=== PATIENT | female | born 1955 | race African-American/Black ===

== ENCOUNTER 2016-05-30 11:11 | Inpatient (IN) | payer OTHER ==
[~2016-05-30] VITALS: Ht 162.6 cm; Wt 78.9 kg
[2016-05-30] VITALS (8 sets, daily range): BP systolic 168–223; BP diastolic 76–98; PULSE 68–82; RESP 18–25; TEMP 98.2; O2SAT 94–98
[~2016-05-30 11:11] MED LIST: ALBU0.08 NEB; AMLO10 PO; ASPI325T PO; ATOR1TAB18 PO; BETH25 PO; BLOOD PRESSURE1 M20; BUME1TAB PO; CARD4TAB2 PO; CELE20TA PO; CLON.2 PO; FLUT50SP EACH NARE; LEVEMIR SQ; METO-309 PO; MIRA33504 PO; NEUR300C PO; NOVOLOGP2 SQ; PLAV75TA29 PO; PRED1 PO; PRED10 PO; PROM25TA5 PO; PROT40TA PO; WHEEMIS3; glucometer; hydrALAZINE PO
--- NOTE | 2016-05-30 11:38 | PD ---
HPI Chief Complaint: Chest Pain Time Seen by Provider: 11:38 Travel History International Travel<30 days: No Contact w/Intl Traveler<30days: No Traveled to known affect area: No History of Present Illness HPI 60-year-old female with a history of hypertension, hyperlipidemia, CVA 2, chronic kidney disease is brought to the emergency department from her [facility] facility for evaluation of left lower chest pain for 3 days. Patient states that she's had intermittent left lower chest pain for the past 3 days that has become more frequent and more painful. Actually, when asked what exactly hurts the patient reports "my left breast" and lifts up her left breast and points. She also complains of shortness of breath. States that she has had 2 episodes of nonbloody nonbilious emesis over the past 2 days , no vomit today. Last bowel movement was yesterday and she reports was normal. She denies any fever, chills, cough or cold symptoms, abdominal pain, diarrhea, constipation, dysuria. It should be noted that the patient is a poor historian and there is no family present at the time of evaluation. No other complaints. PFSH Past Medical History Hx Anticoagulant Therapy: No Asthma: Yes Cancer: No Cardiovascular Problems: Yes (HTN) High Cholesterol: Yes Chemotherapy: No Cerebrovascular Accident: Yes (cva x2) Diabetes: Yes Diminished Hearing: No Endocrine: Yes Hypertension: Yes Musculoskeletal: No Neurologic: Yes Psychiatric: No Respiratory: Yes (SLEEP ANEA ) Myocardial Infarction: Yes (x1) Sleep Apnea: Yes ?: Not Menopausal: Yes Past Surgical History Section: Yes (x1) Cholecystectomy: Yes Endocrine Surgery: Yes (THYROID NODULES) Gynecologic Surgery: Yes (HYSTERECTOMY) Hysterectomy: Yes Tonsillectomy: Yes Other Surgery: Yes Social History Alcohol Use: No Tobacco Use: No Substance Use: No Allergies-Medications (Allergen,Severity, Reaction): Coded Allergies: No Known Allergies (Unverified , 02/09/16) Reported Meds & Prescriptions Reported Meds & Active Scripts Active [hydrALAZINE] 100 MG Tab 100 Mg PO Q8HR Lopressor (Metoprolol Tartrate) 50 Mg Tab 100 Mg PO Q8HR Levemir Inj (Insulin Detemir) 1,000 unit/ 10 ML Vial 25 Units SQ BID Novolog Inj (Insulin Aspart) 1,000 Unit/10 Ml Vial 10 Units SQ AC DINNER Cardura (Doxazosin Mesylate) 4 Mg Tab 6 Mg PO HS Catapres (Clonidine) 0.2 Mg Tab 0.2 Mg PO Q8HR Bumetanide 1 Mg Tab 2 Mg PO DAILY Urecholine (Bethanechol Chloride) 25 Mg Tab 25 Mg PO Q8HR Norvasc (Amlodipine Besylate) 10 Mg Tab 10 Mg PO DAILY Reported Albuterol Neb (Albuterol Sulfate) 2.5 Mg/3 Ml Neb 2.5 Mg NEB Q4HR NEB PRN While awake Protonix (Pantoprazole Sodium) 40 Mg Tab 40 Mg PO DAILY Phenergan (Promethazine HCl) 25 Mg Tab 25 Mg PO Q6H PRN Plavix (Clopidogrel Bisulfate) 75 Mg Tab 75 Mg PO DAILY Neurontin (Gabapentin) 300 Mg Cap 300 Mg PO DAILY Celexa (Citalopram Hydrobromide) 20 Mg Tab 20 Mg PO DAILY Atorvastatin (Atorvastatin Calcium) 80 Mg Tab 80 Mg PO HS Aspirin 325 Mg Tab 325 Mg PO DAILY Miralax Powder (Polyethylene Glycol 3350 Powder) 17 Gm Powd 17 Gm PO DAILY Mix and dissolve one measuring cap-ful (17 grams) in water or juice. Fluticasone Nasal [place] 50 Mcg/Act Naspr 50 Mcg EACH NARE BID 50 mcg/spray Review of Systems ROS Limitations: Poor Historian Except as stated in HPI: all other systems reviewed are Neg Physical Exam Exam Limitations: Poor Historian Narrative GENERAL: Well-nourished and well-developed pleasant patient in moderate amount of discomfort but no acute distress. SKIN: Warm and dry without any obvious rashes or lesions. HEAD: Normocephalic and atraumatic. No bony point tenderness or crepitus noted throughout the sinuses. EYES: No injection, drainage, or hyphema noted. PERRLA. EOMI. ENT: No nasal drainage noted. Oropharynx is clear and the TMs are normal with good landmarks. NECK: Supple and the trachea is midline. No lymphadenopathy is noted throughout the cervical chains. CARDIOVASCULAR: Regular rate and rhythm. RESPIRATORY: Poor respiratory effort, decreased at bases. No accessory muscle use, wheezing, rhonchi, or crackles. CHEST: Tenderness to palpation to left lower chest wall underneath her breast. No obvious deformities or abnormalities noted. GASTROINTESTINAL: Abdomen is slightly distended. Abdomen is soft with no tenderness to palpation. No rebound tenderness or guarding. MUSCULOSKELETAL: No obvious deformities, swelling, cyanosis, or ecchymosis is present throughout the upper and lower extremities. NEUROLOGICAL: Awake, alert, and oriented. Right-sided deficits secondary to prior CVA, patient reports this as chronic. Cranial nerves are grossly intact. Data Data Last Documented VS Vital Signs Date Time Temp Pulse Resp B/P Pulse Ox O2 Delivery O2 Flow Rate FiO2 05/30/16 11:42 98 Nasal Cannula 3 05/30/16 11:38 73 25 05/30/16 11:38 98.2 204/84 Orders Electrocardiogram (05/30/16 11:37) Ckmb (Isoenzyme) Profile (05/30/16 11:37) Complete Blood Count With Diff (05/30/16 11:37) Comprehensive Metabolic Panel (05/30/16 11:37) Magnesium (Mg) (05/30/16 11:37) Prothrombin Time / Inr (Pt) (05/30/16 11:37) Act Partial Throm Time (Ptt) (05/30/16 11:37) Troponin I (05/30/16 11:37) Lipase (05/30/16 11:37) Chest, Single Ap (05/30/16 11:37) Ecg Monitoring (05/30/16 11:37) Bilateral Bp Monitoring (05/30/16 11:37) Iv Access Insert/Monitor (05/30/16 11:37) Oximetry (05/30/16 11:37) Oxygen Administration (05/30/16 11:37) Morphine Inj (Morphine Inj) (05/30/16 11:45) Sodium Chloride 0.9% Flush (Ns Flush) (05/30/16 11:45) CKMB (05/30/16 11:55) CKMB% (05/30/16 11:55) Ventilation & Perfusion Scan (05/30/16 12:46) B-Type Natriuretic Peptide (05/30/16 14:12) Furosemide Inj (Lasix Inj) (05/30/16 15:00) Clonidine (Catapres) (05/30/16 15:00) Admit Order (Ed Use Only) (05/30/16 15:21) Labs Laboratory Tests Test 05/30/16 11:55 White Blood Count 5.2 TH/MM3 Red Blood Count 2.99 MIL/MM3 Hemoglobin 8.1 GM/DL Hematocrit 25.1 % Mean Corpuscular Volume 83.9 FL Mean Corpuscular Hemoglobin 26.9 PG Mean Corpuscular Hemoglobin 32.1 % Concent Red Cell Distribution Width 15.6 % Platelet Count 159 TH/MM3 Mean Platelet Volume 9.5 FL Neutrophils (%) (Auto) 62.7 % Lymphocytes (%) (Auto) 18.3 % Monocytes (%) (Auto) 10.2 % Eosinophils (%) (Auto) 7.8 % Basophils (%) (Auto) 1.0 % Neutrophils # (Auto) 3.2 TH/MM3 Lymphocytes # (Auto) 0.9 TH/MM3 Monocytes # (Auto) 0.5 TH/MM3 Eosinophils # (Auto) 0.4 TH/MM3 Basophils # (Auto) 0.0 TH/MM3 CBC Comment DIFF FINAL Differential Comment Prothrombin Time 10.7 SEC Prothromb Time International 1.0 RATIO Ratio Activated Partial 24.0 SEC Thromboplast Time Sodium Level 140 MEQ/L Potassium Level 5.4 MEQ/L Chloride Level 107 MEQ/L Carbon Dioxide Level 28.4 MEQ/L Anion Gap 5 MEQ/L Blood Urea Nitrogen 44 MG/DL Creatinine 2.09 MG/DL Estimat Glomerular Filtration 29 ML/MIN Rate Random Glucose 181 MG/DL Calcium Level 8.8 MG/DL Magnesium Level 2.6 MG/DL Total Bilirubin 0.4 MG/DL Aspartate Amino Transf 38 U/L (AST/SGOT) Alanine Aminotransferase 69 U/L (ALT/SGPT) Alkaline Phosphatase 138 U/L Total Creatine Kinase 136 U/L Creatine Kinase MB 1.1 NG/ML Troponin I LESS THAN 0.02 NG/ML B-Type Natriuretic Peptide 364 PG/ML Total Protein 7.4 GM/DL Albumin 2.8 GM/DL Lipase 231 U/L [facility] Medical Decision Making Medical Screen Exam Complete: Yes Emergency Medical Condition: Yes Differential Diagnosis ACS versus pneumonia versus PE versus hypertensive urgency versus musculoskeletal pain Narrative Course 60-year-old female presents to the emergency department for evaluation of left lower chest pain for 3 days with shortness of breath. Patient is afebrile. She is initially hypertensive with a blood pressure 204/84. Oxygen saturation is 94% on room air, she is placed on nasal cannula and her oxygen saturation is 98%. She does appear to be in some discomfort and keeps clutching her left lower chest underneath her breast complaining of pain. Patient is administered morphine 2 mg IV. Labs have been drawn and sent. EKG shows sinus rhythm with no acute ST elevations or depressions. CBC shows anemia with a hemoglobin of 8.1, hematocrit 25.1. This does appear to be consistent with her previous lab values. CMP shows mild hyperkalemia with potassium 5.4 but there is slight hemolysis noted. Renal insufficiency with Creatinine 2.09, BUN 44, GFR 29, does appear to be consistent with previous lab values and is new baseline for the patient. LFTS slightly elevated. Lipase is normal. Troponin is less than 0.02. CK-MB 1.1. Chest x-ray shows cardiomegaly with moderate interstitial edema. VQ scan is negative for PE. BNP is elevated at 364. Patient appears to be in less pain but is still mildly short of breath. This shortness of breath is likely a CHF exacerbation therefore patient is given Lasix 20 mg IV. Low dose due to renal insufficiency. She also has had hypertension and is given clonidine 0.2 mg. Patient will be admitted to resident's service. I did examine the patient again with the resident and note there is now a small vesicular rash present underneath her left breast that extends around left upper back in dermatomal distribution. This certainly would explain her pain but not her shortness of breath. I discussed the case with my attending physician Dr. Womack who is aware of the patients history, physical examination findings, and treatment plan. Physician Communication Physician Communication I spoke with the medical equipment repairer who agrees to accept the patient to their service. Diagnosis Primary Impression: Shortness of breath Additional Impressions: CHF exacerbation Qualified Code: I50.9 - Acute on chronic congestive heart failure, unspecified congestive heart failure type Chronic kidney disease, stage 4 (severe) Shingles rash Qualified Code: B02.9 - Herpes zoster without complication Admitting Information Admitting Physician Requests: Admit Whit Stephens May 30, 2016 11:38
[2016-05-30] MEDS ORDERED: MORPHINE SULFATE 4 MG/ML INJ IV PUSH ONE (11:45)
[2016-05-30] MEDS ORDERED: SODIUM CHLORIDE 0.9% FLUSH 5 ML FLUSH IVF PRN (11:45)
[2016-05-30 12:08] LABS: AUTOMATED NEUTROPHIL # 3.2 TH/MM3 (1.8-7.7); EOSINOPHIL # 0.4 TH/MM3 (0-0.4); EOSINOPHIL % 7.8 % (0.0-4.0); HEMATOCRIT 25.1 % (35.0-46.0); HEMO FLAGS DIFF FINAL; LYMPH % 18.3 % (9.0-44.0); LYMPHOCYTE # 0.9 TH/MM3 (1.0-4.8); MEAN CELL VOLUME 83.9 FL (80.0-100.0); MEAN CORPUSCULAR HEMOGLOBIN 26.9 PG (27.0-34.0); MEAN CORPUSCULAR HGB CONC 32.1 % (32.0-36.0); MONO % 10.2 % (0.0-8.0); NEUT % 62.7 % (16.0-70.0); PLATELET COUNT 159 TH/MM3 (150-450); RED BLOOD COUNT 2.99 MIL/MM3 (4.00-5.30); RED CELL DISTRIBUTION WIDTH 15.6 % (11.6-17.2); WHITE BLOOD COUNT 5.2 TH/MM3 (4.0-11.0)
[2016-05-30 12:20] LABS: PROTHROMBIN TIME - PATIENT 10.7 SEC (9.8-11.6)
[2016-05-30 12:47] LABS: ALKALINE PHOSPHATASE 138 U/L (45-117); ALT (GPT) 69 U/L (10-53); ANION GAP 5 MEQ/L (5-15); AST (GOT) 38 U/L (15-37); BICARBONATE 28.4 MEQ/L (21.0-32.0); BLOOD UREA NITROGEN 44 MG/DL (7-18); CHLORIDE 107 MEQ/L (98-107); CREATINE KINASE 136 U/L (26-192); GLOMERULAR FILTRATION RATE 29 ML/MIN (>89); MAGNESIUM 2.6 MG/DL (1.5-2.5); POTASSIUM 5.4 MEQ/L (3.5-5.1); SODIUM (NA) 140 MEQ/L (136-145); TOTAL BILIRUBIN ADULT 0.4 MG/DL (0.2-1.0)
[2016-05-30 13:00] LABS: CKMB 1.1 NG/ML (0.5-3.6)
--- NOTE | 2016-05-30 13:51 | RADRPT ---
EXAM DATE/TIME: 05/30/2016 12:05 [facility] COMPARISON: CHEST SINGLE AP, February 17, 2016, 4:05. INDICATIONS : Short of breath, chest pain MEDICAL HISTORY : Hypertension. Myocardial infarction. Stroke. SURGICAL HISTORY : Tonsillectomy. Hysterectomy. section. ENCOUNTER: Initial ACUITY: 1 day PAIN SCORE: Non-responsive. LOCATION: Bilateral chest FINDINGS: The heart is enlaraged. Moderate interstitial edema is present. Minimal bibasilar parenchymal mckeon es are noted. CONCLUSION: Heart remains enlarged with moderate interstitial edema. Del Isaac MD FACR on May 30, 2016 at 12:47 Board Certified Radiologist. This report was verified electronically.
--- NOTE | 2016-05-30 14:47 | RADRPT ---
EXAM DATE/TIME: 05/30/2016 13:44 [facility] COMPARISON: CHEST SINGLE AP, May 30, 2016, 12:05. INDICATIONS : Left sided chest pain with dyspnea. DOSE: 8.5 mCi Tc99m MAA IV 0.5 mCi Tc99m DTPA aerosol MEDICAL HISTORY : Hypertension. Diabetes mellitus type 2. Stroke. SURGICAL HISTORY : Cholecystectomy. Hysterectomy. section. Tonsillectomy. ENCOUNTER: Initial ACUITY: 1 day PAIN SCALE: 2/10 LOCATION: Left chest TECHNIQUE: Following five minutes of tidal breathing of DTPA aerosol, planar images of the lungs were performed in eight projections. The patient was then injected with MAA, and eight-view perfusion scan was perf ormed. FINDINGS: There is a homogeneous pattern of aerosol delivery to the periphery of both lungs. No focal ventilat ory defects are seen. The perfusion lung scan demonstrates a homogenous pattern of uptake in both lungs. No segmental or s ubsegmental defects are seen. CONCLUSION: Negative for pulmonary embolus. Julio Kruger MD on May 30, 2016 at 14:39 Board Certified Radiologist. This report was verified electronically.
[2016-05-30] MEDS ORDERED: cloNIDine HCL 0.2 MG TAB PO ONE (15:00)
[2016-05-30] MEDS ORDERED: FUROSEMIDE 20 MG/2 ML VIAL IV PUSH ONE (15:00)
--- NOTE | 2016-05-30 15:23 | HHI.HP ---
[facility] Service Family Medicine Teaching Service Primary Care Physician Zeinab Josue MD Admission Diagnosis Diagnoses: Chief Complaint: chest pain International Travel<30 Days: No Contact w/Intl Traveler<30days: No Known Affected Area: No History of Present Illness Ms. Greenberg is a 60-year-old female with a history of hypertension, T2DM, CVA 2 s/p right riana-paresis, and chronic kidney disease who presents to ED via [facility] from [facility] for evaluation of left lower chest/ breast pain for the past 3 days. She describes burning, stabbing pain localized to her left chest underneath her breast. No radiation of pain. Endorses mild shortness of breath. Denies fever, cough, wheezing, palpitations, nausea, or changes in urinary or bowel habits. She did have one episode of emesis 2 days ago but that has resolved. Review of Systems ROS Limitations: Poor Historian Constitutional: DENIES: Fever, Weight loss, Chills, Dizziness, Change in appetite Endocrine: DENIES: Polyuria Ears, nose, mouth, throat: DENIES: Throat pain Respiratory: COMPLAINS OF: Shortness of breath, DENIES: Cough, Wheezing, Hemoptysis, Sputum production Cardiovascular: COMPLAINS OF: Chest pain, DENIES: Palpitations Gastrointestinal: DENIES: Black stools, Bloody stools, Diarrhea, Nausea, Vomiting Musculoskeletal: COMPLAINS OF: Joint pain Integumentary: DENIES: Rash Neurologic: COMPLAINS OF: Localized weakness, DENIES: Headache, Paresthesias Past Family Social History Past Medical History Per EMR HTN DM HLD Depression Neuropathy Previously on O2 at home and 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[place], [place] 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 impairment Past Surgical History *she can't recall surgeries; these listed are from the EMR Hysterectomy Csection X 1 Right shoulder surgery Tonsillectomy Removal of thyroid nodules "Tumors removed from abdomen" Reported Medications Prednisone 1 Mg Tab 1 Mg PO DIRECTED Take 10 mg for one week starting 03/18, 9 mg the following week, 8 mg the following week, 7 mg the following week, 6 mg the following week, 5 mg the following week, 4 mg the following week, 3 mg the following week, 2 mg the following week, and finally 1 mg the following week Prednisone 10 Mg Tab 10 Mg PO DIRECTED Take 30 mg 03/15, 20 mg 03/16, and 10 mg 03/17 [hydrALAZINE] 100 MG Tab 100 Mg PO Q8HR Lopressor (Metoprolol Tartrate) 50 Mg Tab 100 Mg PO Q8HR Levemir Inj (Insulin Detemir) 1,000 unit/ 10 ML Vial 25 Units SQ BID Novolog Inj (Insulin Aspart) 1,000 Unit/10 Ml Vial 10 Units SQ AC DINNER Cardura (Doxazosin Mesylate) 4 Mg Tab 6 Mg PO HS Catapres (Clonidine) 0.2 Mg Tab 0.2 Mg PO Q8HR Bumetanide 1 Mg Tab 2 Mg PO DAILY Urecholine (Bethanechol Chloride) 25 Mg Tab 25 Mg PO Q8HR Norvasc (Amlodipine Besylate) 10 Mg Tab 10 Mg PO DAILY Albuterol Neb (Albuterol Sulfate) 2.5 Mg/3 Ml Neb 2.5 Mg NEB Q4HR NEB PRN While awake Protonix (Pantoprazole Sodium) 40 Mg Tab 40 Mg PO DAILY Phenergan (Promethazine HCl) 25 Mg Tab 25 Mg PO Q6H PRN Plavix (Clopidogrel Bisulfate) 75 Mg Tab 75 Mg PO DAILY Neurontin (Gabapentin) 300 Mg Cap 300 Mg PO DAILY Celexa (Citalopram Hydrobromide) 20 Mg Tab 20 Mg PO DAILY Atorvastatin (Atorvastatin Calcium) 80 Mg Tab 80 Mg PO HS Aspirin 325 Mg Tab 325 Mg PO DAILY Miralax Powder (Polyethylene Glycol 3350 Powder) 17 Gm Powd 17 Gm PO DAILY Mix and dissolve one measuring cap-ful (17 grams) in water or juice. Fluticasone Nasal [place] 50 Mcg/Act Naspr 50 Mcg EACH NARE BID 50 mcg/spray Allergies: Coded Allergies: No Known Allergies (Unverified , 02/09/16) Family History 24 brothers and sisters significant family history of HTN, DM, Depression significant family history of drug/alcohol abuse Mother: Colon cancer, DM, CAD, HTN Father: at 63 unknown cause Social History Patient moved here to live with her sister in November 2014. Patient's brother and sister's also live in the home. She denies any tobacco, alcohol, or illicit drug use. She has a son who is 33 years old and was recently released from a 17 year assisted sentence. He is currently on parole near [place], [place]. Patient and her sister attend scient[employer] regularly. Physical Exam Vital Signs Vital Signs Date Time Temp Pulse Resp B/P Pulse Ox O2 Delivery O2 Flow Rate FiO2 05/30/16 11:42 98 Nasal Cannula 3 05/30/16 11:42 98 Nasal Cannula 3 05/30/16 11:38 73 25 98 Nasal Cannula 3 05/30/16 11:38 98.2 73 25 204/84 98 Nasal Cannula 3 05/30/16 11:33 98.2 73 18 204/84 98 Physical Exam GENERAL: This is a well-nourished, well-developed patient, in no apparent distress. SKIN: No rashes, ecchymoses or lesions. Cool and dry. HEAD: Atraumatic. Normocephalic. No temporal or scalp tenderness. EYES: Pupils equal round and reactive. Extraocular motions intact. No scleral icterus. No injection or drainage. ENT: Nose without bleeding, purulent drainage or septal hematoma. Throat without erythema, tonsillar hypertrophy or exudate. Uvula midline. Airway patent. NECK: Trachea midline. No JVD or lymphadenopathy. Supple, nontender, no meningeal signs. CARDIOVASCULAR: Regular rate and rhythm without murmurs, gallops, or rubs. RESPIRATORY: Clear to auscultation. Breath sounds equal bilaterally. No wheezes , rales, or rhonchi. GASTROINTESTINAL: Abdomen soft, non-tender, nondistended. No hepato-splenomegaly , or palpable masses. No guarding. MUSCULOSKELETAL: Extremities without clubbing, cyanosis, or edema. No joint tenderness, effusion, or edema noted. No calf tenderness. Negative Homans sign bilaterally. NEUROLOGICAL: Awake and alert. Cranial nerves II through XII intact. Motor and sensory grossly within normal limits. Five out of 5 muscle strength in all muscle groups. Normal speech. Laboratory Laboratory Tests Test 05/30/16 11:55 White Blood Count 5.2 Red Blood Count 2.99 Hemoglobin 8.1 Hematocrit 25.1 Mean Corpuscular Volume 83.9 Mean Corpuscular Hemoglobin 26.9 Mean Corpuscular Hemoglobin 32.1 Concent Red Cell Distribution Width 15.6 Platelet Count 159 Mean Platelet Volume 9.5 Neutrophils (%) (Auto) 62.7 Lymphocytes (%) (Auto) 18.3 Monocytes (%) (Auto) 10.2 Eosinophils (%) (Auto) 7.8 Basophils (%) (Auto) 1.0 Neutrophils # (Auto) 3.2 Lymphocytes # (Auto) 0.9 Monocytes # (Auto) 0.5 Eosinophils # (Auto) 0.4 Basophils # (Auto) 0.0 CBC Comment DIFF FINAL Differential Comment Prothrombin Time 10.7 Prothromb Time International 1.0 Ratio Activated Partial 24.0 Thromboplast Time Sodium Level 140 Potassium Level 5.4 Chloride Level 107 Carbon Dioxide Level 28.4 Anion Gap 5 Blood Urea Nitrogen 44 Creatinine 2.09 Estimat Glomerular Filtration 29 Rate Random Glucose 181 Calcium Level 8.8 Magnesium Level 2.6 Total Bilirubin 0.4 Aspartate Amino Transf 38 (AST/SGOT) Alanine Aminotransferase 69 (ALT/SGPT) Alkaline Phosphatase 138 Total Creatine Kinase 136 Creatine Kinase MB 1.1 Troponin I LESS THAN 0.02 B-Type Natriuretic Peptide 364 Total Protein 7.4 Albumin 2.8 Lipase 231 Result Diagram: 05/30/16 1155 05/30/16 1155 Assessment and Plan Problem List: (1) CKD (chronic kidney disease) stage 3, GFR 30-59 ml/min Status: Chronic (2) Shortness of breath Status: Acute (3) Shingles rash Status: Acute (4) Chest pain Status: Acute (5) Diabetes mellitus Status: Chronic (6) Hypertension Status: Chronic (7) Transaminitis Status: Acute (8) Nutrition, metabolism, and development symptoms Status: Acute (9) Prophylactic measure Status: Acute (10) Anemia Status: Chronic Physician Certification Order for Inpatient Services The services are ordered in accordance with Medicare regulations or non- Medicare payer requirements, as applicable. In the case of services not specified as inpatient-only, they are appropriately provided as inpatient services in accordance with the 2-midnight benchmark. days is the estimated time the patient will need to remain in the hospital, assuming treatment plan goals are met and no additional complications. Problem Qualifiers (1) Shingles rash: Qualified Code: B02.9 - Herpes zoster without complication (2) Diabetes mellitus: Ely Pierce MD R3 May 30, 2016 15:23
[2016-05-30] MEDS ORDERED: INSU1INJ5 SQ (15:57)
[2016-05-30] MEDS ORDERED: CARD4TAB2 PO (15:57)
[2016-05-30] MEDS ORDERED: HYDR-3801 PO (15:57)
[2016-05-30] MEDS ORDERED: FERR325T PO (15:57)
[2016-05-30] MEDS ORDERED: NOVOINJ3 SQ (15:57)
[2016-05-30] MEDS ORDERED: METO50TA PO (15:57)
[2016-05-30] MEDS ORDERED: DEXTROSE 50% IN WATER 50 ML VIAL(D50) IV PUSH PRN (16:00)
[2016-05-30] MEDS ORDERED: NALOXONE HCL 0.4 MG/ML AMP IV PRN (16:00)
[2016-05-30] MEDS ORDERED: ACETAMINOPHEN 325 MG TAB PO PRN (16:00)
[2016-05-30] MEDS ORDERED: ZOLPIDEM TARTRATE 5 MG TAB PO PRN (16:00)
[2016-05-30] MEDS ORDERED: GLUCAGON 1 MG/ML VIAL OTHER PRN (16:00)
[2016-05-30] MEDS: INSULIN ASPART SUPPLEMENTAL SCALE SQ SCH ×2 (16:00→20:40)
[2016-05-30] MEDS ORDERED: MAGNESIUM HYDROXIDE SUSP 30 ML CUP PO PRN (16:00)
[2016-05-30] MEDS ORDERED: SODIUM CHLORIDE 0.9% FLUSH 5 ML FLUSH FLUSH PRN (16:00)
[2016-05-30] MEDS ORDERED: DULC10SU3 PR (16:03)
[2016-05-30] MEDS ORDERED: IPRASOL NEB (16:03)
[2016-05-30] MEDS ORDERED: MYLASUS2 PO (16:03)
[2016-05-30] MEDS ORDERED: MILKSUS PO (16:03)
[2016-05-30] MEDS ORDERED: FLEEENE3 PR (16:03)
[2016-05-30] MEDS ORDERED: LOPE2TAB3 PO (16:03)
[2016-05-30] MEDS ORDERED: TYLE325T PO (16:03)
--- NOTE | 2016-05-30 16:48 | HHI.HP ---
[facility] Service [facility] Medicine Teaching Service Primary Care Physician Zeinab Josue MD Admission Diagnosis Diagnoses: (1) CKD (chronic kidney disease) stage 3, GFR 30-59 ml/min (2) Shortness of breath (3) Shingles rash (4) Chest pain Chief Complaint: left sided chest pain International Travel<30 Days: No Contact w/Intl Traveler<30days: No Known Affected Area: No History of Present Illness Ms. Greenberg is a 60-year-old female with a history of hypertension, T2DM, CVA 2 s/p right riana-paresis, and chronic kidney disease who presents to ED via [facility] from [facility] for evaluation of left lower chest/ breast pain for the past 3 days. History is limited but she endorses burning, stabbing pain localized to her left chest underneath her breast. No radiation of pain. Reports mild shortness of breath. Denies fever, cough, wheezing, palpitations, nausea, or changes in urinary or bowel habits. She did have one episode of emesis 2 days ago but that has resolved. No other complaints. Review of Systems ROS Limitations: Poor Historian Constitutional: DENIES: Fever, Chills Respiratory: COMPLAINS OF: Shortness of breath, DENIES: Cough, Wheezing, Hemoptysis, Sputum production Cardiovascular: COMPLAINS OF: Chest pain, Lower Extremity Edema, DENIES: Palpitations, Syncope, Dyspnea on Exertion Gastrointestinal: DENIES: Black stools, Bloody stools, Diarrhea, Nausea, Vomiting Musculoskeletal: COMPLAINS OF: Joint pain Integumentary: DENIES: Rash Neurologic: COMPLAINS OF: Localized weakness, DENIES: Headache, Paresthesias Psychiatric: DENIES: Confusion Past Family Social History Past Medical History Per EMR, HTN DM HLD Depression Neuropathy Previously on O2 at home but has not been on any supplemental O2 for a while. 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. She denies any tobacco, alcohol, or illicit drug use. Physical Exam Vital Signs Vital Signs Date Time Temp Pulse Resp B/P Pulse Ox O2 Delivery O2 Flow Rate FiO2 05/30/16 11:42 98 Nasal Cannula 3 05/30/16 11:42 98 Nasal Cannula 3 05/30/16 11:38 73 25 98 Nasal Cannula 3 05/30/16 11:38 98.2 73 25 204/84 98 Nasal Cannula 3 05/30/16 11:33 98.2 73 18 204/84 98 Physical Exam GENERAL: This is a well-nourished, well-developed AAF lying in bed in [facility]. SKIN: Vesicular lesions with mild surrounding erythema underneath left breast and left side of back. Area is extremely sensitive to touch. Cool and dry. HEAD: Atraumatic. Normocephalic. EYES: Pupils equal round and reactive. Extraocular motions intact. No scleral icterus. No injection or drainage. ENT: Nose without bleeding, purulent drainage or septal hematoma. Throat without erythema, tonsillar hypertrophy or exudate. Uvula midline. Airway patent. NECK: Trachea midline. No JVD or lymphadenopathy. Supple, nontender, no meningeal signs. CARDIOVASCULAR: Regular rate and rhythm without murmurs, gallops, or rubs. RESPIRATORY: Clear to auscultation. Breath sounds equal bilaterally, slightly decrease at bases. No wheezes, rales, or rhonchi. No respiratory distress. No increased work of breathing. 02 sats 97-98% on 1L via [place] GASTROINTESTINAL: Abdomen protuberant but soft and non-tender. No palpable masses. No guarding or rebound tenderness. MUSCULOSKELETAL: 1+ pitting edema in bilateral extremities up to mid tineo. Right hand and fingers with non-pitting edema. 5/5 strength on left side but 1/ 5 strength in right UE and LE. NEUROLOGICAL: Awake and alert. Oriented x 3. Answers questions appropriately but takes her a long time to get the words out. Speech is pressured and slow. Laboratory Laboratory Tests Test 05/30/16 11:55 White Blood Count 5.2 Red Blood Count 2.99 Hemoglobin 8.1 Hematocrit 25.1 Mean Corpuscular Volume 83.9 Mean Corpuscular Hemoglobin 26.9 Mean Corpuscular Hemoglobin 32.1 Concent Red Cell Distribution Width 15.6 Platelet Count 159 Mean Platelet Volume 9.5 Neutrophils (%) (Auto) 62.7 Lymphocytes (%) (Auto) 18.3 Monocytes (%) (Auto) 10.2 Eosinophils (%) (Auto) 7.8 Basophils (%) (Auto) 1.0 Neutrophils # (Auto) 3.2 Lymphocytes # (Auto) 0.9 Monocytes # (Auto) 0.5 Eosinophils # (Auto) 0.4 Basophils # (Auto) 0.0 CBC Comment DIFF FINAL Differential Comment Prothrombin Time 10.7 Prothromb Time International 1.0 Ratio Activated Partial 24.0 Thromboplast Time Sodium Level 140 Potassium Level 5.4 Chloride Level 107 Carbon Dioxide Level 28.4 Anion Gap 5 Blood Urea Nitrogen 44 Creatinine 2.09 Estimat Glomerular Filtration 29 Rate Random Glucose 181 Calcium Level 8.8 Magnesium Level 2.6 Total Bilirubin 0.4 Aspartate Amino Transf 38 (AST/SGOT) Alanine Aminotransferase 69 (ALT/SGPT) Alkaline Phosphatase 138 Total Creatine Kinase 136 Creatine Kinase MB 1.1 Troponin I LESS THAN 0.02 B-Type Natriuretic Peptide 364 Total Protein 7.4 Albumin 2.8 Lipase 231 Result Diagram: 05/30/16 1155 05/30/16 1155 Imaging Last Impressions Lung Scan-VQ Nuclear Medicine 05/30/16 1246 Signed Impressions: Service Date/Time: Monday, May 30, 2016 13:44 - CONCLUSION: Negative for pulmonary embolus. Julio Kruger MD Assessment and Plan Assessment and Plan Ms. 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 Will admit to observation and evaluation of chest pain. Code Status FULL Discussed Condition With d/w Dr. James Problem List: (1) Chest pain Status: Acute Plan: Patient presents with burning and stabbing pain localized to her left lower chest x 3 days. Endorses some shortness of breath. Exam is remarkable for mild decreased breath sounds at lung bases but otherwise, lung and chest exam are unremarkable. O2 sats is 97-98 % on RA. In addition, she does have some vesicular lesions on underneath her left breath (area where she was complaining of the pain) as well as left upper back. Chest xray shows moderate interstitial edema. EKG unremarkable except for possible right axis deviation. V/Q scan ordered in ED isnegative for PE. Pain likely secondary to shingles, however given her history DDX include ACS, CHF exacerbation, PNA -ACS rule out. Trend cardiac enzymes and monitor EKGs. First set of cardiac enzyme is negative. -Cardiac telemetry -Morphine prn pain -Supplemental O2 prn. -Acyclovir, renally dosed, for shingles -Patient received Lasix 20mg IV for possible CHF exacerbation. Lung exam unremarkable. O2 sats stable on 1L via NC. Will hold at this time given her history of CKD. If shortness of breath continues, will give another dose of lasix -ECHO pending (2) Shortness of breath Status: Acute Plan: DDX: acute CHF, ACS, PNA. Could also be related to shingles as it could be painful for her to take deep breaths. O2 sats 98% on 3L but when I was in the room, she is 97-98% on only 1L via NC. -See plan above -Albuterol neb prn -Patient is already on Bumex 2mg po daily at home. If increased SOB, could consider giving Lasix 20mg IV x 1 -Monitor O2 and provide supplemental O2 prn. (3) Shingles rash Status: Acute Plan: Acyclovir 800mg 5x/day, renally dose per pharmacy [facility] 5mg Q6h prn pain Gabapentin (4) CKD (chronic kidney disease) stage 3, GFR 30-59 ml/min Status: Chronic Plan: GFR 29. BUN/Cr 29/2.09, which appears to be baseline for the patient. -Avoid nephrotoxic agents -Renally dose medications -Monitor electrolytes and repeat BMP in AM. -Consider nephrology consult if renal function deteriorates. (5) Diabetes mellitus Status: Chronic Plan: Serum glucose 181 on admission. -Sliding scale insulin -Monitor accuchecks -Diabetic diet (6) Transaminitis Status: Acute Plan: AST/ALT 38/69. ALP 138. No history of liver disease. Etiology unclear. -Repeat CMP in AM -Avoid hepatotoxic agents (7) Swelling of right hand Status: Acute Plan: Likely chronic depend edema form right-sided hemiparesis. However we do not know baseline -Will obtain u/s to rule out blood clots -Keep arm/hand elevated (8) Hypertension Status: Chronic Plan: BP 204/84 on admission. -Continue home antihypertensives -Hydralazine and Clonidine prn (9) Anemia Status: Chronic Plan: Patient with normocytic anemia. Hb 8.1, baseline is around 8-9. Likely anemia of chronic disease -Continue to monitor. Repeat CBC in AM -Hemoccult to rule out GIB (10) Nutrition, metabolism, and development symptoms Status: Acute Plan: Diet: Diabetic Fluids: HLIV. Caution with fluids given history of CHF and clinical edema and effusion noted on CXR. Electrolytes: K 5.4. Continue to monitor. Repeat BMP at 1800. (11) Prophylactic measure Status: Acute Plan: SCDs bilaterally. Given the anemia, will obtain hemoccult prior to starting chemical anticoagulation Problem Qualifiers (1) Shingles rash: Qualified Code: B02.9 - Herpes zoster without complication (2) Diabetes mellitus: Ely Pierce MD R3 May 30, 2016 16:48
[2016-05-30] MEDS ORDERED: RESP: ALBUTEROL 2.5 MG/3 ML NEB (PRN) NEB (17:30)
[2016-05-30] MEDS: DOCUSATE SODIUM 100 MG CAP PO SCH (17:31)
--- NOTE | 2016-05-30 18:08 | RADRPT ---
EXAM DATE/TIME: 05/30/2016 17:02 [facility] COMPARISON: No previous studies available for comparison. INDICATIONS : Right arm swelling. MEDICAL HISTORY : Myocardial infarction. Hypercholesterolemia. Hypertension. Cerebrovascular accident. Sleep apnea. Ast hma. Diabetes. SURGICAL HISTORY : Cholecystectomy. Hysterectomy. section. Abdominal tumor removal. Right shoulder surgery. Th yroid nodule removal. ENCOUNTER: Initial ACUITY: 1 day PAIN SCORE: 2/10 LOCATION: Right arm. FINDINGS: There is spontaneous flow documented in the brachial, basilic, cephalic, axillary, and subclavian vei ns. The vessels are compressible and augmentation response is documented. No filling defects are se en. The flow is phasic with respiration. Direction of flow in the jugular vein is caudal. CONCLUSION: No evidence of right upper extremity DVT. Julio Kruger MD on May 30, 2016 at 18:06 Board Certified Radiologist. This report was verified electronically.
[2016-05-30] MEDS: FERROUS SULFATE 325 MG (65 MG ELEMENTAL IRON) TAB PO SCH (19:00)
[2016-05-30] MEDS: ACYCLOVIR 800 MG TAB PO SCH ×2 (19:00→21:39)
[2016-05-30] MEDS ORDERED: ALUMINUM/MAGNESIUM/SIMETH 30 ML CUP PO PRN (20:00)
[2016-05-30] MEDS ORDERED: ALUMINUM/MAGNESIUM/SIMETH 30 ML CUP PO SCH (20:00)
[2016-05-30 20:52] LABS: ANION GAP 5 MEQ/L (5-15); BICARBONATE 26.9 MEQ/L (21.0-32.0); BLOOD UREA NITROGEN 42 MG/DL (7-18); CHLORIDE 111 MEQ/L (98-107); GLOMERULAR FILTRATION RATE 31 ML/MIN (>89); POTASSIUM 4.5 MEQ/L (3.5-5.1); SODIUM (NA) 143 MEQ/L (136-145)
[2016-05-30] MEDS: MORPHINE SULFATE 4 MG/ML INJ IV PUSH PRN (20:52)
[2016-05-30] MEDS: ONDANSETRON HCL 4 MG/2 ML VIAL IVP PRN (20:53)
[2016-05-30] MEDS: ATORVASTATIN 80 MG TAB PO SCH (21:00)
[2016-05-30] MEDS: METOPROLOL TARTRATE 50 MG TAB PO SCH (21:00)
[2016-05-30] MEDS: DOXAZOSIN MESYLATE 4 MG TAB PO SCH (21:00)
[2016-05-30] MEDS: SODIUM CHLORIDE 0.9% FLUSH 5 ML FLUSH FLUSH SCH (21:05)
[2016-05-30] MEDS: GABAPENTIN 300 MG CAP PO SCH (21:38)
[2016-05-30] MEDS: BETHANECHOL CHL 25 MG TAB PO SCH (21:39)
[2016-05-30] MEDS ORDERED: cloNIDine HCL 0.2 MG TAB PO SCH (22:00)
[2016-05-30] MEDS ORDERED: hydrALAZINE HCL 100 MG TAB PO SCH (22:00)
[2016-05-30] MEDS: LABETALOL INJ 500 MG in SODIUM CHLOR 0.9% 250 ML INJ 150 ML IV SCH (22:24)
[2016-05-30] MEDS: FLUTICASONE PROPIONATE 50 MCG/ACT 16 GM NASAL SPRAY EACH NARE SCH (23:39)
[2016-05-31] VITALS (21 sets, daily range): BP systolic 131–196; BP diastolic 59–82; PULSE 72–100; RESP 12–22; TEMP 97.8–100; O2SAT 94–100
[2016-05-31] MEDS: MORPHINE SULFATE 4 MG/ML INJ IV PUSH PRN ×2 (03:37→23:26)
[2016-05-31] MEDS: ONDANSETRON HCL 4 MG/2 ML VIAL IVP PRN ×2 (03:37→23:24)
[2016-05-31] MEDS: LABETALOL INJ 500 MG in SODIUM CHLOR 0.9% 250 ML INJ 150 ML IV SCH (03:38)
[2016-05-31 04:27] LABS: AUTOMATED NEUTROPHIL # 3.3 TH/MM3 (1.8-7.7); BASOPHIL % 0.8 % (0.0-2.0); EOSINOPHIL # 0.3 TH/MM3 (0-0.4); HEMO FLAGS DIFF FINAL; LYMPHOCYTE # 0.6 TH/MM3 (1.0-4.8); MEAN CELL VOLUME 84.2 FL (80.0-100.0); MEAN CORPUSCULAR HEMOGLOBIN 26.8 PG (27.0-34.0); MEAN CORPUSCULAR HGB CONC 31.9 % (32.0-36.0); MONO % 11.6 % (0.0-8.0); NEUT % 68.6 % (16.0-70.0); PLATELET COUNT 136 TH/MM3 (150-450); RED BLOOD COUNT 2.73 MIL/MM3 (4.00-5.30); RED CELL DISTRIBUTION WIDTH 15.8 % (11.6-17.2); WHITE BLOOD COUNT 4.9 TH/MM3 (4.0-11.0)
[2016-05-31 04:37] LABS: ALT (GPT) 54 U/L (10-53); ANION GAP 6 MEQ/L (5-15); AST (GOT) 24 U/L (15-37); BICARBONATE 27.1 MEQ/L (21.0-32.0); BLOOD UREA NITROGEN 44 MG/DL (7-18); CHLORIDE 108 MEQ/L (98-107); GLOMERULAR FILTRATION RATE 29 ML/MIN (>89); POTASSIUM 4.8 MEQ/L (3.5-5.1); SODIUM (NA) 141 MEQ/L (136-145)
[2016-05-31 04:40] LABS: ALKALINE PHOSPHATASE 122 U/L (45-117); TOTAL BILIRUBIN ADULT 0.3 MG/DL (0.2-1.0)
[2016-05-31] MEDS: DOCUSATE SODIUM 100 MG CAP PO SCH ×2 (04:48→16:38)
[2016-05-31] MEDS: BETHANECHOL CHL 25 MG TAB PO SCH ×3 (06:00→22:00)
[2016-05-31] MEDS: GABAPENTIN 300 MG CAP PO SCH ×3 (06:00→20:36)
[2016-05-31] MEDS: ACYCLOVIR 800 MG TAB PO SCH ×5 (06:00→20:35)
[2016-05-31] MEDS: INSULIN ASPART SUPPLEMENTAL SCALE SQ SCH ×4 (07:00→20:35)
--- NOTE | 2016-05-31 07:01 | RADRPT ---
EXAM DATE/TIME: 05/31/2016 06:53 [facility] COMPARISON: CT BRAIN W/O CONTRAST, October 25, 2015, 14:21. INDICATIONS : Altered mental status. RADIATION DOSE: 43.38 CTDIvol (mGy) MEDICAL HISTORY : Cardiovascular disease. Hypertension. Myocardial infarction. SURGICAL HISTORY : Hysterectomy. Cholecystectomy. ENCOUNTER: Initial ACUITY: 1 day PAIN SCALE: 0/10 LOCATION: cranial TECHNIQUE: Multiple contiguous axial images were obtained of the head. Using automated exposure control and adj ustment of the mA and/or kV according to patient size, radiation dose was kept as low as reasonably a chievable to obtain optimal diagnostic quality images. FINDINGS: CEREBRUM: There is mild cerebral atrophy. Ventricles are normal in size. There is moderate severity periventric ular white matter low attenuation. There is stable encephalomalacia in the left frontal high convexit y and there is stable low density in the left basal ganglia. No evidence of midline shift, mass lesio n, hemorrhage or acute infarction. No extra-axial fluid collections are seen. There is ossification along the falx cerebri. POSTERIOR FOSSA: The cerebellum and brainstem demonstrate no acute finding. The 4th ventricle is midline. The cerebe llopontine angle is unremarkable. EXTRACRANIAL: There is fluid in the mastoid air cells bilaterally and there is mucoperiosteal thickening within the sphenoid sinus. SKULL: The calvaria is intact. No evidence of skull fracture. CONCLUSION: 1. Stable noncontrast head CT. No acute intracranial abnormality is identified. 2. Chronic changes include cerebral atrophy and periventricular white matter change characteristic of chronic microvascular ischemia. There is encephalomalacia in the left frontal lobe and left basal ga nglia likely related to prior ischemia. 3. There is fluid in the mastoid air cells bilaterally. Vipin Merlos MD on May 31, 2016 at 6:56 Board Certified Radiologist. This report was verified electronically.
--- NOTE | 2016-05-31 07:37 | HHI.FPPN ---
Addendum to progress note ADDENDUM Reason for addendum: Additonal documentation Additional information S: Patient seen and evaluated. Overnight was having difficulty with hypertension and hypoglycemia. Her blood pressure was in the low 200s/100s. She was due for multiple by mouth medications but was having some difficulty with swallowing, and for nurse felt unsafe to provide by mouth medications. Due to the height of the blood pressure patient was started on a labetalol drip which was able to control blood pressure. The hypoglycemia was 50 and corrected with IV D50. Went to evaluate the patient, she has a history of multiple CVAs and at baseline is a poor historian with noticeable right-sided weakness and contracture, and questionable left-sided droop. Labetalol drip has been subsequently stopped as her blood pressures are now under control in the 140s/80s, and the below drip has been DC'd with the hopes that hydralazine IV can control anymore elevated blood pressure. O: GENERAL: Well-nourished, well-developed patient. No acute distress. SKIN: Warm and dry. No rash. EYES: No scleral icterus. No injection or drainage. PERRLA. EOMI. left-sided gaze. No noticeable nystagmus. HENT: Normocephalic. Atraumatic. MMM. Left-sided facial droop NECK: No visible JVD or lymphadenopathy. CARDIOVASCULAR: Regular rate and rhythm without murmurs, gallops, or rubs. RESPIRATORY: Clear to auscultation. Breath sounds equal bilaterally, slightly decrease at bases. No wheezes, rales, or rhonchi. No respiratory distress. No increased work of breathing. 02 sats 97-98% on 1L via [place] GASTROINTESTINAL: Abdomen protuberant but soft and non-tender. No palpable masses. No guarding or rebound tenderness. MUSCULOSKELETAL: 1+ pitting edema in bilateral extremities up to mid tineo. Right hand and fingers with non-pitting edema. 5/5 strength on left side but 1/ 5 strength in right UE and LE. NEUROLOGICAL: Awake and alert. Oriented X 2. Answers questions in one words. Occasionally appearing to be word salad then start speaking in complete sentences, though slow and pressured A/P: Ms. 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 Admitted for chest pain early believed to be due to shingles. Overnight had poorly controlled blood pressure and patient was having difficulty swallowing her oral medications. Blood pressure controlled with labetalol drip now converted to hydralazine IV. On evaluation concern for altered mental status due to ing versus CVA. * Ordered stat CT: stable no acute events * MRI Brain to be determined by day team * Transfer to ICU * IV hydralazine * Closely monitor blood sugar, IV D50 as needed due to hypoglycemic episode Andrea Christy MD R2 May 31, 2016 07:16
[2016-05-31] MEDS: hydrALAZINE HCL 20 MG/ML VIAL IV PUSH PRN ×2 (08:05→21:06)
[2016-05-31] MEDS ORDERED: LORazepam 2 MG/ML VIAL IV PUSH PRN (08:15)
[2016-05-31 08:34] LABS: BACTERIA, URINE MOD /hpf; BLOOD, URINE SMALL (NEG); GLUCOSE,URINE NEG (NEG); HYALINE CAST, URINE 3 /lpf (RARE); KETONE, URINE NEG (NEG); MUCUS URINE FEW /lpf (OCC); NITRITE,URINE NEG (NEG); PH, URINE 5.5 (5.0-8.5); SQUAMOUS EPITHELIAL CELL URINE <1 /hpf (0-5); URINE COLOR YELLOW (YELLW/STRAW)
[2016-05-31 08:36] LABS: COMMENT (UR) CATH-CULTURE IND; CULTURE IF INDICATED CATH CULTURE IND
[2016-05-31] MEDS: FLUTICASONE PROPIONATE 50 MCG/ACT 16 GM NASAL SPRAY EACH NARE SCH ×2 (08:51→21:01)
[2016-05-31] MEDS: FERROUS SULFATE 325 MG (65 MG ELEMENTAL IRON) TAB PO SCH ×3 (09:00→17:50)
[2016-05-31] MEDS: SODIUM CHLORIDE 0.9% FLUSH 5 ML FLUSH FLUSH SCH ×2 (09:00→20:36)
--- NOTE | 2016-05-31 09:26 | HHI.HP ---
[facility] Service Family Medicine Primary Care Physician Unknown Admission Diagnosis Diagnoses: (1) Chest pain Diagnosis: Principal (2) Shortness of breath Diagnosis: Principal (3) Shingles rash Diagnosis: Principal (4) CKD (chronic kidney disease) stage 3, GFR 30-59 ml/min Diagnosis: Principal (5) Diabetes mellitus Diagnosis: Principal (6) Transaminitis Diagnosis: Principal (7) Swelling of right hand Diagnosis: Principal (8) Hypertension Diagnosis: Principal (9) Anemia Diagnosis: Principal (10) Nutrition, metabolism, and development symptoms Diagnosis: Principal (11) Prophylactic measure Diagnosis: Principal Chief Complaint: chest pain International Travel<30 Days: No Contact w/Intl Traveler<30days: No Known Affected Area: No History of Present Illness Ms. Greenberg is a 60-year-old female with a history of hypertension, T2DM, CVA 2 s/p right riana-paresis, and chronic kidney disease who presented to ED via [facility] from [facility] for evaluation of left lower chest/ breast pain for the past 3 days. History is limited but she endorses burning, stabbing pain localized to her left chest underneath her breast. No radiation of pain. Reports mild shortness of breath which is chronic for her. Denies fever , cough, wheezing, palpitations, nausea, or changes in urinary or bowel habits. She did have one episode of emesis 2 days ago but that has resolved. No other complaints. She was found on exam to have some vesicles under her left breast that are consistent with shingles. Overnight, she was believed to be a risk for aspiration per one of her nurses so she was made NPO. She had some coughing evidently with orange juice. Unfortunately, without being able to eat and take her po BP meds, she became both hypoglycemic and hypertensive. She was on iv labetalol which helped her BP. She is scheduled to have a swallowing study this am and will have iv fluids until then. She was observed earlier this am by Dr Pierce having an extreme left lateral gaze and rhythmic movement of her extremities so there was a concern about seizures and Neurology was consulted. When I saw her a little later this am, she had no seizure activity. She does have some baseline fine tremors but when observed during her episode earlier this am she was not responsive. She is at high risk for seizures due to her prior CVAs. An EEG is ordered. Her baseline is to be able to answer questions but usually slowly and with a few words, not sentences. She also does follow commands at baseline. Additionally, she has serious renal problems and on renal biopsy on her earlier hospitalization was found to have severe nodular diabetic glomerulosclerosis, global sclerosis, severe interstitial fibrosis and severe arteriosclerosis. Her renal fxn has gradually but steadily declined over a few months. She has had massive proteinuria and her albumin is low contributing to her edematous state. Review of Systems ROS Limitations: Clinical Condition, Poor Historian, Other (CVA) Constitutional: DENIES: Change in appetite Endocrine: DENIES: Abnorml menstrual pattern, Polyphagia Ears, nose, mouth, throat: DENIES: Nasal discharge Respiratory: COMPLAINS OF: Shortness of breath, DENIES: Cough, Wheezing, Hemoptysis Cardiovascular: COMPLAINS OF: Chest pain, Lower Extremity Edema, DENIES: Dyspnea on Exertion Gastrointestinal: COMPLAINS OF: Difficulty Swallowing, DENIES: Abdominal pain Genitourinary: DENIES: Hematuria Musculoskeletal: COMPLAINS OF: Joint Swelling Integumentary: COMPLAINS OF: Breast skin changes (vesicles under breast left), DENIES: Abnormal pigmentation Immunologic/allergic: DENIES: Urticaria Neurologic: COMPLAINS OF: Abnormal gait, Localized weakness, Seizures, Speech Problems, Tremor, Poor Balance, DENIES: Headache Psychiatric: DENIES: Hallucinations Other ROS Limitations: Poor Historian Constitutional: DENIES: Fever, Chills Respiratory: COMPLAINS OF: Shortness of breath, DENIES: Cough, Wheezing, Hemoptysis, Sputum production Cardiovascular: COMPLAINS OF: Chest pain, Lower Extremity Edema, DENIES: Palpitations, Syncope, Dyspnea on Exertion Gastrointestinal: DENIES: Black stools, Bloody stools, Diarrhea, Nausea, Vomiting Musculoskeletal: COMPLAINS OF: Joint pain Integumentary: DENIES: Rash Neurologic: COMPLAINS OF: Localized weakness, DENIES: Headache, Paresthesias Psychiatric: DENIES: Confusion Past Family Social History Past Medical History Per EMR, HTN DM HLD Depression Neuropathy Previously on O2 at home but has not been on any supplemental O2 for a while. 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 impairment renal disease fibrosis and diabetic glomerulosclerosis Past Surgical History *she can't recall surgeries; these listed are from the EMR Hysterectomy Csection X 1 Right shoulder surgery Tonsillectomy Removal of thyroid nodules "Tumors removed from abdomen Allergies: Coded Allergies: No Known Allergies (Unverified , 02/09/16) Family History Significant family history of HTN, DM, Depression, and drug/alcohol abuse Mother: Colon cancer, DM, CAD, HTN Father: at 63 unknown cause Social History Lives at [facility]. She denies any tobacco, alcohol, or illicit drug use. Physical Exam Vital Signs Vital Signs Date Time Temp Pulse Resp B/P Pulse Ox O2 Delivery O2 Flow Rate FiO2 05/31/16 08:20 97.8 82 12 133/59 95 05/31/16 08:03 98.5 81 22 196/82 97 Nasal Cannula 2 05/31/16 07:02 79 20 178/78 95 Nasal Cannula 2 05/31/16 06:15 78 20 146/68 95 Nasal Cannula 2 05/31/16 05:00 80 20 131/71 97 Nasal Cannula 2 05/31/16 04:00 78 20 139/73 97 Nasal Cannula 2 05/31/16 03:00 80 20 144/79 99 Nasal Cannula 2 05/31/16 02:00 79 22 157/78 96 Nasal Cannula 2 05/31/16 01:00 72 22 188/82 95 Nasal Cannula 2 05/31/16 00:00 98.9 72 20 164/78 94 Nasal Cannula 2 05/30/16 23:30 82 20 193/84 94 Nasal Cannula 2 05/30/16 23:00 80 20 188/88 95 Nasal Cannula 2 05/30/16 22:25 74 20 211/91 95 Nasal Cannula 2 05/30/16 20:15 82 18 223/98 96 Nasal Cannula 2 05/30/16 16:57 68 18 168/76 94 Nasal Cannula 2 05/30/16 12:58 22 05/30/16 11:42 98 Nasal Cannula 3 05/30/16 11:42 98 Nasal Cannula 3 05/30/16 11:38 73 25 98 Nasal Cannula 3 05/30/16 11:38 98.2 73 25 204/84 98 Nasal Cannula 3 05/30/16 11:33 98.2 73 18 204/84 98 Physical Exam GENERAL: This is a well-nourished, well-developed AAF lying in bed in NAD, hungry. SKIN: Vesicular lesions with mild surrounding erythema underneath left breast and left side of back. Area is extremely sensitive to touch. Cool and dry. HEAD: Atraumatic. Normocephalic. EYES: Pupils equal round and reactive. Extraocular motions intact. No scleral icterus. No injection or drainage. ENT: Nose without bleeding, purulent drainage or septal hematoma. Airway patent. NECK: Trachea midline. No JVD or lymphadenopathy. Supple, nontender, no meningeal signs. CARDIOVASCULAR: Regular rate and rhythm without murmurs, gallops, or rubs. RESPIRATORY: Clear to auscultation. Breath sounds equal bilaterally, slightly decrease at bases. No wheezes, rales, or rhonchi. No respiratory distress. No increased work of breathing. 02 sats 97-98% on 1L via NC GASTROINTESTINAL: Abdomen protuberant but soft and non-tender. No palpable masses. No guarding or rebound tenderness. MUSCULOSKELETAL: 1+ pitting edema in bilateral extremities up to mid tineo. Right hand and fingers with non-pitting edema. 5/5 strength on left side but 1/ 5 strength in right UE and LE. generalized edema NEUROLOGICAL: Awake and alert. Oriented x 3. Answers questions appropriately but takes her a long time to get the words out. Speech is pressured and slow. Laboratory Laboratory Tests Test 05/30/16 05/30/16 05/31/16 05/31/16 11:55 19:30 01:30 03:23 White Blood Count 5.2 4.9 Red Blood Count 2.99 2.73 Hemoglobin 8.1 7.3 Hematocrit 25.1 23.0 Mean Corpuscular Volume 83.9 84.2 Mean Corpuscular Hemoglobin 26.9 26.8 Mean Corpuscular Hemoglobin 32.1 31.9 Concent Red Cell Distribution Width 15.6 15.8 Platelet Count 159 136 Mean Platelet Volume 9.5 9.5 Neutrophils (%) (Auto) 62.7 68.6 Lymphocytes (%) (Auto) 18.3 13.0 Monocytes (%) (Auto) 10.2 11.6 Eosinophils (%) (Auto) 7.8 6.0 Basophils (%) (Auto) 1.0 0.8 Neutrophils # (Auto) 3.2 3.3 Lymphocytes # (Auto) 0.9 0.6 Monocytes # (Auto) 0.5 0.6 Eosinophils # (Auto) 0.4 0.3 Basophils # (Auto) 0.0 0.0 CBC Comment DIFF FINAL DIFF FINAL Differential Comment Prothrombin Time 10.7 Prothromb Time International 1.0 Ratio Activated Partial 24.0 Thromboplast Time Sodium Level 140 143 141 Potassium Level 5.4 4.5 4.8 Chloride Level 107 111 108 Carbon Dioxide Level 28.4 26.9 27.1 Anion Gap 5 5 6 Blood Urea Nitrogen 44 42 44 Creatinine 2.09 1.96 2.13 Estimat Glomerular Filtration 29 31 29 Rate Random Glucose 181 40 90 Calcium Level 8.8 8.4 8.8 Magnesium Level 2.6 Total Bilirubin 0.4 0.3 Aspartate Amino Transf 38 24 (AST/SGOT) Alanine Aminotransferase 69 54 (ALT/SGPT) Alkaline Phosphatase 138 122 Total Creatine Kinase 136 Creatine Kinase MB 1.1 Troponin I LESS THAN 0.02 LESS THAN 0.02 LESS THAN 0.02 B-Type Natriuretic Peptide 364 Total Protein 7.4 6.7 Albumin 2.8 2.5 Lipase 231 Test 05/31/16 07:45 Urine Color YELLOW Urine Turbidity HAZY Urine pH 5.5 Urine Specific [place] 1.016 Urine Protein 300 Urine Glucose (UA) NEG Urine Ketones NEG Urine Occult Blood SMALL Urine Nitrite NEG Urine Bilirubin NEG Urine Urobilinogen LESS THAN 2.0 Urine Leukocyte Esterase LARGE Urine RBC 43 Urine WBC 65 Urine WBC Clumps FEW Urine Squamous Epithelial <1 Cells Urine Bacteria MOD Urine Hyaline Casts 3 Urine Mucus FEW Microscopic Urinalysis Comment CATH-CULTURE IND Date/Time Procedure Status Source Growth 05/31/16 07:45 Urine Culture Received Urine Catheterized Urine Pending Result Diagram: 05/31/16 0323 05/31/16 0323 Imaging Last Impressions Lung Scan-VQ Nuclear Medicine 05/30/16 1246 Signed Impressions: Service Date/Time: Monday, May 30, 2016 13:44 - CONCLUSION: Negative for pulmonary embolus. Julio Kruger MD Assessment and Plan Assessment and Plan Ms. 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 Admitted with shingles and now concern for seizures and other complications of DM and HTN. Problem List: (1) Chest pain Status: Acute Plan: Patient presents with burning and stabbing pain localized to her left lower chest x 3 days. Endorses some shortness of breath. Exam is remarkable for mild decreased breath sounds at lung bases but otherwise, lung and chest exam are unremarkable. O2 sats is 97-98 % on RA. In addition, she does have some vesicular lesions on underneath her left breath (area where she was complaining of the pain) as well as left upper back. Chest xray shows moderate interstitial edema. EKG unremarkable except for possible right axis deviation. V/Q scan ordered in ED is negative for PE. Pain likely secondary to shingles, however given her history DDX include ACS, CHF exacerbation, PNA -ACS rule out. Trended cardiac enzymes and monitored EKGs. First set of cardiac enzyme is negative. -Cardiac telemetry -Morphine prn pain -Supplemental O2 prn. -Acyclovir, renally dosed, for shingles -Patient received Lasix 20mg IV for possible CHF exacerbation. Lung exam unremarkable. O2 sats stable on 1L via NC. Will hold at this time given her history of CKD. If shortness of breath continues, will give another dose of lasix. She is edematous mainly from low albumin and proteinuria not CHF. -ECHO pending (2) Shortness of breath Status: Acute Plan: DDX: acute CHF, ACS, PNA. Could also be related to shingles as it could be painful for her to take deep breaths. O2 sats 98% on 3L but when I was in the room, she is 97-98% on only 1L via NC. -See plan above -Albuterol neb prn -Patient is already on Bumex 2mg po daily at home. If increased SOB, could consider giving Lasix 20mg IV x 1 -Monitor O2 and provide supplemental O2 prn. -despite complaints of SOB, she looks very comfortable on her nasal canula and is not working hard to breathe (3) Shingles rash Status: Acute Plan: Acyclovir 800mg 5x/day, renally dose per pharmacy [place] 5mg Q6h prn pain Gabapentin can be considered and works for post herpetic neuralgia. she is early in this process now but gabapentin can be added if she persists in her pain (4) CKD (chronic kidney disease) stage 3, GFR 30-59 ml/min Status: Chronic Plan: GFR 29. BUN/Cr 29/2.09, which appears to be baseline for the patient. -Avoid nephrotoxic agents -Renally dose medications -Monitor electrolytes and repeat BMP in AM. -Nephrology consult as renal function is poor and she has severe proteinuria and abnormalities on biopsy. (5) Diabetes mellitus Status: Chronic Plan: Serum glucose 181 on admission. -Sliding scale insulin -Monitor accuchecks -Diabetic diet, pt was made NPO and was hypoglycemic and has iv glucose. She should be able to eat later today. (6) Transaminitis Status: Acute Plan: AST/ALT 38/69. ALP 138. No history of liver disease. Etiology unclear. -Repeat CMP in AM -Avoid hepatotoxic agents (7) Swelling of right hand Status: Acute Plan: Likely chronic dependent edema form right-sided hemiparesis plus low albumin. However we do not know baseline -u/s to rule out blood clots -Keep arm/hand elevated and placed gentle compression bandage. can keep doing local compression for a few hours at a time. (8) Hypertension Status: Chronic Plan: BP 204/84 on admission. -Continue home antihypertensives, were held as pt was NPO but should be able to restart -Hydralazine and Clonidine prn (9) Anemia Status: Chronic Plan: Patient with normocytic anemia. Hb 8.1, baseline is around 8-9. Likely anemia of chronic disease -Continue to monitor. Repeat CBC in AM -Hemoccult to rule out GIB (10) Nutrition, metabolism, and development symptoms Status: Acute Plan: Diet: Diabetic Fluids: HLIV. Caution with fluids given history of CHF and clinical edema and effusion noted on CXR. Electrolytes: K 5.4, now better. Continue to monitor. Repeat BMP at 1800. (11) Prophylactic measure Status: Acute Plan: SCDs bilaterally. Given the anemia, will obtain Hemoccult prior to starting chemical anticoagulation. Placed a gentle compression bandage on her right hand/arm. She has edema all over. She could have anemia of chronic disease from her renal failure as well. (12) Seizure as late effect of cerebrovascular accident (CVA) Status: Acute Plan: pt witnessed having seizure earlier today. EEG ordered and Neurology consulted. Physician Certification 2 Midnight Certification Type: Admission for Inpatient Services Order for Inpatient Services The services are ordered in accordance with Medicare regulations or non- Medicare payer requirements, as applicable. In the case of services not specified as inpatient-only, they are appropriately provided as inpatient services in accordance with the 2-midnight benchmark. Estimated LOS (days): 3 3 days is the estimated time the patient will need to remain in the hospital, assuming treatment plan goals are met and no additional complications. Post-Hospital Plan: Not yet determined Problem Qualifiers (1) Chest pain: Qualified Code: R07.89 - Other chest pain (2) Shingles rash: Qualified Code: B02.9 - Herpes zoster without complication (3) Diabetes mellitus: Qualified Code: E11.649 - Type 2 diabetes mellitus with hypoglycemia without coma, with long-term current use of insulin (4) Hypertension: Qualified Code: I10 - Essential hypertension (5) Anemia: Qualified Code: N18.9 - Anemia in chronic kidney disease Jaclyn James MD May 31, 2016 09:26
[2016-05-31] MEDS ORDERED: SODIUM CHLOR 0.9% 1000 ML INJ 1,000 ML IV SCH (10:00)
--- NOTE | 2016-05-31 11:05 | RADRPT ---
EXAM DATE/TIME: 05/31/2016 10:42 [facility] COMPARISON: CT BRAIN W/O CONTRAST, May 31, 2016, 6:53. MRI BRAIN W/O CONTRAST, October 26, 2015, 14:55. INDICATIONS : Altered mental status. CVA. MEDICAL HISTORY : Diabetes mellitus type 2. Hypertension. Cerebrovascular disease. NH, Renal insufficiency. SURGICAL HISTORY : Rotator cuff, right. Hysterectomy. Thyroidectomy. kidney bx. ENCOUNTER: Initial ACUITY: 1 day PAIN SCORE: 0/10 LOCATION: cranial TECHNIQUE: Multiplanar, multisequence MRI of the brain was performed without contrast. FINDINGS: CEREBRUM: Abnormal flow abnormality within the left frontal parietal lobes and throughout the white matter. Sim ilar changes within the basal ganglia bilaterally. Mild cerebral atrophy. The ventricles are normal f or age. No evidence of midline shift, mass lesion, hemorrhage or acute infarction. No extraaxial fl uid collections are seen. The pituitary gland and suprasellar cistern are normal in configuration. WHITE MATTER: Extensive T2 signal abnormalities are seen in the white matter. POSTERIOR FOSSA: The cerebellum and brainstem are intact. The 4th ventricle is midline. The cerebellopontine angle is unremarkable. The cerebellar tonsils are normal in position. DIFFUSION IMAGING: No focal areas of restricted diffusion are seen. No evidence of acute infarction. EXTRACRANIAL: The visualized portions of the orbits and paranasal sinuses are unremarkable. CONCLUSION: 1. Remote infarcts greatest along the left frontal parietal lobe. 2. Extensive chronic ischemic small vessel vasculopathy. 3. No acute infarction. Chris Casey MD on May 31, 2016 at 11:00 Board Certified Radiologist. This report was verified electronically.
[2016-05-31] MEDS: cefTRIAXone INJ 1,000 MG in SODIUM CHLORIDE 0.9% INJ 100 ML IV SCH ×2 (11:38→22:57)
[2016-05-31] MEDS: DEXT 5%-NACL 0.9% 1000 ML INJ 1,000 ML IV SCH (11:39)
[2016-05-31] MEDS: CLOPIDOGREL 75 MG TAB PO SCH (12:12)
[2016-05-31] MEDS: METOPROLOL TARTRATE 50 MG TAB PO SCH ×2 (12:12→20:35)
[2016-05-31] MEDS: ASPIRIN 325 MG TAB PO SCH (12:12)
[2016-05-31] MEDS: BUMETANIDE 1 MG TAB PO SCH (12:15)
[2016-05-31] MEDS: PANTOPRAZOLE SOD 40 MG DELAYED RELEASE TAB PO SCH (12:15)
[2016-05-31] MEDS: CITALOPRAM HYDROBROMIDE 20 MG TAB PO SCH (12:15)
[2016-05-31 13:29] LABS: HEMATOCRIT 23.4 % (35.0-46.0)
[2016-05-31 13:40] LABS: REVIEW FLAG FINAL
[2016-05-31] MEDS ORDERED: SODIUM CHLOR 0.9% 250 ML INJ 250 ML IV ONE (13:45)
[2016-05-31 13:52] LABS: BICARBONATE 25.8 MEQ/L (21.0-32.0); POTASSIUM 5.4 MEQ/L (3.5-5.1)
[2016-05-31] MEDS: cloNIDine HCL 0.1 MG TAB PO PRN (17:50)
[2016-05-31] MEDS: DOXAZOSIN MESYLATE 4 MG TAB PO SCH (20:36)
[2016-05-31] MEDS: ATORVASTATIN 80 MG TAB PO SCH (20:36)
[2016-05-31 21:47] LABS: HEMATOCRIT 27.8 % (35.0-46.0); REVIEW FLAG FINAL
--- NOTE | 2016-05-31 23:18 | MB ---
cc: ANDIE GARCIA MD DATE OF CONSULTATION 05/31/16 REASON FOR CONSULTATION Possible seizure activity HISTORY OF PRESENT ILLNESS Ms. Greenberg is a 60-year-old -[place] female with past medical history of type 2 diabetes, hypertension, multiple strokes. According to the medical records as the patient is a poor historian because of the residual dysphasia, strokes with residual right hemiparesis, chronic kidney disease, presented to the ED two days ago from [facility] for evaluation of left lower chest breast pain for the past three days. During the hospital stay, the attending team noticed gazing of the eyes and possible seizure-like activity and abnormal movement of the eyes. They noticed an extreme left lateral gaze with rhythmic movement of the extremities. During the encounter, the patient was calm with no noticeable seizure activity. However, she had mild trauma of the left upper extremity and clonus of the right upper extremity. REVIEW OF SYSTEMS A 12-point review of systems is negative except for what is stated in the HPI. PAST MEDICAL HISTORY Obtained from medical records 1. Hypertension, 2. Diabetes, 3. Hyperlipidemia, 4. Depression 5. neuropathy 6. Strokes with residual left sided hemiparesis and dysphasia. PAST SURGICAL HISTORY Obtained from medical records 1. Hysterectomy, 2. section 3. Right shoulder surgery. 4. Tonsillectomy ALLERGIES No known allergies. FAMILY HISTORY According to medical records, significant for hypertension, diabetes, depression, drug and alcohol abuse. Mother with colon cancer, diabetes, coronary artery disease, hypertension. Father at 63 of unknown cause. SOCIAL HISTORY Lives at [facility]. Denies tobacco, alcohol or illicit drug use. PHYSICAL EXAMINATION GENERAL: The patient is not in acute distress, poor historian secondary to dysphasia. HEENT: Atraumatic, normocephalic. Normal vision, intact hearing. NECK: Supple No signs of the meningeal irritation. CARDIOVASCULAR: Regular rate and rhythm without murmurs. RESPIRATORY: Clear to auscultation. No wheezes. MUSCULOSKELETAL: Bilateral pitting edema in the lower extremities NEUROLOGIC: Awake, alert, alert to self, oriented to place (hospital), dysphasia abnormal naming/dystonia/paresthesia I showed her a pen, she stated " a tube", I showed her a watch and she said "clock". Abnormal repetition, mild dysarthria, and fair comprehension. Right sixth nerve palsy pupils 2-3 mm bilaterally, no nystagmus. Slight tremor on the left upper extremity. Right upper extremity spastic with clonus. Right lower extremity spastic very mild clonus. Moves left side> right side, unable to accurately assess and grade the muscle strength of the right side because of the give-away due to pain. Bilateral upgoing toes. Reflexes 1+ on the left side, upper and lower extremity 3+ with clonus in the right upper extremity and 2+ with nonsustained clonus in the right foot. LABORATORY DATA White blood cells 4.9, hemoglobin 7.3, MCV 84.2, platelet count 136. Sodium 141, potassium 4.8, anion gap six, BUN 44, Calcium 8.8, AST 24, ALT 54. IMAGING STUDIES - Head CT scan without contrast revealed stable was reported as stable noncontrasted head CT, no acute intracranial abnormality identified. Chronic changes include cerebral atrophy and periventricular white matter changes. chronic microvascular ischemia. There is encephalomalacia in the left frontal lobe and left basal ganglia likely related to prior ischemia. There is fluid in the mastoid air cells bilaterally. - The brain MRI without contrast revealed remote infarcts greatest on the left frontal parietal lobe, extensive chronic ischemic small vessel vasculopathy and no acute infarction. DIAGNOSTIC IMPRESSION - History of remote stroke with residual right-sided weakness, dysphasia - Possible seizures These movements are unlikely to be seizures in light of the clinical evidence of spasticity and clonus, however, with a witnessed episode of gazing and abnormal symmetrical rhythmic movements of the extremity, I will pursue workup with an electroencephalogram - Diabetes mellitus - Hypertension - Chronic kidney disease - Anemia. PLAN 1. Neuro checks q. four hourly 2. EEG 3. Aspirin and Plavix at current doses 4. Seizure precautions. 5. DVT prophylaxis 6. PT OT recommendations are appreciated. 7. GI prophylaxis. Thank you for allowing me to participate in the care of your patient. MD VANDANA Sam/ /9:21 PM /10:45 PM NIK
[2016-06-01] VITALS (12 sets, daily range): BP systolic 160–187; BP diastolic 69–133; PULSE 82–100; RESP 13–20; TEMP 98.1–99.9; O2SAT 98–100
[2016-06-01] MEDS: DEXT 5%-NACL 0.9% 1000 ML INJ 1,000 ML IV SCH (00:20)
--- NOTE | 2016-06-01 04:28 | MG ---
cc: ISHA BAY [id number] Sex: F Hyperventilation not performed. HISTORY: A 60 year-old woman with change in mental status, hypertension, stroke x2. Right-sided weakness. MEDICATIONS: Morphine. Plavix. DESCRIPTION: Diffuse 5 Hz rhythm is noted at times down to 4 Hz, there were hemisphere asymmetries. Photic stimulation was performed without significant posterior driving. IMPRESSION Diffuse slowing consistent with a moderate diffuse encephalopathy, no focal abnormalities were noted. No seizure activity was seen. MD DAVID Epperson/VANDANA /10:51 PM /4:19 AM
[2016-06-01] MEDS: ACYCLOVIR 800 MG TAB PO SCH ×5 (06:00→21:00)
[2016-06-01] MEDS: BETHANECHOL CHL 25 MG TAB PO SCH ×3 (06:00→21:00)
[2016-06-01] MEDS: GABAPENTIN 300 MG CAP PO SCH ×3 (06:11→20:59)
[2016-06-01] MEDS: DOCUSATE SODIUM 100 MG CAP PO SCH ×2 (06:12→16:07)
[2016-06-01] MEDS: INSULIN ASPART SUPPLEMENTAL SCALE SQ SCH ×4 (07:00→21:00)
--- NOTE | 2016-06-01 07:15 | HHI.FPPN ---
Subjective Remarks Patient seen and examined. She received one unit of PRBC yesterday since Hb decreased to below 7. Also had Tmax of 100 overnight. Afebrile at this time. BP was still elevated throughout the night but more controlled this morning after she got her oral antihypertensives and Morphine. Patient is awake and alert this morning but dysphagia appears to be worse. I could only understand 1-2 words that she was saying. She also has word repetition. Still able to follow simple commands. (Ely Pierce MD R3) Objective Vitals Vital Signs Date Time Temp Pulse Resp B/P Pulse Ox O2 Delivery O2 Flow Rate FiO2 06/01/16 06:00 85 06/01/16 04:00 82 06/01/16 04:00 99.3 87 15 171/75 98 06/01/16 02:00 87 06/01/16 00:00 94 06/01/16 00:00 99.9 94 13 175/78 98 05/31/16 22:00 100 05/31/16 21:20 99 Nasal Cannula 2.00 05/31/16 21:00 99.9 94 20 175/78 99 05/31/16 20:00 99.9 94 13 175/78 98 05/31/16 20:00 94 05/31/16 20:00 99 Nasal Cannula 2.00 05/31/16 18:05 100.0 91 17 174/77 99 05/31/16 18:00 91 05/31/16 16:00 87 05/31/16 16:00 99.5 13 173/73 100 05/31/16 14:00 83 05/31/16 12:00 99.0 87 12 170/80 100 05/31/16 12:00 87 05/31/16 10:00 84 05/31/16 08:20 97.8 82 12 133/59 95 05/31/16 08:03 98.5 81 22 196/82 97 Nasal Cannula 2 05/31/16 08:00 82 I/O 05/31/16 05/31/16 05/31/16 06/01/16 06/01/16 06/01/16 07:00 15:00 23:00 07:00 15:00 23:00 Intake Total 598 ml 1043 ml 767 ml Output Total 375 ml 700 ml 800 ml Balance 223 ml 343 ml -33 ml Intake Oral 320 ml 540 ml 150 ml IV Total 278 ml 253 ml 617 ml Packed Cells 250 ml Output Urine Total 375 ml 700 ml 800 ml # Bowel Movements 0 0 0 0 (Ely Pierce MD R3) Result Diagram: 05/31/16 2140 05/31/16 1305 Imaging Last Impressions Head CT 05/31/16 0000 Signed Impressions: Service Date/Time: Tuesday, May 31, 2016 06:53 - CONCLUSION: 1. Stable noncontrast head CT. No acute intracranial abnormality is identified. 2. Chronic changes include cerebral atrophy and periventricular white matter change characteristic of chronic microvascular ischemia. There is encephalomalacia in the left frontal lobe and left basal ganglia likely related to prior ischemia. 3. There is fluid in the mastoid air cells bilaterally. Vipin Merlos MD Brain MRI 05/31/16 0000 Signed Impressions: Service Date/Time: Tuesday, May 31, 2016 10:42 - CONCLUSION: 1. Remote infarcts greatest along the left frontal parietal lobe. 2. Extensive chronic ischemic small vessel vasculopathy. 3. No acute infarction. Chris Casey MD Lung Scan-V Nuclear Medicine 05/30/16 1246 Signed Impressions: Service Date/Time: Monday, May 30, 2016 13:44 - CONCLUSION: Negative for pulmonary embolus. Julio Kruger MD Chest X-Ray 05/30/16 1137 Signed Impressions: Service Date/Time: Monday, May 30, 2016 12:05 - CONCLUSION: Heart remains enlarged with moderate interstitial edema. Del Isaac MD FACR Upper Extremity Ultrasound 05/30/16 0000 Signed Impressions: Service Date/Time: Monday, May 30, 2016 17:02 - CONCLUSION: No evidence of right upper extremity DVT. Julio Kruger MD Objective Remarks GENERAL: This is a well-nourished, well-developed AAF sitting in bed in NAD SKIN: More vesicular lesions with surrounding erythema underneath left breast and left side of back, consistent with zoster. Area is extremely sensitive to touch. Cool and dry. HEAD: Atraumatic. Normocephalic. EYES: Exophthalmos. Pupils equal round and reactive. Extraocular motions intact. No scleral icterus. No injection or drainage. ENT: Nose without bleeding, purulent drainage or septal hematoma. Airway patent. NECK: Trachea midline. No JVD or lymphadenopathy. CARDIOVASCULAR: Regular rate and rhythm without murmurs, gallops, or rubs. RESPIRATORY: Clear to auscultation. Breath sounds equal bilaterally, slightly decrease at bases. No wheezes, rales, or rhonchi. No respiratory distress. No increased work of breathing. 02 sats 97-100% on 2L via NC GASTROINTESTINAL: Abdomen protuberant but soft and non-tender. No palpable masses. No guarding or rebound tenderness. MUSCULOSKELETAL: Generalized pitting edema, right side is worse than left. Able to move left UE and LE. Spastic movements. NEUROLOGICAL: Awake and alert. Dysphagia and word repetition. Able to follow simple commands. (Ely Pierce MD R3) A/P Assessment and Plan Ms. 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 Admitted with shingles and now concern for seizures, acute on chronic kidney disease, and other complications of DM and HTN. Discharge Planning Anticipate discharge back to [facility] in a couple of days once patient is clinically stable. d/w Dr. James (Ely Pierce MD R3) Attending Attestation Patient seen and examined. Case reviewed and discussed with the resident team. Agree with plan of care as discussed with me and documented in the resident note. she has continued renal worsening over time. IgA in her renal tissue for unclear reasons. Appreciate help Nephrology. 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 ESR 99 on this admission. Renal function continues to decline during hospitalization, GFR 25, BUN/Cr 44/ 2.39. Patient is very edematous. Urine output 1875. Of note, patient is also being treated for suspected UTI. Urine culture pending. -Nephrology has been consulted for further management as renal function is poor and she has severe proteinuria and abnormalities on biopsy. -Avoid nephrotoxic agents -Renally dose medications -Monitor electrolytes and renal function -Nephrology consult (2) Shingles rash Status: Acute Plan: -Acyclovir 800mg 5x/day, renally dose per pharmacy -Ashby 5mg Q6h prn pain -Continue home dose of Gabapentin -Contact isolation (3) UTI (urinary tract infection) Status: Acute Plan: Cath UA positive for proteinuria, large leukocyte esterase, RBCs, WBCs, and moderate bacteria. -UCx pending. -Continue Rocephin (05/31-) (4) Generalized edema Status: Acute Plan: Likely chronic dependent edema, suspect third spacing from low albumin secondary to CKD. -Continue Bumex 2mg po daily -Nephrology consulted for further evaluation. 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 No seizure activity since then -Neurology consulted. EEG negative. Head CT and brain MRI without acute infarction. -Seizure precaution -Ativan 2mg prn (6) Diabetes mellitus Status: Chronic Plan: -Sliding scale insulin -Monitor accuchecks -Diabetic diet and frequent snacks (7) Shortness of breath Status: Acute Plan: Patient has chronic dyspnea. However worsening dyspnea likely related to shingles as it could be painful for her to take deep breaths. Currently appears comfortable. No evidence of respiratory distress. O2 sats 97-100% 2L -See plan above -Albuterol neb prn -Patient is already on Bumex 2mg po daily at home. If increased SOB, could consider giving Lasix 20mg IV x 1 -Monitor O2 and provide supplemental O2 prn. -Wean supplemental O2 if possible (8) Chest pain Status: Resolved Plan: Patient presents with burning and stabbing pain localized to her left lower chest x 3 days, likely secondary to shingles rash Chest x-ray shows moderate interstitial edema. ACS workup negative. EKG unremarkable except for possible right axis deviation. V/Q scan ordered in ED is negative for PE. -Cardiac telemetry -Morphine and Ashby prn pain -Supplemental O2 prn. -Acyclovir, renally dosed, for shingles (9) Transaminitis Status: Acute Plan: Improved. Etiology unclear. -Repeat CMP pending -Avoid hepatotoxic agents (10) Hypertension Status: Chronic Plan: More controlled. -Continue home antihypertensives -Hydralazine and Clonidine prn (11) Anemia Status: Chronic Plan: Patient with normocytic anemia likely anemia of chronic disease. Hb 9.1 s /p 1 unit PRBC transfusion on 05/31/16. -Continue to monitor. Repeat CBC in AM -Hemoccult to rule out GIB (12) Nutrition, metabolism, and development symptoms Status: Acute Plan: Diet: Diabetic and pureed food per ST Fluids: HLIV. Caution with fluids given history of CHF, low albumin and clinical edema Electrolytes: CMP pending. Continue to monitor and replete if necessary (13) Prophylactic measure Status: Acute Plan: SCDs bilaterally. Start Heparin 5000 units Q12h given Hemoccult negative (Ely Pierce MD R3) Problem Qualifiers (1) Shingles rash: Qualified Code: B02.9 - Herpes zoster without complication (2) Diabetes mellitus: Qualified Code: E11.649 - Type 2 diabetes mellitus with hypoglycemia without coma, with long-term current use of insulin (3) Chest pain: Qualified Code: R07.89 - Other chest pain (4) Hypertension: Qualified Code: I10 - Essential hypertension (5) Anemia: Qualified Code: N18.9 - Anemia in chronic kidney disease Ely Pierce MD R3 Jun 01, 2016 07:15 Jaclyn James MD Jun 01, 2016 14:08
[2016-06-01] MEDS: ASPIRIN 325 MG TAB PO SCH (08:00)
[2016-06-01] MEDS: FLUTICASONE PROPIONATE 50 MCG/ACT 16 GM NASAL SPRAY EACH NARE SCH ×2 (08:00→21:01)
[2016-06-01] MEDS: METOPROLOL TARTRATE 50 MG TAB PO SCH ×2 (08:01→21:00)
[2016-06-01] MEDS: CLOPIDOGREL 75 MG TAB PO SCH (08:01)
[2016-06-01] MEDS: BUMETANIDE 1 MG TAB PO SCH (08:02)
[2016-06-01] MEDS: CITALOPRAM HYDROBROMIDE 20 MG TAB PO SCH (08:02)
[2016-06-01] MEDS: FERROUS SULFATE 325 MG (65 MG ELEMENTAL IRON) TAB PO SCH ×3 (08:02→17:15)
[2016-06-01] MEDS: PANTOPRAZOLE SOD 40 MG DELAYED RELEASE TAB PO SCH (08:02)
[2016-06-01] MEDS: MORPHINE SULFATE 4 MG/ML INJ IV PUSH PRN ×3 (08:03→22:00)
[2016-06-01] MEDS: SODIUM CHLORIDE 0.9% FLUSH 5 ML FLUSH FLUSH SCH ×2 (08:09→21:01)
[2016-06-01] MEDS: HEPARIN SODIUM - SQ 10,000 UNITS/ML VIAL SQ SCH ×2 (09:59→21:00)
[2016-06-01] MEDS: cefTRIAXone INJ 1,000 MG in SODIUM CHLORIDE 0.9% INJ 100 ML IV SCH ×2 (10:00→20:58)
[2016-06-01] MEDS: cloNIDine HCL 0.1 MG TAB PO PRN ×2 (11:11→18:48)
[2016-06-01] MEDS: ACETAMINOPHEN/HYDROcodone 325 MG/5 MG TAB PO PRN ×2 (11:11→16:07)
[2016-06-01 12:18] LABS: AUTOMATED NEUTROPHIL # 2.8 TH/MM3 (1.8-7.7); BASOPHIL % 0.7 % (0.0-2.0); EOSINOPHIL # 0.3 TH/MM3 (0-0.4); EOSINOPHIL % 6.6 % (0.0-4.0); HEMATOCRIT 25.9 % (35.0-46.0); HEMO FLAGS DIFF FINAL; LYMPH % 17.5 % (9.0-44.0); LYMPHOCYTE # 0.8 TH/MM3 (1.0-4.8); MEAN CELL VOLUME 84.9 FL (80.0-100.0); MEAN CORPUSCULAR HEMOGLOBIN 27.7 PG (27.0-34.0); MEAN CORPUSCULAR HGB CONC 32.6 % (32.0-36.0); MONO % 15.3 % (0.0-8.0); NEUT % 59.9 % (16.0-70.0); PLATELET COUNT 125 TH/MM3 (150-450); RED BLOOD COUNT 3.05 MIL/MM3 (4.00-5.30); RED CELL DISTRIBUTION WIDTH 15.2 % (11.6-17.2); WHITE BLOOD COUNT 4.7 TH/MM3 (4.0-11.0)
[2016-06-01] MEDS: hydrALAZINE HCL 25 MG TAB PO PRN ×2 (12:36→17:44)
--- NOTE | 2016-06-01 12:41 | EKG ---
Date Performed: 05/30/2016 Time Performed: 11:47:16 PTAGE: 60 years EKG: Sinus rhythm BORDERLINE RIGHT AXIS DEVIATION SEPTAL MYOCARDIAL INFARCTION Since previous tracing, no significant change noted ABNORMAL ECG PREVIOUS TRACING : 02/09/2016 18.03 DOCTOR: Cameron Chun Interpretating Date/Time 06/01/2016 12:40:14
--- NOTE | 2016-06-01 12:42 | EKG ---
Date Performed: 05/30/2016 Time Performed: 19:45:05 PTAGE: 60 years EKG: Sinus rhythm SEPTAL MYOCARDIAL INFARCTION INFERIOR MYOCARDIAL INFARCTION Since previous tracing, no significant c hange noted ABNORMAL ECG PREVIOUS TRACING : 05/30/2016 11.47 DOCTOR: Cameron Chun Interpretating Date/Time 06/01/2016 12:40:40
--- NOTE | 2016-06-01 12:42 | EKG ---
Date Performed: 05/31/2016 Time Performed: 02:28:06 PTAGE: 60 years EKG: Sinus rhythm NONSPECIFIC T-WAVE ABNORMALITY Since previous tracing, no significant change noted BORDERLINE ECG PREVIOUS TRACING : 05/31/2016 02.14 DOCTOR: Cameron Chun Interpretating Date/Time 06/01/2016 12:41:30
--- NOTE | 2016-06-01 12:42 | EKG ---
Date Performed: 05/30/2016 Time Performed: 20:01:41 PTAGE: 60 years EKG: Sinus rhythm NONSPECIFIC T-WAVE ABNORMALITY Since previous tracing, no significant change noted BORDERLINE ECG PREVIOUS TRACING : 05/30/2016 19.45 DOCTOR: Cameron Chun Interpretating Date/Time 06/01/2016 12:40:54
[2016-06-01 12:51] LABS: ALT (GPT) 40 U/L (10-53); ANION GAP 4 MEQ/L (5-15); AST (GOT) 22 U/L (15-37); BLOOD UREA NITROGEN 42 MG/DL (7-18); CHLORIDE 108 MEQ/L (98-107); GLOMERULAR FILTRATION RATE 25 ML/MIN (>89); SODIUM (NA) 141 MEQ/L (136-145)
[2016-06-01 12:53] LABS: ALKALINE PHOSPHATASE 120 U/L (45-117); TOTAL BILIRUBIN ADULT 0.3 MG/DL (0.2-1.0)
--- NOTE | 2016-06-01 14:07 | PD.CONS ---
HPI Consult Requested By Reason for Consult Chronic kidney disease stage IV. Fluid overload. Primary Care Physician Unknown History of Present Illness This patient is a 60-year-old female with a history of known CKD confirmed by kidney biopsy during admission February 2016. Renal biopsy showed changes consistent with diabetic nephropathy as well as nephrosclerosis. There was evidence of interstitial fibrosis which is a poor prognostic indicator as far as preservation of renal function is concerned. Patient was discharged from the last admission with a creatinine level of 2.12. It peaked during that admission to 4.77 and she did require dialytic support temporarily for acute renal failure with associated fluid overload. Patient was advised to see us in the office however uncertain if she did so. She has a history of CVA and documented diastolic cardiac dysfunction. On this occasion she was admitted May 31, 2016 with complaints of chest pain subsequent diagnosis having shingles, generalized edema and chest x-ray showing evidence of mild pulmonary congestion. She was also significantly anemic with a hemoglobin of 7.3. Review of Systems ROS Limitations: Clinical Condition, Speech Impaired Past Family Social History Allergies: Coded Allergies: No Known Allergies (Unverified , 02/09/16) Past Medical History Biopsy confirmed diabetic nephropathy and nephrosclerosis. Diabetes mellitus Hypertension CVA 2 Diastolic myocardial dysfunction Episode of acute renal failure February 2016 requiring dialysis temporarily. Past Surgical History Hysterectomy section Tonsillectomy Thyroid nodule removal. Reported Medications Reported Meds & Active Scripts Active Catapres (Clonidine) 0.2 Mg Tab 0.2 Mg PO Q8HR Bumetanide 1 Mg Tab 2 Mg PO DAILY Urecholine (Bethanechol Chloride) 25 Mg Tab 25 Mg PO Q8HR Norvasc (Amlodipine Besylate) 10 Mg Tab 10 Mg PO DAILY Reported Duoneb (Ipratropium-Albuterol Neb) 0.5-2.5 Mg/3 Ml Neb 1 Vial NEB Q4HR PRN Milk of Magnesia Liq (Magnesium Hydroxide) 400 Mg/5 Ml Susp 30 Ml PO Q4HR PRN Loperamide (Loperamide HCl) 2 Mg Tab 4 Mg PO INITIAL DOSE PRN AFTER INITIAL DOSE, GIVE 1 TAB (2MG) AFTER EACH LOOSE STOOL NTE 8 TABS/24HRS Fleet Enema Rectal (Sodium Phosphates Rectal) 7-19 Gm/118 Ml Enem 1 Applic MA DAILY PRN Dulcolax Supp (Bisacodyl) 10 Mg Supp 10 Mg MA DAILY PRN Tylenol (Acetaminophen) 325 Mg Tab 650 Mg PO Q4H PRN Mylanta Liq (Bdcbupfb-Lokuvpqdc-Oymglmewmej Liq) 200-200-20 Mg/5 Ml Susp 30 Ml PO Q4HR Novolog Flexpen Inj (Insulin Aspart) 300 Unit/3 Ml Pen 2-12 Units SQ DIRECTED SLIDING SCALE: < 60, Call MD, 151-200=2 units, 201-250=4 units, 251-300=6 units, 301-350=8 units, 351-400=10 units, > 400=12 units and call Levemir Flextouch Pen Inj (Insulin Detemir) 300 unit/3 ML Pen 25 Units SQ DAILY Ferrous Sulfate 325 Mg Tab 325 Mg PO TID Metoprolol Tartrate 50 Mg Tab 50 Mg PO BID Hydralazine (Hydralazine HCl) 100 Mg Tab 100 Mg PO Q8HR Cardura (Doxazosin Mesylate) 4 Mg Tab 4 Mg PO HS Protonix (Pantoprazole Sodium) 40 Mg Tab 40 Mg PO DAILY Plavix (Clopidogrel Bisulfate) 75 Mg Tab 75 Mg PO DAILY Neurontin (Gabapentin) 300 Mg Cap 300 Mg PO Q8HR Celexa (Citalopram Hydrobromide) 20 Mg Tab 20 Mg PO DAILY Atorvastatin (Atorvastatin Calcium) 80 Mg Tab 80 Mg PO HS Aspirin 325 Mg Tab 325 Mg PO DAILY Miralax Powder (Polyethylene Glycol 3350 Powder) 17 Gm Powd 17 Gm PO DAILY Mix and dissolve one measuring cap-ful (17 grams) in water or juice. Fluticasone Nasal North Powder 50 Mcg/Act Naspr 1 North Powder EACH NARE Q12HR 50 mcg/spray Active Ordered Medications Current Medications Morphine Sulfate (Morphine Inj) 2 mg ONCE ONCE IV PUSH Last administered on 12:53; Start 05/30/16 at 11:45; Stop 05/30/16 at 11:46; Status DC IV Flush (NS Flush) 2 ml UNSCH PRN IVF FLUSH AFTER USING IV ACCESS; Start at 11:45; Stop 05/30/16 at 16:00; Status DC Furosemide (Lasix Inj) 20 mg ONCE ONCE IV PUSH Last administered on 05/30/16 15:13; Start 05/30/16 at 15:00; Stop 05/30/16 at 15:01; Status DC Clonidine (Catapres) 0.2 mg ONCE ONCE PO Last administered on 05/30/16 15:12; Start 05/30/16 at 15:00; Stop 05/30/16 at 15:01; Status DC IV Flush (NS Flush) 2 ml UNSCH PRN FLUSH FLUSH AFTER USING IV ACCESS; Start 05/30/16 at 16:00 IV Flush (NS Flush) 2 ml BID FLUSH Last administered on 06/01/16 08:09; Start 05/30/16 at 21:00 Acetaminophen (Tylenol) 650 mg Q4H PRN PO TEMP > 100.4; Start 05/30/16 at 16:00 Ondansetron HCl (Zofran Inj) 4 mg Q6H PRN IVP NAUSEA OR VOMITING Last administered on 05/31/16 23:24; Start 05/30/16 at 16:00 Docusate Sodium (Colace) 100 mg Q12H PO Last administered on 06/01/16 06:12; Start 05/30/16 at 17:00 Magnesium Hydroxide (Milk Of Magnesia Liq) 30 ml Q12H PRN PO CONSTIPATION; Start 05/30/16 at 16:00 Zolpidem Tartrate (Ambien) 5 mg HS PRN PO INSOMNIA; Start 05/30/16 at 16:00 Naloxone HCl (Narcan Inj) 0.4 mg UNSCH PRN IV SEE LABEL COMMENTS; Start at 16:00 Dextrose (D50w (Vial) Inj) 25 ml UNSCH PRN IV PUSH HYPOGLYCEMIA-SEE COMMENTS Last administered on 05/30/16 20:33; Start 05/30/16 at 16:00 Glucagon (Glucagon Inj) 1 mg UNSCH PRN OTHER HYPOGLYCEMIA-SEE COMMENTS; Start 05/30/16 at 16:00 Insulin Aspart (NovoLOG SUPPLEMENTAL SCALE) 1 ACHS SLIDING SCALE SQ Last administered on 06/01/16 11:11; Start 05/30/16 at 16:00 Clonidine (Catapres) 0.1 mg Q6H PRN PO SBP>180, DBP>110 Last administered on 11:11; Start 05/30/16 at 16:00 Hydralazine HCl (Apresoline) 25 mg Q8H PRN PO SBP>160, DBP>90 Last administered on 06/01/16 12:36; Start 05/30/16 at 16:00 Al Hydrox/Mg Hydrox/Simethicone (Mag-Al Plus Susp Liq) 30 ml Q4HR PO ; Start 05/30/16 at 20:00; Stop 05/30/16 at 20:00; Status DC Amlodipine Besylate (Norvasc) 10 mg DAILY PO Last administered on 06/01/16 08: 02; Start 05/30/16 at 17:00 Aspirin (Aspirin) 325 mg DAILY PO Last administered on 06/01/16 08:00; Start at 09:00 Atorvastatin Calcium (Lipitor) 80 mg HS PO Last administered on 05/31/16 20:36 ; Start 05/30/16 at 21:00 Bethanechol Chloride (Urecholine) 25 mg Q8HR PO ; Start 05/30/16 at 22:00 Bumetanide (Bumetanide) 2 mg DAILY PO Last administered on 06/01/16 08:02; Start 05/31/16 at 09:00 Citalopram Hydrobromide (CeleXA) 20 mg DAILY PO Last administered on 06/01/16 08:02; Start 05/31/16 at 09:00 Clonidine (Catapres) 0.2 mg Q8HR PO ; Start 05/30/16 at 22:00; Stop 05/30/16 at 22 :00; Status DC Clopidogrel Bisulfate (Plavix) 75 mg DAILY PO Last administered on 06/01/16 08: 01; Start 05/31/16 at 09:00 Doxazosin Mesylate (Cardura) 4 mg HS PO Last administered on 05/31/16 20:36; Start 05/30/16 at 21:00 Ferrous Sulfate (Ferrous Sulfate) 325 mg TID PO Last administered on 06/01/16 12:36; Start 05/30/16 at 18:00 Fluticasone Propionate (Flonase [place] Spr) 1 spray Q12HR EACH NARE Last administered on 06/01/16 08:00; Start 05/30/16 at 21:00 Gabapentin (Neurontin) 300 mg Q8HR PO Last administered on 06/01/16 06:11; Start 05/30/16 at 22:00 Hydralazine HCl (Apresoline) 100 mg Q8HR PO ; Start 05/30/16 at 22:00; Stop at 22:00; Status DC Metoprolol Tartrate (Lopressor) 50 mg BID PO Last administered on 06/01/16 08: 01; Start 05/30/16 at 21:00 Pantoprazole Sodium (Protonix) 40 mg DAILY PO Last administered on 06/01/16 08: 02; Start 05/31/16 at 09:00 Acyclovir (Zovirax) 800 mg 5 TIMES A DAY PO Last administered on 06/01/16 09: 59; Start 05/30/16 at 18:00 Acetaminophen/ Hydrocodone Bitart ([place] 5-325 Mg) 1 tab Q6H PRN PO PAIN SCALE 5 TO 10 Last administered on 06/01/16 11:11; Start 05/30/16 at 16:30 Morphine Sulfate (Morphine Inj) 2 mg Q4H PRN IV PUSH CHEST PAIN Last administered on 06/01/16 08:03; Start 05/30/16 at 16:30 Al Hydrox/Mg Hydrox/Simethicone (Mag-Al Plus Susp Liq) 30 ml Q4HR PRN PO REFLUX ; Start 05/30/16 at 20:00 Albuterol Sulfate 2.5 mg 2.5 mg Q4HR NEB PRN NEB SOB/WHEEZING; Start 05/30/16 at 17:30 Labetalol HCl/ Sodium Chloride (Trandate Inj/NS 250 ml Inj) 250 ml @ 0 mls/hr TITRATE IV Last administered on 05/31/16 03:38; Start 05/30/16 at 20:45; Stop at 06:43; Status DC Hydralazine HCl (Apresoline Inj) 20 mg Q4H PRN IV PUSH SBP> OR = 180, DBP> OR = 100 Last administered on 05/31/16 21:06; Start 05/31/16 at 06:45 Lorazepam 2 mg 2 mg ONCE PRN IV PUSH SEIZURES; Start 05/31/16 at 08:15; Stop at 08:14 Ceftriaxone Sodium 1000 mg/ Sodium Chloride 100 ml @ 200 mls/hr Q12H IV Last administered on 06/01/16 10:00; Start 05/31/16 at 10:00 Sodium Chloride 1,000 ml @ 75 mls/hr [id number] IV ; Start 05/31/16 at 10:00; Stop 05/31/16 at 10:09; Status DC Dextrose/Sodium Chloride 1,000 ml @ 75 mls/hr [id number] IV Last administered on 06/01/16 00:20; Start 05/31/16 at 11:00 Sodium Chloride (NS 250 ml Inj) 250 ml @ 15 mls/hr ONCE ONCE IV Last administered on 05/31/16 16:21; Start 05/31/16 at 13:45; Stop 06/01/16 at 06:24; Status DC Heparin Sodium (Porcine) (Heparin Inj) 5,000 units Q12HR SQ Last administered on 06/01/16 09:59; Start 06/01/16 at 09:15 Family History Presently unobtainable. Social History No current history of alcohol, tobacco or illicit drug use. Physical Exam Vital Signs Vital Signs Date Time Temp Pulse Resp B/P Pulse Ox O2 Delivery O2 Flow Rate FiO2 06/01/16 12:00 86 06/01/16 12:00 99.9 85 16 166/69 100 06/01/16 10:00 85 06/01/16 08:00 99.4 88 18 166/115 100 06/01/16 08:00 90 06/01/16 07:00 98 Nasal Cannula 2.00 06/01/16 06:00 85 06/01/16 04:00 82 06/01/16 04:00 99.3 87 15 171/75 98 06/01/16 02:00 87 06/01/16 00:00 94 06/01/16 00:00 99.9 94 13 175/78 98 05/31/16 22:00 100 05/31/16 21:20 99 Nasal Cannula 2.00 05/31/16 21:00 99.9 94 20 175/78 99 05/31/16 20:00 99.9 94 13 175/78 98 05/31/16 20:00 94 05/31/16 20:00 99 Nasal Cannula 2.00 05/31/16 18:05 100.0 91 17 174/77 99 05/31/16 18:00 91 05/31/16 16:00 87 05/31/16 16:00 99.5 13 173/73 100 05/31/16 14:00 83 Physical Exam GENERAL: Patient appears to have anasarca with 2-3+ edema of all extremities and torso. Clinically she appears to have evidence of dysphagia. SKIN: Warm and dry. HEAD: Normocephalic. EYES: No scleral icterus. No injection or drainage. NECK: Supple, trachea midline. No JVD or lymphadenopathy. CARDIOVASCULAR: Regular rate and rhythm without murmurs, gallops, or rubs. RESPIRATORY: Breath sounds equal bilaterally. No accessory muscle use. GASTROINTESTINAL: Abdomen soft, non-tender, nondistended. MUSCULOSKELETAL: No cyanosis, edema as described above. BACK: Nontender without obvious deformity. No CVA tenderness. Laboratory Laboratory Tests Test 05/31/16 05/31/16 05/31/16 06/01/16 15:29 21:40 21:43 11:07 Blood Type O POSITIVE Antibody Screen NEGATIVE Hemoglobin 9.1 8.5 Hematocrit 27.8 25.9 Nasal Screen MRSA (PCR) POSITIVE White Blood Count 4.7 Red Blood Count 3.05 Mean Corpuscular Volume 84.9 Mean Corpuscular Hemoglobin 27.7 Mean Corpuscular Hemoglobin 32.6 Concent Red Cell Distribution Width 15.2 Platelet Count 125 Mean Platelet Volume 9.6 Neutrophils (%) (Auto) 59.9 Lymphocytes (%) (Auto) 17.5 Monocytes (%) (Auto) 15.3 Eosinophils (%) (Auto) 6.6 Basophils (%) (Auto) 0.7 Neutrophils # (Auto) 2.8 Lymphocytes # (Auto) 0.8 Monocytes # (Auto) 0.7 Eosinophils # (Auto) 0.3 Basophils # (Auto) 0.0 CBC Comment DIFF FINAL Differential Comment Sodium Level 141 Potassium Level 5.0 Chloride Level 108 Carbon Dioxide Level 29.0 Anion Gap 4 Blood Urea Nitrogen 42 Creatinine 2.39 Estimat Glomerular Filtration 25 Rate Random Glucose 150 Calcium Level 8.1 Total Bilirubin 0.3 Aspartate Amino Transf 22 (AST/SGOT) Alanine Aminotransferase 40 (ALT/SGPT) Alkaline Phosphatase 120 Total Protein 6.5 Albumin 2.4 Date/Time Procedure Status Source Growth 05/31/16 07:45 Urine Culture - Preliminary Resulted Urine Catheterized Urine NO GROWTH IN 24 HOURS. Result Diagram: 06/01/16 1107 06/01/16 1107 Imaging Last [address] 05/31/16 0000 Signed Impressions: Service Date/Time: Tuesday, May 31, 2016 06:53 - CONCLUSION: 1. Stable noncontrast head CT. No acute intracranial abnormality is identified. 2. Chronic changes include cerebral atrophy and periventricular white matter change characteristic of chronic microvascular ischemia. There is encephalomalacia in the left frontal lobe and left basal ganglia likely related to prior ischemia. 3. There is fluid in the mastoid air cells bilaterally. Vipin Merlos MD Brain MRI 05/31/16 0000 Signed Impressions: Service Date/Time: Tuesday, May 31, 2016 10:42 - CONCLUSION: 1. Remote infarcts greatest along the left frontal parietal lobe. 2. Extensive chronic ischemic small vessel vasculopathy. 3. No acute infarction. 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 Patient has marked fluid retention and her actual GFR may be lower than that indicated by laboratory results. Medications should be adjusted for the patient's estimated GFR if clinically indicated. Avoid agents with significant potential for nephrotoxicity possible including NSAIDs for analgesia, iodine contrast agents. Gadolinium is contraindicated if the GFR is below 30. (2) Generalized edema Plan: Patient has generalized edema and essentially anasarca. Is likely a combination of her severe renal failure, probable significant proteinuria and diastolic myocardial dysfunction. I believe patient needs to be diuresed more aggressively with parenteral diuretics. Her azotemia may worsen but I believe diuresis is necessary to improve her volume status and congestive heart failure. (3) Anemia Plan: Patient may have significant anemia renal disease. Evaluation as ordered. She may be a candidate for erythropoietin replacement therapy. (4) Hypertension (5) Diabetes mellitus Plan: Management per primary care physician. (6) CHF exacerbation Problem Qualifiers (1) Anemia: Qualified Code: N18.9 - Anemia in chronic kidney disease (2) Hypertension: Qualified Code: I10 - Essential hypertension (3) Diabetes mellitus: Qualified Code: E11.649 - Type 2 diabetes mellitus with hypoglycemia without coma, with long-term current use of insulin (4) CHF exacerbation: Qualified Code: I50.9 - Acute on chronic congestive heart failure, unspecified congestive heart failure type Brooks Vargas MD Jun 01, 2016 14:07
--- NOTE | 2016-06-01 15:04 | EC ---
Study Study Date:06/01/2016 STUDY CONCLUSIONS SUMMARY - Left ventricle: The cavity size was normal. Wall thickness was increased in a pattern of mild LVH. Systolic function was normal. The estimated ejection fraction was in the range of 55% to 60%. Wall motion was normal; there were no regional wall motion abnormalities. - Pericardium, extracardiac: A small pericardial effusion was identified posterior to the heart. If LV function is below 40, please consider prescribing an ACEI or ARB or document rationale for non-use. PROCEDURE DATA STUDY STATUS: Elective. Procedure: Transthoracic echocardiography. Image quality was suboptimal. Scanning was performed from the parasternal, apical, and subcostal acoustic windows. Study completion: The patient tolerated the procedure well. Transthoracic echocardiography. M-mode, complete 2D, complete spectral Doppler, and color Doppler. Patient status: Inpatient. CARDIAC ANATOMY LEFT VENTRICLE: The cavity size was normal. Wall thickness was increased in a pattern of mild LVH. Systolic function was normal. The estimated ejection fraction was in the range of 55% to 60%. Wall motion was normal; there were no regional wall motion abnormalities. AORTIC VALVE: Not well visualized. Normal thickness leaflets. Doppler: Transvalvular velocity was within the normal range. There was no stenosis. No regurgitation. AORTA: Aortic root: The aortic root was normal in size. MITRAL VALVE: Structurally normal valve. Doppler: Transvalvular velocity was within the normal range. There was no evidence for stenosis. Trace regurgitation. LEFT ATRIUM: The atrium was normal in size. RIGHT VENTRICLE: The cavity size was normal. Wall thickness was normal. PULMONIC VALVE: Doppler: Transvalvular velocity was within the normal range. There was no evidence for stenosis. No regurgitation. TRICUSPID VALVE: Poorly visualized. Structurally normal valve. Doppler: Transvalvular velocity was within the normal range. No regurgitation. PULMONARY ARTERY: The main pulmonary artery was normal-sized. RIGHT ATRIUM: Poorly visualized. The atrium was normal in size. PERICARDIUM: A small pericardial effusion was identified posterior to the heart. BASIC MEASUREMENTS ADULT NORMAL Left ventricle LV internal dimension, ED, chordal level, 44.8 mm 43-52 PLAX LV internal dimension, ES, chordal level, 33 mm 23-38 PLAX Fractional shortening, chordal level, PLAX *26 % >29 LV posterior wall thickness, ED 14.5 mm IVS/LVPW ratio, ED 1.03 <1.3 Ventricular septum Septal thickness, ED 15 mm Aortic valve Leaflet separation 16 mm 15-26 Right ventricle RV internal dimension, ED, PLAX 22.3 mm 19-38 BASIC MEASUREMENTS ADULT NORMAL Aortic valve Leaflet separation 16 mm 15-26 Aorta Root diameter, ED 29 mm 20-37 Left atrium Anterior-posterior dimension, ES *43 mm 19-40 LA/aortic root ratio 1.48 DOPPLER MEASUREMENTS ADULT NORMAL Tricuspid valve Regurgitant peak velocity 333 cm/s Peak RV-RA gradient, S 44 mm Hg Maximal regurgitant velocity 333 cm/s LEGEND: Mean values are shown as u=mean value. Asterisk (*) laurent values outside specified normal range. Prepared and signed by Cristian Sevilla [id number]
[2016-06-01] MEDS: BUMETANIDE INJ 1 MG/4 ML VIAL IV PUSH SCH (17:14)
[2016-06-01] MEDS ORDERED: CHLOROTHIAZIDE SOD 500 MG VIAL IV ONE (18:00)
[2016-06-01] MEDS: hydrALAZINE HCL 20 MG/ML VIAL IV PUSH PRN ×2 (19:21→20:59)
[2016-06-01] MEDS: ATORVASTATIN 80 MG TAB PO SCH (21:00)
[2016-06-01] MEDS: DOXAZOSIN MESYLATE 4 MG TAB PO SCH (21:00)
--- NOTE | 2016-06-01 23:49 | HHI.PR ---
Review/Management Diagnosis - History of remote stroke with residual right-sided weakness, dysphasia - Spasticity, not seizure activity These movements are unlikely to be seizures in light of the clinical evidence of spasticity and clonus EEG with no ictal activity. Encephalopathy - Diabetes mellitus - Hypertension - Chronic kidney disease - Anemia. - Recent herpes zoster infection Plan - Neuro checks q. four hourly - Aspirin and Plavix at current doses - DVT prophylaxis - PT/OT recommendations are appreciated. - GI prophylaxis. Diagnosis/Plan: Subjective Subjective Comments Reported herpes zoster infection at the lower chest/upper abdomen In contact isolation measures No reported seizure activity EEG with no ictal,activity but encephalopathic Active Medications Current Medications Medications (Trade) Dose Ordered Sig/Maxine Route Start Time Stop Time Status Last Admin (NS Flush) 2 ml UNSCH PRN FLUSH 05/30/16 16:00 (NS Flush) 2 ml BID FLUSH 05/30/16 21:00 06/01/16 21:01 (Tylenol) 650 mg Q4H PRN PO 05/30/16 16:00 (Zofran Inj) 4 mg Q6H PRN IVP 05/30/16 16:00 05/31/16 23:24 (Colace) 100 mg Q12H PO 05/30/16 17:00 06/01/16 16:07 (Milk Of Magnesia Liq) 30 ml Q12H PRN PO 05/30/16 16:00 (Ambien) 5 mg HS PRN PO 05/30/16 16:00 (Narcan Inj) 0.4 mg UNSCH PRN IV 05/30/16 16:00 (D50w (Vial) Inj) 25 ml UNSCH PRN IV PUSH 05/30/16 16:00 05/30/16 20:33 (Glucagon Inj) 1 mg UNSCH PRN OTHER 05/30/16 16:00 (Catapres) 0.1 mg Q6H PRN PO 05/30/16 16:00 06/01/16 18:48 (Apresoline) 25 mg Q8H PRN PO 05/30/16 16:00 06/01/16 17:44 (Norvasc) 10 mg DAILY PO 05/30/16 17:00 06/01/16 08:02 (Aspirin) 325 mg DAILY PO 05/31/16 09:00 06/01/16 08:00 (Lipitor) 80 mg HS PO 05/30/16 21:00 06/01/16 21:00 (Urecholine) 25 mg Q8HR PO 05/30/16 22:00 06/01/16 21:00 (CeleXA) 20 mg DAILY PO 05/31/16 09:00 06/01/16 08:02 (Plavix) 75 mg DAILY PO 05/31/16 09:00 06/01/16 08:01 (Cardura) 4 mg HS PO 05/30/16 21:00 06/01/16 21:00 (Ferrous Sulfate) 325 mg TID PO 05/30/16 18:00 06/01/16 17:15 (Flonase [place] Spr) 1 spray Q12HR EACH NARE 05/30/16 21:00 06/01/16 21:01 (Neurontin) 300 mg Q8HR PO 05/30/16 22:00 06/01/16 20:59 (Lopressor) 50 mg BID PO 05/30/16 21:00 06/01/16 21:00 (Protonix) 40 mg DAILY PO 05/31/16 09:00 06/01/16 08:02 (Lapel 5-325 Mg) 1 tab Q6H PRN PO 05/30/16 16:30 06/01/16 16:07 (Morphine Inj) 2 mg Q4H PRN IV PUSH 05/30/16 16:30 06/01/16 22:00 (Mag-Al Plus Susp Liq) 30 ml Q4HR PRN PO 05/30/16 20:00 (Apresoline Inj) 20 mg Q4H PRN IV PUSH 05/31/16 06:45 06/01/16 19:21 Lorazepam 2 mg 2 mg ONCE PRN IV PUSH 05/31/16 08:15 06/14/16 08:14 Ceftriaxone Sodium 1000 mg/ Sodium Chloride 100 ml @ 200 mls/hr Q12H IV 05/31/16 10:00 06/01/16 20:58 (D5W-NS 1000 ml Inj) 1,000 ml @ 50 mls/hr Q20H IV 05/31/16 11:00 06/01/16 00:20 (Heparin Inj) 5,000 units Q12HR SQ 06/01/16 09:15 06/01/16 21:00 (Bumex Inj) 2 mg BID@,18 IV PUSH 06/01/16 18:00 06/01/16 17:14 Allergies Allergies Coded Allergies No Known Allergies ([id number]/15/16) Exam I&O / VS 05/31/16 05/31/16 06/01/16 15:00 23:00 07:00 Intake Total 598 ml 1043 ml 767 ml Output Total 375 ml 700 ml 800 ml Balance 223 ml 343 ml -33 ml Intake Oral 320 ml 540 ml 150 ml IV Total 278 ml 253 ml 617 ml Packed Cells 250 ml Output Urine Total 375 ml 700 ml 800 ml # Bowel Movements 0 0 0 Vital Signs Date Time Temp Pulse Resp B/P Pulse Ox O2 Delivery O2 Flow Rate FiO2 06/01/16 22:00 100 06/01/16 20:00 86 06/01/16 20:00 98.1 86 15 187/133 99 06/01/16 19:00 98 Nasal Cannula 2.00 06/01/16 18:00 83 06/01/16 16:00 99.6 83 20 160/75 100 06/01/16 16:00 83 06/01/16 14:00 82 06/01/16 12:00 86 06/01/16 12:00 99.9 85 16 166/69 100 06/01/16 10:00 85 06/01/16 08:00 99.4 88 18 166/115 100 06/01/16 08:00 90 06/01/16 07:00 98 Nasal Cannula 2.00 06/01/16 06:00 85 06/01/16 04:00 82 06/01/16 04:00 99.3 87 15 171/75 98 06/01/16 02:00 87 06/01/16 00:00 94 06/01/16 00:00 99.9 94 13 175/78 98 Exam Comments GENERAL: The patient is not in acute distress, poor historian secondary to dysphasia. HEENT: Atraumatic, normocephalic. Normal vision, intact hearing. NECK: Supple No signs of the meningeal irritation. CARDIOVASCULAR: Regular rate and rhythm without murmurs. RESPIRATORY: Clear to auscultation. No wheezes. MUSCULOSKELETAL: Bilateral pitting edema in the lower extremities, Abdomen : Herpetic rash at the upper abdomen NEUROLOGIC: Awake, alert, alert to self, oriented to place (hospital), dysphasia, Abnormal repetition, mild dysarthria, some comprehension. Right sixth nerve palsy pupils 2-3 mm bilaterally, no nystagmus. Slight tremor on the left upper extremity. Right upper extremity spastic with clonus. Right lower extremity spastic very mild clonus. Moves left side> right side, unable to accurately assess and grade the muscle strength of the right side because of the give-away due to pain. Bilateral upgoing toes. Reflexes 1+ on the left side, upper and lower extremity 3+ with clonus in the right upper extremity and 2+ with nonsustained clonus in the right foot. Objective Radiology Results Last [address] 05/31/16 0000 Signed Impressions: Service Date/Time: Tuesday, May 31, 2016 06:53 - CONCLUSION: 1. Stable noncontrast head CT. No acute intracranial abnormality is identified. 2. Chronic changes include cerebral atrophy and periventricular white matter change characteristic of chronic microvascular ischemia. There is encephalomalacia in the left frontal lobe and left basal ganglia likely related to prior ischemia. 3. There is fluid in the mastoid air cells bilaterally. Vipin Merlos MD Brain MRI 05/31/16 0000 Signed Impressions: Service Date/Time: Tuesday, May 31, 2016 10:42 - CONCLUSION: 1. Remote infarcts greatest along the left frontal parietal lobe. 2. Extensive chronic ischemic small vessel vasculopathy. 3. No acute infarction. Chris Casey MD Lung Scan- Nuclear Medicine 05/30/16 1246 Signed Impressions: Service Date/Time: Monday, May 30, 2016 13:44 - CONCLUSION: Negative for pulmonary embolus. Julio Kruger MD Chest X-Ray 05/30/16 1137 Signed Impressions: Service Date/Time: Monday, May 30, 2016 12:05 - CONCLUSION: Heart remains enlarged with moderate interstitial edema. Del Isaac MD FACR Micro and Labs Laboratory Tests Test 06/01/16 11:07 White Blood Count 4.7 Red Blood Count 3.05 Hemoglobin 8.5 Hematocrit 25.9 Mean Corpuscular Volume 84.9 Mean Corpuscular Hemoglobin 27.7 Mean Corpuscular Hemoglobin 32.6 Concent Red Cell Distribution Width 15.2 Platelet Count 125 Mean Platelet Volume 9.6 Neutrophils (%) (Auto) 59.9 Lymphocytes (%) (Auto) 17.5 Monocytes (%) (Auto) 15.3 Eosinophils (%) (Auto) 6.6 Basophils (%) (Auto) 0.7 Neutrophils # (Auto) 2.8 Lymphocytes # (Auto) 0.8 Monocytes # (Auto) 0.7 Eosinophils # (Auto) 0.3 Basophils # (Auto) 0.0 CBC Comment DIFF FINAL Differential Comment Sodium Level 141 Potassium Level 5.0 Chloride Level 108 Carbon Dioxide Level 29.0 Anion Gap 4 Blood Urea Nitrogen 42 Creatinine 2.39 Estimat Glomerular Filtration 25 Rate Random Glucose 150 Calcium Level 8.1 Total Bilirubin 0.3 Aspartate Amino Transf 22 (AST/SGOT) Alanine Aminotransferase 40 (ALT/SGPT) Alkaline Phosphatase 120 Total Protein 6.5 Albumin 2.4 Date/Time Procedure Status Source Growth 05/31/16 07:45 Urine Culture - Preliminary Resulted Urine Catheterized Urine NO GROWTH IN 24 HOURS. Abdiaziz Garrison MD Jun 01, 2016 23:49
[2016-06-02] VITALS (14 sets, daily range): BP systolic 167–213; BP diastolic 71–86; PULSE 82–94; RESP 10–24; TEMP 98.6–99.4; O2SAT 97–100
[2016-06-02] MEDS: hydrALAZINE HCL 20 MG/ML VIAL IV PUSH PRN ×3 (00:38→16:54)
[2016-06-02] MEDS: cloNIDine HCL 0.1 MG TAB PO PRN ×2 (00:54→06:05)
[2016-06-02] MEDS: ACETAMINOPHEN/HYDROcodone 325 MG/5 MG TAB PO PRN (00:54)
[2016-06-02] MEDS: DOCUSATE SODIUM 100 MG CAP PO SCH ×2 (06:05→16:17)
[2016-06-02] MEDS: GABAPENTIN 300 MG CAP PO SCH ×3 (06:05→20:33)
[2016-06-02] MEDS: BETHANECHOL CHL 25 MG TAB PO SCH ×3 (06:05→20:32)
[2016-06-02] MEDS: ACYCLOVIR 800 MG TAB PO SCH ×5 (06:05→20:33)
[2016-06-02] MEDS: INSULIN ASPART SUPPLEMENTAL SCALE SQ SCH ×4 (06:42→20:32)
--- NOTE | 2016-06-02 08:26 | HHI.FPPN ---
Subjective Remarks Patient seen and examined. No acute events overnight per RN. BP labile, currently 180/80s. She is awake, alert, and able to follow commands. Denies chest pain. Has not had a BM since admission. (Ely Pierce MD R3) Objective Vitals Vital Signs Date Time Temp Pulse Resp B/P Pulse Ox O2 Delivery O2 Flow Rate FiO2 06/02/16 08:16 99 Nasal Cannula 2.00 06/02/16 06:00 85 06/02/16 04:00 99.0 86 10 179/81 100 06/02/16 04:00 86 06/02/16 02:00 86 06/02/16 00:00 99.4 93 24 180/86 97 06/02/16 00:00 93 06/01/16 22:00 100 06/01/16 20:00 86 06/01/16 20:00 98.1 86 15 187/133 99 06/01/16 19:00 98 Nasal Cannula 2.00 06/01/16 18:00 83 06/01/16 16:00 99.6 83 20 160/75 100 06/01/16 16:00 83 06/01/16 14:00 82 06/01/16 12:00 86 06/01/16 12:00 99.9 85 16 166/69 100 06/01/16 10:00 85 I/O 06/01/16 06/01/16 06/01/16 06/02/16 06/02/16 06/02/16 07:00 15:00 23:00 07:00 15:00 23:00 Intake Total 767 ml 1277 ml 565 ml 320 ml Output Total 800 ml 1150 ml 900 ml 700 ml Balance -33 ml 127 ml -335 ml -380 ml Intake Oral 150 ml 440 ml 270 ml 90 ml IV Total 617 ml 837 ml 295 ml 230 ml Output Urine Total 800 ml 1150 ml 900 ml 700 ml # Bowel Movements 0 0 0 0 (Ely Pierce MD R3) Result Diagram: 06/01/16 1107 06/01/[address] 05/31/16 0000 Signed Impressions: Service Date/Time: Tuesday, May 31, 2016 06:53 - CONCLUSION: 1. Stable noncontrast head CT. No acute intracranial abnormality is identified. 2. Chronic changes include cerebral atrophy and periventricular white matter change characteristic of chronic microvascular ischemia. There is encephalomalacia in the left frontal lobe and left basal ganglia likely related to prior ischemia. 3. There is fluid in the mastoid air cells bilaterally. Vipin Merlos MD Brain MRI 05/31/16 0000 Signed Impressions: Service Date/Time: Tuesday, May 31, 2016 10:42 - CONCLUSION: 1. Remote infarcts greatest along the left frontal parietal lobe. 2. Extensive chronic ischemic small vessel vasculopathy. 3. No acute infarction. Chris Casey MD Lung Scan-VQ Nuclear Medicine 05/30/16 1246 Signed Impressions: Service Date/Time: Monday, May 30, 2016 13:44 - CONCLUSION: Negative for pulmonary embolus. Julio Kruger MD Chest X-Ray 05/30/16 1137 Signed Impressions: Service Date/Time: Monday, May 30, 2016 12:05 - CONCLUSION: Heart remains enlarged with moderate interstitial edema. Del Isaac MD FACR Upper Extremity Ultrasound 05/30/16 0000 Signed Impressions: Service Date/Time: Monday, May 30, 2016 17:02 - CONCLUSION: No evidence of right upper extremity DVT. Julio Kruger MD Objective Remarks GENERAL: This is a well-nourished, well-developed AAF sitting in bed in [facility] SKIN: More vesicular lesions with surrounding erythema underneath left breast and left side of back, consistent with zoster. Area is extremely sensitive to touch. Cool and dry. HEAD: Atraumatic. Normocephalic. EYES: Exophthalmos. Left lateral gaze. No scleral icterus. No injection or drainage. ENT: Nose without bleeding, purulent drainage or septal hematoma. Airway patent. Dry mucous membranes NECK: Trachea midline. CARDIOVASCULAR: Regular rate and rhythm without murmurs, gallops, or rubs. RESPIRATORY: Clear to auscultation. Breath sounds equal bilaterally, slightly decrease at bases. No wheezes, rales, or rhonchi. No respiratory distress. No increased work of breathing. 02 sats 97-100% on 2L via [place] GASTROINTESTINAL: Abdomen protuberant but soft and non-tender. No palpable masses. No guarding or rebound tenderness. MUSCULOSKELETAL: Generalized pitting edema, right side is worse than left. Able to move left UE and LE. Spastic movements. NEUROLOGICAL: Awake and alert. Dysphagia and word repetition. Able to follow simple commands. (Ely Pierce MD R3) A/P Assessment and Plan Ms. 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 Admitted with shingles and worsening chronic kidney disease, and other complications of DM and HTN. Discharge Planning Anticipate discharge back to [facility] in a couple of days once patient is clinically stable. d/w Dr. James (Ely Pierce MD R3) Attending Attestation Patient seen and examined. Case reviewed and discussed with the resident team. Agree with plan of care as discussed with me and documented in the resident note. 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 ESR 99 on this admission. Renal function continues to decline during hospitalization. Patient is very edematous. Urine output adequate. -Nephrology consulted: * Recommended more aggressive diuresis given anasarca. Patient started on Bumex 2mg IV BID -Avoid nephrotoxic agents -Renally dose medications -Monitor electrolytes and renal function (2) Generalized edema Status: Acute Plan: Likely chronic dependent edema, suspect third spacing from low albumin secondary to CKD. -Continue Bumex 2mg IV per Nephrology (3) Shingles rash Status: Acute Plan: -Acyclovir 800mg 5x/day x 7 days (05/30-06/06), renally dose per pharmacy -[place] 5mg Q6h prn pain -Continue home dose of Gabapentin -Contact isolation (4) History of CVA with residual deficit Status: Chronic Plan: EEG negative. Head CT and brain MRI without acute infarction. -Neurology consulted. Patient with spasticity and no seizure activity noted * Continue neuro check * Aspirin and Plavix -Monitor for signs or symptoms of seizure. -Ativan 2mg prn (5) UTI (urinary tract infection) Status: Resolved Plan: Cath UA positive for proteinuria, large leukocyte esterase, RBCs, WBCs, and moderate bacteria. However Ucx negative. Will stop Rocephin (05/31-06/02) -Remove Dennis (6) Diabetes mellitus Status: Chronic Plan: -Sliding scale insulin -Monitor accuchecks -Diabetic diet and frequent snacks (7) Chest pain Status: Resolved Plan: Patient presents with burning and stabbing pain localized to her left lower chest x 3 days, likely secondary to shingles rash Chest x-ray shows moderate interstitial edema. ACS workup negative. EKG unremarkable except for possible right axis deviation. V/Q scan ordered in ED is negative for PE. -Cardiac telemetry -Morphine and [place] prn pain -Supplemental O2 prn. -Acyclovir, renally dosed, for shingles (8) Transaminitis Status: Resolved Plan: Improved. Etiology unclear. -Repeat CMP pending -Avoid hepatotoxic agents (9) Hypertension Status: Chronic Plan: Still labile -Continue home antihypertensives. In addition, will resume home dose of hydralazine and clonidine. (10) Anemia Status: Chronic Plan: Patient with normocytic anemia likely anemia of chronic disease. Hb 9.1 s /p 1 unit PRBC transfusion on 05/31/16. -Continue to monitor. Repeat CBC pending. -Per nephrology, could consider erythropoietin -Hemoccult to rule out GIB (11) Nutrition, metabolism, and development symptoms Status: Acute Plan: Diet: Diabetic and pureed food per ST Fluids: HLIV. Caution with fluids given history of CHF, low albumin and clinical edema Electrolytes: CMP pending. Continue to monitor and replete if necessary (12) Prophylactic measure Status: Acute Plan: SCDs bilaterally. Continue Heparin 5000 units Q12h (Ely Pierce MD R3) Problem Qualifiers (1) Shingles rash: Qualified Code: B02.9 - Herpes zoster without complication (2) Diabetes mellitus: Qualified Code: E11.649 - Type 2 diabetes mellitus with hypoglycemia without coma, with long-term current use of insulin (3) Chest pain: Qualified Code: R07.89 - Other chest pain (4) Hypertension: Qualified Code: I10 - Essential hypertension (5) Anemia: Qualified Code: N18.9 - Anemia in chronic kidney disease Ely Pierce MD R3 Jun 02, 2016 08:26 Jaclyn James MD Jun 06, 2016 13:42 (5) Anemia: Qualified Code: N18.9 - Anemia in chronic kidney disease Ely Pierce MD R3 Jun 02, 2016 08:26
[2016-06-02] MEDS: CLOPIDOGREL 75 MG TAB PO SCH (08:41)
[2016-06-02] MEDS: CITALOPRAM HYDROBROMIDE 20 MG TAB PO SCH (08:41)
[2016-06-02] MEDS: ASPIRIN 325 MG TAB PO SCH (08:41)
[2016-06-02] MEDS: METOPROLOL TARTRATE 50 MG TAB PO SCH ×2 (08:41→20:33)
[2016-06-02] MEDS: POLYETHYLENE GLYCOL 17 GM PKG PO SCH (08:41)
[2016-06-02] MEDS: FERROUS SULFATE 325 MG (65 MG ELEMENTAL IRON) TAB PO SCH ×3 (08:41→16:54)
[2016-06-02] MEDS: PANTOPRAZOLE SOD 40 MG DELAYED RELEASE TAB PO SCH (08:41)
[2016-06-02] MEDS: SODIUM CHLORIDE 0.9% FLUSH 5 ML FLUSH FLUSH SCH ×2 (08:42→20:33)
[2016-06-02] MEDS: HEPARIN SODIUM - SQ 10,000 UNITS/ML VIAL SQ SCH ×2 (08:42→20:32)
[2016-06-02] MEDS: BUMETANIDE INJ 1 MG/4 ML VIAL IV PUSH SCH ×3 (08:42→20:31)
[2016-06-02] MEDS: FLUTICASONE PROPIONATE 50 MCG/ACT 16 GM NASAL SPRAY EACH NARE SCH ×2 (08:42→20:33)
[2016-06-02] MEDS: DEXT 5%-NACL 0.9% 1000 ML INJ 1,000 ML IV SCH (08:42)
[2016-06-02] MEDS ORDERED: DOCUSATE SODIUM 50 MG/SENNA 8.6 MG TAB PO PRN (09:00)
[2016-06-02] MEDS ORDERED: PETROLATUM 30 GM TUBE TOPICAL PRN (09:45)
[2016-06-02] MEDS ORDERED: cloNIDine HCL 0.1 MG TAB PO SCH (10:00)
--- NOTE | 2016-06-02 10:33 | PQ ---
Physician Query Response Document PATIENT: KENDRICK POLLACK : 1955 ADMIT DATE: 05/30/2016 3:23 PM DISCH DATE: RESPONDING PROVIDER #: Martin QUERY TEXT: Clarification of Clinical Diagnostic Findings Our review of the medical record indicates that in order for us to accurately code this account, we a sk if you agree or disagree with the following diagnosis / procedure: Documentation in the medical record indicates that this patient is being treated for Hypertension doc umented as: UNCONTROLLED HYPERTENSION The following criteria/clinical indicators are documented in the medical record: Based on your medical judgment, can you further clarify which, if any, of the following this conditio n is intended to indicate: ?Accelerated Hypertension ?Malignant Hypertension ?Benign Hypertension ?Hypertension without further specification ?Other Specify ? Unable to determine The patient's Clinical Indicators include: X Systolic BP consistently >180 ? Diastolic BP > 110 ? Symptomatic hypertension X End-organ damage due to hypertension ( [employer]OR, renal, cardiac, vascular) Treatments: LABETALOL IV TITRATED CATAPRES AND APRESOLINE PO Query created by: Karma Avila on 06/02/2016 10:05 AM RESPONSE TEXT: She has had accelerated HTN on top of her chronic HTN QUERY TEXT: CHF Acuity and Type Congestive Heart Failure is documented in the Medical Record. Please document the type and acuity (in cludes probable or suspected) Such as: Type: -- Systolic -- Diastolic -- Combined -- Other, please specify Acuity: -- Acute -- Chronic -- Acute on chronic -- Other, please specify Also please document the underlying cause of the CHF (includes probable or suspected) The patient's Clinical Indicators include: BMP 364 ON ADMISSION INTERSTITIAL EDEMA ON IMAGING TX IV LASIX ECHO MILD LVH SYSTOLIC FUNCTION NORMAL PER RENAL progress notes Jun 01, 2016 14:07 Is likely a combination of her severe renal failure, probable significant proteinuria and diastolic m yocardial dysfunction. Acute on chronic congestive heart failure Query created by: Karma Avila on 06/02/2016 10:21 AM RESPONSE TEXT: She has diastolic acute on chronic CHF. She has poorly functioning kidneys that contribute to her flu id retention Electronically signed by: Jaclyn James MD 06/02/2016 10:29 AM
--- NOTE | 2016-06-02 12:26 | HHI.NPPN ---
Subjective History of Present Illness This patient is a 60-year-old female with a history of known CKD confirmed by kidney biopsy during admission February 2016. Renal biopsy showed changes consistent with diabetic nephropathy as well as nephrosclerosis. There was evidence of interstitial fibrosis which is a poor prognostic indicator as far as preservation of renal function is concerned. Patient was discharged from the last admission with a creatinine level of 2.12. It peaked during that admission to 4.77 and she did require dialytic support temporarily for acute renal failure with associated fluid overload. Patient was advised to see us in the office however uncertain if she did so. She has a history of CVA and documented diastolic cardiac dysfunction. On this occasion she was admitted May 31, 2016 with complaints of chest pain subsequent diagnosis having shingles, generalized edema and chest x-ray showing evidence of mild pulmonary congestion. She was also significantly anemic with a hemoglobin of 7.3. Review of Systems General General Remarks Patient has dysphagia? Review of systems severely limited. Objective Data Data 06/01/16 06/02/16 19:00 07:00 Intake Total 1427 ml 735 ml Output Total 1150 ml 1600 ml Balance 277 ml -865 ml Intake Oral 590 ml 210 ml IV Total 837 ml 525 ml Output Urine Total 1150 ml 1600 ml # Bowel Movements 0 0 Vital Signs Date Time Temp Pulse Resp B/P Pulse Ox O2 Delivery O2 Flow Rate FiO2 06/02/16 10:00 82 06/02/16 08:16 99 Nasal Cannula 2.00 06/02/16 08:00 85 06/02/16 08:00 99.1 85 14 176/71 99 06/02/16 07:00 99 Nasal Cannula 2.00 06/02/16 06:00 85 06/02/16 04:00 99.0 86 10 179/81 100 06/02/16 04:00 86 06/02/16 02:00 86 06/02/16 00:00 99.4 93 24 180/86 97 06/02/16 00:00 93 06/01/16 22:00 100 06/01/16 20:00 86 06/01/16 20:00 98.1 86 15 187/133 99 06/01/16 19:00 98 Nasal Cannula 2.00 06/01/16 18:00 83 06/01/16 16:00 99.6 83 20 160/75 100 06/01/16 16:00 83 06/01/16 14:00 82 -: 06/01/16 1107 06/01/16 1107 Tubes & Lines: Dennis Physical Exam General Appearance: No Acute Distress, Comfortable Eyes Eye Exam: Sclera White Throat Throat Exam: Oral Mucosa [place] & Moist Neck Neck Exam: Trachea Midline Pulmonary Resp Exam: Clear Bilaterally, Breath Sounds Equal, No Distress Cardiology CV Exam: Regular, Normal Sinus Rhythm, Good Perfusion Gastrointestinal/Abdomen GI Exam: Soft, Non-Tender, Non-Distended Integumentary Skin Exam: Clear, Warm Extremeties Extremities Exam: Moderate Edema (involving upper and lower extremities as well as dependent torso.), Pitting Edema Neurologic Neuro Exam: Alert, Awake Assessment/Plan Problem List: (1) CKD (chronic kidney disease) stage 4, GFR 15-29 ml/min Plan: Kidney biopsy performed last year indicating diabetic nephropathy, severe atherosclerosis, interstitial fibrosis, glomeruli were sclerosed. Patient has marked fluid retention and her actual GFR may be lower than that indicated by laboratory results. Medications should be adjusted for the patient's estimated GFR if clinically indicated. Avoid agents with significant potential for nephrotoxicity possible including NSAIDs for analgesia, iodine contrast agents. Gadolinium is contraindicated if the GFR is below 30. (2) Generalized edema Plan: Patient has generalized edema and essentially anasarca. Is likely a combination of her severe renal failure, probable significant proteinuria and diastolic myocardial dysfunction. We'll increase bumetanide to 2 mg IV every 8 hour for the present with monitoring of volume status and renal indices. (3) Anemia Plan: Patient may have significant anemia renal disease. Evaluation as ordered. She may be a candidate for erythropoietin replacement therapy. (4) Hypertension (5) Diabetes mellitus Plan: Management per primary care physician. (6) CHF exacerbation Problem Qualifiers (1) Anemia: Qualified Code: N18.9 - Anemia in chronic kidney disease (2) Hypertension: Qualified Code: I10 - Essential hypertension (3) Diabetes mellitus: Qualified Code: E11.649 - Type 2 diabetes mellitus with hypoglycemia without coma, with long-term current use of insulin (4) CHF exacerbation: Qualified Code: I50.9 - Acute on chronic congestive heart failure, unspecified congestive heart failure type Brooks Vargas MD Jun 02, 2016 12:26
[2016-06-02] MEDS: cloNIDine HCL 0.2 MG TAB PO SCH ×2 (13:26→20:33)
[2016-06-02 14:53] LABS: HEMATOCRIT 27.4 % (35.0-46.0); MEAN CELL VOLUME 85.4 FL (80.0-100.0); MEAN CORPUSCULAR HEMOGLOBIN 27.7 PG (27.0-34.0); MEAN CORPUSCULAR HGB CONC 32.4 % (32.0-36.0); PLATELET COUNT 133 TH/MM3 (150-450); RED BLOOD COUNT 3.21 MIL/MM3 (4.00-5.30); RED CELL DISTRIBUTION WIDTH 15.3 % (11.6-17.2); REVIEW FLAG FINAL; WHITE BLOOD COUNT 4.5 TH/MM3 (4.0-11.0)
[2016-06-02 15:40] LABS: FERRITIN 766 NG/ML (8-252); TRANSFERRIN IRON PROFILE 142 MG/DL (200-360)
[2016-06-02] MEDS ORDERED: hydrALAZINE HCL 25 MG TAB PO SCH (16:00)
[2016-06-02] MEDS: hydrALAZINE HCL 25 MG TAB PO SCH ×2 (16:17→23:27)
[2016-06-02] MEDS: DOXAZOSIN MESYLATE 4 MG TAB PO SCH (20:33)
[2016-06-02] MEDS: ATORVASTATIN 80 MG TAB PO SCH (20:33)
[2016-06-02 22:57] LABS: ALKALINE PHOSPHATASE 135 U/L (45-117); ALT (GPT) 43 U/L (10-53); ANION GAP 10 MEQ/L (5-15); AST (GOT) 26 U/L (15-37); BICARBONATE 25.8 MEQ/L (21.0-32.0); CHLORIDE 105 MEQ/L (98-107); GLOMERULAR FILTRATION RATE 27 ML/MIN (>89); POTASSIUM 4.7 MEQ/L (3.5-5.1); SODIUM (NA) 141 MEQ/L (136-145); TOTAL BILIRUBIN ADULT 0.3 MG/DL (0.2-1.0)
[2016-06-02 22:58] LABS: BLOOD UREA NITROGEN 43 MG/DL (7-18)
[2016-06-03] VITALS (13 sets, daily range): BP systolic 177–201; BP diastolic 83–99; PULSE 74–92; RESP 16–20; TEMP 98.8–99; O2SAT 93–100
[2016-06-03] MEDS: GABAPENTIN 300 MG CAP PO SCH ×3 (04:59→22:28)
[2016-06-03] MEDS: BETHANECHOL CHL 25 MG TAB PO SCH ×3 (05:00→22:28)
[2016-06-03] MEDS: cloNIDine HCL 0.2 MG TAB PO SCH ×3 (05:00→22:28)
[2016-06-03] MEDS: ACYCLOVIR 800 MG TAB PO SCH ×5 (05:00→22:28)
[2016-06-03] MEDS: BUMETANIDE INJ 1 MG/4 ML VIAL IV PUSH SCH ×3 (05:00→22:26)
[2016-06-03] MEDS: DOCUSATE SODIUM 100 MG CAP PO SCH ×2 (05:00→17:46)
[2016-06-03] MEDS: INSULIN ASPART SUPPLEMENTAL SCALE SQ SCH ×4 (05:37→22:35)
[2016-06-03 06:02] LABS: HEMATOCRIT 26.4 % (35.0-46.0); MEAN CELL VOLUME 84.2 FL (80.0-100.0); MEAN CORPUSCULAR HEMOGLOBIN 27.6 PG (27.0-34.0); MEAN CORPUSCULAR HGB CONC 32.8 % (32.0-36.0); PLATELET COUNT 133 TH/MM3 (150-450); RED BLOOD COUNT 3.14 MIL/MM3 (4.00-5.30); RED CELL DISTRIBUTION WIDTH 15.2 % (11.6-17.2); REVIEW FLAG FINAL; WHITE BLOOD COUNT 4.6 TH/MM3 (4.0-11.0)
[2016-06-03 06:25] LABS: ALT (GPT) 37 U/L (10-53); ANION GAP 7 MEQ/L (5-15); AST (GOT) 26 U/L (15-37); BICARBONATE 26.6 MEQ/L (21.0-32.0); BLOOD UREA NITROGEN 43 MG/DL (7-18); CHLORIDE 107 MEQ/L (98-107); GLOMERULAR FILTRATION RATE 32 ML/MIN (>89); POTASSIUM 4.5 MEQ/L (3.5-5.1); SODIUM (NA) 141 MEQ/L (136-145)
[2016-06-03 06:28] LABS: ALKALINE PHOSPHATASE 126 U/L (45-117); TOTAL BILIRUBIN ADULT 0.4 MG/DL (0.2-1.0)
[2016-06-03] MEDS: CLOPIDOGREL 75 MG TAB PO SCH (09:06)
[2016-06-03] MEDS: FERROUS SULFATE 325 MG (65 MG ELEMENTAL IRON) TAB PO SCH ×3 (09:06→17:46)
[2016-06-03] MEDS: PANTOPRAZOLE SOD 40 MG DELAYED RELEASE TAB PO SCH (09:06)
[2016-06-03] MEDS: CITALOPRAM HYDROBROMIDE 20 MG TAB PO SCH (09:06)
[2016-06-03] MEDS: ASPIRIN 325 MG TAB PO SCH (09:06)
--- NOTE | 2016-06-03 09:06 | HHI.FPPN ---
Subjective Remarks Patient seen and evaluated. She is more alert and conversant this morning. Denies any specific complaints. States that she would like breakfast. Of note blood pressure still elevated ranging in the 190/80s. Patient is diuresing well with IV Bumex. I/Os 2335mL. (Ely Pierce MD R3) Objective Vitals Vital Signs Date Time Temp Pulse Resp B/P Pulse Ox O2 Delivery O2 Flow Rate FiO2 06/03/16 08:30 74 06/03/16 08:30 98.9 82 16 199/88 99 06/03/16 08:30 100 Nasal Cannula 2.00 06/03/16 07:46 98 Nasal Cannula 2.00 06/03/16 06:05 80 06/03/16 04:00 82 06/03/16 04:00 98.9 82 16 186/84 98 06/03/16 02:00 80 06/03/16 00:00 92 06/03/16 00:00 98.8 92 18 190/87 100 06/02/16 22:05 Nasal Cannula 2.00 06/02/16 20:00 97 Nasal Cannula 2.00 06/02/16 20:00 94 06/02/16 20:00 94 06/02/16 20:00 98.9 94 18 213/74 97 06/02/16 18:05 198/82 06/02/16 16:55 195/86 06/02/16 16:12 98.6 20 97 06/02/16 16:08 83 06/02/16 16:00 98 Nasal Cannula 2.00 06/02/16 12:30 98.9 83 20 167/83 06/02/16 11:55 82 06/02/16 10:00 82 I/O 06/02/16 06/02/16 06/02/16 06/03/16 06/03/16 06/03/16 07:00 15:00 23:00 07:00 15:00 23:00 Intake Total 320 ml 240 ml Output Total 700 ml 2575 ml Balance -380 ml -2335 ml Intake Oral 90 ml 240 ml IV Total 230 ml Output Urine Total 700 ml 2575 ml # Bowel Movements 0 0 (Ely Pierce MD R3) Result Diagram: 06/03/16 0452 06/03/16 0450 Imaging Last Impressions Head CT 05/31/16 0000 Signed Impressions: Service Date/Time: Tuesday, May 31, 2016 06:53 - CONCLUSION: 1. Stable noncontrast head CT. No acute intracranial abnormality is identified. 2. Chronic changes include cerebral atrophy and periventricular white matter change characteristic of chronic microvascular ischemia. There is encephalomalacia in the left frontal lobe and left basal ganglia likely related to prior ischemia. 3. There is fluid in the mastoid air cells bilaterally. Vipin Merlos MD Brain MRI 05/31/16 0000 Signed Impressions: Service Date/Time: Tuesday, May 31, 2016 10:42 - CONCLUSION: 1. Remote infarcts greatest along the left frontal parietal lobe. 2. Extensive chronic ischemic small vessel vasculopathy. 3. No acute infarction. Chris Casey MD Lung Scan-V Nuclear Medicine 05/30/16 1246 Signed Impressions: Service Date/Time: Monday, May 30, 2016 13:44 - CONCLUSION: Negative for pulmonary embolus. Julio Kruger MD Chest X-Ray 05/30/16 1137 Signed Impressions: Service Date/Time: Monday, May 30, 2016 12:05 - CONCLUSION: Heart remains enlarged with moderate interstitial edema. Del Isaac MD FACR Upper Extremity Ultrasound 05/30/16 0000 Signed Impressions: Service Date/Time: Monday, May 30, 2016 17:02 - CONCLUSION: No evidence of right upper extremity DVT. Julio Kruger MD Objective Remarks GENERAL: This is a well-nourished, well-developed AAF sitting in bed in [facility] SKIN: More vesicular lesions with surrounding erythema underneath left breast and left side of back, consistent with zoster. Area is sensitive to touch. Cool and dry. HEAD: Atraumatic. Normocephalic. EYES: Exophthalmos. Left lateral gaze. No scleral icterus. No injection or drainage. ENT: Nose without bleeding, purulent drainage or septal hematoma. Airway patent. NECK: Trachea midline. CARDIOVASCULAR: Regular rate and rhythm without murmurs, gallops, or rubs. RESPIRATORY: Clear to auscultation. Breath sounds equal bilaterally, slightly decrease at bases. No wheezes, rales, or rhonchi. No respiratory distress. No increased work of breathing. GASTROINTESTINAL: Abdomen protuberant but soft and non-tender. No palpable masses. No guarding or rebound tenderness. MUSCULOSKELETAL: R. arm still with non-pitting edema but LEs are significantly less edematous. Able to move left UE and LE. Spastic movements. NEUROLOGICAL: Awake and alert. Dysphasic but able to speak a little more clearly this morning, MS similar to day of admission. Able to follow simple commands. (Ely Pierce MD R3) Urinary Catheter: Yes Assessment to: Remove (Ely Pierce MD R3) A/P Assessment and Plan Ms. 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 Admitted with shingles and worsening chronic kidney disease, and other complications of DM and HTN. Discharge Planning Anticipate discharge back to [facility] today or tomorrow pending nephrology clearance. w/d/w Dr. James (Ely Pierce MD R3) Attending Attestation Patient seen and examined. Case reviewed and discussed with the resident team. Agree with plan of care as discussed with me and documented in the resident note. 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 ESR 99 on this admission. Renal function improving. BUN/Cr 43/1.92. GFR 32. She is diuresing well with Bumex IV Q8H. Edema has improved. -Nephrology consulted: * Recommended diuresis given anasarca. -Avoid nephrotoxic agents -Renally dose medications -Monitor electrolytes and renal function (2) Generalized edema Status: Acute Plan: Likely chronic dependent edema, suspect third spacing from low albumin secondary to CKD. -Continue Bumex 2mg IV per Nephrology (3) Shingles rash Status: Acute Plan: -Acyclovir 800mg 5x/day x 7 days (05/30-06/06), renally dose per pharmacy -[place] 5mg Q6h prn pain -Continue home dose of Gabapentin -Contact isolation (4) History of CVA with residual deficit Status: Chronic Plan: EEG negative. Head CT and brain MRI without acute infarction. -Neurology consulted. Patient with spasticity and no seizure activity noted * Continue neuro check * Aspirin and Plavix -Monitor for signs or symptoms of seizure. -Ativan 2mg prn (5) Diabetes mellitus Status: Chronic Plan: -Sliding scale insulin -Monitor accuchecks -Diabetic diet and frequent snacks (6) Hypertension Status: Chronic Plan: Still elevated -Increase Metoprolol 50mg Q8H. Continue other antihypertensives. Also on diuretics (7) Chest pain Status: Resolved Plan: Patient presents with burning and stabbing pain localized to her left lower chest x 3 days, likely secondary to shingles rash Chest x-ray shows moderate interstitial edema. ACS workup negative. EKG unremarkable except for possible right axis deviation. V/Q scan ordered in ED is negative for PE. -Cardiac telemetry -Morphine and [place] prn pain -Supplemental O2 prn. -Acyclovir, renally dosed, for shingles (8) Transaminitis Status: Resolved Plan: Etiology unclear. -Repeat CMP pending -Avoid hepatotoxic agents (9) Anemia Status: Chronic Plan: Patient with normocytic anemia likely anemia of chronic disease. Hb stable s/p 1 unit PRBC transfusion on 05/31/16. -Continue to monitor. Repeat CBC pending. -Per nephrology, could consider erythropoietin -Hemoccult to rule out GIB (10) Nutrition, metabolism, and development symptoms Status: Acute Plan: Diet: Diabetic and pureed food per ST Fluids: HLIV. Caution with fluids given history of CHF, low albumin and clinical edema Electrolytes: CMP WNL. Continue to monitor and replete if necessary (11) Prophylactic measure Status: Acute Plan: SCDs bilaterally. Continue Heparin 5000 units Q12h (Ely Pierce MD R3) Problem Qualifiers (1) Shingles rash: Qualified Code: B02.9 - Herpes zoster without complication (2) Diabetes mellitus: Qualified Code: E11.649 - Type 2 diabetes mellitus with hypoglycemia without coma, with long-term current use of insulin (3) Hypertension: Qualified Code: I10 - Essential hypertension (4) Chest pain: Qualified Code: R07.89 - Other chest pain (5) Anemia: Qualified Code: N18.9 - Anemia in chronic kidney disease Ely Pierce MD R3 Jun 03, 2016 09:06 Jaclyn James MD Jun 06, 2016 13:44
[2016-06-03] MEDS: SODIUM CHLORIDE 0.9% FLUSH 5 ML FLUSH FLUSH SCH ×2 (09:07→21:00)
[2016-06-03] MEDS: hydrALAZINE HCL 25 MG TAB PO SCH ×2 (09:07→17:46)
[2016-06-03] MEDS: FLUTICASONE PROPIONATE 50 MCG/ACT 16 GM NASAL SPRAY EACH NARE SCH ×2 (09:07→22:29)
[2016-06-03] MEDS: POLYETHYLENE GLYCOL 17 GM PKG PO SCH (09:08)
[2016-06-03] MEDS: HEPARIN SODIUM - SQ 10,000 UNITS/ML VIAL SQ SCH ×2 (09:08→22:28)
[2016-06-03] MEDS: ACETAMINOPHEN/HYDROcodone 325 MG/5 MG TAB PO PRN (09:53)
--- NOTE | 2016-06-03 11:48 | HHI.NPPN ---
Subjective History of Present Illness This patient is a 60-year-old female with a history of known CKD confirmed by kidney biopsy during admission February 2016. Renal biopsy showed changes consistent with diabetic nephropathy as well as nephrosclerosis. There was evidence of interstitial fibrosis which is a poor prognostic indicator as far as preservation of renal function is concerned. Patient was discharged from the last admission with a creatinine level of 2.12. It peaked during that admission to 4.77 and she did require dialytic support temporarily for acute renal failure with associated fluid overload. Patient was advised to see us in the office however uncertain if she did so. She has a history of CVA and documented diastolic cardiac dysfunction. On this occasion she was admitted May 31, 2016 with complaints of chest pain subsequent diagnosis having shingles, generalized edema and chest x-ray showing evidence of mild pulmonary congestion. She was also significantly anemic with a hemoglobin of 7.3. Interval History Pt states she is feeling OK today. Offers no new complaints. (Barbie Roach) Review of Systems General General Remarks Review of systems severely limited given her aphasia. No verbalized complaints (Barbie Roach) Objective Data Data 06/02/16 06/03/16 19:00 07:00 Intake Total 240 ml Output Total 2575 ml Balance -2335 ml Intake Oral 240 ml Output Urine Total 2575 ml # Bowel Movements 0 Vital Signs Date Time Temp Pulse Resp B/P Pulse Ox O2 Delivery O2 Flow Rate FiO2 06/03/16 10:26 82 06/03/16 08:30 74 06/03/16 08:30 98.9 82 16 199/88 99 06/03/16 08:30 100 Nasal Cannula 2.00 06/03/16 07:46 98 Nasal Cannula 2.00 06/03/16 06:05 80 06/03/16 04:00 82 06/03/16 04:00 98.9 82 16 186/84 98 06/03/16 02:00 80 06/03/16 00:00 92 06/03/16 00:00 98.8 92 18 190/87 100 06/02/16 22:05 Nasal Cannula 2.00 06/02/16 20:00 97 Nasal Cannula 2.00 06/02/16 20:00 94 06/02/16 20:00 94 06/02/16 20:00 98.9 94 18 213/74 97 06/02/16 18:05 198/82 06/02/16 16:55 195/86 06/02/16 16:12 98.6 20 97 06/02/16 16:08 83 06/02/16 16:00 98 Nasal Cannula 2.00 06/02/16 12:30 98.9 83 20 167/83 06/02/16 11:55 82 (Barbie Roach) -: 06/03/16 0452 06/03/16 0450 Imaging Last Impressions Head CT 05/31/16 0000 Signed Impressions: Service Date/Time: Tuesday, May 31, 2016 06:53 - CONCLUSION: 1. Stable noncontrast head CT. No acute intracranial abnormality is identified. 2. Chronic changes include cerebral atrophy and periventricular white matter change characteristic of chronic microvascular ischemia. There is encephalomalacia in the left frontal lobe and left basal ganglia likely related to prior ischemia. 3. There is fluid in the mastoid air cells bilaterally. Vipin Merlos MD Brain MRI 05/31/16 0000 Signed Impressions: Service Date/Time: Tuesday, May 31, 2016 10:42 - CONCLUSION: 1. Remote infarcts greatest along the left frontal parietal lobe. 2. Extensive chronic ischemic small vessel vasculopathy. 3. No acute infarction. Chris Casey MD Lung Scan- Nuclear Medicine 05/30/16 1246 Signed Impressions: Service Date/Time: Monday, May 30, 2016 13:44 - CONCLUSION: Negative for pulmonary embolus. Julio Kruger MD Chest X-Ray 05/30/16 1137 Signed Impressions: Service Date/Time: Monday, May 30, 2016 12:05 - CONCLUSION: Heart remains enlarged with moderate interstitial edema. Del Isaac MD FACR Upper Extremity Ultrasound 05/30/16 0000 Signed Impressions: Service Date/Time: Monday, May 30, 2016 17:02 - CONCLUSION: No evidence of right upper extremity DVT. Julio Kruger MD Medication Review Current Medications Medications (Trade) Dose Ordered Sig/Maxine Route Start Time Stop Time Status Last Admin (NS Flush) 2 ml UNSCH PRN FLUSH 05/30/16 16:00 (NS Flush) 2 ml BID FLUSH 05/30/16 21:00 2/7/17 09:07 (Tylenol) 650 mg Q4H PRN PO 05/30/16 16:00 (Zofran Inj) 4 mg Q6H PRN IVP 05/30/16 16:00 05/31/16 23:24 (Colace) 100 mg Q12H PO 05/30/16 17:00 06/03/16 05:00 (Milk Of Magnesia Liq) 30 ml Q12H PRN PO 05/30/16 16:00 (Ambien) 5 mg HS PRN PO 05/30/16 16:00 (Narcan Inj) 0.4 mg UNSCH PRN IV 05/30/16 16:00 (D50w (Vial) Inj) 25 ml UNSCH PRN IV PUSH 05/30/16 16:00 05/30/16 20:33 (Glucagon Inj) 1 mg UNSCH PRN OTHER 05/30/16 16:00 (Norvasc) 10 mg DAILY PO 05/30/16 17:00 06/03/16 09:07 (Aspirin) 325 mg DAILY PO 05/31/16 09:00 06/03/16 09:06 (Lipitor) 80 mg HS PO 05/30/16 21:00 06/02/16 20:33 (Urecholine) 25 mg Q8HR PO 05/30/16 22:00 06/03/16 05:00 (CeleXA) 20 mg DAILY PO 05/31/16 09:00 06/03/16 09:06 (Plavix) 75 mg DAILY PO 05/31/16 09:00 06/03/16 09:06 (Cardura) 4 mg HS PO 05/30/16 21:00 06/02/16 20:33 (Ferrous Sulfate) 325 mg TID PO 05/30/16 18:00 06/03/16 09:06 (Flonase [place] Spr) 1 spray Q12HR EACH NARE 05/30/16 21:00 06/03/16 09:07 (Neurontin) 300 mg Q8HR PO 05/30/16 22:00 06/03/16 04:59 (Protonix) 40 mg DAILY PO 05/31/16 09:00 06/03/16 09:06 ([place] 5-325 Mg) 1 tab Q6H PRN PO 05/30/16 16:30 06/03/16 09:53 (Morphine Inj) 2 mg Q4H PRN IV PUSH 05/30/16 16:30 06/01/16 22:00 (Apresoline Inj) 20 mg Q4H PRN IV PUSH 05/31/16 06:45 06/02/16 16:54 (Ativan Inj) 2 mg ONCE PRN IV PUSH 05/31/16 08:15 06/14/16 08:14 (Heparin Inj) 5,000 units Q12HR SQ 06/01/16 09:15 06/03/16 09:08 (Miralax) 17 gm DAILY PO 06/02/16 09:00 06/03/16 09:08 (Jessica-Colace) 2 tab BID PRN PO 06/02/16 09:00 (Catapres) 0.2 mg Q8H PO 06/02/16 12:00 06/03/16 05:00 (Apresoline) 100 mg Q8H PO 06/02/16 16:00 06/03/16 09:07 (Vaseline Oint) 1 applic UNSCH PRN TOPICAL 06/02/16 09:45 (Bumex Inj) 2 mg Q8HR IV PUSH 06/02/16 14:00 06/03/16 05:00 (Lopressor) 50 mg Q8H PO 06/03/16 17:00 (Barbie Roach) Physical Exam General Appearance: No Acute Distress, Comfortable (Barbie Roach) Eyes Eye Exam: Sclera White (Barbie Roach) Throat Throat Exam: Oral Mucosa [place] & Moist (Barbie Roach) Neck Neck Exam: Trachea Midline (Barbie Roach) Pulmonary Resp Exam: No Distress, Diminished Breath Sounds (Barbie Roach) Cardiology CV Exam: Regular, Normal Sinus Rhythm, Good Perfusion (Barbie Roach) Gastrointestinal/Abdomen GI Exam: Soft, Non-Tender, Non-Distended (Barbie Roach) Integumentary Skin Exam: Clear, Warm (Barbie Roach) Extremeties Extremities Exam: Moderate Edema (involving upper and lower extremities as well as dependent torso. Improving), Pitting Edema (Barbie Roach) Neurologic Neuro Exam: Alert, Awake (Barbie Roach) Assessment/Plan Problem List: (1) CKD (chronic kidney disease) stage 4, GFR 15-29 ml/min Plan: Kidney biopsy performed last year indicating diabetic nephropathy, severe atherosclerosis, interstitial fibrosis, glomeruli were sclerosed. Patient has marked fluid retention and her actual GFR may be lower than that indicated by laboratory results. Start on Vitamin D repletion Medications should be adjusted for the patient's estimated GFR if clinically indicated. Avoid agents with significant potential for nephrotoxicity possible including NSAIDs for analgesia, iodine contrast agents. Gadolinium is contraindicated if the GFR is below 30. (2) Generalized edema Plan: Patient has generalized edema and essentially anasarca. Is likely a combination of her severe renal failure, probable significant proteinuria and diastolic myocardial dysfunction. Continue on Bumex as ordered. Continue to monitor I&Os closely. (3) Anemia Plan: Patient may have anemia renal disease along with Fe deficiency anemia. On po Fe, but may benefit from Venofer if primary agreeable. Pending FOBT (4) Hypertension Plan: Increase Metoprolol to 100mg q12h. (5) Diabetes mellitus Plan: Management per primary care physician. (6) CHF exacerbation (Barbie Roach) Plan The exam, history, and the medical decision-making described in the above note were completed with the assistance of the PAHanny. I reviewed and agree with the findings presented. (Brooks Vargas MD) Problem Qualifiers (1) Anemia: Qualified Code: N18.9 - Anemia in chronic kidney disease (2) Hypertension: Qualified Code: I10 - Essential hypertension (3) Diabetes mellitus: Qualified Code: E11.649 - Type 2 diabetes mellitus with hypoglycemia without coma, with long-term current use of insulin (4) CHF exacerbation: Qualified Code: I50.9 - Acute on chronic congestive heart failure, unspecified congestive heart failure type Barbie Roach Jun 03, 2016 11:48 Brooks Vargas MD Jul 07, 2016 10:16
[2016-06-03] MEDS: CHOLECALCIFEROL (VIT D3) 1000 UNIT TAB PO SCH (14:18)
[2016-06-03] MEDS ORDERED: METOPROLOL TARTRATE 50 MG TAB PO SCH (17:00)
[2016-06-03] MEDS: METOPROLOL TARTRATE 100 MG TAB PO SCH (17:46)
[2016-06-03] MEDS: DOXAZOSIN MESYLATE 4 MG TAB PO SCH (22:28)
[2016-06-03] MEDS: ATORVASTATIN 80 MG TAB PO SCH (22:28)
[2016-06-04] VITALS (23 sets, daily range): BP systolic 135–197; BP diastolic 73–97; PULSE 67–80; RESP 18–21; TEMP 97.7–98.7; O2SAT 95–100
[2016-06-04] MEDS: hydrALAZINE HCL 25 MG TAB PO SCH ×4 (01:15→23:25)
[2016-06-04] MEDS: METOPROLOL TARTRATE 100 MG TAB PO SCH ×2 (04:02→16:51)
[2016-06-04] MEDS: DOCUSATE SODIUM 100 MG CAP PO SCH ×2 (04:02→16:50)
[2016-06-04] MEDS: cloNIDine HCL 0.2 MG TAB PO SCH ×3 (04:02→20:20)
[2016-06-04] MEDS: BUMETANIDE INJ 1 MG/4 ML VIAL IV PUSH SCH (06:43)
[2016-06-04] MEDS: INSULIN ASPART SUPPLEMENTAL SCALE SQ SCH ×4 (06:43→20:19)
[2016-06-04] MEDS: ACYCLOVIR 800 MG TAB PO SCH ×5 (06:43→20:19)
[2016-06-04] MEDS: BETHANECHOL CHL 25 MG TAB PO SCH ×3 (06:44→20:19)
[2016-06-04] MEDS: GABAPENTIN 300 MG CAP PO SCH ×3 (06:44→20:19)
--- NOTE | 2016-06-04 07:43 | HHI.FPPN ---
Subjective Remarks Patient seen and examined. No acute events overnight. Blood pressure continues to be elevated. Other vital signs stable. She denies any complaints this morning. (Ely Pierce MD R3) Objective Vitals Vital Signs Date Time Temp Pulse Resp B/P Pulse Ox O2 Delivery O2 Flow Rate FiO2 06/04/16 06:00 73 06/04/16 04:00 77 06/04/16 04:00 98.1 74 20 171/84 96 06/04/16 02:00 74 06/04/16 00:00 74 06/04/16 00:00 98.5 74 21 187/97 100 06/03/16 22:00 74 06/03/16 20:00 74 06/03/16 20:00 98.8 81 20 201/91 96 06/03/16 19:00 97 Nasal Cannula 2.00 06/03/16 18:22 82 06/03/16 16:45 98.9 82 18 183/83 93 06/03/16 16:45 79 06/03/16 14:50 16 06/03/16 14:00 84 06/03/16 12:00 99.0 89 18 177/99 97 06/03/16 12:00 88 06/03/16 10:26 82 06/03/16 08:30 74 06/03/16 08:30 98.9 82 16 199/88 99 06/03/16 08:30 100 Nasal Cannula 2.00 06/03/16 07:46 98 Nasal Cannula 2.00 I/O 06/03/16 06/03/16 06/03/16 06/04/16 06/04/16 06/04/16 07:00 15:00 23:00 07:00 15:00 23:00 Intake Total 240 ml 960 ml 720 ml Output Total 2575 ml 2200 ml Balance -2335 ml -1240 ml 720 ml Intake Oral 240 ml 960 ml 720 ml IV Total 0 ml Output Urine Total 2575 ml 2200 ml # Voids 2 3 # Bowel Movements 0 1 1 (Ely Pierce MD R3) Result Diagram: 06/03/16 0452 06/03/16 0450 Imaging Last Impressions Head CT 05/31/16 0000 Signed Impressions: Service Date/Time: Tuesday, May 31, 2016 06:53 - CONCLUSION: 1. Stable noncontrast head CT. No acute intracranial abnormality is identified. 2. Chronic changes include cerebral atrophy and periventricular white matter change characteristic of chronic microvascular ischemia. There is encephalomalacia in the left frontal lobe and left basal ganglia likely related to prior ischemia. 3. There is fluid in the mastoid air cells bilaterally. Vipin Merlos MD Brain MRI 05/31/16 0000 Signed Impressions: Service Date/Time: Tuesday, May 31, 2016 10:42 - CONCLUSION: 1. Remote infarcts greatest along the left frontal parietal lobe. 2. Extensive chronic ischemic small vessel vasculopathy. 3. No acute infarction. Chris Casey MD Lung Scan-V Nuclear Medicine 05/30/16 1246 Signed Impressions: Service Date/Time: Monday, May 30, 2016 13:44 - CONCLUSION: Negative for pulmonary embolus. Julio Kruger MD Chest X-Ray 05/30/16 1137 Signed Impressions: Service Date/Time: Monday, May 30, 2016 12:05 - CONCLUSION: Heart remains enlarged with moderate interstitial edema. Del Isaac MD FACR Upper Extremity Ultrasound 05/30/16 0000 Signed Impressions: Service Date/Time: Monday, May 30, 2016 17:02 - CONCLUSION: No evidence of right upper extremity DVT. Julio Kruger MD Objective Remarks GENERAL: This is a well-nourished, well-developed AAF sitting in bed in [facility] SKIN: Vesicular lesions with surrounding erythema underneath left breast and left side of back, consistent with zoster. Area is sensitive to touch. Cool and dry. HEAD: Atraumatic. Normocephalic. EYES: Exophthalmos. No scleral icterus. No injection or drainage. ENT: Nose without bleeding, purulent drainage or septal hematoma. Airway patent. NECK: Trachea midline. CARDIOVASCULAR: Regular rate and rhythm without murmurs, gallops, or rubs. RESPIRATORY: Clear to auscultation. Breath sounds equal bilaterally. No wheezes , rales, or rhonchi. No respiratory distress. No increased work of breathing. GASTROINTESTINAL: Abdomen protuberant but soft and non-tender. No palpable masses. No guarding or rebound tenderness. MUSCULOSKELETAL: Non-pitting edema improved compared to previous days. LE with no significant edema. Able to move left UE and LE. Spastic movements. NEUROLOGICAL: Awake and alert. Dysphasic but able to speak a little more clearly this morning. Able to tell me her sister's name. Able to follow simple commands. (Ely Pierce MD R3) A/P Assessment and Plan Ms. 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 Admitted with shingles and worsening chronic kidney disease, and other complications of DM and HTN. Discharge Planning Anticipate discharge back to [facility] tomorrow pending nephrology clearance. d/w Dr. James d/w Barbie Roach (nephrology) (Ely Pierce MD R3) Attending Attestation Patient seen and examined. Case reviewed and discussed with the resident team. Agree with plan of care as discussed with me and documented in the resident note. she has diuresed enough that she can switch to po. 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 ESR 99 on this admission. Renal function stable. She is diuresing well with Bumex IV Q8H. Edema has improved. -Nephrology consulted: * Per discussion with Barbie this morning, okay to switch to PO Bumex 1mg Q12h * Start Venofer given low iron -Avoid nephrotoxic agents -Renally dose medications -Monitor I/Os, electrolytes, and renal function (2) Generalized edema Status: Acute Plan: Improved s/p IV Bumex. Will transition to PO Bumex in anticipation for discharge tomorrow or next day. (3) Shingles rash Status: Acute Plan: -Acyclovir 800mg 5x/day x 7 days (05/30-06/06), renally dose per pharmacy -[place] 5mg Q6h prn pain -Continue home dose of Gabapentin -Contact isolation (4) History of CVA with residual deficit Status: Chronic Plan: EEG negative. Head CT and brain MRI without acute infarction. -Neurology consulted but has signed off. Patient with spasticity and no seizure activity noted * Continue neuro check * Aspirin and Plavix -Monitor for signs or symptoms of seizure. -Ativan 2mg prn (5) Diabetes mellitus Status: Chronic Plan: -Sliding scale insulin -Monitor accuchecks -Diabetic diet and frequent snacks (6) Hypertension Status: Chronic Plan: Still elevated -Increase Metoprolol 100mg Q12H. Continue other antihypertensives. Also on diuretics (7) Chest pain Status: Resolved Plan: Patient presented to ED initially for burning and stabbing pain localized to her left lower chest x 3 days, ACS and V/Q scan negative. Symptoms likely secondary to shingles rash Chest x-ray shows moderate interstitial edema. -Cardiac telemetry -Morphine and [place] prn pain -Supplemental O2 prn. -Acyclovir, renally dosed, for shingles (8) Anemia Status: Chronic Plan: Patient with normocytic anemia likely anemia of chronic disease. Hb stable s/p 1 unit PRBC transfusion on 05/31/16. -Continue to monitor. Repeat CBC pending. -Per nephrology: * Will start Venofer since iron still remains low despite oral iron supplement. * Patient may be candidate for erythropoietin -Hemoccult obtained ED negative (9) Nutrition, metabolism, and development symptoms Status: Acute Plan: Diet: Diabetic and pureed food per ST Fluids: HLIV. Caution with fluids given history of CHF, low albumin and clinical edema Electrolytes: Continue to monitor and replete if necessary (10) Prophylactic measure Status: Acute Plan: SCDs bilaterally. Continue Heparin 5000 units Q12h (Ely Pierce MD R3) Problem Qualifiers (1) Shingles rash: Qualified Code: B02.9 - Herpes zoster without complication (2) Diabetes mellitus: Qualified Code: E11.649 - Type 2 diabetes mellitus with hypoglycemia without coma, with long-term current use of insulin (3) Hypertension: Qualified Code: I10 - Essential hypertension (4) Chest pain: Qualified Code: R07.89 - Other chest pain (5) Anemia: Qualified Code: N18.9 - Anemia in chronic kidney disease Ely Pierce MD R3 Jun 04, 2016 07:42 Jaclyn James MD Jun 06, 2016 13:50
[2016-06-04] MEDS: POLYETHYLENE GLYCOL 17 GM PKG PO SCH (08:46)
[2016-06-04] MEDS: FERROUS SULFATE 325 MG (65 MG ELEMENTAL IRON) TAB PO SCH ×3 (08:46→16:50)
[2016-06-04] MEDS: ASPIRIN 325 MG TAB PO SCH (08:47)
[2016-06-04] MEDS: CHOLECALCIFEROL (VIT D3) 1000 UNIT TAB PO SCH (08:47)
[2016-06-04] MEDS: SODIUM CHLORIDE 0.9% FLUSH 5 ML FLUSH FLUSH SCH ×2 (08:47→20:20)
[2016-06-04] MEDS: PANTOPRAZOLE SOD 40 MG DELAYED RELEASE TAB PO SCH (08:47)
[2016-06-04] MEDS: CLOPIDOGREL 75 MG TAB PO SCH (08:47)
[2016-06-04] MEDS: CITALOPRAM HYDROBROMIDE 20 MG TAB PO SCH (08:47)
[2016-06-04] MEDS: FLUTICASONE PROPIONATE 50 MCG/ACT 16 GM NASAL SPRAY EACH NARE SCH ×2 (08:47→23:25)
[2016-06-04] MEDS: HEPARIN SODIUM - SQ 10,000 UNITS/ML VIAL SQ SCH ×2 (08:48→20:18)
[2016-06-04 10:16] LABS: AUTOMATED NEUTROPHIL # 2.8 TH/MM3 (1.8-7.7); BASOPHIL # 0.1 TH/MM3 (0-0.2); BASOPHIL % 1.2 % (0.0-2.0); EOSINOPHIL # 0.5 TH/MM3 (0-0.4); EOSINOPHIL % 9.2 % (0.0-4.0); HEMATOCRIT 28.2 % (35.0-46.0); HEMO FLAGS DIFF FINAL; LYMPH % 20.7 % (9.0-44.0); MEAN CELL VOLUME 84.2 FL (80.0-100.0); MEAN CORPUSCULAR HEMOGLOBIN 27.8 PG (27.0-34.0); MONO % 11.3 % (0.0-8.0); NEUT % 57.6 % (16.0-70.0); PLATELET COUNT 143 TH/MM3 (150-450); RED BLOOD COUNT 3.36 MIL/MM3 (4.00-5.30); RED CELL DISTRIBUTION WIDTH 14.9 % (11.6-17.2); WHITE BLOOD COUNT 4.9 TH/MM3 (4.0-11.0)
[2016-06-04 10:35] LABS: POTASSIUM 3.6 MEQ/L (3.5-5.1)
[2016-06-04] MEDS ORDERED: IRON SUCROSE INJ 100 MG in SODIUM CHLORIDE 0.9% INJ 100 ML IV ONE (11:00)
[2016-06-04] MEDS: hydrALAZINE HCL 20 MG/ML VIAL IV PUSH PRN (13:13)
[2016-06-04 14:04] LABS: BICARBONATE 28.7 MEQ/L (21.0-32.0); POTASSIUM 3.8 MEQ/L (3.5-5.1)
--- NOTE | 2016-06-04 16:11 | HHI.NPPN ---
Subjective History of Present Illness This patient is a 60-year-old female with a history of known CKD confirmed by kidney biopsy during admission February 2016. Renal biopsy showed changes consistent with diabetic nephropathy as well as nephrosclerosis. There was evidence of interstitial fibrosis which is a poor prognostic indicator as far as preservation of renal function is concerned. Patient was discharged from the last admission with a creatinine level of 2.12. It peaked during that admission to 4.77 and she did require dialytic support temporarily for acute renal failure with associated fluid overload. Patient was advised to see us in the office however uncertain if she did so. She has a history of CVA and documented diastolic cardiac dysfunction. On this occasion she was admitted May 31, 2016 with complaints of chest pain subsequent diagnosis having shingles, generalized edema and chest x-ray showing evidence of mild pulmonary congestion. She was also significantly anemic with a hemoglobin of 7.3. Interval History In no distress. Review of Systems General General Remarks Review of systems severely limited given her aphasia. No verbalized complaints Objective Data Data 06/03/16 06/04/16 19:00 07:00 Intake Total 960 ml 720 ml Output Total 2200 ml Balance -1240 ml 720 ml Intake Oral 960 ml 720 ml IV Total 0 ml Output Urine Total 2200 ml # Voids 2 3 # Bowel Movements 1 1 Vital Signs Date Time Temp Pulse Resp B/P Pulse Ox O2 Delivery O2 Flow Rate FiO2 06/04/16 14:55 72 06/04/16 13:33 74 06/04/16 12:02 76 06/04/16 11:43 97.8 78 18 189/94 98 06/04/16 11:43 98 Nasal Cannula 2.00 06/04/16 11:43 77 06/04/16 10:01 78 06/04/16 09:32 76 06/04/16 09:27 96 21 06/04/16 08:30 73 06/04/16 08:30 100 Nasal Cannula 2.00 06/04/16 08:30 97.8 71 18 183/88 100 06/04/16 06:00 73 06/04/16 04:00 77 06/04/16 04:00 98.1 74 20 171/84 96 06/04/16 02:00 74 06/04/16 00:00 74 06/04/16 00:00 98.5 74 21 187/97 100 06/03/16 22:00 74 06/03/16 20:00 74 06/03/16 20:00 98.8 81 20 201/91 96 06/03/16 19:00 97 Nasal Cannula 2.00 06/03/16 18:22 82 06/03/16 16:45 98.9 82 18 183/83 93 06/03/16 16:45 79 -: 06/04/16 0952 06/04/16 1118 Physical Exam General Appearance: No Acute Distress, Comfortable Eyes Eye Exam: Sclera White Throat Throat Exam: Oral Mucosa [place] & Moist Neck Neck Exam: Trachea Midline Pulmonary Resp Exam: No Distress, Diminished Breath Sounds Cardiology CV Exam: Regular, Normal Sinus Rhythm, Good Perfusion Gastrointestinal/Abdomen GI Exam: Soft, Non-Tender, Non-Distended Integumentary Skin Exam: Clear, Warm Extremeties Extremities Exam: Trace Edema (upper and lower extremities.), Pitting Edema Neurologic Neuro Exam: Alert, Awake Assessment/Plan Problem List: (1) CKD (chronic kidney disease) stage 4, GFR 15-29 ml/min Plan: Kidney biopsy performed last year indicating diabetic nephropathy, severe atherosclerosis, interstitial fibrosis, glomeruli were sclerosed. Patient has marked fluid retention and her actual GFR may be lower than that indicated by laboratory results. Start on Vitamin D repletion Medications should be adjusted for the patient's estimated GFR if clinically indicated. Avoid agents with significant potential for nephrotoxicity possible including NSAIDs for analgesia, iodine contrast agents. Gadolinium is contraindicated if the GFR is below 30. (2) Generalized edema Plan: Patient's volume status has improved nicely. Switch to by mouth bumetanide at this time. Patient still has some fluid retention. Bumetanide may have to be decreased at later date. Patient needs to follow-up with me in the office in approximately 1-2 weeks. (3) Anemia Plan: Patient may have anemia renal disease along with Fe deficiency anemia. On po Fe, but may benefit from Venofer if primary agreeable. Pending FOBT (4) Hypertension (5) Diabetes mellitus Plan: Management per primary care physician. (6) CHF exacerbation Plan: Clinically improved. Problem Qualifiers (1) Anemia: Qualified Code: N18.9 - Anemia in chronic kidney disease (2) Hypertension: Qualified Code: I10 - Essential hypertension (3) Diabetes mellitus: Qualified Code: E11.649 - Type 2 diabetes mellitus with hypoglycemia without coma, with long-term current use of insulin (4) CHF exacerbation: Qualified Code: I50.9 - Acute on chronic congestive heart failure, unspecified congestive heart failure type Brooks Vargas MD Jun 04, 2016 16:11
[2016-06-04] MEDS: BUMETANIDE 1 MG TAB PO SCH (16:50)
[2016-06-04] MEDS ORDERED: BUMETANIDE 1 MG TAB PO SCH (18:00)
[2016-06-04] MEDS: ACETAMINOPHEN/HYDROcodone 325 MG/5 MG TAB PO PRN (18:07)
[2016-06-04] MEDS: DOXAZOSIN MESYLATE 4 MG TAB PO SCH (20:19)
[2016-06-04] MEDS: ATORVASTATIN 80 MG TAB PO SCH (20:19)
[2016-06-05] VITALS (17 sets, daily range): BP systolic 158–187; BP diastolic 83–97; PULSE 60–82; RESP 18; TEMP 98–98.2; O2SAT 94–98
[2016-06-05] MEDS: GABAPENTIN 300 MG CAP PO SCH ×2 (04:56→14:28)
[2016-06-05] MEDS: BETHANECHOL CHL 25 MG TAB PO SCH ×2 (04:56→14:28)
[2016-06-05] MEDS: ACYCLOVIR 800 MG TAB PO SCH ×3 (04:56→14:28)
[2016-06-05] MEDS: cloNIDine HCL 0.2 MG TAB PO SCH ×2 (04:56→10:57)
[2016-06-05] MEDS: METOPROLOL TARTRATE 100 MG TAB PO SCH (04:56)
[2016-06-05] MEDS: DOCUSATE SODIUM 100 MG CAP PO SCH (04:56)
[2016-06-05] MEDS: INSULIN ASPART SUPPLEMENTAL SCALE SQ SCH ×2 (04:57→10:58)
[2016-06-05 06:26] LABS: AUTOMATED NEUTROPHIL # 2.7 TH/MM3 (1.8-7.7); EOSINOPHIL # 0.5 TH/MM3 (0-0.4); EOSINOPHIL % 9.2 % (0.0-4.0); HEMATOCRIT 26.7 % (35.0-46.0); HEMO FLAGS DIFF FINAL; LYMPH % 23.9 % (9.0-44.0); LYMPHOCYTE # 1.2 TH/MM3 (1.0-4.8); MEAN CELL VOLUME 83.7 FL (80.0-100.0); MEAN CORPUSCULAR HEMOGLOBIN 27.2 PG (27.0-34.0); MEAN CORPUSCULAR HGB CONC 32.5 % (32.0-36.0); MONO % 11.2 % (0.0-8.0); NEUT % 54.7 % (16.0-70.0); PLATELET COUNT 141 TH/MM3 (150-450); RED BLOOD COUNT 3.19 MIL/MM3 (4.00-5.30); RED CELL DISTRIBUTION WIDTH 14.5 % (11.6-17.2)
[2016-06-05 06:54] LABS: BICARBONATE 29.3 MEQ/L (21.0-32.0); POTASSIUM 3.8 MEQ/L (3.5-5.1)
--- NOTE | 2016-06-05 07:15 | HHI.DCPOC ---
Discharge Care Plan Diagnosis: (1) Shingles rash (2) CKD (chronic kidney disease) stage 3, GFR 30-59 ml/min (3) Diabetes mellitus Goals to Promote Your Health * To prevent worsening of your condition and complications * To maintain your health at the optimal level Directions to Meet Your Goals Take your medications as prescribed Follow your dietary instruction Follow activity as directed Keep your appointments as scheduled Take your immunizations and boosters as scheduled If your symptoms worsen call your PCP, if no PCP go to Urgent Care Center or Emergency Room Smoking is Dangerous to Your Health. Avoid second hand smoke Call the 24-hour hour crisis hotline for domestic abuse at Ely Pierce MD R3 Jun 05, 2016 07:15
[2016-06-05] MEDS ORDERED: HYDR-3516 PO (07:18)
[2016-06-05] MEDS ORDERED: ACYC-101 PO (07:18)
[2016-06-05] MEDS ORDERED: BUME1TAB PO (07:18)
[2016-06-05] MEDS ORDERED: VITA100018 PO (07:18)
[2016-06-05] MEDS ORDERED: METO-338 PO (07:18)
[2016-06-05] MEDS: CHOLECALCIFEROL (VIT D3) 1000 UNIT TAB PO SCH (08:17)
[2016-06-05] MEDS: FLUTICASONE PROPIONATE 50 MCG/ACT 16 GM NASAL SPRAY EACH NARE SCH (08:17)
[2016-06-05] MEDS: BUMETANIDE 1 MG TAB PO SCH (08:17)
[2016-06-05] MEDS: ASPIRIN 325 MG TAB PO SCH (08:17)
[2016-06-05] MEDS: hydrALAZINE HCL 25 MG TAB PO SCH (08:17)
[2016-06-05] MEDS: POLYETHYLENE GLYCOL 17 GM PKG PO SCH (08:18)
[2016-06-05] MEDS: FERROUS SULFATE 325 MG (65 MG ELEMENTAL IRON) TAB PO SCH ×2 (08:18→12:19)
[2016-06-05] MEDS: HEPARIN SODIUM - SQ 10,000 UNITS/ML VIAL SQ SCH (08:18)
[2016-06-05] MEDS: PANTOPRAZOLE SOD 40 MG DELAYED RELEASE TAB PO SCH (08:18)
[2016-06-05] MEDS: CITALOPRAM HYDROBROMIDE 20 MG TAB PO SCH (08:18)
[2016-06-05] MEDS: SODIUM CHLORIDE 0.9% FLUSH 5 ML FLUSH FLUSH SCH (08:18)
[2016-06-05] MEDS: CLOPIDOGREL 75 MG TAB PO SCH (08:18)
--- NOTE | 2016-06-05 09:48 | HHI.FPPN ---
Subjective Remarks Patient seen and examined. No acute events overnight. BP better controlled in 160/80s. She is awake, alert, and oriented. Denies any complaints this morning. When asked if she feels ready to go, patient nodded. (Ely Pierce MD R3) Objective Vitals Vital Signs Date Time Temp Pulse Resp B/P Pulse Ox O2 Delivery O2 Flow Rate FiO2 06/05/16 09:06 74 06/05/16 08:48 98 Nasal Cannula 2.00 06/05/16 08:48 71 06/05/16 08:48 98.0 73 18 169/85 98 06/05/16 06:29 77 06/05/16 05:39 82 167/83 06/05/16 05:07 77 06/05/16 04:57 98.2 75 18 187/97 06/05/16 04:31 72 06/05/16 02:55 71 06/05/16 02:03 74 06/05/16 01:10 75 06/05/16 00:27 72 06/04/16 23:25 98.7 76 18 197/96 100 06/04/16 23:00 74 06/04/16 22:02 76 06/04/16 21:30 77 06/04/16 20:00 80 06/04/16 19:57 98.2 78 18 192/86 98 06/04/16 19:00 80 06/04/16 18:01 77 06/04/16 17:18 75 06/04/16 16:16 71 06/04/16 15:30 97 Nasal Cannula 2.00 06/04/16 15:30 72 06/04/16 15:30 97.7 73 18 150/81 97 06/04/16 14:55 72 06/04/16 13:33 74 06/04/16 12:02 76 06/04/16 11:43 97.8 78 18 189/94 98 06/04/16 11:43 98 Nasal Cannula 2.00 06/04/16 11:43 77 06/04/16 10:01 78 I/O 06/04/16 06/04/16 06/04/16 06/05/16 06/05/16 06/05/16 07:00 15:00 23:00 07:00 15:00 23:00 Intake Total 720 ml 550 ml 240 ml Balance 720 ml 550 ml 240 ml Intake Oral 720 ml 450 ml 240 ml IV Total 0 ml 100 ml # Voids 3 2 2 # Bowel Movements 1 2 1 (Ely Pierce MD R3) Result Diagram: 06/05/16 0535 06/05/16 0535 Imaging Last Impressions Head CT 05/31/16 0000 Signed Impressions: Service Date/Time: Tuesday, May 31, 2016 06:53 - CONCLUSION: 1. Stable noncontrast head CT. No acute intracranial abnormality is identified. 2. Chronic changes include cerebral atrophy and periventricular white matter change characteristic of chronic microvascular ischemia. There is encephalomalacia in the left frontal lobe and left basal ganglia likely related to prior ischemia. 3. There is fluid in the mastoid air cells bilaterally. Vipin Merlos MD Brain MRI 05/31/16 0000 Signed Impressions: Service Date/Time: Tuesday, May 31, 2016 10:42 - CONCLUSION: 1. Remote infarcts greatest along the left frontal parietal lobe. 2. Extensive chronic ischemic small vessel vasculopathy. 3. No acute infarction. Chris Casey MD Lung Scan- Nuclear Medicine 05/30/16 1246 Signed Impressions: Service Date/Time: Monday, May 30, 2016 13:44 - CONCLUSION: Negative for pulmonary embolus. Julio Kruger MD Chest X-Ray 05/30/16 1137 Signed Impressions: Service Date/Time: Monday, May 30, 2016 12:05 - CONCLUSION: Heart remains enlarged with moderate interstitial edema. Del Isaac MD FACR Upper Extremity Ultrasound 05/30/16 0000 Signed Impressions: Service Date/Time: Monday, May 30, 2016 17:02 - CONCLUSION: No evidence of right upper extremity DVT. Julio Kruger MD Objective Remarks GENERAL: This is a well-nourished, well-developed AAF sitting in bed in [facility] SKIN: Vesicular lesions with surrounding erythema underneath left breast and left side of back, consistent with zoster. Area is sensitive to touch. Cool and dry. HEAD: Atraumatic. Normocephalic. EYES: Exophthalmos. No scleral icterus. No injection or drainage. ENT: Nose without bleeding, purulent drainage or septal hematoma. Airway patent. NECK: Trachea midline. CARDIOVASCULAR: Regular rate and rhythm without murmurs, gallops, or rubs. RESPIRATORY: Clear to auscultation. Breath sounds equal bilaterally. No wheezes , rales, or rhonchi. No respiratory distress. No increased work of breathing. GASTROINTESTINAL: Abdomen protuberant but soft and non-tender. No palpable masses. No guarding or rebound tenderness. MUSCULOSKELETAL: Non-pitting edema improved compared to previous days. LE with no significant edema. Able to move left UE and LE. Spastic movements. NEUROLOGICAL: Awake and alert. Dysphasic but back to baseline. Able to follow simple commands. (Ely Pierce MD R3) A/P Assessment and Plan Ms. 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 Admitted with shingles and worsening chronic kidney disease, and other complications of DM and HTN. Patient has significant clinical improvement since admission and is ready for discharge today. Discharge Planning Anticipate discharge back to [facility] today. Follow up with pcp and nephrology in 1 week. d/w Dr. James (Ely Pierce MD R3) Attending Attestation Patient seen and examined. Case reviewed and discussed with the resident team. Agree with plan of care as discussed with me and documented in the resident note. 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 ESR 99 on this admission. Renal function stable. She is diuresing well with Bumex IV Q8H. Edema has improved. -Nephrology consulted: * Continue Bumex PO since patient still has some fluid retention. Bumex may be decreased at a later later date. * Outpatient follow up with Dr. Vargas in 1-2 weeks. * Continue Vitamin D3 2000 units po daily -Avoid nephrotoxic agents -Renally dose medications -Repeat CMP in 1 week (2) Generalized edema Status: Acute Plan: Improved s/p Bumex 2mg po BID. Will f/u with nephrology for management as outpatient. (3) Shingles rash Status: Acute Plan: -Acyclovir 800mg 5x/day x 7 days (05/30-06/06), renally dose per pharmacy -[place] 5mg Q6h prn pain -Continue home dose of Gabapentin -Contact isolation (4) Diabetes mellitus Status: Chronic Plan: -Sliding scale insulin -Monitor accuchecks -Diabetic diet and frequent snacks (5) History of CVA with residual deficit Status: Chronic Plan: Mental status is back to baseline. Able to answer questions appropriately although she does have baseline dysphasia. -Neurology consulted but has signed off. Patient with spasticity and no seizure activity noted * Continue neuro check * Aspirin and Plavix Imaging: EEG negative. Head CT and brain MRI without acute infarction. (6) Hypertension Status: Chronic Plan: Better controlled with higher dose of beta german -Continue Metoprolol 100mg Q12H (new dose since admission) -Continue other home antihypertensives (7) Anemia Status: Chronic Plan: Patient with normocytic anemia likely anemia of chronic disease. Hb stable s/p 1 unit PRBC transfusion on 05/31/16. -Per nephrology: * Venofer x 1 dose given on 06/04 * Continue oral iron supplements * Patient may be candidate for erythropoietin. F/U with nephrology as an outpatient -Repeat CBC in 1 week -Hemoccult obtained ED negative (8) Chest pain Status: Resolved Plan: Patient presented to ED initially for burning and stabbing pain localized to her left lower chest x 3 days, ACS and V/Q scan negative. Symptoms likely secondary to shingles rash Chest x-ray shows moderate interstitial edema. -Cardiac telemetry -Morphine and [place] prn pain -Supplemental O2 prn. -Acyclovir, renally dosed, for shingles. Will need 2 more days to complete 7 day course of antiviral. (9) Nutrition, metabolism, and development symptoms Status: Acute Plan: Diet: Diabetic and pureed food per ST Fluids: HLIV. Caution with fluids given history of CHF, low albumin and clinical edema Electrolytes: Continue to monitor and replete if necessary (10) Prophylactic measure Status: Acute Plan: SCDs bilaterally. Continue Heparin 5000 units Q12h (Ely Pierce MD R3) Problem Qualifiers (1) Shingles rash: Qualified Code: B02.9 - Herpes zoster without complication (2) Diabetes mellitus: Qualified Code: E11.649 - Type 2 diabetes mellitus with hypoglycemia without coma, with long-term current use of insulin (3) Hypertension: Qualified Code: I10 - Essential hypertension (4) Anemia: Qualified Code: N18.9 - Anemia in chronic kidney disease (5) Chest pain: Qualified Code: R07.89 - Other chest pain Ely Pierce MD R3 Jun 05, 2016 09:48 Jaclyn James MD Jun 06, 2016 13:51
[2016-06-05] MEDS: ACETAMINOPHEN/HYDROcodone 325 MG/5 MG TAB PO PRN (10:57)
--- NOTE | 2016-06-05 10:57 | HHI.DS ---
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 ESR 99 on this admission. Renal function stable. She is diuresing well with Bumex IV Q8H. Edema has improved. -Nephrology consulted: * Per discussion with Barbie this morning, okay to switch to PO Bumex 1mg Q12h * Start Venofer given low iron -Avoid nephrotoxic agents -Renally dose medications -Monitor I/Os, electrolytes, and renal function (2) Generalized edema Diagnosis: Principal Plan: Improved s/p IV Bumex. Will transition to PO Bumex in anticipation for discharge tomorrow or next day. (3) Shingles rash Diagnosis: Principal Plan: -Acyclovir 800mg 5x/day x 7 days (05/30-06/06), renally dose per pharmacy -[place] 5mg Q6h prn pain -Continue home dose of Gabapentin -Contact isolation (4) History of CVA with residual deficit Plan: EEG negative. Head CT and brain MRI without acute infarction. -Neurology consulted but has signed off. Patient with spasticity and no seizure activity noted * Continue neuro check * Aspirin and Plavix -Monitor for signs or symptoms of seizure. -Ativan 2mg prn (5) Diabetes mellitus Plan: -Sliding scale insulin -Monitor accuchecks -Diabetic diet and frequent snacks (6) Hypertension Plan: Still elevated -Increase Metoprolol 100mg Q12H. Continue other antihypertensives. Also on diuretics (7) Chest pain Plan: Patient presented to ED initially for burning and stabbing pain localized to her left lower chest x 3 days, ACS and V/Q scan negative. Symptoms likely secondary to shingles rash Chest x-ray shows moderate interstitial edema. -Cardiac telemetry -Morphine and Northridge prn pain -Supplemental O2 prn. -Acyclovir, renally dosed, for shingles (8) Anemia Plan: Patient with normocytic anemia likely anemia of chronic disease. Hb stable s/p 1 unit PRBC transfusion on 05/31/16. -Continue to monitor. Repeat CBC pending. -Per nephrology: * Will start Venofer since iron still remains low despite oral iron supplement. * Patient may be candidate for erythropoietin -Hemoccult obtained ED negative (9) Nutrition, metabolism, and development symptoms Plan: Diet: Diabetic and pureed food per ST Fluids: HLIV. Caution with fluids given history of CHF, low albumin and clinical edema Electrolytes: Continue to monitor and replete if necessary (10) Prophylactic measure Plan: SCDs bilaterally. Continue Heparin 5000 units Q12h Consultants Nephrology: Dr. Vargas Brief History Ms. Greenberg is a 60-year-old female with a history of hypertension, T2DM, CVA 2 s/p right riana-paresis, and chronic kidney disease who presented to ED via [facility] from [facility] for evaluation of left lower chest/ breast pain for the past 3 days. History is limited but she endorses burning, stabbing pain localized to her left chest underneath her breast. No radiation of pain. Reports mild shortness of breath which is chronic for her. Denies fever , cough, wheezing, palpitations, nausea, or changes in urinary or bowel habits. She did have one episode of emesis 2 days ago but that has resolved. No other complaints. She was found on exam to have some vesicles under her left breast that are consistent with shingles. Overnight, she was believed to be a risk for aspiration per one of her nurses so she was made NPO. She had some coughing evidently with orange juice. Unfortunately, without being able to eat and take her po BP meds, she became both hypoglycemic and hypertensive. She was on iv labetalol which helped her BP. She is scheduled to have a swallowing study this am and will have iv fluids until then. She was observed earlier this am by Dr Pierce having an extreme left lateral gaze and rhythmic movement of her extremities so there was a concern about seizures and Neurology was consulted. When I saw her a little later this am, she had no seizure activity. She does have some baseline fine tremors but when observed during her episode earlier this am she was not responsive. She is at high risk for seizures due to her prior CVAs. An EEG is ordered. Her baseline is to be able to answer questions but usually slowly and with a few words, not sentences. She also does follow commands at baseline. Additionally, she has serious renal problems and on renal biopsy on her earlier hospitalization was found to have severe nodular diabetic glomerulosclerosis, global sclerosis, severe interstitial fibrosis and severe arteriosclerosis. Her renal fxn has gradually but steadily declined over a few months. She has had massive proteinuria and her albumin is low contributing to her edematous state. CBC/BMP: 06/05/16 0535 06/05/16 0535 Significant Findings Laboratory Tests Test 06/02/16 06/02/16 06/03/16 06/03/16 14:25 14:35 04:50 04:52 Blood Urea Nitrogen 43 MG/DL (7-18) 43 MG/DL (7-18) Creatinine 2.20 MG/DL 1.92 MG/DL (0.50-1.00) (0.50-1.00) Estimat Glomerular Filtration 27 ML/MIN (>89) 32 ML/MIN (>89) Rate Random Glucose 135 MG/DL (74-106) Iron Level 39 MCG/DL (50-170) Total Iron Binding Capacity 199 MCG/DL (250-450) Percent Iron Saturation 19.6 % (20-50) Ferritin 766 NG/ML (8-252) Alkaline Phosphatase 135 U/L 126 U/L (45-117) (45-117) Albumin 2.6 GM/DL 2.3 GM/DL (3.4-5.0) (3.4-5.0) 25-Hydroxy Vitamin D Total 6.0 ng/ML (30-100) Parathyroid Hormone (Intact) 91.0 PG/ML (12.4-76.8) Red Blood Count 3.21 MIL/MM3 3.14 MIL/MM3 (4.00-5.30) (4.00-5.30) Hemoglobin 8.9 GM/DL 8.7 GM/DL (11.6-15.3) (11.6-15.3) Hematocrit 27.4 % 26.4 % (35.0-46.0) (35.0-46.0) Platelet Count 133 TH/MM3 133 TH/MM3 (150-450) (150-450) Test 06/04/16 06/04/16 06/05/16 09:52 11:18 05:35 Red Blood Count 3.36 MIL/MM3 3.19 MIL/MM3 (4.00-5.30) (4.00-5.30) Hemoglobin 9.3 GM/DL 8.7 GM/DL (11.6-15.3) (11.6-15.3) Hematocrit 28.2 % 26.7 % (35.0-46.0) (35.0-46.0) Platelet Count 143 TH/MM3 141 TH/MM3 (150-450) (150-450) Monocytes (%) (Auto) 11.3 % 11.2 % (0.0-8.0) (0.0-8.0) Eosinophils (%) (Auto) 9.2 % (0.0-4.0) 9.2 % (0.0-4.0) Eosinophils # (Auto) 0.5 TH/MM3 0.5 TH/MM3 (0-0.4) (0-0.4) Blood Urea Nitrogen 37 MG/DL (7-18) 37 MG/DL (7-18) 38 MG/DL (7-18) Creatinine 1.62 MG/DL 1.67 MG/DL 1.61 MG/DL (0.50-1.00) (0.50-1.00) (0.50-1.00) Estimat Glomerular Filtration 39 ML/MIN (>89) 38 ML/MIN (>89) 39 ML/MIN (>89) Rate Random Glucose 173 MG/DL 214 MG/DL 119 MG/DL (74-106) (74-106) (74-106) Calcium Level 8.4 MG/DL (8.5-10.1) Albumin 2.4 GM/DL 2.4 GM/DL (3.4-5.0) (3.4-5.0) Imaging Head CT 05/31/16 Signed Impressions: Service Date/Time: Tuesday, May 31, 2016 06:53 - CONCLUSION: 1. Stable noncontrast head CT. No acute intracranial abnormality is identified. 2. Chronic changes include cerebral atrophy and periventricular white matter change characteristic of chronic microvascular ischemia. There is encephalomalacia in the left frontal lobe and left basal ganglia likely related to prior ischemia. 3. There is fluid in the mastoid air cells bilaterally. Vipin Merlos MD Brain MRI 05/31/16 Signed Impressions: Service Date/Time: Tuesday, May 31, 2016 10:42 - CONCLUSION: 1. Remote infarcts greatest along the left frontal parietal lobe. 2. Extensive chronic ischemic small vessel vasculopathy. 3. No acute infarction. Chris Casey MD Lung Scan-VQ Nuclear Medicine 05/30/16 1246 Signed Impressions: Service Date/Time: Monday, May 30, 2016 13:44 - CONCLUSION: Negative for pulmonary embolus. Julio Kruger MD Chest X-Ray 05/30/16 1137 Signed Impressions: Service Date/Time: Monday, May 30, 2016 12:05 - CONCLUSION: Heart remains enlarged with moderate interstitial edema. Del Isaac MD FACR Upper Extremity Ultrasound 05/30/16 0000 Signed Impressions: Service Date/Time: Monday, May 30, 2016 17:02 - CONCLUSION: No evidence of right upper extremity DVT. Julio Kruger MD PE at Discharge GENERAL: This is a well-nourished, well-developed AAF sitting in bed in NAD SKIN: Vesicular lesions with surrounding erythema underneath left breast and left side of back, consistent with zoster. Area is sensitive to touch. Cool and dry. HEAD: Atraumatic. Normocephalic. EYES: Exophthalmos. No scleral icterus. No injection or drainage. ENT: Nose without bleeding, purulent drainage or septal hematoma. Airway patent. NECK: Trachea midline. CARDIOVASCULAR: Regular rate and rhythm without murmurs, gallops, or rubs. RESPIRATORY: Clear to auscultation. Breath sounds equal bilaterally. No wheezes , rales, or rhonchi. No respiratory distress. No increased work of breathing. GASTROINTESTINAL: Abdomen protuberant but soft and non-tender. No palpable masses. No guarding or rebound tenderness. MUSCULOSKELETAL: Non-pitting edema improved compared to previous days. LE with no significant edema. Able to move left UE and LE. Spastic movements. NEUROLOGICAL: Awake and alert. Dysphasic but able to speak a little more clearly this morning. Able to tell me her sister's name. Able to follow simple commands. Hospital Course Ms. Greenberg was admitted on May.31 for left-sided chest pain. ACS workup and V/ Q scan negative. Chest x-ray did show some moderate interstitial edema. However patient's symptoms of chest pain were likely related to herpes zoster rash in that are. Rash became more apparent during hospitalization. She was started on Acyclovir on admission. Her hospital course is complicated by worsening renal function and anasarca. Nephrology was consulted and recommended aggressive diuresis with IV Bumex. Patient responded well to diuretics and anasarca improved significantly. Pt Condition on Discharge: Stable Discharge Disposition: Discharge to SNF Discharge Instructions DIET: Follow Instructions for: Pureed Diet Activities you can perform: Regular-No Restrictions Follow up Referrals: Nephrology - 1 Week with Brooks Vargas MD Patient needs to call Dr. Vargas's office for an appointment. PCP Follow-up - 1 Week New Orders: CBC NO DIFF - 1 Week COMP MET PROF (CMP) - 1 Week New Medications: Acyclovir (Zovirax) 800 Mg Tab 800 MG PO 5 TIMES A DAY #10 Ref 0 TAB Bumetanide (Bumetanide) 1 Mg Tab 2 MG PO BID@,18 #60 Ref 0 TAB Cholecalciferol (Vitamin D3) 1,000 Unit Tab 2000 UNITS PO DAILY #30 Ref 0 TAB Hydrocodone-Acetaminophen (Hydrocodone-Acetaminophen) 5-325 mg Tab 1 TAB PO Q6H PRN PAIN SCALE 5 TO 10 #10 Ref 0 TAB Metoprolol Tartrate (Lopressor) 100 Mg Tab 100 MG PO Q12H #60 Ref 0 TAB Continued Medications: Acetaminophen (Tylenol) 325 Mg Tab 650 MG PO Q4H PRN PAIN 1-10 AND/OR FEVER >101F Ref 0 TAB Cqvmpuxp-Jhemfbbrm-Prlsncvpzqr Liq (Mylanta Liq) 200-200-20 Mg/5 Ml Susp 30 ML PO Q4HR Indigestion Ref 0 ML Amlodipine (Norvasc) 10 Mg Tab 10 MG PO DAILY #30 Ref 1 TAB Aspirin (Aspirin) 325 Mg Tab 325 MG PO DAILY Ref 0 TAB Atorvastatin (Atorvastatin) 80 Mg Tab 80 MG PO HS Cholesterol Management #30 Ref 0 TAB Bethanechol (Urecholine) 25 Mg Tab 25 MG PO Q8HR #30 Ref 0 TAB Bisacodyl Supp (Dulcolax Supp) 10 Mg Supp 10 MG IN DAILY PRN IF NO RESULTS FROM MILK OF MAG #12 Ref 0 SUPP Citalopram (Celexa) 20 Mg Tab 20 MG PO DAILY Control Depression #30 Ref 0 TAB Clonidine (Catapres) 0.2 Mg Tab 0.2 MG PO Q8HR #90 Ref 1 TAB Clopidogrel (Plavix) 75 Mg Tab 75 MG PO DAILY Blood Clot Prevention #30 Ref 0 TAB Doxazosin (Cardura) 4 Mg Tab 4 MG PO HS HTN #30 Ref 0 TAB Ferrous Sulfate (Ferrous Sulfate) 325 Mg Tab 325 MG PO TID Nutritional Supplement #30 Ref 0 TAB Fluticasone Nasal Robinson (Fluticasone Nasal Robinson) 50 Mcg/Act Naspr 1 SPRAY EACH NARE Q12HR 50 mcg/spray Allergy Management #1 Ref 0 BOTTLE Gabapentin (Neurontin) 300 Mg Cap 300 MG PO Q8HR #60 Ref 0 CAP Hydralazine (Hydralazine) 100 Mg Tab 100 MG PO Q8HR Blood Pressure Management Ref 0 TAB Insulin Aspart Inj (Novolog Flexpen Inj) 300 Unit/3 Ml Pen 2-12 UNITS SQ DIRECTED SLIDING SCALE: < 60, Call MD, 151-200=2 units, 201-250 =4 units, 251-300=6 units, 301-350=8 units, 351-400=10 units, > 400=12 units and call Blood Sugar Management #1 Ref 0 PEN Ipratropium-Albuterol Neb (Duoneb) 0.5-2.5 Mg/3 Ml Neb 1 VIAL NEB Q4HR PRN SHORTNESS OF BREATH #30 Ref 0 NEBULE Loperamide (Loperamide) 2 Mg Tab 4 MG PO INITIAL DOSE AFTER INITIAL DOSE, GIVE 1 TAB (2MG) AFTER EACH LOOSE STOOL NTE 8 TABS/24HRS PRN DIARRHEA Ref 0 TAB Magnesium Hydroxide Liq (Milk of Magnesia Liq) 400 Mg/5 Ml Susp 30 ML PO Q4HR PRN CONSTIPATION #1 Ref 0 BOTTLE Pantoprazole (Protonix) 40 Mg Tab 40 MG PO DAILY Reflux #30 Ref 0 TAB Polyethylene Glycol 3350 Powder (Miralax Powder) 17 Gm Powd 17 GM PO DAILY Mix and dissolve one measuring cap-ful (17 grams) in water or juice. Constipation #1 Ref 0 BOTTLE Sodium Phosphates Rectal (Fleet Enema Rectal) 7-19 Gm/118 Ml Enem 1 APPLIC IN DAILY PRN IF NO RESULTS FROM DULCOLAX Ref 0 BOTTLE Discontinued Medications: Bumetanide (Bumetanide) 1 Mg Tab 2 MG PO DAILY #30 Ref 1 TAB Metoprolol Tartrate (Metoprolol Tartrate) 50 Mg Tab 50 MG PO BID #60 Ref 0 TAB Ely Pierce MD R3 Jun 05, 2016 10:57
== END 2016-06-05 14:55 | DRG 291 ==
LOC: NEPC 11:11 → NEDA 15:23 → INTOOBSV 15:23 → UNDOADMOB 15:23 → NEDA 16:34 → NEDH 18:32 → OBSVTOIN 05-31 07:45 → INTOOBSV 05-31 07:45 → N03B 05-31 08:18 → NEDH 05-31 08:18 → HCIS 06-02 11:34 → N03B 06-02 11:34 → OBSVTOIN 06-04 07:42 → UNDODISOB 06-05 14:55
PROVIDERS: ADMIT Family Medicine; ATTEND Family Medicine
PROC: 30233N1 Transfusion of Nonautologous Red Blood Cells into Peripheral Vein, Percutaneous Approach (ICD-10-PCS; principal; 2016-05-31)
DX: I13.0 Hypertensive heart and chronic kidney disease with heart failure and stage 1 through stage 4 chronic kidney disease, or unspecified chronic kidney disease (principal); I50.33 Acute on chronic diastolic (congestive) heart failure; N18.4 Chronic kidney disease, stage 4 (severe); E11.21 Type 2 diabetes mellitus with diabetic nephropathy; B02.29 Other postherpetic nervous system involvement; I69.351 Hemiplegia and hemiparesis following cerebral infarction affecting right dominant side; I69.311 Memory deficit following cerebral infarction; I69.321 Dysphasia following cerebral infarction; D63.1 Anemia in chronic kidney disease; E11.40 Type 2 diabetes mellitus with diabetic neuropathy, unspecified; E11.649 Type 2 diabetes mellitus with hypoglycemia without coma; N26.9 Renal sclerosis, unspecified; Z79.4 Long term (current) use of insulin; Z79.82 Long term (current) use of aspirin; Z79.52 Long term (current) use of systemic steroids; E78.5 Hyperlipidemia, unspecified; F32.9 Major depressive disorder, single episode, unspecified; R74.0 Nonspecific elevation of levels of transaminase and lactic acid dehydrogenase [LDH]; M79.89 Other specified soft tissue disorders; R25.2 Cramp and spasm; R82.99 Other abnormal findings in urine
CPT/HCPCS: 36430; 51702; 70450; 70551; 71010; 78582; 80048; 80053; 80069; 81001; 82306; 82550; 82552; 82728; 82948; 83540; 83550; 83690; 83735; 83880; 83970; 84443; 84484; 85014; 85018; 85025; 85027; 85610; 85652; 85730; 86850; 86900; 86901; 86920; 87086; 87641; 93005; 93306; 93971; 95819; 96374; 96375; A9540; A9567; G0378; J0360; J0696; J1205; J1644; J1756; J1815; J1940; J2270; J2405; J7042; J7050; P9016

== ENCOUNTER 2016-06-29 11:29 | Inpatient (IN) | payer OTHER ==
[~2016-06-29] VITALS: Ht 160 cm; Wt 81.6 kg
[2016-06-29] VITALS (14 sets, daily range): BP systolic 123–218; BP diastolic 65–133; PULSE 78–99; RESP 16–28; TEMP 97.6–98.7; O2SAT 89–99
[~2016-06-29 11:29] MED LIST changes: +ACYC-101 PO; -ALBU0.08 NEB; -BLOOD PRESSURE1 M20; +DULC10SU3 PR; +FERR325T PO; +FLEEENE3 PR; +HYDR-3516 PO; +HYDR-3801 PO; +INSU1INJ5 SQ; +IPRASOL NEB; -LEVEMIR SQ; +LOPE2TAB3 PO; -METO-309 PO; +METO-338 PO; +MILKSUS PO; +MYLASUS2 PO; +NOVOINJ3 SQ; -NOVOLOGP2 SQ; -PRED1 PO; -PRED10 PO; -PROM25TA5 PO; +TYLE325T PO; +VITA100018 PO; -WHEEMIS3; -glucometer; -hydrALAZINE PO
[2016-06-29] MEDS ORDERED: SODIUM CHLORIDE 0.9% FLUSH 5 ML FLUSH IVF PRN (12:00)
[2016-06-29] MEDS ORDERED: PROC10TA PO (12:25)
[2016-06-29] MEDS ORDERED: CARD8TAB2 PO (12:25)
[2016-06-29 12:26] LABS: AUTOMATED NEUTROPHIL # 5.5 TH/MM3 (1.8-7.7); BASOPHIL # 0.1 TH/MM3 (0-0.2); BASOPHIL % 0.8 % (0.0-2.0); EOSINOPHIL # 0.4 TH/MM3 (0-0.4); EOSINOPHIL % 4.5 % (0.0-4.0); HEMATOCRIT 27.5 % (35.0-46.0); HEMO FLAGS DIFF FINAL; LYMPH % 22.3 % (9.0-44.0); LYMPHOCYTE # 1.9 TH/MM3 (1.0-4.8); MEAN CELL VOLUME 85.1 FL (80.0-100.0); MEAN CORPUSCULAR HEMOGLOBIN 27.1 PG (27.0-34.0); MEAN CORPUSCULAR HGB CONC 31.8 % (32.0-36.0); MONO % 9.7 % (0.0-8.0); NEUT % 62.7 % (16.0-70.0); PLATELET COUNT 202 TH/MM3 (150-450); RED BLOOD COUNT 3.24 MIL/MM3 (4.00-5.30); RED CELL DISTRIBUTION WIDTH 14.9 % (11.6-17.2); WHITE BLOOD COUNT 8.7 TH/MM3 (4.0-11.0)
--- NOTE | 2016-06-29 12:28 | RADRPT ---
EXAM DATE/TIME: 06/29/2016 12:12 [facility] COMPARISON: CHEST SINGLE AP, May 30, 2016, 12:05. INDICATIONS : Syncope MEDICAL HISTORY : Hypertension. Myocardial infarction. Stroke. SURGICAL HISTORY : Tonsillectomy. Hysterectomy. section. ENCOUNTER: Initial ACUITY: 1 day PAIN SCORE: Non-responsive. LOCATION: chest FINDINGS: Portable upright AP view of the chest demonstrate stable mild enlargement of the cardiac silhouette. There are diffuse bursal opacities bilaterally. No focal airspace consolidation is seen and no pleura l effusion or pneumothorax is identified. Bones and soft tissues demonstrate no acute finding. CONCLUSION: 1. Relatively diffuse interstitial prominence bilaterally suspicious for interstitial pulmonary edema . 2. Stable mild enlargement of the cardiac silhouette. Vipin Merlos MD on June 29, 2016 at 12:26 Board Certified Radiologist. This report was verified electronically.
--- NOTE | 2016-06-29 12:53 | PD ---
HPI Chief Complaint: Altered Mental Status Time Seen by Provider: 11:50 Travel History International Travel<30 days: No Contact w/Intl Traveler<30days: No Traveled to known affect area: No History of Present Illness HPI This is a 60-year-old female who presents to the emergency department [facility] her [facility] for altered mental status. This abates saw her this morning and she wasn't acting the same, she was less verbal than normal and seemed generally weak. The patient does have a history of stroke and at baseline has some dementia. PFSH Past Medical History Hx Anticoagulant Therapy: Yes (PLAVIX ) Asthma: Yes Cancer: No Cardiovascular Problems: Yes (HTN, CAD, ) High Cholesterol: Yes Chemotherapy: No Chest Pain: Yes Cerebrovascular Accident: Yes (CVA ) Dementia: Yes Diabetes: Yes Patient Takes Glucophage: No Diminished Hearing: No Endocrine: Yes Gastrointestinal Disorders: No Genitourinary: Yes Hypertension: Yes Implanted Vascular Access Dvce: No Musculoskeletal: No Neurologic: Yes Psychiatric: No Respiratory: Yes (SOB) Immunizations Current: No Myocardial Infarction: Yes (x1) Renal Failure: Yes (CHRONIC KIDNEY DISEASE) Shingles: Yes Sleep Apnea: Yes Tetanus Vaccination: Unknown Influenza Vaccination: Yes ?: Not Menopausal: Yes Past Surgical History Section: Yes (x1) Cholecystectomy: Yes Endocrine Surgery: Yes (THYROID NODULES) Gynecologic Surgery: Yes (HYSTERECTOMY, X 1) Hysterectomy: Yes Tonsillectomy: Yes Other Surgery: Yes Social History Alcohol Use: No (HX; ETOH) Tobacco Use: No Substance Use: No (HX ; DRUG ABUSE ) Allergies-Medications (Allergen,Severity, Reaction): Coded Allergies: *MDRO Multi-Drug Resistant Organism (Verified Adverse Reaction, Unknown, MRSA, 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 Reported Meds & Prescriptions Reported Meds & Active Scripts Active Lopressor (Metoprolol Tartrate) 100 Mg Tab 100 Mg PO Q12H Hydrocodone-Acetaminophen 5-325 mg Tab 1 Tab PO Q6H PRN Vitamin D3 (Cholecalciferol) 1,000 Unit Tab 2,000 Units PO DAILY Bumetanide 1 Mg Tab 2 Mg PO BID@,18 Catapres (Clonidine) 0.2 Mg Tab 0.2 Mg PO Q8HR Urecholine (Bethanechol Chloride) 25 Mg Tab 25 Mg PO Q8HR Norvasc (Amlodipine Besylate) 10 Mg Tab 10 Mg PO DAILY Reported Prochlorperazine Maleate 10 Mg Tab 10 Mg PO TID PRN Cardura (Doxazosin Mesylate) 8 Mg Tab 8 Mg PO HS Duoneb (Ipratropium-Albuterol Neb) 0.5-2.5 Mg/3 Ml Neb 1 Vial NEB Q4HR PRN Milk of Magnesia Liq (Magnesium Hydroxide) 400 Mg/5 Ml Susp 30 Ml PO Q4HR PRN Loperamide (Loperamide HCl) 2 Mg Tab 4 Mg PO INITIAL DOSE PRN AFTER INITIAL DOSE, GIVE 1 TAB (2MG) AFTER EACH LOOSE STOOL NTE 8 TABS/24HRS - May give liquid if unable to take tablet Fleet Enema Rectal (Sodium Phosphates Rectal) 7-19 Gm/118 Ml Enem 1 Applic CO DAILY PRN Dulcolax Supp (Bisacodyl) 10 Mg Supp 10 Mg CO DAILY PRN Tylenol (Acetaminophen) 325 Mg Tab 650 Mg PO Q4H PRN Mylanta Liq (Lvlluwum-Eiywmiviz-Mrcsjwhuupq Liq) 200-200-20 Mg/5 Ml Susp 30 Ml PO Q4HR PRN If no relieved within 48hrs contact Novolog Flexpen Inj (Insulin Aspart) 300 Unit/3 Ml Pen 0-12 Units SQ ACHS SLIDING SCALE: 0-70=OJ and call , Repeat in 1hr, 71-150=0 units, 151-200=3 units, 201-250=5 units, 251-300=8 units, 301-400=10 units, > 400=12 units & Repeat in 2hrs, if > 350 call Ferrous Sulfate 325 Mg Tab 325 Mg PO TID Hydralazine (Hydralazine HCl) 100 Mg Tab 100 Mg PO Q8HR Protonix (Pantoprazole Sodium) 40 Mg Tab 40 Mg PO DAILY Plavix (Clopidogrel Bisulfate) 75 Mg Tab 75 Mg PO DAILY Neurontin (Gabapentin) 300 Mg Cap 300 Mg PO Q8HR Celexa (Citalopram Hydrobromide) 20 Mg Tab 20 Mg PO DAILY Atorvastatin (Atorvastatin Calcium) 80 Mg Tab 80 Mg PO HS Aspirin 325 Mg Tab 325 Mg PO DAILY Miralax Powder (Polyethylene Glycol 3350 Powder) 17 Gm Powd 17 Gm PO DAILY Mix and dissolve one measuring capful (17 grams) in 4-8oz of water or juice. Fluticasone Nasal Foreman 50 Mcg/Act Naspr 1 Foreman EACH NARE Q12HR 50 mcg/spray Review of Systems ROS Limitations: Poor Historian Physical Exam Narrative GENERAL: Chronically unwell-appearing SKIN: Warm and dry. HEAD: Atraumatic. Normocephalic. EYES: Pupils equal and round. No injection or drainage. ENT: Moist mucous membranes NECK: Trachea midline. CARDIOVASCULAR: Regular rate and rhythm. No murmur appreciated. RESPIRATORY: Clear to auscultation. Breath sounds equal bilaterally. GASTROINTESTINAL: Abdomen soft, non-tender, distended MUSCULOSKELETAL: No obvious deformities. NEUROLOGICAL: Awake and alert. Oriented 2, answers questions but slow to respond with moderate dysarthria. Data Data Last Documented VS Vital Signs Date Time Temp Pulse Resp B/P Pulse Ox O2 Delivery O2 Flow Rate FiO2 06/29/16 11:35 97 Nasal Cannula 2 06/29/16 11:33 98.7 93 28 208/91 Orders Electrocardiogram (06/29/16 ) Complete Blood Count With Diff (06/29/16 12:00) Comprehensive Metabolic Panel (06/29/16 12:00) Prothrombin Time / Inr (Pt) (06/29/16 12:00) Act Partial Throm Time (Ptt) (06/29/16 12:00) Troponin I (06/29/16 12:00) Urinalysis - C+S If Indicated (06/29/16 12:00) Blood Culture (06/29/16 12:00) Chest, Single Ap (06/29/16 12:00) Ct Brain W/O Iv Contrast(Rout) (06/29/16 12:00) Blood Glucose (06/29/16 12:00) Ecg Monitoring (06/29/16 12:00) Iv Access Insert/Monitor (06/29/16 12:00) Cath For Specimen (06/29/16 12:00) Oximetry (06/29/16 12:00) Sodium Chloride 0.9% Flush (Ns Flush) (06/29/16 12:00) B-Type Natriuretic Peptide (06/29/16 12:01) Sodium Chlor 0.9% 1000 Ml Inj (Ns 1000 M (06/29/16 13:15) Urine Culture (06/29/16 11:45) Ceftriaxone Inj (Rocephin Inj) (06/29/16 13:30) Labetalol Inj (Trandate Inj) (06/29/16 13:30) Admit Order (Ed Use Only) (06/29/16 13:41) Labs Laboratory Tests Test 06/29/16 06/29/16 11:35 11:45 White Blood Count 8.7 TH/MM3 Red Blood Count 3.24 MIL/MM3 Hemoglobin 8.8 GM/DL Hematocrit 27.5 % Mean Corpuscular Volume 85.1 FL Mean Corpuscular Hemoglobin 27.1 PG Mean Corpuscular Hemoglobin 31.8 % Concent Red Cell Distribution Width 14.9 % Platelet Count 202 TH/MM3 Mean Platelet Volume 9.2 FL Neutrophils (%) (Auto) 62.7 % Lymphocytes (%) (Auto) 22.3 % Monocytes (%) (Auto) 9.7 % Eosinophils (%) (Auto) 4.5 % Basophils (%) (Auto) 0.8 % Neutrophils # (Auto) 5.5 TH/MM3 Lymphocytes # (Auto) 1.9 TH/MM3 Monocytes # (Auto) 0.8 TH/MM3 Eosinophils # (Auto) 0.4 TH/MM3 Basophils # (Auto) 0.1 TH/MM3 CBC Comment DIFF FINAL Differential Comment Prothrombin Time 10.8 SEC Prothromb Time International 1.0 RATIO Ratio Activated Partial 20.3 SEC Thromboplast Time Sodium Level 141 MEQ/L Potassium Level 5.0 MEQ/L Chloride Level 107 MEQ/L Carbon Dioxide Level 24.3 MEQ/L Anion Gap 10 MEQ/L Blood Urea Nitrogen 60 MG/DL Creatinine 2.06 MG/DL Estimat Glomerular Filtration 30 ML/MIN Rate Random Glucose 129 MG/DL Calcium Level 9.4 MG/DL Total Bilirubin 0.3 MG/DL Aspartate Amino Transf 21 U/L (AST/SGOT) Alanine Aminotransferase 34 U/L (ALT/SGPT) Alkaline Phosphatase 134 U/L Troponin I LESS THAN 0.02 NG/ML B-Type Natriuretic Peptide 555 PG/ML Total Protein 7.8 GM/DL Albumin 2.9 GM/DL Urine Color YELLOW Urine Turbidity CLOUDY Urine pH 7.5 Urine Specific [place] 1.018 Urine Protein 100 mg/dL Urine Glucose (UA) TRACE mg/dL Urine Ketones NEG mg/dL Urine Occult Blood NEG Urine Nitrite NEG Urine Bilirubin NEG Urine Urobilinogen LESS THAN 2.0 MG/DL Urine Leukocyte Esterase LARGE Urine RBC 9 /hpf Urine WBC /hpf Urine WBC Clumps FEW Urine Squamous Epithelial 3 /hpf Cells Urine Amorphous Sediment MOD Urine Bacteria FEW /hpf Urine Mucus MANY /lpf Microscopic Urinalysis Comment CATH-CULTURE IND MDM Medical Decision Making Medical Screen Exam Complete: Yes Emergency Medical Condition: Yes Medical Record Reviewed: Yes (patient was admitted in May with acute kidney injury. At that time she had a cardiac echo which demonstrated a normal ejection fraction) Interpretation(s) Afebrile, in mild tachycardia, tachypnea, hypertension, mild hypoxia Anemia Renal insufficiency slightly worse than prior BNP is 555 Troponin is normal Urinalysis: Urinary tract infection Differential Diagnosis Urinary tract infection, pneumonia, stroke, intracranial hemorrhage, electrolyte abnormality Narrative Course This 60-year-old female who has a history of stroke who presents to the emergency department with altered mental status per her prison. She has a nonfocal exam which seems similar to described on prior visits. She was placed on a monitor and an IV was established. Labs are obtained which demonstrates some worsening kidney injury compared to recent admission. Urinalysis demonstrates urinary tract infection. CT was obtained which was negative for intracranial hemorrhage. Patient was given a dose of IV antibiotics. Chest x-ray does demonstrate interstitial edema and her BNP is elevated. I will defer IV diuresis to the inpatient team given the patient's already poor renal function. Patient will be admitted for urinary tract infection and volume overload. Physician Communication Physician Communication Discussed with Dr. Nelson Diagnosis Primary Impression: Urinary tract infection Qualified Code: N30.01 - Acute cystitis with hematuria Admitting Information Admitting Physician Requests: Admit Reva Talavera MD Jun 29, 2016 12:53
[2016-06-29 12:58] LABS: ANION GAP 10 MEQ/L (5-15); AST (GOT) 21 U/L (15-37); BICARBONATE 24.3 MEQ/L (21.0-32.0); BLOOD UREA NITROGEN 60 MG/DL (7-18); CHLORIDE 107 MEQ/L (98-107); GLOMERULAR FILTRATION RATE 30 ML/MIN (>89); SODIUM (NA) 141 MEQ/L (136-145)
[2016-06-29 13:04] LABS: ALKALINE PHOSPHATASE 134 U/L (45-117); ALT (GPT) 34 U/L (10-53); TOTAL BILIRUBIN ADULT 0.3 MG/DL (0.2-1.0)
[2016-06-29 13:06] LABS: BACTERIA, URINE FEW /hpf; BLOOD, URINE NEG (NEG); COMMENT (UR) CATH-CULTURE IND; CULTURE IF INDICATED CATH CULTURE IND; GLUCOSE,URINE TRACE mg/dL (NEG); KETONE, URINE NEG (NEG); MUCUS URINE MANY /lpf (OCC); NITRITE,URINE NEG (NEG); PH, URINE 7.5 (5.0-8.5); SQUAMOUS EPITHELIAL CELL URINE 3 /hpf (0-5); URINE COLOR YELLOW (YELLW/STRAW)
[2016-06-29 13:10] LABS: PROTHROMBIN TIME - PATIENT 10.8 SEC (9.8-11.6)
[2016-06-29 13:12] LABS: APTT (PATIENT) 20.3 SEC (24.3-30.1)
[2016-06-29] MEDS ORDERED: SODIUM CHLOR 0.9% 1000 ML INJ 1,000 ML IV SCH (13:15)
--- NOTE | 2016-06-29 13:16 | RADRPT ---
EXAM DATE/TIME: 06/29/2016 12:54 [place] COMPARISON: CT BRAIN W/O CONTRAST, October 25, 2015, 14:21. CT BRAIN W/O CONTRAST, May 31, 2016, 6:53. INDICATIONS : Altered mental status. RADIATION DOSE: 43.62 CTDIvol (mGy) MEDICAL HISTORY : Dementia. Cerebrovascular disease. Hypertension. SURGICAL HISTORY : Cholecystectomy. Hysterectomy. ENCOUNTER: Initial ACUITY: 1 day PAIN SCALE: Non-responsive LOCATION: cranial TECHNIQUE: Multiple contiguous axial images were obtained of the head. Using automated exposure control and adj ustment of the mA and/or kV according to patient size, radiation dose was kept as low as reasonably a chievable to obtain optimal diagnostic quality images. FINDINGS: CEREBRUM: There is generalized atrophy. Moderate severity periventricular white matter low-attenuation is prese nt. There is a stable area of encephalomalacia in the left frontal lobe and an old lacune is present within the left basal ganglia. There is ossification along the falx cerebri. No evidence of midline shift, mass lesion, hemorrhage or acute infarction. No extra-axial fluid collections are seen. POSTERIOR FOSSA: The cerebellum and brainstem demonstrate no acute finding. The 4th ventricle is midline. The cerebe llopontine angle is unremarkable. EXTRACRANIAL: There is mild fluid in the mastoid air cells bilaterally SKULL: The calvaria is intact. No evidence of skull fracture. CONCLUSION: 1. No acute intracranial abnormality is identified. Overall, stable exam. 2. There is generalized atrophy and moderate severity periventricular white matter low attenuation ch aracteristic of chronic microvascular ischemia. There is also encephalomalacia in the left frontal lo be and left basal ganglia likely representing areas of old ischemia. 3. Stable fluid within the mastoid air cells. Vipin Merlos MD on June 29, 2016 at 13:11 Board Certified Radiologist. This report was verified electronically.
[2016-06-29] MEDS ORDERED: LABETALOL HCL 100 MG/20 ML VIAL IV PUSH ONE (13:30)
[2016-06-29] MEDS ORDERED: cefTRIAXone INJ 1,000 MG in SODIUM CHLORIDE 0.9% INJ 100 ML IV ONE (13:30)
--- NOTE | 2016-06-29 13:42 | HHI.HP ---
HPI Service Family Medicine Primary Care Physician Unknown Admission Diagnosis Diagnoses: International Travel<30 Days: No Contact w/Intl Traveler<30days: No Known Affected Area: No History of Present Illness This is a 60-year-old Afro-[place] female patient of unknown PCP with a past medical history of CVA 2, type 2 diabetes, chronic kidney disease. She resides at [facility] and was brought to [place] because of altered mental status. I spoke with the nurse at [facility] and apparently the patient was not talking at all. She would shake sometimes become sweaty. Normally she is mostly alert and aware 3. She also "did not look good." History from the patient is severely limited secondary to current state. She is alert to person only. Not to time or place. Review of Systems ROS Limitations: Clinical Condition, Altered Mental Status, Uncooperative, Poor Historian Past Family Social History Past Medical History Per EMR, HTN DM HLD Depression Neuropathy Previously on O2 at home but has not been on any supplemental O2 for a while. 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 impairment Past Surgical History *she can't recall surgeries; these listed are from the EMR Hysterectomy Csection X 1 Right shoulder surgery Tonsillectomy Removal of thyroid nodules "Tumors removed from abdomen Reported Medications Reported Meds & Active Scripts Active Lopressor (Metoprolol Tartrate) 100 Mg Tab 100 Mg PO Q12H Hydrocodone-Acetaminophen 5-325 mg Tab 1 Tab PO Q6H PRN Vitamin D3 (Cholecalciferol) 1,000 Unit Tab 2,000 Units PO DAILY Bumetanide 1 Mg Tab 2 Mg PO BID@,18 Catapres (Clonidine) 0.2 Mg Tab 0.2 Mg PO Q8HR Urecholine (Bethanechol Chloride) 25 Mg Tab 25 Mg PO Q8HR Norvasc (Amlodipine Besylate) 10 Mg Tab 10 Mg PO DAILY Reported Prochlorperazine Maleate 10 Mg Tab 10 Mg PO TID PRN Cardura (Doxazosin Mesylate) 8 Mg Tab 8 Mg PO HS Duoneb (Ipratropium-Albuterol Neb) 0.5-2.5 Mg/3 Ml Neb 1 Vial NEB Q4HR PRN Milk of Magnesia Liq (Magnesium Hydroxide) 400 Mg/5 Ml Susp 30 Ml PO Q4HR PRN Loperamide (Loperamide HCl) 2 Mg Tab 4 Mg PO INITIAL DOSE PRN AFTER INITIAL DOSE, GIVE 1 TAB (2MG) AFTER EACH LOOSE STOOL NTE 8 TABS/24HRS - May give liquid if unable to take tablet Fleet Enema Rectal (Sodium Phosphates Rectal) 7-19 Gm/118 Ml Enem 1 Applic SD DAILY PRN Dulcolax Supp (Bisacodyl) 10 Mg Supp 10 Mg SD DAILY PRN Tylenol (Acetaminophen) 325 Mg Tab 650 Mg PO Q4H PRN Mylanta Liq (Dksmspgu-Fcijygcbu-Xytgzgdqiap Liq) 200-200-20 Mg/5 Ml Susp 30 Ml PO Q4HR PRN If no relieved within 48hrs contact Novolog Flexpen Inj (Insulin Aspart) 300 Unit/3 Ml Pen 0-12 Units SQ ACHS SLIDING SCALE: 0-70=OJ and call , Repeat in 1hr, 71-150=0 units, 151-200=3 units, 201-250=5 units, 251-300=8 units, 301-400=10 units, > 400=12 units & Repeat in 2hrs, if > 350 call Ferrous Sulfate 325 Mg Tab 325 Mg PO TID Hydralazine (Hydralazine HCl) 100 Mg Tab 100 Mg PO Q8HR Protonix (Pantoprazole Sodium) 40 Mg Tab 40 Mg PO DAILY Plavix (Clopidogrel Bisulfate) 75 Mg Tab 75 Mg PO DAILY Neurontin (Gabapentin) 300 Mg Cap 300 Mg PO Q8HR Celexa (Citalopram Hydrobromide) 20 Mg Tab 20 Mg PO DAILY Atorvastatin (Atorvastatin Calcium) 80 Mg Tab 80 Mg PO HS Aspirin 325 Mg Tab 325 Mg PO DAILY Miralax Powder (Polyethylene Glycol 3350 Powder) 17 Gm Powd 17 Gm PO DAILY Mix and dissolve one measuring capful (17 grams) in 4-8oz of water or juice. Fluticasone Nasal Clem[place] 50 Mcg/Act Naspr 1 [place] EACH NARE Q12HR 50 mcg/spray Allergies: Coded Allergies: *MDRO Multi-Drug Resistant Organism (Verified Adverse Reaction, Unknown, MRSA, 07/03/16) MRSA PCR screen POSITIVE - 05/31/16 VRE (urine)-06/29/16 Active Ordered Medications Active Medications Ceftriaxone Sodium/Sodium Chloride (Rocephin Inj/NS Inj) 100 ml @ 200 mls/hr ONCE ONCE IV; Start 06/29/16 at 13:30; Stop 06/29/16 at 13:59 IV Flush 2 ml 2 ml UNSCH PRN IVF Last administered on 06/29/16 13:06; Admin Dose 2 ML; Start 06/29/16 at 12:00 Labetalol HCl (Trandate Inj) 10 mg ONCE ONCE IV PUSH; Start 06/29/16 at 13:30; Stop 06/29/16 at 13:31; Status DC Sodium Chloride 1,000 ml @ 999 mls/hr Q1H1M IV Last administered on 06/29/16 13 :06; Admin Dose 999 MLS/HR; Start 06/29/16 at 13:15; Stop 06/29/16 at 13:18; Status DC Family History Significant family history of HTN, DM, Depression, and drug/alcohol abuse Mother: Colon cancer, DM, CAD, HTN Father: at 63 unknown cause Social History Lives at [facility]. She denies any tobacco, alcohol, or illicit drug use. Physical Exam Vital Signs Vital Signs Date Time Temp Pulse Resp B/P Pulse Ox O2 Delivery O2 Flow Rate FiO2 06/29/16 11:35 97 Nasal Cannula 2 06/29/16 11:33 98.7 93 28 208/91 89 06/29/16 11:33 98.7 93 28 208/91 89 Room Air 06/29/16 11:32 89 Room Air Physical Exam GENERAL: This is a well-nourished, well-developed AAF lying comfortably in bed SKIN: Cool and dry HEAD: Atraumatic. Normocephalic. EYES: No scleral icterus. No injection or drainage. ENT: Nose without bleeding, purulent drainage or septal hematoma. Airway patent. NECK: Trachea midline. CARDIOVASCULAR: Regular rate and rhythm without murmurs, gallops, or rubs. RESPIRATORY: Bilateral crackles at the bases GASTROINTESTINAL: Abdomen protuberant but soft and non-tender. No palpable masses. No guarding or rebound tenderness. MUSCULOSKELETAL: No lower extremity edema. 5/5 strength on left side but 1/5 strength in right UE and LE. NEUROLOGICAL: Awake and alert 1. Able to follow direct commands. Slow speech. Laboratory Laboratory Tests Test 06/29/16 06/29/16 11:35 11:45 White Blood Count 8.7 Red Blood Count 3.24 Hemoglobin 8.8 Hematocrit 27.5 Mean Corpuscular Volume 85.1 Mean Corpuscular Hemoglobin 27.1 Mean Corpuscular Hemoglobin 31.8 Concent Red Cell Distribution Width 14.9 Platelet Count 202 Mean Platelet Volume 9.2 Neutrophils (%) (Auto) 62.7 Lymphocytes (%) (Auto) 22.3 Monocytes (%) (Auto) 9.7 Eosinophils (%) (Auto) 4.5 Basophils (%) (Auto) 0.8 Neutrophils # (Auto) 5.5 Lymphocytes # (Auto) 1.9 Monocytes # (Auto) 0.8 Eosinophils # (Auto) 0.4 Basophils # (Auto) 0.1 CBC Comment DIFF FINAL Differential Comment Prothrombin Time 10.8 Prothromb Time International 1.0 Ratio Activated Partial 20.3 Thromboplast Time Sodium Level 141 Potassium Level 5.0 Chloride Level 107 Carbon Dioxide Level 24.3 Anion Gap 10 Blood Urea Nitrogen 60 Creatinine 2.06 Estimat Glomerular Filtration 30 Rate Random Glucose 129 Calcium Level 9.4 Total Bilirubin 0.3 Aspartate Amino Transf 21 (AST/SGOT) Alanine Aminotransferase 34 (ALT/SGPT) Alkaline Phosphatase 134 Troponin I LESS THAN 0.02 B-Type Natriuretic Peptide 555 Total Protein 7.8 Albumin 2.9 Urine Color YELLOW Urine Turbidity CLOUDY Urine pH 7.5 Urine Specific [place] 1.018 Urine Protein 100 Urine Glucose (UA) TRACE Urine Ketones NEG Urine Occult Blood NEG Urine Nitrite NEG Urine Bilirubin NEG Urine Urobilinogen LESS THAN 2.0 Urine Leukocyte Esterase LARGE Urine RBC 9 Urine WBC Urine WBC Clumps FEW Urine Squamous Epithelial 3 Cells Urine Amorphous Sediment MOD Urine Bacteria FEW Urine Mucus MANY Microscopic Urinalysis Comment CATH-CULTURE IND Date/Time Procedure Status Source Growth 06/29/16 12:10 Aerobic Blood Culture Received Blood Peripheral Pending 06/29/16 12:10 Anaerobic Blood Culture Received Blood Peripheral Pending 06/29/16 11:45 Urine Culture Received Urine Catheterized Urine Pending Result Diagram: 06/29/16 1135 06/29/16 1135 Imaging Last Impressions Head CT 06/29/16 1200 Signed Impressions: Service Date/Time: Wednesday, June 29, 2016 12:54 - CONCLUSION: 1. No acute intracranial abnormality is identified. Overall, stable exam. 2. There is generalized atrophy and moderate severity periventricular white matter low attenuation characteristic of chronic microvascular ischemia. There is also encephalomalacia in the left frontal lobe and left basal ganglia likely representing areas of old ischemia. 3. Stable fluid within the mastoid air cells. Vipin Merlos MD Chest X-Ray 06/29/16 1200 Signed Impressions: Service Date/Time: Wednesday, June 29, 2016 12:12 - CONCLUSION: 1. Relatively diffuse interstitial prominence bilaterally suspicious for interstitial pulmonary edema. 2. Stable mild enlargement of the cardiac silhouette. Vipin Merlos MD Assessment and Plan Assessment and Plan 60-year-old female presents with altered mental status from [facility]. Chest x-ray shows bilateral pulmonary edema. Urinalysis shows UTI. Code Status Full code Discussed Condition With Dr. Talavera Problem List: (1) Altered mental status, unspecified Status: Resolved Plan: At her baseline, the patient is normally awake alert and oriented 3. Currently she is only alert to person. She does have a urinary tract infection. CT head stable Treat UTI and pulmonary edema as discussed below. Blood culture pending Elevate head of bed Fall precautions Keep close to nursing station. (2) UTI (urinary tract infection) Status: Acute Plan: Patient given Rocephin 1 g in the emergency room. Continue Rocephin 1 g IV every 24 hours Urine culture pending (3) Aodpm-mf-mawaqqh kidney injury Status: Acute Plan: Baseline creatinine between 1.6 and 2.39 Currently her creatinine is 2.06 Given Pulmonary edema, will treat with Lasix one time. (4) Hypertensive urgency Status: Acute Plan: Likely rebound hypertension as the patient takes clonidine. She takes 0.2 mg clonidine by mouth every 8 hours We'll continue this medication and treat hypertension as discussed below. (5) Pulmonary edema Status: Chronic Plan: According to her med list, she takes Bumex 2 mg by mouth twice a day for generalized edema. She likely has a component of diastolic congestive heart failure. Encourage keeping the head the bed elevated Echo 06/01/16: Ejection fraction 55-60%. Wall motion normal. Given chest x-ray findings of bilateral pulmonary edema, we'll provide Lasix 40 mg IV now Continue home Bumex. (6) FEN/PPX Status: Acute Plan: Fluids: Careful with fluids given pulmonary edema and likely diastolic heart failure Electrolytes: Monitor and replace when necessary Nutrition: Regular diet if passes bedside swallow Prophylaxis: Heparin 5000 units every 12 hours Chronic medical problems: HTN: Continue amlodipine 10 mg by mouth daily, metoprolol tartrate 100 mg by mouth every 12 hours, clonidine 0.2 mg by mouth every 8 hours DM: Sliding scale insulin; monitor Accu-Cheks HLD: Continue atorvastatin Depression: Continue Celexa 20 mg by mouth daily Neuropathy: Continue gabapentin 300 mg by mouth every 8 hours CVA x 2: Continue aspirin, atorvastatin, Plavix Anemia: Continue ferrous sulfate Physician Certification 2 Midnight Certification Type: Admission for Inpatient Services Order for Inpatient Services The services are ordered in accordance with Medicare regulations or non- Medicare payer requirements, as applicable. In the case of services not specified as inpatient-only, they are appropriately provided as inpatient services in accordance with the 2-midnight benchmark. Estimated LOS (days): 2 days is the estimated time the patient will need to remain in the hospital, assuming treatment plan goals are met and no additional complications. Post-Hospital Plan: SNF Problem Qualifiers (1) UTI (urinary tract infection): Qualified Code: N30.00 - Acute cystitis without hematuria (2) Pulmonary edema: Qualified Code: J81.0 - Acute pulmonary edema George Nelson MD R2 Jun 29, 2016 13:42
[2016-06-29] MEDS ORDERED: ACETAMINOPHEN 325 MG TAB PO PRN ×2 (14:15→15:00)
[2016-06-29] MEDS ORDERED: hydrALAZINE HCL 10 MG TAB PO PRN (14:15)
[2016-06-29] MEDS ORDERED: ONDANSETRON HCL 4 MG/2 ML VIAL IV PRN (14:15)
[2016-06-29] MEDS ORDERED: DOCUSATE SODIUM 50 MG/SENNA 8.6 MG TAB PO PRN (14:15)
[2016-06-29] MEDS ORDERED: PROCHLORPERAZINE MALEATE 10 MG TAB PO PRN (15:00)
[2016-06-29] MEDS ORDERED: METOPROLOL TARTRATE 100 MG TAB PO SCH (15:00)
[2016-06-29] MEDS ORDERED: ALUMINUM/MAGNESIUM/SIMETH 30 ML CUP PO PRN (15:00)
[2016-06-29] MEDS ORDERED: ACETAMINOPHEN/HYDROcodone 325 MG/5 MG TAB PO PRN (15:00)
[2016-06-29] MEDS ORDERED: FUROSEMIDE 40 MG/4 ML VIAL IV PUSH ONE (15:15)
[2016-06-29] MEDS: cloNIDine HCL 0.2 MG TAB PO SCH ×2 (15:20→23:16)
[2016-06-29] MEDS ORDERED: RESP: ALBUTEROL 2.5 MG/IPRATROPIUM 0.5 MG NEB (PRN) NEB (15:30)
[2016-06-29] MEDS: BUMETANIDE 1 MG TAB PO SCH (18:00)
[2016-06-29] MEDS: FERROUS SULFATE 325 MG (65 MG ELEMENTAL IRON) TAB PO SCH (18:49)
[2016-06-29] MEDS ORDERED: cloNIDine HCL 0.2 MG TAB PO SCH (22:00)
[2016-06-29] MEDS ORDERED: GLUCAGON 1 MG/ML VIAL OTHER PRN (22:15)
[2016-06-29] MEDS ORDERED: DEXTROSE 50% IN WATER 50 ML VIAL(D50) IV PUSH PRN (22:15)
[2016-06-29] MEDS: ATORVASTATIN 80 MG TAB PO SCH (23:15)
[2016-06-29] MEDS: hydrALAZINE HCL 100 MG TAB PO SCH (23:16)
[2016-06-29] MEDS: HEPARIN SODIUM - SQ 10,000 UNITS/ML VIAL SQ SCH (23:16)
[2016-06-29] MEDS: BETHANECHOL CHL 25 MG TAB PO SCH (23:16)
[2016-06-29] MEDS: GABAPENTIN 300 MG CAP PO SCH (23:16)
[2016-06-29] MEDS ORDERED: INSULIN ASPART SUPPLEMENTAL SCALE SQ SCH (23:30)
[2016-06-30] MEDS: DOXAZOSIN MESYLATE 4 MG TAB PO SCH ×2 (01:51→21:27)
[2016-06-30] MEDS: INSULIN ASPART SUPPLEMENTAL SCALE SQ SCH ×2 (03:04→05:54)
[2016-06-30 04:00] VITALS: BP 145/65; PULSE 75; RESP 18; TEMP 97.5; O2SAT 100
[2016-06-30] MEDS: GABAPENTIN 300 MG CAP PO SCH ×3 (05:49→21:28)
[2016-06-30] MEDS: cloNIDine HCL 0.2 MG TAB PO SCH ×3 (05:50→21:28)
[2016-06-30] MEDS: hydrALAZINE HCL 100 MG TAB PO SCH ×3 (05:50→21:28)
[2016-06-30] MEDS: BETHANECHOL CHL 25 MG TAB PO SCH (05:50)
[2016-06-30 06:22] LABS: AUTOMATED NEUTROPHIL # 2.9 TH/MM3 (1.8-7.7); BASOPHIL % 0.8 % (0.0-2.0); EOSINOPHIL # 0.2 TH/MM3 (0-0.4); HEMATOCRIT 21.8 % (35.0-46.0); HEMO FLAGS DIFF FINAL; LYMPH % 23.2 % (9.0-44.0); LYMPHOCYTE # 1.1 TH/MM3 (1.0-4.8); MEAN CELL VOLUME 84.4 FL (80.0-100.0); MEAN CORPUSCULAR HEMOGLOBIN 27.4 PG (27.0-34.0); MEAN CORPUSCULAR HGB CONC 32.4 % (32.0-36.0); MONO % 11.7 % (0.0-8.0); NEUT % 60.3 % (16.0-70.0); PLATELET COUNT 163 TH/MM3 (150-450); RED BLOOD COUNT 2.58 MIL/MM3 (4.00-5.30); WHITE BLOOD COUNT 4.9 TH/MM3 (4.0-11.0)
[2016-06-30 06:45] LABS: ALT (GPT) 25 U/L (10-53); ANION GAP 6 MEQ/L (5-15); AST (GOT) 13 U/L (15-37); BLOOD UREA NITROGEN 59 MG/DL (7-18); CHLORIDE 109 MEQ/L (98-107); GLOMERULAR FILTRATION RATE 31 ML/MIN (>89); POTASSIUM 4.4 MEQ/L (3.5-5.1); SODIUM (NA) 144 MEQ/L (136-145)
[2016-06-30 06:47] LABS: ALKALINE PHOSPHATASE 102 U/L (45-117); TOTAL BILIRUBIN ADULT 0.2 MG/DL (0.2-1.0)
[2016-06-30] MEDS ORDERED: INSULIN ASPART SUPPLEMENTAL SCALE SQ SCH (07:00)
[2016-06-30 08:00] VITALS: BP 114/56; PULSE 72; RESP 16; TEMP 98; O2SAT 99
[2016-06-30] MEDS: BUMETANIDE 1 MG TAB PO SCH ×2 (08:26→17:27)
[2016-06-30] MEDS: PANTOPRAZOLE SOD 40 MG DELAYED RELEASE TAB PO SCH (08:26)
[2016-06-30] MEDS: ASPIRIN 325 MG TAB PO SCH (08:26)
[2016-06-30] MEDS: FERROUS SULFATE 325 MG (65 MG ELEMENTAL IRON) TAB PO SCH ×3 (08:27→17:27)
[2016-06-30] MEDS: CITALOPRAM HYDROBROMIDE 20 MG TAB PO SCH (08:27)
[2016-06-30] MEDS: CLOPIDOGREL 75 MG TAB PO SCH (08:27)
[2016-06-30] MEDS: HEPARIN SODIUM - SQ 10,000 UNITS/ML VIAL SQ SCH ×2 (08:28→21:28)
[2016-06-30] MEDS: METOPROLOL TARTRATE 100 MG TAB PO SCH ×2 (08:28→21:27)
--- NOTE | 2016-06-30 10:15 | EKG ---
Date Performed: 06/29/2016 Time Performed: 11:41:48 PTAGE: 60 years EKG: Sinus rhythm BORDERLINE RIGHT AXIS DEVIATION NONSPECIFIC T-WAVE ABNORMALITY BORDERLINE ECG Compared to prior trac ing no significant change PREVIOUS TRACING : 05/31/2016 02.28 DOCTOR: King Kolb Interpretating Date/Time 06/30/2016 10:13:58
--- NOTE | 2016-06-30 11:46 | HHI.HP ---
HPI Service Family Medicine Primary Care Physician Unknown Admission Diagnosis Diagnoses: (1) Altered mental status, unspecified (2) UTI (urinary tract infection) (3) Hkywl-ke-jqdwlhg kidney injury (4) Hypertensive urgency (5) Pulmonary edema (6) FEN/PPX International Travel<30 Days: No Contact w/Intl Traveler<30days: No Known Affected Area: No History of Present Illness Ms Greenberg is a 60-year-old Afro[place]Citizen [place] female patient with a past medical history of CVA 2, type 2 diabetes, chronic kidney disease. She resides at [facility] and was brought to [place] because of altered mental status. I spoke with the nurse at [facility] and apparently the patient was not talking at all. She would shake sometimes become sweaty. Normally she is mostly alert and aware 3. She also "did not look good." History from the patient is severely limited secondary to underlying CVA in the past and baseline slow and halting speech. She is alert to person only. Not to time or place when admitted. Now she is more verbal this am and hungry and thirsty and seems close to the normal baseline I have seen in past with her speech and alertness. Review of Systems ROS Limitations: Clinical Condition, Language Barrier, Speech Impaired Respiratory: DENIES: Cough, Wheezing, Hemoptysis, Shortness of breath Cardiovascular: DENIES: Chest pain Gastrointestinal: DENIES: Abdominal pain Neurologic: COMPLAINS OF: Abnormal gait, Localized weakness, Speech Problems, DENIES: Seizures Past Family Social History Past Medical History Per EMR, HTN DM HLD Depression Neuropathy Previously on O2 at home but has not been on any supplemental O2 for a while. 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 She denies any tobacco, alcohol, or illicit drug use. Physical Exam Vital Signs Vital Signs Date Time Temp Pulse Resp B/P Pulse Ox O2 Delivery O2 Flow Rate FiO2 06/30/16 08:00 98.0 72 16 114/56 99 06/30/16 04:00 97.5 75 18 145/65 100 06/29/16 23:10 86 181/74 06/29/16 20:00 97.6 84 18 123/73 99 06/29/16 17:00 89 18 179/77 97 Nasal Cannula 2 06/29/16 16:30 92 199/84 Nasal Cannula 2 06/29/16 16:00 91 16 207/81 97 Nasal Cannula 2 06/29/16 15:00 99 22 208/133 97 Nasal Cannula 2 06/29/16 14:24 94 216/103 Nasal Cannula 2 06/29/16 14:00 91 21 218/81 99 Nasal Cannula 2 06/29/16 13:00 90 16 205/84 97 Nasal Cannula 2 06/29/16 12:30 90 186/77 06/29/16 12:00 88 16 177/78 98 Nasal Cannula 2 Physical Exam GENERAL: This is a well-nourished, well-developed AAF lying comfortably in bed, eating and drinking this am and returning to baseline SKIN: Cool and dry HEAD: Atraumatic. Normocephalic. EYES: No scleral icterus. No injection or drainage. ENT: Nose without bleeding, purulent drainage or septal hematoma. Airway patent. NECK: Trachea midline. CARDIOVASCULAR: Regular rate and rhythm without murmurs, gallops, or rubs. RESPIRATORY: Bilateral crackles at the bases GASTROINTESTINAL: Abdomen protuberant but soft and non-tender. No palpable masses. No guarding or rebound tenderness. MUSCULOSKELETAL: No lower extremity edema. 5/5 strength on left side but 1/5 strength in right UE and LE. NEUROLOGICAL: Awake and alert 1. Able to follow direct commands. Slow speech. Laboratory Laboratory Tests Test 06/30/16 05:13 White Blood Count 4.9 Red Blood Count 2.58 Hemoglobin 7.1 Hematocrit 21.8 Mean Corpuscular Volume 84.4 Mean Corpuscular Hemoglobin 27.4 Mean Corpuscular Hemoglobin 32.4 Concent Red Cell Distribution Width 15.0 Platelet Count 163 Mean Platelet Volume 9.2 Neutrophils (%) (Auto) 60.3 Lymphocytes (%) (Auto) 23.2 Monocytes (%) (Auto) 11.7 Eosinophils (%) (Auto) 4.0 Basophils (%) (Auto) 0.8 Neutrophils # (Auto) 2.9 Lymphocytes # (Auto) 1.1 Monocytes # (Auto) 0.6 Eosinophils # (Auto) 0.2 Basophils # (Auto) 0.0 CBC Comment DIFF FINAL Differential Comment Sodium Level 144 Potassium Level 4.4 Chloride Level 109 Carbon Dioxide Level 29.0 Anion Gap 6 Blood Urea Nitrogen 59 Creatinine 1.97 Estimat Glomerular Filtration 31 Rate Random Glucose 125 Calcium Level 8.8 Total Bilirubin 0.2 Aspartate Amino Transf 13 (AST/SGOT) Alanine Aminotransferase 25 (ALT/SGPT) Alkaline Phosphatase 102 B-Type Natriuretic Peptide 474 Total Protein 6.5 Albumin 2.5 Date/Time Procedure Status Source Growth 06/29/16 12:10 Aerobic Blood Culture - Preliminary Resulted Blood Peripheral NO GROWTH IN 1 DAY 06/29/16 12:10 Anaerobic Blood Culture - Preliminary Resulted Blood Peripheral NO GROWTH IN 1 DAY 06/29/16 11:45 Urine Culture - Preliminary Resulted Urine Catheterized Urine Gram Negative Phil Result Diagram: 06/30/16 0513 06/30/16 0513 Imaging Last Impressions Head CT 06/29/16 1200 Signed Impressions: Service Date/Time: Wednesday, June 29, 2016 12:54 - CONCLUSION: 1. No acute intracranial abnormality is identified. Overall, stable exam. 2. There is generalized atrophy and moderate severity periventricular white matter low attenuation characteristic of chronic microvascular ischemia. There is also encephalomalacia in the left frontal lobe and left basal ganglia likely representing areas of old ischemia. 3. Stable fluid within the mastoid air cells. Vipin Merlos MD Chest X-Ray 06/29/16 1200 Signed Impressions: Service Date/Time: Wednesday, June 29, 2016 12:12 - CONCLUSION: 1. Relatively diffuse interstitial prominence bilaterally suspicious for interstitial pulmonary edema. 2. Stable mild enlargement of the cardiac silhouette. Vipin Merlos MD Assessment and Plan Assessment and Plan 60-year-old female presents with altered mental status from [facility]. Chest x-ray shows bilateral pulmonary edema. Urinalysis shows UTI. Problem List: (1) Altered mental status, unspecified Status: Acute Plan: At her baseline, the patient is normally awake alert and oriented 3. She does have a urinary tract infection. CT head stable Treat UTI and pulmonary edema as discussed below. Blood culture pending Elevate head of bed Fall precautions Keep close to nursing station. (2) UTI (urinary tract infection) Status: Acute Plan: Patient given Rocephin 1 g in the emergency room. Continue Rocephin 1 g IV every 24 hours Urine culture pending (3) Vfdfu-jj-qojmmwc kidney injury Status: Acute Plan: Baseline creatinine between 1.6 and 2.39 Currently her creatinine is 2.06 Given Pulmonary edema, will treat with Lasix one time. she had a renal biopsy and has poor overall renal fxn with deterioration expected to continue because of diabetic renal disease. She always has proteinuria and the culture can be followed to see about her UTI (4) Hypertensive urgency Status: Acute Plan: Likely rebound hypertension as the patient takes clonidine. She takes 0.2 mg clonidine by mouth every 8 hours We'll continue this medication and treat hypertension as discussed below. (5) Pulmonary edema Status: Acute Plan: According to her med list, she takes Bumex 2 mg by mouth twice a day for generalized edema. She likely has a component of diastolic congestive heart failure. Encourage keeping the head the bed elevated Echo 06/01/16: Ejection fraction 55-60%. Wall motion normal. Given chest x-ray findings of bilateral pulmonary edema, we'll provide Lasix 40 mg IV now Continue home Bumex. (6) FEN/PPX Status: Acute Plan: Fluids: Careful with fluids given pulmonary edema and likely diastolic heart failure Electrolytes: Monitor and replace when necessary Nutrition: Regular diet as she is eating well this am Prophylaxis: Heparin 5000 units every 12 hours Chronic medical problems: HTN: Continue amlodipine 10 mg by mouth daily, metoprolol tartrate 100 mg by mouth every 12 hours, clonidine 0.2 mg by mouth every 8 hours DM: Sliding scale insulin; monitor Accu-Cheks. she was a bit low in her glucose this am of 59 so stopped the regular insulin at night. with renal failure, pts often need very little insulin HLD: Continue atorvastatin Depression: Continue Celexa 20 mg by mouth daily Neuropathy: Continue gabapentin 300 mg by mouth every 8 hours CVA x 2: Continue aspirin, atorvastatin, Plavix Anemia: Continue ferrous sulfate though some of it may be related to anemia of chronic disease with her kidneys Physician Certification 2 Midnight Certification Type: Admission for Inpatient Services Order for Inpatient Services The services are ordered in accordance with Medicare regulations or non- Medicare payer requirements, as applicable. In the case of services not specified as inpatient-only, they are appropriately provided as inpatient services in accordance with the 2-midnight benchmark. Estimated LOS (days): 3 3 days is the estimated time the patient will need to remain in the hospital, assuming treatment plan goals are met and no additional complications. Post-Hospital Plan: SNF Problem Qualifiers (1) UTI (urinary tract infection): Qualified Code: N30.00 - Acute cystitis without hematuria (2) Pulmonary edema: Qualified Code: J81.0 - Acute pulmonary edema Jaclyn James MD Jun 30, 2016 11:46
[2016-06-30 12:00] VITALS: BP 142/57; PULSE 73; RESP 17; TEMP 97.8; O2SAT 98
[2016-06-30 12:47] VITALS: O2SAT 98
[2016-06-30] MEDS: cefTRIAXone INJ 1,000 MG in SODIUM CHLORIDE 0.9% INJ 100 ML IV SCH (12:58)
[2016-06-30 16:00] VITALS: BP 144/65; PULSE 77; RESP 17; TEMP 97; O2SAT 99
[2016-06-30 20:00] VITALS: BP 186/81; PULSE 77; RESP 20; TEMP 96; O2SAT 100
[2016-06-30] MEDS: ATORVASTATIN 80 MG TAB PO SCH (21:27)
[2016-07-01 00:19] VITALS: BP 135/64; PULSE 79; RESP 20; TEMP 96.3; O2SAT 98
[2016-07-01 04:00] VITALS: BP 134/79; PULSE 71; RESP 18; TEMP 95.7; O2SAT 96
[2016-07-01] MEDS: GABAPENTIN 300 MG CAP PO SCH ×2 (05:07→14:00)
[2016-07-01] MEDS: cloNIDine HCL 0.2 MG TAB PO SCH ×2 (05:07→14:00)
[2016-07-01] MEDS: hydrALAZINE HCL 100 MG TAB PO SCH ×2 (05:07→14:00)
[2016-07-01 06:20] LABS: AUTOMATED NEUTROPHIL # 2.4 TH/MM3 (1.8-7.7); BASOPHIL # 0.1 TH/MM3 (0-0.2); BASOPHIL % 1.1 % (0.0-2.0); EOSINOPHIL # 0.4 TH/MM3 (0-0.4); EOSINOPHIL % 8.3 % (0.0-4.0); HEMO FLAGS DIFF FINAL; LYMPHOCYTE # 1.3 TH/MM3 (1.0-4.8); MEAN CELL VOLUME 85.4 FL (80.0-100.0); MEAN CORPUSCULAR HEMOGLOBIN 27.5 PG (27.0-34.0); MEAN CORPUSCULAR HGB CONC 32.2 % (32.0-36.0); MONO % 12.6 % (0.0-8.0); PLATELET COUNT 140 TH/MM3 (150-450); RED BLOOD COUNT 2.69 MIL/MM3 (4.00-5.30); RED CELL DISTRIBUTION WIDTH 14.8 % (11.6-17.2); WHITE BLOOD COUNT 4.8 TH/MM3 (4.0-11.0)
[2016-07-01 06:28] LABS: POTASSIUM 4.6 MEQ/L (3.5-5.1)
[2016-07-01] MEDS ORDERED: DEXTROSE 50% IN WATER 50 ML VIAL(D50) IV PUSH PRN (07:45)
[2016-07-01] MEDS ORDERED: GLUCAGON 1 MG/ML VIAL OTHER PRN (07:45)
[2016-07-01 08:00] VITALS: BP 187/84; PULSE 72; RESP 20; TEMP 95.4; O2SAT 96
[2016-07-01] MEDS: METOPROLOL TARTRATE 100 MG TAB PO SCH (08:15)
[2016-07-01] MEDS: PANTOPRAZOLE SOD 40 MG DELAYED RELEASE TAB PO SCH (08:15)
[2016-07-01] MEDS: FERROUS SULFATE 325 MG (65 MG ELEMENTAL IRON) TAB PO SCH ×2 (08:15→12:49)
[2016-07-01] MEDS: CITALOPRAM HYDROBROMIDE 20 MG TAB PO SCH (08:15)
[2016-07-01] MEDS: ASPIRIN 325 MG TAB PO SCH (08:16)
[2016-07-01] MEDS: BUMETANIDE 1 MG TAB PO SCH (08:16)
[2016-07-01] MEDS: HEPARIN SODIUM - SQ 10,000 UNITS/ML VIAL SQ SCH (08:17)
--- NOTE | 2016-07-01 08:49 | HHI.DCPOC ---
Discharge Care Plan Diagnosis: (1) Chronic kidney disease, stage 4 (severe) (2) UTI (urinary tract infection) Goals to Promote Your Health * To prevent worsening of your condition and complications * To maintain your health at the optimal level Directions to Meet Your Goals Take your medications as prescribed Follow your dietary instruction Follow activity as directed Keep your appointments as scheduled Take your immunizations and boosters as scheduled If your symptoms worsen call your PCP, if no PCP go to Urgent Care Center or Emergency Room Smoking is Dangerous to Your Health. Avoid second hand smoke Call the 24-hour hour crisis hotline for domestic abuse at Tressa Wyatt MD Jul 01, 2016 08:49
[2016-07-01] MEDS ORDERED: BACT800T5 PO (08:51)
--- NOTE | 2016-07-01 08:53 | HHI.FPPN ---
Subjective Remarks Pt seen and examined this AM. AFVSS. No acute events overnight. Denies any pain. Feels ready to go. Tolerating PO without nausea or vomiting. Denies CP, SOB, abdominal pain. Mental status seems to be at baseline. (Tressa Wyatt MD) Objective Vitals Vital Signs Date Time Temp Pulse Resp B/P Pulse Ox O2 Delivery O2 Flow Rate FiO2 07/01/16 04:00 95.7 71 18 134/79 96 07/01/16 00:19 96.3 79 20 135/64 98 06/30/16 20:00 96.0 77 20 186/81 100 06/30/16 16:00 97.0 77 17 144/65 99 06/30/16 12:47 98 High Flow Nasal Cannula 1.00 06/30/16 12:00 97.8 73 17 142/57 98 I/O 06/30/16 06/30/16 06/30/16 07/01/16 07/01/16 07/01/16 07:00 15:00 23:00 07:00 15:00 23:00 Intake Total 360 ml 360 ml 240 ml 0 ml Output Total 700 ml Balance 360 ml -340 ml 240 ml 0 ml Intake Oral 360 ml 360 ml 240 ml IV Total 0 ml 0 ml Output Urine Total 700 ml # Voids 2 3 # Bowel Movements 1 1 1 (Tressa Wyatt MD) Result Diagram: 07/01/16 0540 07/01/16 0540 Objective Remarks GENERAL: WN, WD female sitting up comfortably in bed eating breakfast in NAD. SKIN: Warm and dry. HEENT: Pupils equal and round. Arcus senilis bilaterally. MMM. HEART: RRR no m/r/g. LUNGS: CTAB without wheezes or crackles. ABDOMEN: Soft, NT, ND. EXTREMITIES: No LE edema. NEURO: Awake and alert. Oriented to person and place. (Tressa Wyatt MD) A/P Assessment and Plan 60 year old female with a history of HTN, T2DM, CVA 2 s/p right riana-paresis, and CKD admitted on 06/29 after she was brought in by [facility] for altered mental status and found to have a UTI. She is being treated with IV Rocephin. Culture so far growing Gram negative rods. She has returned to her baseline and will be discharged back to SNF today on renally- dosed Bactrim. Discharge Planning D/C back to SNF today (Tressa Wyatt MD) Attending Attestation Patient seen and examined. Case reviewed and discussed with the resident team. Agree with plan of care as discussed with me and documented in the resident note. (Jaclyn James MD) Problem List: (1) UTI (urinary tract infection) Status: Acute Plan: Urine culture growing Enterococcus and pseudomonas sensitive to fluoroquinolones. Today will be day 3 of Rocephin. Will treat for a total of 7 days and complete the course with four days of Levaquin renally dosed at 750 mg PO Q48H. - Will follow final culture to see if antibiotic will need to be changed and inform nursing facility - Blood culture negative (2) Altered mental status, unspecified Status: Resolved Plan: Likely secondary to UTI. Head CT stable without acute findings. Patient has returned to baseline. - Continue treatment for UTI as above (3) Pulmonary edema Status: Chronic Plan: Patient euvolemic on exam but initial CXR showed some pulmonary vascular congestion and she was given IV Lasix x 1. She has no respiratory distress and is maintaining adequate O2 sats. Resume home Bumex 2 mg PO BID. - Echo in May showed normal EF (4) FEN/PPX Status: Acute Plan: - Fluids: Tolerating PO - Electrolytes: WNL - Nutrition: Regular diet Chronic medical conditions not being acutely managed: - HTN: Continue amlodipine 10 mg PO daily, metoprolol tartrate 100 mg PO BID, clonidine 0.2 mg PO Q8H - DM: Sliding scale insulin - HLD: Continue atorvastatin - Depression: Continue Celexa - Neuropathy: Continue gabapentin - H/O CVA x 2: Continue aspirin, atorvastatin, Plavix - Anemia: Continue ferrous sulfate though some of it may be related to anemia of chronic disease with her kidneys dw Dr. James (Tressa Wyatt MD) Problem Qualifiers (1) UTI (urinary tract infection): Qualified Code: N30.00 - Acute cystitis without hematuria (2) Pulmonary edema: Qualified Code: J81.0 - Acute pulmonary edema Tressa Wyatt MD Jul 01, 2016 08:53 Jaclyn James MD Jul 05, 2016 14:19
[2016-07-01] MEDS: CLOPIDOGREL 75 MG TAB PO SCH (09:00)
--- NOTE | 2016-07-01 10:39 | HHI.DS ---
Discharge Summary Admission Date Jun 29, 2016 at 13:42 Discharge Date: Jul 01, 2016 Admitting Diagnosis AMS, UTI (1) UTI (urinary tract infection) Plan: Urine culture growing Gram negative rods; susceptibilities and final growth pending. Today will be day 3 of Rocephin. Will treat for a total of 7 days and complete the course with four days of Bactrim DS 1 tab daily (50% of normal dose to account for renal function). - Will follow final culture to see if antibiotic will need to be changed and inform nursing facility - Blood culture negative (2) Altered mental status, unspecified Plan: Likely secondary to UTI. Head CT stable without acute findings. Patient has returned to baseline. - Continue treatment for UTI as above (3) Pulmonary edema Plan: Patient euvolemic on exam but initial CXR showed some pulmonary vascular congestion and she was given IV Lasix x 1. She has no respiratory distress and is maintaining adequate O2 sats. Resume home Bumex 2 mg PO BID. - Echo in May showed normal EF Brief History Ms Greenberg is a 60-year-old Afro-[place] female patient with a past medical history of CVA 2, type 2 diabetes, chronic kidney disease. She resides at [facility] and was brought to [place] because of altered mental status. I spoke with the nurse at [facility] and apparently the patient was not talking at all. She would shake sometimes become sweaty. Normally she is mostly alert and aware 3. She also "did not look good." History from the patient is severely limited secondary to underlying CVA in the past and baseline slow and halting speech. She is alert to person only. Not to time or place when admitted. Now she is more verbal this am and hungry and thirsty and seems close to the normal baseline I have seen in past with her speech and alertness. CBC/BMP: 07/01/16 0540 07/01/16 0540 Significant Findings Laboratory Tests Test 06/29/16 06/29/16 06/30/16 07/01/16 11:35 11:45 05:13 05:40 Activated Partial 20.3 SEC Thromboplast Time (24.3-30.1) Blood Urea Nitrogen 60 MG/DL (7-18) 59 MG/DL (7-18) 53 MG/DL (7-18) Creatinine 2.06 MG/DL 1.97 MG/DL 2.04 MG/DL (0.50-1.00) (0.50-1.00) (0.50-1.00) Estimat Glomerular Filtration 30 ML/MIN (>89) 31 ML/MIN (>89) 30 ML/MIN (>89) Rate Random Glucose 129 MG/DL 125 MG/DL 163 MG/DL (74-106) (74-106) (74-106) Alkaline Phosphatase 134 U/L (45-117) Troponin I LESS THAN 0.02 NG/ML (0.02-0.05) B-Type Natriuretic Peptide 555 PG/ML 474 PG/ML (0-100) (0-100) Albumin 2.9 GM/DL 2.5 GM/DL (3.4-5.0) (3.4-5.0) Red Blood Count 3.24 MIL/MM3 2.58 MIL/MM3 2.69 MIL/MM3 (4.00-5.30) (4.00-5.30) (4.00-5.30) Hemoglobin 8.8 GM/DL 7.1 GM/DL 7.4 GM/DL (11.6-15.3) (11.6-15.3) (11.6-15.3) Hematocrit 27.5 % 21.8 % 23.0 % (35.0-46.0) (35.0-46.0) (35.0-46.0) Mean Corpuscular Hemoglobin 31.8 % Concent (32.0-36.0) Monocytes (%) (Auto) 9.7 % (0.0-8.0) 11.7 % 12.6 % (0.0-8.0) (0.0-8.0) Eosinophils (%) (Auto) 4.5 % (0.0-4.0) 8.3 % (0.0-4.0) Urine Turbidity CLOUDY (CLEAR) Urine Protein 100 mg/dL (NEG-TRACE) Urine Leukocyte Esterase LARGE (NEG) Urine RBC 9 /hpf (0-3) Urine WBC Clumps FEW (NONE) Urine Bacteria FEW /hpf (NONE) Urine Mucus MANY /lpf (OCC) Chloride Level 109 MEQ/L (98-107) Aspartate Amino Transf 13 U/L (15-37) (AST/SGOT) Platelet Count 140 TH/MM3 (150-450) PE at Discharge GENERAL: WN, WD female sitting up comfortably in bed eating breakfast in NAD. SKIN: Warm and dry. HEENT: Pupils equal and round. Arcus senilis bilaterally. MMM. HEART: RRR no m/r/g. LUNGS: CTAB without wheezes or crackles. ABDOMEN: Soft, NT, ND. EXTREMITIES: No LE edema. NEURO: Awake and alert. Oriented to person and place. Hospital Course 60 year old female with a history of HTN, T2DM, CVA 2 s/p right riana-paresis, and CKD admitted on 06/29 after she was brought in by [facility] for altered mental status and found to have a UTI. She was treated with IV Rocephin x 3 days with culture growing Enterococcus and pseudomonas. She returned to her baseline and was discharged back to [facility] on 07/01 with four days of Levaquin renally dosed at 750 mg PO Q48H to complete a total of 7 days of antibiotics. Pt Condition on Discharge: Stable Discharge Disposition: Discharge to SNF Discharge Instructions DIET: Follow Instructions for: Renal Failure Diet Activities you can perform: See Additionl Instruction Other Activity Instructions: Fall precautions Follow up Referrals: Physician - 2 Weeks with Zeinab Josue MD R2 SNF/ABDIRASHID/HH with [facility] New Medications: Sulfamethoxazole-Trimethoprim (Bactrim DS) 800-160 Mg Tab 1 TAB PO DAILY Infection #4 Ref 0 TAB Continued Medications: Acetaminophen (Tylenol) 325 Mg Tab 650 MG PO Q4H PRN PAIN 1-10 AND/OR FEVER >101F Ref 0 TAB Pwbqkcnf-Vybckzpon-Hrdbadweozk Liq (Mylanta Liq) 200-200-20 Mg/5 Ml Susp 30 ML PO Q4HR If no relieved within 48hrs contact PRN Indigestion/Heartburn Ref 0 ML Amlodipine (Norvasc) 10 Mg Tab 10 MG PO DAILY #30 Ref 1 TAB Aspirin (Aspirin) 325 Mg Tab 325 MG PO DAILY Ref 0 TAB Atorvastatin (Atorvastatin) 80 Mg Tab 80 MG PO HS Cholesterol Management #30 Ref 0 TAB Bisacodyl Supp (Dulcolax Supp) 10 Mg Supp 10 MG ME DAILY PRN IF NO RESULTS FROM MILK OF MAG #12 Ref 0 SUPP Bumetanide (Bumetanide) 1 Mg Tab 2 MG PO BID@,18 #60 Ref 0 TAB Cholecalciferol (Vitamin D3) 1,000 Unit Tab 2000 UNITS PO DAILY #30 Ref 0 TAB Citalopram (Celexa) 20 Mg Tab 20 MG PO DAILY Control Depression #30 Ref 0 TAB Clonidine (Catapres) 0.2 Mg Tab 0.2 MG PO Q8HR #90 Ref 1 TAB Clopidogrel (Plavix) 75 Mg Tab 75 MG PO DAILY Blood Clot Prevention #30 Ref 0 TAB Doxazosin (Cardura) 8 Mg Tab 8 MG PO HS #30 Ref 0 TAB Ferrous Sulfate (Ferrous Sulfate) 325 Mg Tab 325 MG PO TID Nutritional Supplement #30 Ref 0 TAB Fluticasone Nasal [place] (Fluticasone Nasal [place]) 50 Mcg/Act Naspr 1 SPRAY EACH NARE Q12HR 50 mcg/spray Allergy Management #1 Ref 0 BOTTLE Gabapentin (Neurontin) 300 Mg Cap 300 MG PO Q8HR #90 Ref 0 CAP Hydralazine (Hydralazine) 100 Mg Tab 100 MG PO Q8HR Blood Pressure Management Ref 0 TAB Hydrocodone-Acetaminophen (Hydrocodone-Acetaminophen) 5-325 mg Tab 1 TAB PO Q6H PRN PAIN SCALE 5 TO 10 #10 Ref 0 TAB Insulin Aspart Inj (Novolog Flexpen Inj) 300 Unit/3 Ml Pen 0-12 UNITS SQ ACHS SLIDING SCALE: 0-70=OJ and call MD, Repeat in 1hr, 71-150=0 units, 151-200=3 units, 201-250=5 units, 251-300=8 units, 301-400=10 units, > 400=12 units & Repeat in 2hrs, if > 350 call Blood Sugar Management #1 Ref 0 PEN Ipratropium-Albuterol Neb (Duoneb) 0.5-2.5 Mg/3 Ml Neb 1 VIAL NEB Q4HR PRN SHORTNESS OF BREATH #30 Ref 0 NEBULE Loperamide (Loperamide) 2 Mg Tab 4 MG PO INITIAL DOSE AFTER INITIAL DOSE, GIVE 1 TAB (2MG) AFTER EACH LOOSE STOOL NTE 8 TABS/24HRS - May give liquid if unable to take tablet PRN DIARRHEA Ref 0 TAB Magnesium Hydroxide Liq (Milk of Magnesia Liq) 400 Mg/5 Ml Susp 30 ML PO Q4HR PRN CONSTIPATION #1 Ref 0 BOTTLE Metoprolol Tartrate (Lopressor) 100 Mg Tab 100 MG PO Q12H #60 Ref 0 TAB Pantoprazole (Protonix) 40 Mg Tab 40 MG PO DAILY Reflux #30 Ref 0 TAB Polyethylene Glycol 3350 Powder (Miralax Powder) 17 Gm Powd 17 GM PO DAILY Mix and dissolve one measuring capful (17 grams) in 4-8oz of water or juice. Constipation #1 Ref 0 BOTTLE Prochlorperazine Maleate (Prochlorperazine Maleate) 10 Mg Tab 10 MG PO TID PRN NAUSEA OR VOMITING Ref 0 TAB Sodium Phosphates Rectal (Fleet Enema Rectal) 7-19 Gm/118 Ml Enem 1 APPLIC ME DAILY PRN IF NO RESULTS FROM DULCOLAX Ref 0 BOTTLE Discontinued Medications: Bethanechol (Urecholine) 25 Mg Tab 25 MG PO Q8HR #30 Ref 0 TAB Tressa Wyatt MD Jul 01, 2016 10:39
[2016-07-01] MEDS ORDERED: INSULIN ASPART SUPPLEMENTAL SCALE SQ SCH (11:00)
[2016-07-01] MEDS ORDERED: LEVA750T PO (11:43)
[2016-07-01 12:00] VITALS: BP 141/67; PULSE 69; RESP 16; TEMP 96.4; O2SAT 92
[2016-07-01] MEDS: cefTRIAXone INJ 1,000 MG in SODIUM CHLORIDE 0.9% INJ 100 ML IV SCH (12:48)
== END 2016-07-01 14:51 | DRG 690 ==
LOC: NEPA 11:29 → NEDA 13:42 → N07A 19:00
PROVIDERS: ADMIT Family Medicine; ATTEND Family Medicine
DX: N39.0 Urinary tract infection, site not specified (principal); N17.9 Acute kidney failure, unspecified; I50.30 Unspecified diastolic (congestive) heart failure; I69.351 Hemiplegia and hemiparesis following cerebral infarction affecting right dominant side; B95.2 Enterococcus as the cause of diseases classified elsewhere; B96.5 Pseudomonas (aeruginosa) (mallei) (pseudomallei) as the cause of diseases classified elsewhere; I16.0 Hypertensive urgency; E11.9 Type 2 diabetes mellitus without complications; F32.9 Major depressive disorder, single episode, unspecified; I69.311 Memory deficit following cerebral infarction; I12.9 Hypertensive chronic kidney disease with stage 1 through stage 4 chronic kidney disease, or unspecified chronic kidney disease; N18.9 Chronic kidney disease, unspecified; G62.9 Polyneuropathy, unspecified; R41.82 Altered mental status, unspecified; Z79.4 Long term (current) use of insulin; Z79.82 Long term (current) use of aspirin; Z79.02 Long term (current) use of antithrombotics/antiplatelets; D64.9 Anemia, unspecified; E78.5 Hyperlipidemia, unspecified
CPT/HCPCS: 70450; 71010; 80048; 80053; 81001; 82948; 83880; 84484; 85025; 85610; 85730; 87040; 87077; 87086; 87186; 93005; J0696; J1644; J1815; J1940; J7030

== ENCOUNTER 2017-03-09 09:14 | Day surgery (SDC) | payer OTHER ==
[~2017-03-09 09:14] MED LIST changes: -ACYC-101 PO; +ASPI-183 PO; -ASPI325T PO; -ATOR1TAB18 PO; +ATOR80TA45 PO; -BETH25 PO; -CARD4TAB2 PO; +CARD8TAB2 PO; -INSU1INJ5 SQ; +LEVA750T PO; +PROC10TA PO
[2017-03-09] MEDS ORDERED: INSULIN HUMAN REGULAR 1,000 UNITS/10 ML VIAL SQ PRN (10:00)
[2017-03-09] MEDS ORDERED: METOPROLOL TARTRATE 25 MG TAB PO PRN (10:00)
[2017-03-09] MEDS ORDERED: POVIDONE IODINE 5% (ANTISEPSIS KIT) 4 APPLICATIONS EACH NARE PRN (10:00)
[2017-03-09] MEDS ORDERED: LACTATED RINGER'S 1000 ML IV PRN (10:00)
[2017-03-09] MEDS ORDERED: CHLORHEXIDINE GLUCONATE 2 % 1 PACK (2 CLOTHS) TOPICAL PRN (10:00)
[2017-03-09] MEDS ORDERED: SODIUM CHLORID 0.9% 500 ML IV PRN (10:00)
[2017-03-09 10:10] VITALS: BP 155/78; PULSE 87; RESP 20; TEMP 98.6; O2SAT 98
[2017-03-09 10:30] LABS: AUTOMATED NEUTROPHIL # 4.2 TH/MM3 (1.8-7.7); BASOPHIL # 0.1 TH/MM3 (0-0.2); BASOPHIL % 0.9 % (0.0-2.0); EOSINOPHIL # 0.3 TH/MM3 (0-0.4); EOSINOPHIL % 3.8 % (0.0-4.0); HEMATOCRIT 28.8 % (35.0-46.0); HEMO FLAGS DIFF FINAL; LYMPH % 27.7 % (9.0-44.0); MEAN CORPUSCULAR HEMOGLOBIN 28.4 PG (27.0-34.0); MEAN CORPUSCULAR HGB CONC 32.6 % (32.0-36.0); MONO % 7.7 % (0.0-8.0); NEUT % 59.9 % (16.0-70.0); PLATELET COUNT 181 TH/MM3 (150-450); RED BLOOD COUNT 3.31 MIL/MM3 (4.00-5.30); RED CELL DISTRIBUTION WIDTH 15.4 % (11.6-17.2); WHITE BLOOD COUNT 7.1 TH/MM3 (4.0-11.0)
[2017-03-09] MEDS ORDERED: LANTUS2P SQ (10:33)
[2017-03-09] MEDS ORDERED: METO5TAB3 PO (10:33)
[2017-03-09] MEDS ORDERED: PROC10003 SQ (10:33)
[2017-03-09] MEDS ORDERED: LEVO25TA4 PO (10:33)
[2017-03-09 10:37] LABS: INTERNATIONAL NORMALIZED RATIO 0.9 RATIO; PROTHROMBIN TIME - PATIENT 10.4 SEC (9.8-11.6)
[2017-03-09] MEDS ORDERED: ENEMENE3 RECTAL (10:47)
[2017-03-09] MEDS ORDERED: LOPE2CAP PO (10:47)
[2017-03-09] MEDS ORDERED: LORA2TAB7 IM (10:47)
[2017-03-09] MEDS ORDERED: FERR325T18 PO (10:49)
[2017-03-09 10:56] LABS: BICARBONATE 26.9 MEQ/L (21.0-32.0)
== END 2017-03-09 11:30 | disposition home or self-care (01) ==
LOC: HCVO 09:14
PROVIDERS: ATTEND Surgery
DX: I12.0 Hypertensive chronic kidney disease with stage 5 chronic kidney disease or end stage renal disease (principal); N18.6 End stage renal disease; E11.9 Type 2 diabetes mellitus without complications; Z99.2 Dependence on renal dialysis; Z53.09 Procedure and treatment not carried out because of other contraindication
CPT/HCPCS: 80048; 85025; 85610; 99211; J7040; G0463

== ENCOUNTER → 2017-03-30 | Day surgery (SDC) | payer OTHER ==
[~2017-03-30] VITALS: Ht 142.2 cm; Wt 83.5 kg
[~2017-03-30] MED LIST changes: +ACETAMINOPHEN 1000 MG/100 ML 100 ML IV ONE; +BUPIVACAINE/EPINEPHRINE 0.5% PF 30 ML VIAL ONE; +CHLORHEXIDINE GLUCONATE 2 % 1 PACK (2 CLOTHS) TOPICAL PRN; +DO NOT ADM ANY ANTICOAGULANT DRUGS PRN; +ENEMENE3 RECTAL; +FAMOTIDINE 20 MG/2 ML VIAL ONE; -FERR325T PO; +FERR325T18 PO; -FLEEENE3 PR; +HEPARIN SODIUM - IV 10,000 UNITS/10 ML VIAL ONE; +HEPARIN-NS/PF INJ 500 ML ONE; +INSULIN HUMAN REGULAR 1,000 UNITS/10 ML VIAL SQ PRN; +LACTATED RINGER'S 1000 ML IV PRN; +LANTUS2P SQ; -LEVA750T PO; +LEVO25TA4 PO; +LOPE2CAP PO; -LOPE2TAB3 PO; +LORA2TAB7 IM; +METO5TAB3 PO; +METOPROLOL TARTRATE 25 MG TAB PO PRN; -MIRA33504 PO; +MORPHINE SULFATE 4 MG/ML INJ IV PRN; -MYLASUS2 PO; +OXYC1CAP PO; +POVIDONE IODINE 5% (ANTISEPSIS KIT) 4 APPLICATIONS EACH NARE PRN; +PROC10003 SQ; +PROC20005 SQ; +PROTAMINE SULFATE 50 MG/5 ML VIAL ONE; +SODIUM CHLORID 0.9% 500 ML IV PRN; +SUGAMMADEX SODIUM 200 MG/2 ML VIAL IV PUSH ONE; +THROMBIN (TOPICAL) 20,000 UNIT SPRAY KIT ONE; +ceFAZolin 2 GM PREMIX 50 ML ONE
--- NOTE | 2017-03-30 08:46 | HHI.HP ---
History of Present Illness Chief Complaint: near ESRD need for HD access History of Present Illness 61 yo female with near ESRD previously on HD but not presently but impending. LEFT hand dominant because of prior CVA. Past/Family/Social History Past Medical History CVA ESRD DM HTN XOL UTIs Past Surgical History NNAMDI C sxn tonsillectomy Social History [place] in [place] Family History [place] Home Medications Active Scripts Metoprolol Tartrate (Lopressor) 100 Mg Tab, 100 MG PO Q12H, #60 TAB 0 Refills Prov:Ely Pierce MD R3 06/05/16 Hydrocodone-Acetaminophen (Hydrocodone-Acetaminophen) 5-325 mg Tab, 1 TAB PO Q6H Y for PAIN SCALE 5 TO 10, #10 TAB 0 Refills Prov:Ely Pierce MD R3 06/05/16 Cholecalciferol (Vitamin D3) 1,000 Unit Tab, 2000 UNITS PO DAILY, #30 TAB 0 Refills Prov:Ely Pierce MD R3 06/05/16 Bumetanide (Bumetanide) 1 Mg Tab, 2 MG PO BID@, #60 TAB 0 Refills Prov:Ely Pierce MD R3 06/05/16 Clonidine (Catapres) 0.2 Mg Tab, 0.2 MG PO Q8HR, #90 TAB 1 Refill Prov:Tressa Wyatt MD 03/14/16 Amlodipine (Norvasc) 10 Mg Tab, 10 MG PO DAILY, #30 TAB 1 Refill Prov:Tressa Wyatt MD 03/14/16 Reported Medications Ferrous Sulfate (Ferrous Sulfate) 325 Mg (65 Mg Iron) Tablet, 325 MG PO TIDPC for Nutritional Supplement, TAB 0 Refills 03/09/17 Loperamide (Loperamide) 2 Mg Cap, 4 MG PO DIRECTED Y for DIARRHEA, CAP 0 Refills One capsule after each loose stool. Not to exceed 8 capsules per day. 03/09/17 Sodium Phosphates (Enema 7-19 gm/118Ml) 19 Gram-7 Gram/118 Ml Mine, 1 APPLIC RECTAL DAILY 03/09/17 Lorazepam (Lorazepam) 2 Mg Tab, 2 MG IM Q8HR Y for ANXIETY, TAB 0 Refills 03/09/17 Insulin Glargine Inj (Lantus Inj) 1,000 Unit/10 Ml Vial, 15 UNITS SQ HS for Blood Sugar Management, VIAL 0 Refills 03/09/17 Metolazone (Metolazone) 5 Mg Tab, 5 MG PO DAILY, TAB 0 Refills 03/09/17 Epoetin Inj (Procrit Inj) 10,000 Unit/Ml Inj, 16136 UNITS SQ 2XWEEK for Anemia, VIAL 0 Refills 03/09/17 Levothyroxine (Levothyroxine) 25 Mcg Tab, 25 MCG PO DAILY for Thyroid, TAB 0 Refills 03/09/17 Prochlorperazine Maleate (Prochlorperazine Maleate) 10 Mg Tab, 10 MG PO TID Y for NAUSEA OR VOMITING, TAB 0 Refills 06/29/16 Doxazosin (Cardura) 8 Mg Tab, 8 MG PO HS, #30 TAB 0 Refills 06/29/16 Ipratropium-Albuterol Neb (Duoneb) 0.5-2.5 Mg/3 Ml Neb, 1 VIAL NEB Q4HR Y for SHORTNESS OF BREATH, #30 NEBULE 0 Refills 05/30/16 Magnesium Hydroxide Liq (Milk of Magnesia Liq) 400 Mg/5 Ml Susp, 30 ML PO Q4HR Y for CONSTIPATION, #1 BOTTLE 0 Refills 05/30/16 Bisacodyl Supp (Dulcolax Supp) 10 Mg Supp, 10 MG SC DAILY Y for IF NO RESULTS FROM MILK OF MAG, #12 SUPP 0 Refills 05/30/16 Acetaminophen (Tylenol) 325 Mg Tab, 650 MG PO Q4H Y for PAIN 1-10 AND/OR FEVER > 101F, TAB 0 Refills 05/30/16 Insulin Aspart Inj (Novolog Flexpen Inj) 300 Unit/3 Ml Pen, 0-12 UNITS SQ ACHS for Blood Sugar Management, #1 PEN 0 Refills SLIDING SCALE: 0-70=OJ and call MD, Repeat in 1hr, 71-150=0 units, 151-200=3 units, 201-250=5 units, 251-300=8 units, 301-400=10 units, > 400=12 units & Repeat in 2hrs, if > 350 call 05/30/16 Hydralazine (Hydralazine) 100 Mg Tab, 100 MG PO Q8HR for Blood Pressure Management, TAB 0 Refills 2/3/17 Pantoprazole (Protonix) 40 Mg Tab, 40 MG PO DAILY for Reflux, #30 TAB 0 Refills 02/24/16 Clopidogrel (Plavix) 75 Mg Tab, 75 MG PO DAILY for Blood Clot Prevention, #30 TAB 0 Refills 02/24/16 Gabapentin (Neurontin) 300 Mg Cap, 300 MG PO Q8HR, #90 CAP 0 Refills 02/24/16 Citalopram (Celexa) 20 Mg Tab, 20 MG PO DAILY for Control Depression, #30 TAB 0 Refills 02/24/16 Atorvastatin (Atorvastatin) 80 Mg Tab, 80 MG PO HS for Cholesterol Management, # 30 TAB 0 Refills 02/24/16 Aspirin (Aspirin) 325 Mg Tab, 325 MG PO DAILY, TAB 0 Refills 02/24/16 Fluticasone Nasal [place] (Fluticasone Nasal [place]) 50 Mcg/Act Naspr, 1 SPRAY EACH NARE Q12HR for Allergy Management, #1 BOTTLE 0 Refills 50 mcg/spray 02/24/16 Coded Allergies: *MDRO Multi-Drug Resistant Organism (Verified Adverse Reaction, Unknown, MRSA, 07/03/16) MRSA PCR screen POSITIVE - 05/31/16 VRE (urine)-06/29/16 Review of Systems Respiratory: DENIES: Apneas, Cough, Snoring, Wheezing, Hemoptysis, Sputum production, Shortness of breath Cardiovascular: DENIES: Chest pain, Palpitations, Syncope, Dyspnea on Exertion , PND, Lower Extremity Edema, Orthopnea, Claudication Physical Exam Neuro: alert, conversant but dysarthric HEENT: NC/AT Neck: trachea midline Heart: reg rate, no M Lungs: clear B Abdomen: lower midline incision, healed. Nontender Vascular: palpable UE pulses Extremities: R UE contracted but able to abduct with passive ROM K pending R basilic vein 3.5-3.6-3.9 Caprini VTE Risk Assessment Caprini VTE Risk Assessment: Mod/High Risk (score >= 2) Caprini Risk Assessment Model Point Value = 1 Point Value = 2 Point Value = 3 Point Value = 5 Age 41-60 Minor surgery BMI > 25 kg/m2 Swollen legs Varicose veins or History of unexplained or recurrent spontaneous Oral contraceptives or hormone replacement Sepsis (< 1 month) Serious lung disease, including pneumonia (< 1 month) Abnormal pulmonary function Acute myocardial infarction Congestive heart failure (< 1 month) History of inflammatory bowel disease Medical patient at bed rest Age 61-74 Arthroscopic surgery Major open surgery (> 45 min) Laparoscopic surgery (> 45 min) Malignancy Confined to bed (> 72 hours) Immobilizing plaster cast Central venous access Age >= 75 History of VTE Family history of VTE Factor V Leiden Prothrombin [id number] Lupus anticoagulant Anticardiolipin antibodies Elevated serum homocysteine Heparin-induced thrombocytopenia Other congenital or acquired thrombophilia Stroke (< 1 month) Elective arthroplasty Hip, pelvis, or leg fracture Acute spinal cord injury (< 1 month) Prophylaxis Regimen Total Risk Factor Score Risk Level Prophylaxis Regimen 0-1 Low Early ambulation 2 Moderate Order ONE of the following: *Sequential Compression Device (SCD) *Heparin 5000 units SQ BID 3-4 Higher Order ONE of the following medications: *Heparin 5000 units SQ TID *Enoxaparin/Lovenox 40 mg SQ daily (WT < 150 kg, CrCl > 30 mL/min) *Enoxaparin/Lovenox 30 mg SQ daily (WT < 150 kg, CrCl > 10-29 mL/min) *Enoxaparin/Lovenox 30 mg SQ BID (WT < 150 kg, CrCl > 30 mL/min) AND/OR *Sequential Compression Device (SCD) 5 or more Highest Order ONE of the following medications: *Heparin 5000 units SQ TID (Preferred with Epidurals) *Enoxaparin/Lovenox 40 mg SQ daily (WT < 150 kg, CrCl > 30 mL/min) *Enoxaparin/Lovenox 30 mg SQ daily (WT < 150 kg, CrCl > 10-29 mL/min) *Enoxaparin/Lovenox 30 mg SQ BID (WT < 150 kg, CrCl > 30 mL/min) AND *Sequential Compression Device (SCD) Assessment and Plan Plan R UE access Has been discussed with her and her family via telephone Discharge Planning d/c to [place] post-operatively Vic Fernandes MD Mar 30, 2017 08:46
[2017-03-30 09:16] LABS: AUTOMATED NEUTROPHIL # 4.1 TH/MM3 (1.8-7.7); BASOPHIL # 0.1 TH/MM3 (0-0.2); BASOPHIL % 0.7 % (0.0-2.0); EOSINOPHIL # 0.4 TH/MM3 (0-0.4); EOSINOPHIL % 5.4 % (0.0-4.0); HEMATOCRIT 30.3 % (35.0-46.0); HEMO FLAGS DIFF FINAL; LYMPH % 25.5 % (9.0-44.0); LYMPHOCYTE # 1.8 TH/MM3 (1.0-4.8); MEAN CELL VOLUME 85.7 FL (80.0-100.0); MEAN CORPUSCULAR HEMOGLOBIN 27.7 PG (27.0-34.0); MEAN CORPUSCULAR HGB CONC 32.3 % (32.0-36.0); MONO % 10.7 % (0.0-8.0); NEUT % 57.7 % (16.0-70.0); PLATELET COUNT 157 TH/MM3 (150-450); RED BLOOD COUNT 3.54 MIL/MM3 (4.00-5.30); RED CELL DISTRIBUTION WIDTH 14.6 % (11.6-17.2); WHITE BLOOD COUNT 7.1 TH/MM3 (4.0-11.0)
[2017-03-30 09:36] LABS: BICARBONATE 29.7 MEQ/L (21.0-32.0)
--- NOTE | 2017-03-30 10:57 | HHI.PR ---
Immediate Post Op Note Procedure Date: Mar 30, 2017 Pre Op Diagnosis: near ESRD, need for HD access Post Op Diagnosis: near ESRD, need for HD access Surgeon: Vic Fernandes Nursing Informatics Clinical Analyst(s): Mindy Teague Procedure: R brachiobasilic AVF (1st stage) Findings: 3mm artery, 3mm vein Additional Information: + thrill and + Doppler signal in wrist Complications: none Specimen(s) removed: none Estimated blood loss: 10mL Anesthesia: General Drains: None Fluids: 300mL IVF Patient to: PACU Patient Condition: Good Date/Time of Procedure: SEE SURGICAL CARE RECORD Vic Fernandes MD Mar 30, 2017 10:56
[2017-03-30 11:21] VITALS: TEMP 97.5
[2017-03-30 11:45] VITALS: BP 168/79; PULSE 76; RESP 16; O2SAT 100
--- NOTE | 2017-03-31 09:33 | MP ---
cc: ALYSSA FERNANDES MD DATE OF SURGERY 03/30/2017 PREOPERATIVE DIAGNOSIS Near end-stage renal disease. Needs hemodialysis access. POSTOPERATIVE DIAGNOSIS Near end-stage renal disease. Needs hemodialysis access. PROCEDURE Right brachiobasilic arteriovenous fistula (first stage). ATTENDING SURGEON Alyssa Fernandes MD RESIDENT SURGEON None. ANESTHESIA General. INDICATIONS Ms. Greenberg is a 59-year-old lady who has a near end-stage renal disease with a creatinine in the nearly 4 range. She has a history of stroke leaving her right side densely hemiparetic and she was taken to the operating room for right upper extremity access. Previous duplex imaging suggested her right basilic vein was adequate. DESCRIPTION OF PROCEDURE Informed consent was obtained from the patient. She was taken to the operating room and placed supine on the operating room table and appropriate time-out was taken to insure the patient's identity, the operative site and the planned procedure. The administration of 2 grams of Ancef was initiated prior to the skin incision and will be discontinued after a single preoperative dose. Everyone in the room agreed with the time-out and we proceeded. The right upper extremity was prepped and draped and the incision made over the distal aspect of the arthrotomy, carried down in the subcutaneous tissue with electrocautery. The basilic vein was identified and dissected free for several cm, it was marked for orientation, clamped distally and transected, the distal ends oversewn with 3-0 silk. A Serrefine clamp was placed on the proximal aspect. The brachial artery was identified on the medial aspect of the incision. It was dissected free for several cm. Proximal and distal control were obtained and the patient was systemically heparinized with 3000 units of IV heparin. A longitudinal arthrotomy was made with an 11 blade, extended with Mc scissors. The vein was spatulated and sewn end-to-side with running 6-0 Prolene sutures. At the completion it was flushed, noted to be hemostatic. The clamps were released and there was a nice thrill in the fistula and Doppler signal at the wrist. The heparin was reversed with Protamine. The wound was infiltrated with Marcaine and closed with 2-0 Polysorb, 3-0 Polysorb and 4-0 Monocryl. The sponge and needle counts were correct at the end of the case. I was present and scrubbed for the entire procedure. MD JUVE Aguillon/YOLA /4:47 PM /9:17 AM
== END | disposition home or self-care (01) ==
LOC: HSDC 07:26
PROVIDERS: ATTEND Surgery
DX: I12.0 Hypertensive chronic kidney disease with stage 5 chronic kidney disease or end stage renal disease (principal); N18.6 End stage renal disease; D63.1 Anemia in chronic kidney disease; E11.22 Type 2 diabetes mellitus with diabetic chronic kidney disease; Z79.4 Long term (current) use of insulin; Z86.73 Personal history of transient ischemic attack (TIA), and cerebral infarction without residual deficits
CPT/HCPCS: 01844; 36821; 80048; 82948; 85025; J0131; J0690; J1644; J2720; J7120; 76937

== ENCOUNTER 2017-07-20 13:52 | Observation (INO) | payer OTHER ==
[~2017-07-20] VITALS: Ht 142.2 cm; Wt 85.5 kg
[~2017-07-20 13:52] MED LIST changes: -ACETAMINOPHEN 1000 MG/100 ML 100 ML IV ONE; -BUPIVACAINE/EPINEPHRINE 0.5% PF 30 ML VIAL ONE; -CHLORHEXIDINE GLUCONATE 2 % 1 PACK (2 CLOTHS) TOPICAL PRN; -DO NOT ADM ANY ANTICOAGULANT DRUGS PRN; -FAMOTIDINE 20 MG/2 ML VIAL ONE; -FERR325T18 PO; -HEPARIN SODIUM - IV 10,000 UNITS/10 ML VIAL ONE; -HEPARIN-NS/PF INJ 500 ML ONE; -INSULIN HUMAN REGULAR 1,000 UNITS/10 ML VIAL SQ PRN; -LACTATED RINGER'S 1000 ML IV PRN; +LIDOCAINE HCL 1% PF 5 ML SYRINGE OTHER ONE; -METOPROLOL TARTRATE 25 MG TAB PO PRN; -MORPHINE SULFATE 4 MG/ML INJ IV PRN; +ONDANSETRON HCL 4 MG/2 ML VIAL IV ONE; -POVIDONE IODINE 5% (ANTISEPSIS KIT) 4 APPLICATIONS EACH NARE PRN; -PROC10003 SQ; +PROPOFOL 200 MG/20 ML AMP IV ONE; -PROTAMINE SULFATE 50 MG/5 ML VIAL ONE; -SODIUM CHLORID 0.9% 500 ML IV PRN; -SUGAMMADEX SODIUM 200 MG/2 ML VIAL IV PUSH ONE; -THROMBIN (TOPICAL) 20,000 UNIT SPRAY KIT ONE; -ceFAZolin 2 GM PREMIX 50 ML ONE
[2017-07-20] MEDS ORDERED: POVIDONE IODINE 5% (ANTISEPSIS KIT) 4 APPLICATIONS EACH NARE PRN (14:30)
[2017-07-20] MEDS ORDERED: LACTATED RINGER'S 1000 ML IV PRN (14:30)
[2017-07-20] MEDS ORDERED: SODIUM CHLORID 0.9% 500 ML IV PRN (14:30)
[2017-07-20] MEDS ORDERED: CHLORHEXIDINE GLUCONATE 2 % 1 PACK (2 CLOTHS) TOPICAL PRN (14:30)
[2017-07-20] MEDS ORDERED: METOPROLOL TARTRATE 25 MG TAB PO PRN (14:30)
--- NOTE | 2017-07-20 14:34 | HHI.HP ---
History of Present Illness Chief Complaint: ESRD, need for HD access History of Present Illness 61 yo female with ESRD and on HD. Had R Brachiobasilic AVF placed in Dec and ready for 2nd stage. Pt incompetent so sister has provided informed consent. Past/Family/Social History Past Medical History ESRD CVA DM HTN XOL Past Surgical History C section NNAMDI tonsillectomy R UE AVF Social History lives in facility, nonsmoker Family History NC Home Medications Active Scripts Metoprolol Tartrate (Lopressor) 100 Mg Tab, 100 MG PO Q12H, #60 TAB 0 Refills Prov:Ely Pierce MD R3 06/05/16 Hydrocodone-Acetaminophen (Hydrocodone-Acetaminophen) 5-325 mg Tab, 1 TAB PO Q6H Y for PAIN SCALE 5 TO 10, #10 TAB 0 Refills Prov:Ely Pierce MD R3 06/05/16 Cholecalciferol (Vitamin D3) 1,000 Unit Tab, 2000 UNITS PO DAILY, #30 TAB 0 Refills Prov:Ely Pierce MD R3 06/05/16 Bumetanide (Bumetanide) 1 Mg Tab, 2 MG PO BID@,18, #60 TAB 0 Refills Prov:Ely Pierce MD R3 06/05/16 Clonidine (Catapres) 0.2 Mg Tab, 0.2 MG PO Q8HR, #90 TAB 1 Refill Prov:Tressa Wyatt MD 03/14/16 Amlodipine (Norvasc) 10 Mg Tab, 10 MG PO DAILY, #30 TAB 1 Refill Prov:Tressa Wyatt MD 03/14/16 Reported Medications Oxycodone (Oxycodone) 5 Mg Cap, 5 MG PO Q6H Y for PAIN, CAP 0 Refills 03/30/17 Epoetin Inj (Procrit Inj) 20,000 Unit/Ml Inj, 11393 UNITS SQ 2 weeks for Anemia , #12 VIAL 0 Refills 03/30/17 Loperamide (Loperamide) 2 Mg Cap, 4 MG PO DIRECTED Y for DIARRHEA, CAP 0 Refills One capsule after each loose stool. Not to exceed 8 capsules per day. 03/09/17 Sodium Phosphates (Enema 7-19 gm/118Ml) 19 Gram-7 Gram/118 Ml Mine, 1 APPLIC RECTAL DAILY 03/09/17 Lorazepam (Lorazepam) 2 Mg Tab, 2 MG IM Q8HR Y for ANXIETY, TAB 0 Refills 03/09/17 Insulin Glargine Inj (Lantus Inj) 1,000 Unit/10 Ml Vial, 15 UNITS SQ HS for Blood Sugar Management, VIAL 0 Refills 03/09/17 Metolazone (Metolazone) 5 Mg Tab, 5 MG PO DAILY, TAB 0 Refills 03/09/17 Levothyroxine (Levothyroxine) 25 Mcg Tab, 25 MCG PO DAILY for Thyroid, TAB 0 Refills 03/09/17 Prochlorperazine Maleate (Prochlorperazine Maleate) 10 Mg Tab, 10 MG PO TID Y for NAUSEA OR VOMITING, TAB 0 Refills 06/29/16 Doxazosin (Cardura) 8 Mg Tab, 8 MG PO HS, #30 TAB 0 Refills 06/29/16 Ipratropium-Albuterol Neb (Duoneb) 0.5-2.5 Mg/3 Ml Neb, 1 VIAL NEB Q4HR Y for SHORTNESS OF BREATH, #30 NEBULE 0 Refills 05/30/16 Magnesium Hydroxide Liq (Milk of Magnesia Liq) 400 Mg/5 Ml Susp, 30 ML PO Q4HR Y for CONSTIPATION, #1 BOTTLE 0 Refills 05/30/16 Bisacodyl Supp (Dulcolax Supp) 10 Mg Supp, 10 MG [place] DAILY Y for IF NO RESULTS FROM MILK OF MAG, #12 SUPP 0 Refills 05/30/16 Acetaminophen (Tylenol) 325 Mg Tab, 650 MG PO Q4H Y for PAIN 1-10 AND/OR FEVER > 101F, TAB 0 Refills 05/30/16 Insulin Aspart Inj (Novolog Flexpen Inj) 300 Unit/3 Ml Pen, 0-12 UNITS SQ ACHS for Blood Sugar Management, #1 PEN 0 Refills SLIDING SCALE: 0-70=OJ and call , Repeat in 1hr, 71-150=0 units, 151-200=3 units, 201-250=5 units, 251-300=8 units, 301-400=10 units, > 400=12 units & Repeat in 2hrs, if > 350 call 05/30/16 Hydralazine (Hydralazine) 100 Mg Tab, 100 MG PO Q8HR for Blood Pressure Management, TAB 0 Refills 05/30/16 Pantoprazole (Protonix) 40 Mg Tab, 40 MG PO DAILY for Reflux, #30 TAB 0 Refills 02/24/16 Clopidogrel (Plavix) 75 Mg Tab, 75 MG PO DAILY for Blood Clot Prevention, #30 TAB 0 Refills 02/24/16 Gabapentin (Neurontin) 300 Mg Cap, 300 MG PO Q8HR, #90 CAP 0 Refills 02/24/16 Citalopram (Celexa) 20 Mg Tab, 20 MG PO DAILY for Control Depression, #30 TAB 0 Refills 02/24/16 Atorvastatin (Atorvastatin) 80 Mg Tab, 80 MG PO HS for Cholesterol Management, # 30 TAB 0 Refills 02/24/16 Aspirin (Aspirin) 325 Mg Tab, 325 MG PO DAILY, TAB 0 Refills 02/24/16 Fluticasone Nasal [place] (Fluticasone Nasal [place]) 50 Mcg/Act Naspr, 1 SPRAY EACH NARE Q12HR for Allergy Management, #1 BOTTLE 0 Refills 50 mcg/spray 02/24/16 Coded Allergies: *MDRO Multi-Drug Resistant Organism (Verified Adverse Reaction, Unknown, MRSA, 07/03/16) MRSA PCR screen POSITIVE - 05/31/16 VRE (urine)-06/29/16 Review of Systems ROS Limitations: Altered Mental Status Physical Exam Neuro: BARRETT, pleasant HEENT: NC/AT Neck: no JVD Heart: reg rate Lungs: clear Vascular: R UE with + thrill Extremities: slight contracture R UE pending duplex reviewed Caprini VTE Risk Assessment Caprini VTE Risk Assessment: No/Low Risk (score <= 1) Caprini Risk Assessment Model Point Value = 1 Point Value = 2 Point Value = 3 Point Value = 5 Age 41-60 Minor surgery BMI > 25 kg/m2 Swollen legs Varicose veins or History of unexplained or recurrent spontaneous Oral contraceptives or hormone replacement Sepsis (< 1 month) Serious lung disease, including pneumonia (< 1 month) Abnormal pulmonary function Acute myocardial infarction Congestive heart failure (< 1 month) History of inflammatory bowel disease Medical patient at bed rest Age 61-74 Arthroscopic surgery Major open surgery (> 45 min) Laparoscopic surgery (> 45 min) Malignancy Confined to bed (> 72 hours) Immobilizing plaster cast Central venous access Age >= 75 History of VTE Family history of VTE Factor V Leiden Prothrombin [id number] Lupus anticoagulant Anticardiolipin antibodies Elevated serum homocysteine Heparin-induced thrombocytopenia Other congenital or acquired thrombophilia Stroke (< 1 month) Elective arthroplasty Hip, pelvis, or leg fracture Acute spinal cord injury (< 1 month) Prophylaxis Regimen Total Risk Factor Score Risk Level Prophylaxis Regimen 0-1 Low Early ambulation 2 Moderate Order ONE of the following: *Sequential Compression Device (SCD) *Heparin 5000 units SQ BID 3-4 Higher Order ONE of the following medications: *Heparin 5000 units SQ TID *Enoxaparin/Lovenox 40 mg SQ daily (WT < 150 kg, CrCl > 30 mL/min) *Enoxaparin/Lovenox 30 mg SQ daily (WT < 150 kg, CrCl > 10-29 mL/min) *Enoxaparin/Lovenox 30 mg SQ BID (WT < 150 kg, CrCl > 30 mL/min) AND/OR *Sequential Compression Device (SCD) 5 or more Highest Order ONE of the following medications: *Heparin 5000 units SQ TID (Preferred with Epidurals) *Enoxaparin/Lovenox 40 mg SQ daily (WT < 150 kg, CrCl > 30 mL/min) *Enoxaparin/Lovenox 30 mg SQ daily (WT < 150 kg, CrCl > 10-29 mL/min) *Enoxaparin/Lovenox 30 mg SQ BID (WT < 150 kg, CrCl > 30 mL/min) AND *Sequential Compression Device (SCD) Assessment and Plan Plan R UE Access revision Operative site marked. Consent signed by sister Discharge Planning POD#1 Vic Fernandes MD Jul 20, 2017 14:34
[2017-07-20] MEDS ORDERED: POLY17S PO (15:04)
[2017-07-20 15:10] LABS: AUTOMATED NEUTROPHIL # 3.7 TH/MM3 (1.8-7.7); BASOPHIL # 0.1 TH/MM3 (0-0.2); BASOPHIL % 0.8 % (0.0-2.0); EOSINOPHIL # 0.6 TH/MM3 (0-0.4); EOSINOPHIL % 8.5 % (0.0-4.0); HEMATOCRIT 26.5 % (35.0-46.0); HEMOGLOBIN 8.3 GM/DL (11.6-15.3); LYMPH % 27.4 % (9.0-44.0); LYMPHOCYTE # 1.9 TH/MM3 (1.0-4.8); MEAN CELL VOLUME 86.8 FL (80.0-100.0); MEAN CORPUSCULAR HEMOGLOBIN 27.1 PG (27.0-34.0); MEAN CORPUSCULAR HGB CONC 31.2 % (32.0-36.0); MEAN PLATELET VOLUME 9.3 FL (7.0-11.0); MONO % 10.4 % (0.0-8.0); MONOCYTE # 0.7 TH/MM3 (0-0.9); NEUT % 52.9 % (16.0-70.0); PLATELET COUNT 178 TH/MM3 (150-450); RED BLOOD COUNT 3.05 MIL/MM3 (4.00-5.30); WHITE BLOOD COUNT 6.9 TH/MM3 (4.0-11.0)
[2017-07-20 15:22] LABS: BICARBONATE 31.2 MEQ/L (21.0-32.0); CREATININE 3.36 MG/DL (0.50-1.00)
[2017-07-20 15:30] LABS: INTERNATIONAL NORMALIZED RATIO 1.1 RATIO; PROTHROMBIN TIME - PATIENT 10.7 SEC (9.8-11.6)
[2017-07-20] MEDS ORDERED: VANCOMYCIN HCL 1000 MG VIAL ONE (15:42)
[2017-07-20] MEDS ORDERED: HEPARIN-NS/PF INJ 500 ML ONE (15:42)
[2017-07-20] MEDS ORDERED: BUPIVACAINE HCL PF 0.5% 30 ML VIAL ONE (15:42)
[2017-07-20] MEDS ORDERED: HEPARIN SODIUM - IV 10,000 UNITS/10 ML VIAL ONE (15:42)
[2017-07-20] MEDS ORDERED: THROMBIN (TOPICAL) 20,000 UNIT SPRAY KIT ONE (15:42)
[2017-07-20] MEDS ORDERED: PROTAMINE SULFATE 50 MG/5 ML VIAL ONE (15:42)
--- NOTE | 2017-07-20 17:38 | HHI.PR ---
cc: Vic Fernandes MD Immediate Post Op Note Procedure Date: Jul 20, 2017 Pre Op Diagnosis: ESRD, need for HD access Post Op Diagnosis: ESRD, need for HD access Surgeon: Vic Fernandes Air Intercept Controller Supervisor(s): None Procedure: R UE access revision (brachial artery to PTFE, end-to-end PTFE to basilic vein) Findings: Good thrill in AVF, most easily palpated in outflow basilic vein Strong ulnar Doppler signal Complications: none Specimen(s) removed: none Estimated blood loss: 100mL Anesthesia: General Drains: None Fluids: 550mL IVF Patient to: PACU Patient Condition: Good Implant/Devices: SEE IMPLANT LOG (if applicable) Date/Time of Procedure: SEE SURGICAL CARE RECORD Vic Fernandes MD Jul 20, 2017 17:38
[2017-07-20] MEDS ORDERED: MORPHINE SULFATE 4 MG/ML INJ IV PUSH PRN (17:45)
[2017-07-20] MEDS ORDERED: LACTULOSE SYRUP 20 GM/30 ML CUP PO PRN (17:45)
[2017-07-20] MEDS ORDERED: SENNOSIDES 8.6 MG TAB PO PRN (17:45)
[2017-07-20] MEDS ORDERED: BISACODYL 10 MG SUPP RECTAL PRN (17:45)
[2017-07-20] MEDS ORDERED: HYDROmorphone HCL 2 MG TAB PO PRN (17:45)
[2017-07-20] MEDS ORDERED: GLUCAGON 1 MG/ML VIAL OTHER PRN (18:00)
[2017-07-20] MEDS ORDERED: DEXTROSE 50% IN WATER 50 ML VIAL(D50) IV PUSH PRN (18:00)
[2017-07-20] MEDS ORDERED: DO NOT ADM ANY ANTICOAGULANT DRUGS PRN (18:45)
[2017-07-20] MEDS: BUMETANIDE 1 MG TAB PO SCH (19:43)
[2017-07-20] MEDS: METOPROLOL TARTRATE 100 MG TAB PO SCH (19:43)
[2017-07-20 21:00] VITALS: BP 166/72; PULSE 81; RESP 20; TEMP 98.1; O2SAT 100
[2017-07-20] MEDS ORDERED: FLUTICASONE PROPIONATE 50 MCG/ACT 16 GM NASAL SPRAY EACH NARE SCH (21:00)
[2017-07-20] MEDS ORDERED: ATORVASTATIN 80 MG TAB PO SCH (21:00)
[2017-07-20] MEDS ORDERED: DOXAZOSIN MESYLATE 4 MG TAB PO SCH (21:00)
[2017-07-20] MEDS ORDERED: INSULIN DETEMIR 100 UNITS/ML VIAL SQ SCH (21:00)
[2017-07-20] MEDS: DOCUSATE SODIUM 50 MG/SENNA 8.6 MG TAB PO SCH (21:49)
[2017-07-20] MEDS: FAMOTIDINE 20 MG TAB PO SCH (21:49)
[2017-07-20] MEDS: INSULIN ASPART SUPPLEMENTAL SCALE SQ SCH (21:57)
[2017-07-20 22:00] VITALS: PULSE 87
[2017-07-20] MEDS: cloNIDine HCL 0.2 MG TAB PO SCH (22:41)
[2017-07-20] MEDS: hydrALAZINE HCL 100 MG TAB PO SCH (22:42)
[2017-07-20] MEDS: GABAPENTIN 300 MG CAP PO SCH (22:42)
[2017-07-20 23:00] VITALS: PULSE 80
[2017-07-20 23:30] VITALS: BP 133/60; PULSE 79; RESP 20; TEMP 98; O2SAT 100
[2017-07-21] VITALS (17 sets, daily range): BP systolic 117–142; BP diastolic 79–84; PULSE 73–93; RESP 19; TEMP 99; O2SAT 96–100
[2017-07-21 06:04] LABS: HEMATOCRIT 23.3 % (35.0-46.0); HEMOGLOBIN 7.4 GM/DL (11.6-15.3); MEAN CELL VOLUME 86.4 FL (80.0-100.0); MEAN CORPUSCULAR HEMOGLOBIN 27.5 PG (27.0-34.0); MEAN CORPUSCULAR HGB CONC 31.8 % (32.0-36.0); MEAN PLATELET VOLUME 9.3 FL (7.0-11.0); PLATELET COUNT 153 TH/MM3 (150-450); RED CELL DISTRIBUTION WIDTH 16.5 % (11.6-17.2); WHITE BLOOD COUNT 8.6 TH/MM3 (4.0-11.0)
[2017-07-21] MEDS: cloNIDine HCL 0.2 MG TAB PO SCH (06:11)
[2017-07-21] MEDS: hydrALAZINE HCL 100 MG TAB PO SCH (06:11)
[2017-07-21] MEDS: GABAPENTIN 300 MG CAP PO SCH (06:11)
[2017-07-21 06:26] LABS: BICARBONATE 29.1 MEQ/L (21.0-32.0); CALCIUM 9.1 MG/DL (8.5-10.1); CREATININE 3.62 MG/DL (0.50-1.00)
--- NOTE | 2017-07-21 06:38 | MP ---
cc: Vic Fernandes MD DATE OF OPERATION: 07/20/2017 PREOPERATIVE DIAGNOSIS: End-stage renal disease, need for hemodialysis access. POSTOPERATIVE DIAGNOSIS: End-stage renal disease, need for hemodialysis access. PROCEDURE PERFORMED: Right upper extremity access revision (transposition and interposition with PTFE). ATTENDING SURGEON: Vic Fernandes MD ANESTHESIA: General. INDICATIONS: Ms. Greenberg is a lady who has end-stage renal disease and currently has a right brachiobasilic arteriovenous fistula and needs a second stage. She has a slight arm contracture from a previous stroke and the fistula was mobilized and transposed with the interposition of a PTFE graft to add additional length to transpose it sufficiently on the anterior aspect of the arm for ease of cannulation. DESCRIPTION OF PROCEDURE: Informed consent was obtained from the patient's sister as the patient is incompetent. She was taken to the operating room and placed supine on the operating table. An appropriate time-out was taken to ensure the patient's identity, operative site, and planned procedure. The administration of a gram of vancomycin was initiated prior to skin incision and will be discontinued after a single preoperative dose. Everyone in the room agreed with the time-out and we proceeded. Vancomycin was chosen because of the patient has end-stage renal disease. The right arm was prepped and draped. An incision made along the medial aspect of the upper arm, carried down through the subcutaneous tissue with electrocautery. The basilic vein was identified and dissected free throughout its entirety. It was noted to have a nice thrill technically adequate studies. Side branches were ligated with 3-0 silk. We then dissected out the brachial artery in the middle upper arm for several centimeters. The inflow of the basilic vein was clamped with a right angle. The basilic vein was marked for orientation, transected and the inflow was oversewn with 4-0 Prolene suture and 2 large Hemoclips. The outflow basilic vein into the axillary vein had been sufficiently mobilized and it was spatulated end-to-end and PTFE anastomosis was then created with running 5-0 Prolene suture. It was flushed and noted to be hemostatic. This PTFE basilic vein; however, was then tunneled gently anatomically in the position of a brachiobasilic transposition and then it was connected to the brachial artery. The patient was systemically heparinized with 3000 units of IV heparin. Proximal and distal control of the brachial artery was obtained with profunda clamps and a longitudinal arteriotomy was made with an 11 blade and extended with Mc scissors. The PTFE was cut to an appropriate length, spatulated and sewn end-to-side to the brachial artery with running 5-0 Prolene suture. At the completion, it was flushed and noted to be hemostatic. There was a nice thrill in the fistula and a Doppler signal in the wrist. The heparin was reversed with protamine. The wound was made hemostatic with Surgicel and spray thrombin, as well as electrocautery and then closed with 2-0 Polysorb, 3-0 Polysorb and skin sandra. The sponge and needle counts were correct at the end of the case. I was present, scrubbed and performed the entire procedure. Vic Fernandes MD RJF/DL , 04:53 AM , 06:37 AM
--- NOTE | 2017-07-21 07:00 | PD.VS.PN ---
Subjective POD #: 1 Procedure(s): R UE access revision Subjective/Hospital Course Resting comfortably. Doesn't endorse arm pain Objective Vitals/I&O Date Time Temp Pulse Resp B/P (MAP) Pulse Ox O2 Delivery O2 Flow Rate FiO2 07/21/17 06:00 86 07/21/17 05:00 86 07/21/17 04:00 84 07/21/17 03:00 79 07/21/17 02:00 73 07/21/17 01:00 77 07/21/17 00:00 79 07/20/17 23:30 98.0 79 20 133/60 (84) 100 07/20/17 23:00 80 07/20/17 22:00 87 07/20/17 21:00 81 07/20/17 21:00 98.1 81 20 166/72 (103) 100 07/20/17 20:30 70 20 128/71 (90) 100 Nasal Cannula 2 07/20/17 19:00 70 20 131/69 (89) 100 Nasal Cannula 2 07/20/17 18:30 98.3 74 19 128/75 (92) 100 Nasal Cannula 2 07/20/17 18:15 78 17 157/70 (99) 92 Nasal Cannula 4 07/20/17 18:00 78 17 168/72 (104) 92 Nasal Cannula 4 07/20/17 17:40 97.5 75 22 150/63 (92) 100 Nasal Cannula 4 07/21/17 07/21/17 07/21/17 07:00 15:00 23:00 Intake Total 240 ml Output Total 550 ml Balance -310 ml Exam: R UE mildly swollen + audible bruit hand ok Provena in place Laboratory Laboratory Tests Test 07/20/17 14:45 07/21/17 05:35 White Blood Count 6.9 8.6 Red Blood Count 3.05 2.70 Hemoglobin 8.3 7.4 Hematocrit 26.5 23.3 Mean Corpuscular Volume 86.8 86.4 Mean Corpuscular Hemoglobin 27.1 27.5 Mean Corpuscular Hemoglobin Concent 31.2 31.8 Red Cell Distribution Width 16.0 16.5 Platelet Count 178 153 Mean Platelet Volume 9.3 9.3 Neutrophils (%) (Auto) 52.9 Lymphocytes (%) (Auto) 27.4 Monocytes (%) (Auto) 10.4 Eosinophils (%) (Auto) 8.5 Basophils (%) (Auto) 0.8 Neutrophils # (Auto) 3.7 Lymphocytes # (Auto) 1.9 Monocytes # (Auto) 0.7 Eosinophils # (Auto) 0.6 Basophils # (Auto) 0.1 CBC Comment DIFF FINAL Differential Comment Prothrombin Time 10.7 Prothromb Time International Ratio 1.1 Blood Urea Nitrogen 72 78 Creatinine 3.36 3.62 Random Glucose 85 156 Calcium Level 10.0 9.1 Sodium Level 147 143 Potassium Level 4.0 4.2 Chloride Level 107 106 Carbon Dioxide Level 31.2 29.1 Anion Gap 9 8 Estimat Glomerular Filtration Rate 17 15 Assessment and Plan Plan POD#1 s/p R UE Access revision HD today and then d/c RTC next week for Provena removal Discharge Planning today after HD Vic Fernandes MD Jul 21, 2017 07:00
[2017-07-21] MEDS ORDERED: PERC5TAB12 PO (08:51)
[2017-07-21] MEDS ORDERED: LEVOTHYROXINE SODIUM 25 MCG TAB PO SCH (09:00)
[2017-07-21] MEDS: METOPROLOL TARTRATE 100 MG TAB PO SCH (09:00)
[2017-07-21] MEDS ORDERED: METOLAZONE 5 MG TAB PO SCH (09:00)
[2017-07-21] MEDS ORDERED: CHOLECALCIFEROL (VIT D3) 1000 UNIT TAB PO SCH (09:00)
[2017-07-21] MEDS: INSULIN ASPART SUPPLEMENTAL SCALE SQ SCH ×2 (09:00→12:00)
[2017-07-21] MEDS ORDERED: CLOPIDOGREL 75 MG TAB PO SCH (09:00)
[2017-07-21] MEDS ORDERED: CITALOPRAM HYDROBROMIDE 20 MG TAB PO SCH (09:00)
[2017-07-21] MEDS ORDERED: POLYETHYLENE GLYCOL 17 GM PKG PO SCH (09:00)
[2017-07-21] MEDS ORDERED: PANTOPRAZOLE SOD 40 MG DELAYED RELEASE TAB PO SCH (09:00)
[2017-07-21] MEDS ORDERED: ASPIRIN 325 MG TAB PO SCH (09:00)
[2017-07-21] MEDS: BUMETANIDE 1 MG TAB PO SCH (09:01)
[2017-07-21] MEDS: FAMOTIDINE 20 MG TAB PO SCH (09:01)
[2017-07-21] MEDS: DOCUSATE SODIUM 50 MG/SENNA 8.6 MG TAB PO SCH (09:01)
--- NOTE | 2017-07-21 09:27 | PD.VS.DC ---
Discharge Summary Admission Date: Jul 20, 2017 at 18:03 Discharge Date: Jul 21, 2017 Admission Diagnosis: (1) End stage renal disease (2) AVF (arteriovenous fistula) Discharge Diagnosis: (1) End stage renal disease ICD Codes: N18.6 - End stage renal disease (2) AVF (arteriovenous fistula) ICD Codes: I77.0 - Arteriovenous fistula, acquired Brief History from admission 61 yo female with ESRD and on HD. Had R Brachiobasilic AVF placed in Dec and ready for 2nd stage. Pt incompetent so sister has provided informed consent. Procedure(s): R UE access revision Significant Findings R UE mildly swollen + audible bruit hand ok Provena in place Laboratory Tests Test 07/20/17 14:45 07/21/17 05:35 Red Blood Count 3.05 MIL/MM3 (4.00-5.30) 2.70 MIL/MM3 (4.00-5.30) Hemoglobin 8.3 GM/DL (11.6-15.3) 7.4 GM/DL (11.6-15.3) Hematocrit 26.5 % (35.0-46.0) 23.3 % (35.0-46.0) Mean Corpuscular Hemoglobin Concent 31.2 % (32.0-36.0) 31.8 % (32.0-36.0) Monocytes (%) (Auto) 10.4 % (0.0-8.0) Eosinophils (%) (Auto) 8.5 % (0.0-4.0) Eosinophils # (Auto) 0.6 TH/MM3 (0-0.4) Blood Urea Nitrogen 72 MG/DL (7-18) 78 MG/DL (7-18) Creatinine 3.36 MG/DL (0.50-1.00) 3.62 MG/DL (0.50-1.00) Sodium Level 147 MEQ/L (136-145) Estimat Glomerular Filtration Rate 17 ML/MIN (>89) 15 ML/MIN (>89) Random Glucose 156 MG/DL (74-106) Hospital Course: 61 yo female with ESRD and on HD Had R Brachiobasilic AVF placed in Dec and ready for 2nd stage. Pt incompetent so sister has provided informed consent POD 1 Pt doing well Pt s/p R UE access revision Resting comfortably Doesn't endorse arm pain Leave Provena wound vac intact Will remove on Thursday07/27/17 in our out pt clinic Arranged O/P F/U Pt clear for D/C Vital Signs, 24 Hour Date Time Temp Pulse Resp B/P (MAP) Pulse Ox O2 Delivery O2 Flow Rate FiO2 07/21/17 08:38 96 Nasal Cannula 1.00 07/21/17 08:00 88 07/21/17 07:15 88 07/21/17 07:00 99.0 91 19 142/79 (100) 97 07/21/17 07:00 97 Nasal Cannula 2.00 07/21/17 06:00 86 07/21/17 05:00 86 07/21/17 04:00 84 07/21/17 03:00 79 07/21/17 02:00 73 07/21/17 01:00 77 07/21/17 00:00 79 07/20/17 23:30 98.0 79 20 133/60 (84) 100 07/20/17 23:00 80 07/20/17 22:00 87 07/20/17 21:00 81 07/20/17 21:00 98.1 81 20 166/72 (103) 100 07/20/17 20:30 70 20 128/71 (90) 100 Nasal Cannula 2 07/20/17 19:00 70 20 131/69 (89) 100 Nasal Cannula 2 07/20/17 18:30 98.3 74 19 128/75 (92) 100 Nasal Cannula 2 07/20/17 18:15 78 17 157/70 (99) 92 Nasal Cannula 4 07/20/17 18:00 78 17 168/72 (104) 92 Nasal Cannula 4 07/20/17 17:40 97.5 75 22 150/63 (92) 100 Nasal Cannula 4 Allergies Coded Allergies *MDRO Multi-Drug Resistant Organism (Verified Adverse Reaction, Unknown, MRSA , 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 - 05/31/16 VRE (urine)-06/29/16 Intake/Outtake 07/21/17 07/21/17 11:00 23:00 Intake Total 240 ml Output Total 550 ml Balance -310 ml Orders - Brisa Pinedo Procedure Category Date Status Time Attending Discharge DISCHARGE 07/21/17 Transmitted Order Laboratory Tests per Asmita Test 07/20/17 14:45 07/21/17 05:35 Blood Urea Nitrogen 72 MG/DL 78 MG/DL Creatinine 3.36 MG/DL 3.62 MG/DL Random Glucose 85 MG/DL 156 MG/DL Calcium Level 10.0 MG/DL 9.1 MG/DL Sodium Level 147 MEQ/L 143 MEQ/L Potassium Level 4.0 MEQ/L 4.2 MEQ/L Chloride Level 107 MEQ/L 106 MEQ/L Carbon Dioxide Level 31.2 MEQ/L 29.1 MEQ/L Red Blood Count 3.05 MIL/MM3 2.70 MIL/MM3 White Blood Count 6.9 TH/MM3 8.6 TH/MM3 Active Scripts Active Lopressor (Metoprolol Tartrate) 100 Mg Tab 100 Mg PO Q12H Vitamin D3 (Cholecalciferol) 1,000 Unit Tab 2,000 Units PO DAILY Bumetanide 1 Mg Tab 2 Mg PO BID@ Catapres (Clonidine) 0.2 Mg Tab 0.2 Mg PO Q8HR Norvasc (Amlodipine Besylate) 10 Mg Tab 10 Mg PO DAILY Reported Polyethylene Glycol 3350 Powder (Polyethylene Glycol) 17 Gram Pow 17 Gm PO DAILY Procrit Inj (Epoetin [place]) 20,000 Unit/Ml Inj 15,000 Units SQ 2 WEEKS Lantus Inj (Insulin Glargine) 1,000 Unit/10 Ml Vial 15 Units SQ HS Metolazone 5 Mg Tab 5 Mg PO DAILY Levothyroxine (Levothyroxine Sodium) 25 Mcg Tab 25 Mcg PO DAILY Cardura (Doxazosin Mesylate) 8 Mg Tab 8 Mg PO HS Novolog Flexpen Inj (Insulin Aspart) 300 Unit/3 Ml Pen 0-12 Units SQ ACHS SLIDING SCALE: 0-70=OJ and call , Repeat in 1hr, 71-150=0 units, 151-200=3 units, 201-250=5 units, 251-300=8 units, 301-400=10 units, > 400=12 units & Repeat in 2hrs, if > 350 call Hydralazine (Hydralazine HCl) 100 Mg Tab 100 Mg PO Q8HR Protonix (Pantoprazole Sodium) 40 Mg Tab 40 Mg PO DAILY Plavix (Clopidogrel Bisulfate) 75 Mg Tab 75 Mg PO DAILY Neurontin (Gabapentin) 300 Mg Cap 300 Mg PO Q8HR Celexa (Citalopram Hydrobromide) 20 Mg Tab 20 Mg PO DAILY Atorvastatin (Atorvastatin Calcium) 80 Mg Tab 80 Mg PO HS Aspirin 325 Mg Tab 325 Mg PO DAILY Fluticasone Nasal [place] 50 Mcg/Act Naspr 1 [place] EACH NARE Q12HR 50 mcg/spray Discharge Condition: Good Discharge Disposition: Discharge to SNF Discharge Instructions: DIET You may resume a dialysis diet ACTIVITY Activity as tolerated No heavy lifting over a gallon of milk to your R UE NO B/P readings or lab draws to your R UE WOUND CARE Provena Wound Vac to be removed on 07/27/17 at 1200 in our out pt clinic MEDICATIONS You may resume your home medications You were prescribed a narcotic pain medication that may cause constipation- Take with an over the counter stool softener Any questions or concerns: Call [facility] at [facility] [phone] Brisa Pinedo Jul 21, 2017 09:27
--- NOTE | 2017-07-21 16:00 | EKG ---
Date Performed: 07/20/2017 Time Performed: 14:21:10 PTAGE: 61 years EKG: Sinus rhythm NORMAL ECG PREVIOUS TRACING : 06/29/[address]-T changes have improved since prior tracing. DOCTOR: Harinder Byrne Interpretating Date/Time 07/21/2017 15:59:04
[2017-07-21] MEDS ORDERED: HEPARIN SODIUM - SQ 10,000 UNITS/ML VIAL SQ SCH (17:00)
[2017-07-22] MEDS ORDERED: GABAPENTIN 300 MG CAP PO SCH (08:00)
[2017-07-22] MEDS ORDERED: PILL SPLITTER OTHER PRN (15:00)
[2017-07-22] MEDS ORDERED: FAMOTIDINE 20 MG TAB PO SCH (21:00)
== END 2017-07-21 15:20 ==
LOC: HCVO 13:52 → HSDI 18:03 → HCPC 21:04 → HCIS 07-21 14:48
PROVIDERS: ADMIT Surgery; ATTEND Surgery
DX: I12.0 Hypertensive chronic kidney disease with stage 5 chronic kidney disease or end stage renal disease (principal); E11.22 Type 2 diabetes mellitus with diabetic chronic kidney disease; N18.6 End stage renal disease; I77.0 Arteriovenous fistula, acquired; Z99.2 Dependence on renal dialysis; Z86.73 Personal history of transient ischemic attack (TIA), and cerebral infarction without residual deficits
CPT/HCPCS: 01844; 36832; 80048; 82948; 85025; 85027; 85610; 86850; 86900; 86901; 93005; 96372; 96374; G0378; J1644; J1815; J2270; J2720; J3010; J3370; J2405

== ENCOUNTER 2017-08-08 11:23 | Emergency (ER) | payer OTHER ==
[~2017-08-08] VITALS: Ht 160 cm; Wt 180.0 kg
[~2017-08-08 11:23] MED LIST changes: -DULC10SU3 PR; -ENEMENE3 RECTAL; -HYDR-3516 PO; -IPRASOL NEB; -LIDOCAINE HCL 1% PF 5 ML SYRINGE OTHER ONE; -LOPE2CAP PO; -LORA2TAB7 IM; -MILKSUS PO; -ONDANSETRON HCL 4 MG/2 ML VIAL IV ONE; -OXYC1CAP PO; +PERC5TAB12 PO; +POLY17S PO; -PROC10TA PO; -PROPOFOL 200 MG/20 ML AMP IV ONE; -TYLE325T PO
[2017-08-08 11:40] VITALS: BP 148/66; PULSE 80; RESP 19; TEMP 99.3; O2SAT 97
[2017-08-08] MEDS ORDERED: MORPHINE SULFATE 2 MG/ML SYRINGE IV PUSH ONE (11:45)
[2017-08-08] MEDS ORDERED: SODIUM CHLORID 0.9% 500 ML INJ 500 ML IV ONE (11:45)
--- NOTE | 2017-08-08 11:49 | PD ---
Physical Exam Date Seen by Provider: Aug 08, 2017 Time Seen by Provider: 11:46 Narrative The patient is a 61-year-old -Surinames[place] female who was initially evaluated by the mid-level provider. Please refer to the initial history, physical, diagnostic evaluation, and treatment modality plan. Data Data Last Documented VS Vital Signs Date Time Temp Pulse Resp B/P (MAP) Pulse Ox O2 Delivery O2 Flow Rate FiO2 08/08/17 12:09 80 18 148/66 (93) 96 Room Air 08/08/17 11:40 99.3 Orders Orders Sepsis Workup Initiated (08/08/17 ) Complete Blood Count With Diff (08/08/17 11:30) Comprehensive Metabolic Panel (08/08/17 11:30) Prothrombin Time / Inr (Pt) (08/08/17 11:30) Act Partial Throm Time (Ptt) (08/08/17 11:30) Lactic Acid Sepsis Protocol (08/08/17 11:30) Urinalysis - C+S If Indicated (08/08/17 11:30) Blood Culture (08/08/17 11:30) Chest, Single Ap (08/08/17 11:30) Blood Glucose (08/08/17 11:30) Ecg Monitoring (08/08/17 11:30) Iv Access Insert/Monitor (08/08/17 11:30) Oximetry (08/08/17 11:30) Us Arm Venous Doppler (08/08/17 11:37) Sodium Chlorid 0.9% 500 Ml Inj (Ns 500 M (08/08/17 11:45) Morphine Inj (Morphine Inj) (08/08/17 11:45) Vancomycin Inj (Vancomycin Inj) (08/08/17 12:15) ^ Straight Catheter (08/08/17 12:13) Acetaminophen (Tylenol) (08/08/17 13:00) Ed Discharge Order (08/08/17 13:28) Labs Laboratory Tests Test 08/08/17 11:55 08/08/17 12:30 White Blood Count 5.5 TH/MM3 Red Blood Count 2.66 MIL/MM3 Hemoglobin 7.3 GM/DL Hematocrit 23.2 % Mean Corpuscular Volume 87.2 FL Mean Corpuscular Hemoglobin 27.4 PG Mean Corpuscular Hemoglobin Concent 31.4 % Red Cell Distribution Width 17.0 % Platelet Count 240 TH/MM3 Mean Platelet Volume 9.1 FL Neutrophils (%) (Auto) 48.7 % Lymphocytes (%) (Auto) 30.0 % Monocytes (%) (Auto) 10.8 % Eosinophils (%) (Auto) 9.8 % Basophils (%) (Auto) 0.7 % Neutrophils # (Auto) 2.7 TH/MM3 Lymphocytes # (Auto) 1.7 TH/MM3 Monocytes # (Auto) 0.6 TH/MM3 Eosinophils # (Auto) 0.5 TH/MM3 Basophils # (Auto) 0.0 TH/MM3 CBC Comment DIFF FINAL Differential Comment Prothrombin Time 10.9 SEC Prothromb Time International Ratio 1.1 RATIO Activated Partial Thromboplast Time 25.2 SEC Blood Urea Nitrogen 87 MG/DL Creatinine 3.14 MG/DL Random Glucose 175 MG/DL Total Protein 7.4 GM/DL Albumin 3.0 GM/DL Calcium Level 9.3 MG/DL Alkaline Phosphatase 111 U/L Aspartate Amino Transf (AST/SGOT) 33 U/L Alanine Aminotransferase (ALT/SGPT) 42 U/L Total Bilirubin LESS THAN 0.1 MG/DL Sodium Level 140 MEQ/L Potassium Level 4.9 MEQ/L Chloride Level 105 MEQ/L Carbon Dioxide Level 31.9 MEQ/L Anion Gap 3 MEQ/L Estimat Glomerular Filtration Rate 18 ML/MIN Lactic Acid Level 0.8 mmol/L Urine Color LIGHT-YELLOW Urine Turbidity HAZY Urine pH 6.0 Urine Specific Ruth 1.010 Urine Protein TRACE mg/dL Urine Glucose (UA) NEG mg/dL Urine Ketones NEG mg/dL Urine Occult Blood NEG Urine Nitrite NEG Urine Bilirubin NEG Urine Urobilinogen LESS THAN 2.0 MG/DL Urine Leukocyte Esterase SMALL Urine RBC 1 /hpf Urine WBC 2 /hpf Urine Squamous Epithelial Cells 53 /hpf Urine Transitional Epithelial Cells <1 /hpf Microscopic Urinalysis Comment CATH-CULT NOT IND MDM Medical Record Reviewed: Yes Supervised Visit with JENI: Yes Interpretation(s) Last Impressions Upper Extremity Ultrasound 08/08/17 1137 Signed Impressions: Service Date/Time: Tuesday, August 08, 2017 11:55 - CONCLUSION: Occlusive clot cephalic vein. Del Isaac MD FACR Chest X-Ray 08/08/17 1130 Signed Impressions: Service Date/Time: Tuesday, August 08, 2017 12:45 - CONCLUSION: Stable persistent parenchymal changes left base with complete cardiomegaly. Del Isaac MD FACR Laboratory Tests Test 08/08/17 11:55 08/08/17 12:30 White Blood Count 5.5 TH/MM3 Red Blood Count 2.66 MIL/MM3 Hemoglobin 7.3 GM/DL Hematocrit 23.2 % Mean Corpuscular Volume 87.2 FL Mean Corpuscular Hemoglobin 27.4 PG Mean Corpuscular Hemoglobin Concent 31.4 % Red Cell Distribution Width 17.0 % Platelet Count 240 TH/MM3 Mean Platelet Volume 9.1 FL Neutrophils (%) (Auto) 48.7 % Lymphocytes (%) (Auto) 30.0 % Monocytes (%) (Auto) 10.8 % Eosinophils (%) (Auto) 9.8 % Basophils (%) (Auto) 0.7 % Neutrophils # (Auto) 2.7 TH/MM3 Lymphocytes # (Auto) 1.7 TH/MM3 Monocytes # (Auto) 0.6 TH/MM3 Eosinophils # (Auto) 0.5 TH/MM3 Basophils # (Auto) 0.0 TH/MM3 CBC Comment DIFF FINAL Differential Comment Prothrombin Time 10.9 SEC Prothromb Time International Ratio 1.1 RATIO Activated Partial Thromboplast Time 25.2 SEC Blood Urea Nitrogen 87 MG/DL Creatinine 3.14 MG/DL Random Glucose 175 MG/DL Total Protein 7.4 GM/DL Albumin 3.0 GM/DL Calcium Level 9.3 MG/DL Alkaline Phosphatase 111 U/L Aspartate Amino Transf (AST/SGOT) 33 U/L Alanine Aminotransferase (ALT/SGPT) 42 U/L Total Bilirubin LESS THAN 0.1 MG/DL Sodium Level 140 MEQ/L Potassium Level 4.9 MEQ/L Chloride Level 105 MEQ/L Carbon Dioxide Level 31.9 MEQ/L Anion Gap 3 MEQ/L Estimat Glomerular Filtration Rate 18 ML/MIN Lactic Acid Level 0.8 mmol/L Urine Color LIGHT-YELLOW Urine Turbidity HAZY Urine pH 6.0 Urine Specific Ruth 1.010 Urine Protein TRACE mg/dL Urine Glucose (UA) NEG mg/dL Urine Ketones NEG mg/dL Urine Occult Blood NEG Urine Nitrite NEG Urine Bilirubin NEG Urine Urobilinogen LESS THAN 2.0 MG/DL Urine Leukocyte Esterase SMALL Urine RBC 1 /hpf Urine WBC 2 /hpf Urine Squamous Epithelial Cells 53 /hpf Urine Transitional Epithelial Cells <1 /hpf Microscopic Urinalysis Comment CATH-CULT NOT IND Differential Diagnosis Differential diagnosis includes postoperative abscess, postoperative complication, aneurysm, AV malformation, fistula, UTI, pneumonia, bacteremia, septicemia, sepsis. Narrative Course The patient was initially evaluated by the mid-level provider. Please refer to the initial history, physical, diagnostic evaluation, and treatment modality plan. The patient's right upper extremity was slightly indurated, staple line in place over the medial aspect. There was a positive thrill and positive bruit on exam, patient did have pain with manipulation and examination of the right upper extremity. The patient does have poor dentition, slightly distended abdomen with ventral hernia but no tenderness upon palpation. No obvious infection to the lower extremities. The patient was logrolled to the left lateral decubitus position, there was no sacral decubitus ulcer noted. Chest x-ray was obtained, cath UA was sent to lab, and blood cultures were sent to lab. Jose Luis Butts PA-C spoke with Dr. Fernandes who does request ultrasound of the right upper extremity. Ultrasound does reveal occlusive clot in the cephalic vein, no DVT noted. UA is negative. White count and lactic acid are unremarkable. Jose Luis Butts PA-C, discussed the patient with Dr. Fernandes who states the patient can be discharged in his office will call her Thursday for outpatient follow-up. Patient is advised to apply compresses to the affected area. Diagnosis Primary Impression: Superficial thrombophlebitis of right upper extremity Patient Instructions: General Instructions Additional Instruction: Please provide the patient a copy of her labs and ultrasound results at discharge. Discharge back to [facility]. Follow-up with your vascular surgeon. Warm compresses to the right upper extremity. Return if symptoms worsen or progress. Med/Other Pt SpecificInfo: No Change to Meds Disposition: 01 DISCHARGE HOME (Discharge back to [facility]) Condition: Stable Cory Hui MD Aug 08, 2017 11:49
--- NOTE | 2017-08-08 12:01 | PD ---
HPI Chief Complaint: Fever Time Seen by Provider: 11:30 Travel History International Travel<30 days: No Contact w/Intl Traveler<30days: No Traveled to known affect area: No History of Present Illness HPI 61 YO F with PMH of ESRD presents to the ED from [facility] for evaluation of fever, increased pain of the right upper extremity this morning. On presentation the patient complains of 10/10 pain in the right upper extremity. She denies chest pain, palpitations, shortness of breath, abdominal pain, nausea , vomiting, lower extremity edema. She states that she makes a little urine. She has not yet begun dialysis. PFSH Past Medical History Hx Anticoagulant Therapy: Yes (PLAVIX ) Asthma: Yes Cancer: No Cardiovascular Problems: Yes (HTN, CAD, ) High Cholesterol: Yes Chemotherapy: No Chest Pain: Yes Cerebrovascular Accident: Yes Dementia: Yes Diabetes: Yes Diminished Hearing: No Endocrine: Yes (DM) Gastrointestinal Disorders: No Genitourinary: Yes Hepatitis: No Hiatal Hernia: No Hypertension: Yes Immune Disorder: No Implanted Vascular Access Dvce: No Musculoskeletal: Yes (RIGHT SIDED CONTRACTORS) Neurologic: Yes (CVA WITH RIGHT HEMIPARAPLEGIA,DEPRESSION,NEUROPATHY) Psychiatric: No Reproductive: No Respiratory: Yes (SOB) Immunizations Current: No Myocardial Infarction: Yes (x1) Renal Failure: Yes (CHRONIC KIDNEY DISEASE) Shingles: Yes Sleep Apnea: Yes Thyroid Disease: Yes ?: Not Menopausal: Yes Past Surgical History Abdominal Surgery: Yes ("TUMORS REMOVED FROM ABDOMEN") AICD: No Cardiac Surgery: No Section: Yes (x1) Cholecystectomy: Yes Ear Surgery: No Endocrine Surgery: Yes (THYROID NODULES) Eye Surgery: No Genitourinary Surgery: No Gynecologic Surgery: Yes (HYSTERECTOMY, X 1) Hysterectomy: Yes Joint Replacement: No Oral Surgery: No Pacemaker: No Thoracic Surgery: No Tonsillectomy: Yes Other Surgery: Yes Social History Alcohol Use: No (HX; ETOH) Tobacco Use: No Substance Use: No (HX ; DRUG ABUSE ) Allergies-Medications (Allergen,Severity, Reaction): Coded Allergies: *MDRO Multi-Drug Resistant Organism (Verified Adverse Reaction, Unknown, MRSA, 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 - 05/31/16 VRE (urine)-06/29/16 Reported Meds & Prescriptions Reported Meds & Active Scripts Active Percocet (Oxycodone-Acetaminophen) 5-325 mg Tab 1 Tab PO Q4H PRN Lopressor (Metoprolol Tartrate) 100 Mg Tab 100 Mg PO Q12H Vitamin D3 (Cholecalciferol) 1,000 Unit Tab 2,000 Units PO DAILY Bumetanide 1 Mg Tab 2 Mg PO BID@,18 Catapres (Clonidine) 0.2 Mg Tab 0.2 Mg PO Q8HR Norvasc (Amlodipine Besylate) 10 Mg Tab 10 Mg PO DAILY Reported Polyethylene Glycol 3350 Powder (Polyethylene Glycol) 17 Gram Pow 17 Gm PO DAILY Procrit Inj (Epoetin Govind) 20,000 Unit/Ml Inj 15,000 Units SQ 2 WEEKS Lantus Inj (Insulin Glargine) 1,000 Unit/10 Ml Vial 15 Units SQ HS Metolazone 5 Mg Tab 5 Mg PO DAILY Levothyroxine (Levothyroxine Sodium) 25 Mcg Tab 25 Mcg PO DAILY Cardura (Doxazosin Mesylate) 8 Mg Tab 8 Mg PO HS Novolog Flexpen Inj (Insulin Aspart) 300 Unit/3 Ml Pen 0-12 Units SQ ACHS SLIDING SCALE: 0-70=OJ and call MD, Repeat in 1hr, 71-150=0 units, 151-200=3 units, 201-250=5 units, 251-300=8 units, 301-400=10 units, > 400=12 units & Repeat in 2hrs, if > 350 call Hydralazine (Hydralazine HCl) 100 Mg Tab 100 Mg PO Q8HR Protonix (Pantoprazole Sodium) 40 Mg Tab 40 Mg PO DAILY Plavix (Clopidogrel Bisulfate) 75 Mg Tab 75 Mg PO DAILY Neurontin (Gabapentin) 300 Mg Cap 300 Mg PO Q8HR Celexa (Citalopram Hydrobromide) 20 Mg Tab 20 Mg PO DAILY Atorvastatin (Atorvastatin Calcium) 80 Mg Tab 80 Mg PO HS Aspirin 325 Mg Tab 325 Mg PO DAILY Fluticasone Nasal [place] 50 Mcg/Act Naspr 1 [place] EACH NARE Q12HR 50 mcg/spray Review of Systems Except as stated in HPI: all other systems reviewed are Neg Physical Exam Narrative GENERAL: Well-nourished, well-developed obese -[place] female in no acute distress. SKIN: Focused skin assessment warm/dry. Approximate 10 cm surgical incision the right upper arm, surgical sandra in place. Induration noted. Warmth noted. Palpable thrill. Audible bruit. No other skin disturbance noted. HEAD: Normocephalic. EYES: No scleral icterus. No injection or drainage. NECK: Supple, trachea midline. No JVD or lymphadenopathy. CARDIOVASCULAR: Regular rate and rhythm without murmurs, gallops, or rubs. RESPIRATORY: Breath sounds clear and equal bilaterally. No accessory muscle use. GASTROINTESTINAL: Abdomen soft, non-tender, mildly distended. Active bowel sounds. MUSCULOSKELETAL: No cyanosis, or edema. Moves extremities spontaneously. BACK: Nontender without obvious deformity. No CVA tenderness. Data Data Last Documented VS Vital Signs Date Time Temp Pulse Resp B/P (MAP) Pulse Ox O2 Delivery O2 Flow Rate FiO2 08/08/17 12:09 80 18 148/66 (93) 96 Room Air 08/08/17 11:40 99.3 Orders Orders Sepsis Workup Initiated (08/08/17 ) Complete Blood Count With Diff (08/08/17 11:30) Comprehensive Metabolic Panel (08/08/17 11:30) Prothrombin Time / Inr (Pt) (08/08/17 11:30) Act Partial Throm Time (Ptt) (08/08/17 11:30) Lactic Acid Sepsis Protocol (08/08/17 11:30) Urinalysis - C+S If Indicated (08/08/17 11:30) Blood Culture (08/08/17 11:30) Chest, Single Ap (08/08/17 11:30) Blood Glucose (08/08/17 11:30) Ecg Monitoring (08/08/17 11:30) Iv Access Insert/Monitor (08/08/17 11:30) Oximetry (08/08/17 11:30) Us Arm Venous Doppler (08/08/17 11:37) Sodium Chlorid 0.9% 500 Ml Inj (Ns 500 M (08/08/17 11:45) Morphine Inj (Morphine Inj) (08/08/17 11:45) Vancomycin Inj (Vancomycin Inj) (08/08/17 12:15) ^ Straight Catheter (08/08/17 12:13) Acetaminophen (Tylenol) (08/08/17 13:00) Ed Discharge Order (08/08/17 13:28) Labs Laboratory Tests Test 08/08/17 11:55 08/08/17 12:30 White Blood Count 5.5 TH/MM3 Red Blood Count 2.66 MIL/MM3 Hemoglobin 7.3 GM/DL Hematocrit 23.2 % Mean Corpuscular Volume 87.2 FL Mean Corpuscular Hemoglobin 27.4 PG Mean Corpuscular Hemoglobin Concent 31.4 % Red Cell Distribution Width 17.0 % Platelet Count 240 TH/MM3 Mean Platelet Volume 9.1 FL Neutrophils (%) (Auto) 48.7 % Lymphocytes (%) (Auto) 30.0 % Monocytes (%) (Auto) 10.8 % Eosinophils (%) (Auto) 9.8 % Basophils (%) (Auto) 0.7 % Neutrophils # (Auto) 2.7 TH/MM3 Lymphocytes # (Auto) 1.7 TH/MM3 Monocytes # (Auto) 0.6 TH/MM3 Eosinophils # (Auto) 0.5 TH/MM3 Basophils # (Auto) 0.0 TH/MM3 CBC Comment DIFF FINAL Differential Comment Prothrombin Time 10.9 SEC Prothromb Time International Ratio 1.1 RATIO Activated Partial Thromboplast Time 25.2 SEC Blood Urea Nitrogen 87 MG/DL Creatinine 3.14 MG/DL Random Glucose 175 MG/DL Total Protein 7.4 GM/DL Albumin 3.0 GM/DL Calcium Level 9.3 MG/DL Alkaline Phosphatase 111 U/L Aspartate Amino Transf (AST/SGOT) 33 U/L Alanine Aminotransferase (ALT/SGPT) 42 U/L Total Bilirubin LESS THAN 0.1 MG/DL Sodium Level 140 MEQ/L Potassium Level 4.9 MEQ/L Chloride Level 105 MEQ/L Carbon Dioxide Level 31.9 MEQ/L Anion Gap 3 MEQ/L Estimat Glomerular Filtration Rate 18 ML/MIN Lactic Acid Level 0.8 mmol/L Urine Color LIGHT-YELLOW Urine Turbidity HAZY Urine pH 6.0 Urine Specific [place] 1.010 Urine Protein TRACE mg/dL Urine Glucose (UA) NEG mg/dL Urine Ketones NEG mg/dL Urine Occult Blood NEG Urine Nitrite NEG Urine Bilirubin NEG Urine Urobilinogen LESS THAN 2.0 MG/DL Urine Leukocyte Esterase SMALL Urine RBC 1 /hpf Urine WBC 2 /hpf Urine Squamous Epithelial Cells 53 /hpf Urine Transitional Epithelial Cells <1 /hpf Microscopic Urinalysis Comment CATH-CULT NOT IND MDM Medical Decision Making Medical Screen Exam Complete: Yes Emergency Medical Condition: Yes Differential Diagnosis Wound infection versus thrombosis versus thrombophlebitis versus pneumonia versus UTI versus AV fistula versus other Narrative Course 61 YO F with PMH of ESRD presents to the ED from [facility] for evaluation of fever, increased pain of the right upper extremity this morning. On presentation the patient complains of 10/10 pain in the right upper extremity. She denies chest pain, palpitations, shortness of breath, abdominal pain, nausea , vomiting, lower extremity edema. She states that she makes a little urine. She has not yet begun dialysis. BP 148/66 on presentation. Oral temp 99.3. On exam this is an obese black female in no acute distress. The surgical incision in the right upper extremity is healing well, warm without erythema. There is significant induration but palpable thrill and audible bruit noted. No other skin disturbance noted. Exam otherwise reassuring. I spoke with Dr. Fernandes who recommends right upper extremity ultrasound and initiation of vancomycin. CBC reveals anemia, chronic per record review. No leukocytosis. CMP with the expected elevation of creatinine and BUN, baseline per record review. No culture indicated of the UA. Ultrasound reveals superficial thrombophlebitis in the cephalic vein. I spoke with Dr. Fernandes who is in agreement with discharge. He will see the patient in the office on Thursday. Discussed the results of the workup and plan with the patient. She is agreeable. She is stable and discharged to her SNF. Diagnosis Primary Impression: Thrombophlebitis arm Referrals: Vic Fernandes MD Patient Instructions: General Instructions, Superficial Thrombophlebitis (ED) Additional Instructions: Rest, hydrate. Warm compresses applied to the area 3-4 times a day 20 minutes per session. Resume at home medications as previously prescribed. Follow-up with Dr. Fernandes on Thursday as discussed. Return to the ED for worsening symptoms or any urgent or emergent medical condition. Disposition: 03 DISCHARGE TO SNF Condition: Stable Ashlee Butts Aug 08, 2017 12:01
[2017-08-08 12:05] LABS: AUTOMATED NEUTROPHIL # 2.7 TH/MM3 (1.8-7.7); BASOPHIL % 0.7 % (0.0-2.0); EOSINOPHIL # 0.5 TH/MM3 (0-0.4); EOSINOPHIL % 9.8 % (0.0-4.0); HEMATOCRIT 23.2 % (35.0-46.0); HEMOGLOBIN 7.3 GM/DL (11.6-15.3); LYMPHOCYTE # 1.7 TH/MM3 (1.0-4.8); MEAN CELL VOLUME 87.2 FL (80.0-100.0); MEAN CORPUSCULAR HEMOGLOBIN 27.4 PG (27.0-34.0); MEAN CORPUSCULAR HGB CONC 31.4 % (32.0-36.0); MEAN PLATELET VOLUME 9.1 FL (7.0-11.0); MONO % 10.8 % (0.0-8.0); MONOCYTE # 0.6 TH/MM3 (0-0.9); NEUT % 48.7 % (16.0-70.0); PLATELET COUNT 240 TH/MM3 (150-450); RED BLOOD COUNT 2.66 MIL/MM3 (4.00-5.30); WHITE BLOOD COUNT 5.5 TH/MM3 (4.0-11.0)
[2017-08-08 12:09] VITALS: BP 148/66; PULSE 80; RESP 18; O2SAT 96
[2017-08-08] MEDS ORDERED: VANCOMYCIN INJ 1,000 MG in SODIUM CHLOR 0.9% 250 ML INJ 250 ML IV ONE (12:15)
[2017-08-08 12:16] LABS: INTERNATIONAL NORMALIZED RATIO 1.1 RATIO; PROTHROMBIN TIME - PATIENT 10.9 SEC (9.8-11.6)
[2017-08-08 12:27] LABS: ALT (GPT) 42 U/L (10-53)
[2017-08-08 12:30] LABS: ALKALINE PHOSPHATASE 111 U/L (45-117); TOTAL BILIRUBIN ADULT LESS THAN 0.1 MG/DL (0.2-1.0); TOTAL PROTEIN 7.4 GM/DL (6.4-8.2)
[2017-08-08 12:45] LABS: AST (GOT) 33 U/L (15-37); BICARBONATE 31.9 MEQ/L (21.0-32.0); BLOOD UREA NITROGEN 87 MG/DL (7-18); CALCIUM 9.3 MG/DL (8.5-10.1); CHLORIDE 105 MEQ/L (98-107); CREATININE 3.14 MG/DL (0.50-1.00); GLOMERULAR FILTRATION RATE 18 ML/MIN (>89); GLUCOSE,RANDOM 175 MG/DL (74-106); SODIUM (NA) 140 MEQ/L (136-145)
--- NOTE | 2017-08-08 12:53 | RADRPT ---
EXAM DATE/TIME: 08/08/2017 11:55 [facility] COMPARISON: US ARM RIGHT VENOUS DOPPLER, May 30, 2016, 17:02. INDICATIONS : Right arm redness. MEDICAL HISTORY : Dementia. Myocardial infarction. Hypercholesterolemia. Thyroid disease. CVA. Right hemiparaplegia. Ne uropathy. HTN. Coroanry artery disease. Chest pain. Hyperlipidemia. Sleep apnea. Acute renal failure. Diabetes. Shingles. Hx of ETOH abuse. MRSA. Anticoagulant therapy, Plavix. SURGICAL HISTORY : Cholecystectomy. Tonsillectomy. Hysterectomy. . Tumors removed from abdomen. Right shoulde r surgery. Thyroid surgery. Renal biopsy. Blood transfusions. ENCOUNTER: Initial ACUITY: 1 day PAIN SCORE: Non-responsive LOCATION: Right arm. FINDINGS: Occlusive clot cephalic vein. Deep veins in the arm are patent. CONCLUSION: Occlusive clot cephalic vein. Del Isaac MD FACR on August 08, 2017 at 12:51 Board Certified Radiologist. This report was verified electronically.
[2017-08-08] MEDS ORDERED: ACETAMINOPHEN 325 MG TAB PO ONE (13:00)
--- NOTE | 2017-08-08 13:02 | RADRPT ---
EXAM DATE/TIME: 08/08/2017 12:45 [facility] COMPARISON: CHEST SINGLE AP, June 29, 2016, 12:12. INDICATIONS : Fever. MEDICAL HISTORY : Hypertension. Myocardial infarction. Stroke. SURGICAL HISTORY : Tonsillectomy. Hysterectomy. section. ENCOUNTER: Initial ACUITY: 1 day PAIN SCORE: 0/10 LOCATION: Bilateral chest FINDINGS: Cardiomegaly with minimal peripheral changes left base stable. Right lung clear. No pleural effusio n. No pneumothorax. CONCLUSION: Stable persistent parenchymal changes left base with complete cardiomegaly. Del Isaac MD FACR on August 08, 2017 at 12:59 Board Certified Radiologist. This report was verified electronically.
[2017-08-08 13:16] LABS: BILIRUBIN, URINE NEG (NEG); BLOOD, URINE NEG (NEG); GLUCOSE,URINE NEG (NEG); KETONE, URINE NEG (NEG); NITRITE,URINE NEG (NEG); SQUAMOUS EPITHELIAL CELL URINE 53 /hpf (0-5); TRANSITIONAL EPI CELLS, URINE <1 /hpf; URINE COLOR LIGHT-YELLOW (YELLW/STRAW); URINE LEUKOCYTE ESTERASE SMALL (NEG)
[2017-08-08 15:31] VITALS: BP 143/68
== END 2017-08-08 15:37 ==
LOC: NEPC 11:23
DX: I80.8 Phlebitis and thrombophlebitis of other sites (principal); I12.0 Hypertensive chronic kidney disease with stage 5 chronic kidney disease or end stage renal disease; E11.22 Type 2 diabetes mellitus with diabetic chronic kidney disease; N18.6 End stage renal disease; E78.00 Pure hypercholesterolemia, unspecified; I25.10 Atherosclerotic heart disease of native coronary artery without angina pectoris; E07.9 Disorder of thyroid, unspecified; Z79.4 Long term (current) use of insulin; Z79.02 Long term (current) use of antithrombotics/antiplatelets
CPT/HCPCS: 71045; 80053; 81001; 83605; 85025; 85610; 85730; 87040; 87205; 93971; 96365; 96366; 96375; 99285; J2270; J3370; J7050

== ENCOUNTER 2017-09-15 11:56 | Inpatient (IN) | payer OTHER ==
[~2017-09-15] VITALS: Ht 162.6 cm; Wt 81.0 kg
[2017-09-15] VITALS (7 sets, daily range): BP systolic 151–189; BP diastolic 75–100; PULSE 86–94; RESP 16–18; TEMP 97.9–99; O2SAT 97–100
--- NOTE | 2017-09-15 12:26 | PD ---
HPI Chief Complaint: Altered Mental Status Time Seen by Provider: 12:04 Travel History International Travel<30 days: No Contact w/Intl Traveler<30days: No Traveled to known affect area: No History of Present Illness HPI This is a 62-year-old female with history of CVA with right-sided weakness and contracturing, diabetes, hypertension, end-stage renal disease, presents from [facility] with assisted-living facility for evaluation of lethargy. Reportedly she has been increasingly lethargic throughout the day. She has also had some pruritic blisters on her chest and left shoulder for the past several days, currently being treated with methylprednisolone and Zyrtec according to med rec from [facility]. History is limited so review of systems is unable to be fully evaluated. PFSH Past Medical History Hx Anticoagulant Therapy: Yes (PLAVIX ) Asthma: Yes Cancer: No Cardiovascular Problems: Yes (HTN, CAD, ) High Cholesterol: Yes Chemotherapy: No Chest Pain: Yes Cerebrovascular Accident: Yes Dementia: Yes Diabetes: Yes Diminished Hearing: No Endocrine: Yes (DM) Gastrointestinal Disorders: No Genitourinary: Yes Hepatitis: No Hiatal Hernia: No Hypertension: Yes (HYPERLIPIDEMIA) Immune Disorder: No Implanted Vascular Access Dvce: No Musculoskeletal: Yes (RIGHT SIDED [employer]ORS) Neurologic: Yes (CVA WITH RIGHT HEMIPARAPLEGIA,DEPRESSION,NEUROPATHY) Psychiatric: No Reproductive: No Respiratory: Yes (SOB) Immunizations Current: No Myocardial Infarction: Yes (x1) Renal Failure: Yes (CHRONIC KIDNEY DISEASE) Shingles: Yes Sleep Apnea: Yes Thyroid Disease: Yes Menopausal: Yes Past Surgical History Abdominal Surgery: Yes ("TUMORS REMOVED FROM ABDOMEN") AICD: No Cardiac Surgery: No Section: Yes (x1) Cholecystectomy: Yes Ear Surgery: No Endocrine Surgery: Yes (THYROID NODULES) Eye Surgery: No Genitourinary Surgery: No Gynecologic Surgery: Yes (HYSTERECTOMY, X 1) Hysterectomy: Yes Joint Replacement: No Oral Surgery: No Pacemaker: No Thoracic Surgery: No Tonsillectomy: Yes Other Surgery: Yes Social History Alcohol Use: No (HX; ETOH) Tobacco Use: No Substance Use: No (HX ; DRUG ABUSE ) Allergies-Medications (Allergen,Severity, Reaction): Coded Allergies: *MDRO Multi-Drug Resistant Organism (Verified Adverse Reaction, Unknown, MRSA, 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 - 05/31/16 VRE (urine)-03/05/17 Reported Meds & Prescriptions Reported Meds & Active Scripts Active Percocet (Oxycodone-Acetaminophen) 5-325 mg Tab 1 Tab PO Q4H PRN Lopressor (Metoprolol Tartrate) 100 Mg Tab 100 Mg PO Q12H Vitamin D3 (Cholecalciferol) 1,000 Unit Tab 2,000 Units PO DAILY Bumetanide 1 Mg Tab 2 Mg PO BID@ Catapres (Clonidine) 0.2 Mg Tab 0.2 Mg PO Q8HR Norvasc (Amlodipine Besylate) 10 Mg Tab 10 Mg PO DAILY Reported Roxicodone (Oxycodone HCl) 5 Mg Tab 5 Mg PO BID Ferrous Sulfate 325 Mg (65 Mg Iron) Tablet 325 Mg PO TIDPC Calcitriol 0.25 Mcg Cap 0.25 Mcg PO DAILY Polyethylene Glycol 3350 Powder (Polyethylene Glycol) 17 Gram Pow 17 Gm PO DAILY Procrit Inj (Epoetin Govind) 20,000 Unit/Ml Inj 15,000 Units SQ 2 WEEKS Lantus Inj (Insulin Glargine) 1,000 Unit/10 Ml Vial 20 Units SQ HS Metolazone 5 Mg Tab 5 Mg PO DAILY Levothyroxine (Levothyroxine Sodium) 25 Mcg Tab 25 Mcg PO DAILY Cardura (Doxazosin Mesylate) 8 Mg Tab 8 Mg PO HS Novolog Flexpen Inj (Insulin Aspart) 300 Unit/3 Ml Pen 0-12 Units SQ ACHS SLIDING SCALE: 0-70=OJ and call MD, Repeat in 1hr, 71-150=0 units, 151-200=3 units, 201-250=5 units, 251-300=8 units, 301-400=10 units, > 400=12 units & Repeat in 2hrs, if > 350 call Hydralazine (Hydralazine HCl) 100 Mg Tab 100 Mg PO Q8HR Protonix (Pantoprazole Sodium) 40 Mg Tab 40 Mg PO DAILY Plavix (Clopidogrel Bisulfate) 75 Mg Tab 75 Mg PO DAILY Neurontin (Gabapentin) 300 Mg Cap 300 Mg PO Q8HR Celexa (Citalopram Hydrobromide) 20 Mg Tab 20 Mg PO DAILY Atorvastatin (Atorvastatin Calcium) 80 Mg Tab 80 Mg PO HS Aspirin 325 Mg Tab 325 Mg PO DAILY Fluticasone Nasal [place] 50 Mcg/Act Naspr 1 [place] EACH NARE Q12HR 50 mcg/spray Review of Systems ROS Limitations: Altered Mental Status, Poor Historian Except as stated in HPI: all other systems reviewed are Neg Physical Exam Exam Limitations: Altered Mental Status, Poor Historian Narrative GENERAL: This is a chronically ill-appearing female who is in no acute distress. She is alert to person and place. SKIN: Warm and dry. Some excoriated papular lesions noted to the right upper chest and left shoulder. HEAD: Atraumatic. Normocephalic. EYES: Pupils equal and round. No scleral icterus. No injection or drainage. ENT: No nasal bleeding or discharge. Mucous membranes pink and moist. NECK: Trachea midline. No JVD. CARDIOVASCULAR: Regular rate and rhythm. No murmur appreciated. RESPIRATORY: No accessory muscle use. Clear to auscultation. Breath sounds equal bilaterally. GASTROINTESTINAL: Abdomen soft, non-tender, nondistended. Hepatic and splenic margins not palpable. Rectal examination reveals black Hemoccult positive stool. MUSCULOSKELETAL: Right arm/hand contracturing noted. NEUROLOGICAL: Awake and alert. No obvious cranial nerve deficits. Right arm/ leg chronic weakness. Halting speech. Data Data Last Documented VS Vital Signs Date Time Temp Pulse Resp B/P (MAP) Pulse Ox O2 Delivery O2 Flow Rate FiO2 09/15/17 12:37 16 100 Room Air 09/15/17 12:04 99.0 91 165/79 (107) Orders Orders Electrocardiogram (09/15/17 12:19) Complete Blood Count With Diff (09/15/17 12:19) Comprehensive Metabolic Panel (09/15/17 12:19) Creatine Kinase (Cpk) (09/15/17 12:19) Troponin I (09/15/17 12:19) Urinalysis - C+S If Indicated (09/15/17 12:19) Ct Brain W/O Iv Contrast(Rout) (09/15/17 12:19) Blood Glucose (09/15/17 12:19) Ecg Monitoring (09/15/17 12:19) Iv Access Insert/Monitor (09/15/17 12:19) Oximetry (09/15/17 12:19) Sodium Chloride 0.9% Flush (Ns Flush) (09/15/17 12:30) Prothrombin Time / Inr (Pt) (09/15/17 12:19) Act Partial Throm Time (Ptt) (09/15/17 12:19) Type And Screen (09/15/17 12:19) Pantoprazole Inj (Protonix Inj) (09/15/17 12:30) Ct Abd/Pel W/O Iv Contrast (09/15/17 12:19) Admit Order (Ed Use Only) (09/15/17 15:05) Labs Laboratory Tests Test 09/15/17 12:29 09/15/17 14:24 White Blood Count 8.0 TH/MM3 Red Blood Count 3.09 MIL/MM3 Hemoglobin 8.3 GM/DL Hematocrit 26.0 % Mean Corpuscular Volume 84.1 FL Mean Corpuscular Hemoglobin 26.7 PG Mean Corpuscular Hemoglobin Concent 31.8 % Red Cell Distribution Width 16.3 % Platelet Count 159 TH/MM3 Mean Platelet Volume 9.4 FL Neutrophils (%) (Auto) 62.7 % Lymphocytes (%) (Auto) 16.2 % Monocytes (%) (Auto) 9.6 % Eosinophils (%) (Auto) 11.0 % Basophils (%) (Auto) 0.5 % Neutrophils # (Auto) 5.0 TH/MM3 Lymphocytes # (Auto) 1.3 TH/MM3 Monocytes # (Auto) 0.8 TH/MM3 Eosinophils # (Auto) 0.9 TH/MM3 Basophils # (Auto) 0.0 TH/MM3 CBC Comment DIFF FINAL Differential Comment Prothrombin Time 10.6 SEC Prothromb Time International Ratio 1.0 RATIO Activated Partial Thromboplast Time 24.6 SEC Blood Urea Nitrogen 83 MG/DL Creatinine 3.49 MG/DL Random Glucose 168 MG/DL Total Protein 7.1 GM/DL Albumin 3.2 GM/DL Calcium Level 9.1 MG/DL Alkaline Phosphatase 91 U/L Aspartate Amino Transf (AST/SGOT) 22 U/L Alanine Aminotransferase (ALT/SGPT) 25 U/L Total Bilirubin 0.1 MG/DL Sodium Level 136 MEQ/L Potassium Level 3.1 MEQ/L Chloride Level 96 MEQ/L Carbon Dioxide Level 28.2 MEQ/L Anion Gap 12 MEQ/L Estimat Glomerular Filtration Rate 16 ML/MIN Total Creatine Kinase 84 U/L Troponin I LESS THAN 0.02 NG/ML MDM Medical Decision Making Medical Screen Exam Complete: Yes Emergency Medical Condition: Yes Medical Record Reviewed: Yes Differential Diagnosis Upper GI bleed, acute anemia, sepsis, UTI, electrolyte abnormality, dehydration , CVA Narrative Course The patient was placed on ECG monitoring pulse oximetry. A 12 EKG was obtained. Lab work, chest x-ray, CT brain, abdomen pelvis ordered. The patient has black stool, she is on iron supplements but it is Hemoccult positive , IV Protonix initiated. CBC reveals a hemoglobin of 8.3 which is consistent with her general baseline hemoglobin level and improved from a level of 7.3 on August 08. It is normocytic. GFR is 16 which is consistent with her baseline kidney function. Potassium is 3.1. CT abdomen and pelvis reveals anterior pelvic wall ventral hernia, left basilar airspace disease characteristic of atelectasis. CT the brain reveals no acute abnormalities. Plan is to admit the patient for GI bleed , generalized weakness. HemaPrompt Point of Care Internal Pos. & Neg. Controls: Passed Fecal Specimen Occult Blood: Positive Diagnosis Primary Impression: GI bleed Additional Impression: Generalized weakness Admitting Information Admitting Physician Requests: Admit John Rice September 15, 2017 12:26
[2017-09-15] MEDS ORDERED: SODIUM CHLORIDE 0.9% FLUSH 10 ML FLUSH IV FLUSH PRN ×2 (12:30→15:30)
[2017-09-15] MEDS ORDERED: PANTOPRAZOLE SODIUM 40 MG VIAL IVP ONE (12:30)
[2017-09-15 12:54] LABS: BASOPHIL % 0.5 % (0.0-2.0); EOSINOPHIL # 0.9 TH/MM3 (0-0.4); HEMOGLOBIN 8.3 GM/DL (11.6-15.3); LYMPH % 16.2 % (9.0-44.0); LYMPHOCYTE # 1.3 TH/MM3 (1.0-4.8); MEAN CELL VOLUME 84.1 FL (80.0-100.0); MEAN CORPUSCULAR HEMOGLOBIN 26.7 PG (27.0-34.0); MEAN CORPUSCULAR HGB CONC 31.8 % (32.0-36.0); MEAN PLATELET VOLUME 9.4 FL (7.0-11.0); MONO % 9.6 % (0.0-8.0); MONOCYTE # 0.8 TH/MM3 (0-0.9); NEUT % 62.7 % (16.0-70.0); PLATELET COUNT 159 TH/MM3 (150-450); RED BLOOD COUNT 3.09 MIL/MM3 (4.00-5.30); RED CELL DISTRIBUTION WIDTH 16.3 % (11.6-17.2)
[2017-09-15 13:02] LABS: PROTHROMBIN TIME - PATIENT 10.6 SEC (9.8-11.6)
[2017-09-15] MEDS ORDERED: CALC0.25 PO (13:03)
[2017-09-15] MEDS ORDERED: FERR325T18 PO (13:03)
[2017-09-15] MEDS ORDERED: OXYC1TAB13 PO (13:03)
[2017-09-15 13:13] LABS: ALBUMIN 3.2 GM/DL (3.4-5.0); AST (GOT) 22 U/L (15-37); BICARBONATE 28.2 MEQ/L (21.0-32.0); BLOOD UREA NITROGEN 83 MG/DL (7-18); CALCIUM 9.1 MG/DL (8.5-10.1); CHLORIDE 96 MEQ/L (98-107); CREATININE 3.49 MG/DL (0.50-1.00); GLOMERULAR FILTRATION RATE 16 ML/MIN (>89); GLUCOSE,RANDOM 168 MG/DL (74-106); SODIUM (NA) 136 MEQ/L (136-145)
[2017-09-15 13:18] LABS: ALKALINE PHOSPHATASE 91 U/L (45-117); ALT (GPT) 25 U/L (10-53); TOTAL BILIRUBIN ADULT 0.1 MG/DL (0.2-1.0); TOTAL PROTEIN 7.1 GM/DL (6.4-8.2); TROPONIN I LESS THAN 0.02 NG/ML (0.02-0.05)
--- NOTE | 2017-09-15 14:01 | EKG ---
Date Performed: 09/15/2017 Time Performed: 12:37:06 PTAGE: 62 years EKG: Sinus rhythm BORDERLINE RIGHT AXIS DEVIATION POSSIBLE SEPTAL MYOCARDIAL INFARCTION ABNORMAL ECG Compared to prior electrocardiogram, probably No significant change from prior electrocardiogram. PREVIOUS TRACING : 07/20/2017 14.21 DOCTOR: Cristian Sevilla Interpretating Date/Time 09/15/2017 14:00:04
--- NOTE | 2017-09-15 14:23 | RADRPT ---
EXAM DATE: 09/15/2017 2:11 PM EDT AGE/SEX: 62 years / Female INDICATIONS: Altered mental status CLINICAL DATA: This is the patient's initial encounter. Patient reports that signs and symptoms have been present for 1 day and indicates a pain score of 0/10. MEDICAL/SURGICAL HISTORY: Cerebrovascular disease. Diabetes. Cardiovascular disease. Dementia, r enal failure, asthma Hysterectomy. RADIATION DOSE: 57.86 CTDI (mGy) COMPARISON: [facility] [place] BRAIN W/O CONTRAST, 06/29/2016. . TECHNIQUE: CT of the head without contrast. Using automated exposure control and adjustment of the mA and/or kV according to patient size, radiation dose was kept as low as reasonably achievable to ob tain optimal diagnostic quality images. FINDINGS: Focal encephalomalacia is identified along the convexity of the frontoparietal lobes. Mild generalized hypodensity is seen in the periventricular white matter. There are no characteristic findings of an acute infarct or hemorrhage. There is no evidence of focal mass effect or edema. Brainstem and cerebellum are unremarkable. CONCLUSION: 1. 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 2. No evidence of acute infarct, hemorrhage, mass or edema. 3. Chronic white matter disease characteristic of microvascular ischemic changes. Electronically signed by: Yovany Kruse MD 09/15/2017 2:21 PM EDT
--- NOTE | 2017-09-15 14:31 | RADRPT ---
EXAM DATE: 09/15/2017 2:20 PM EDT AGE/SEX: 62 years / Female INDICATIONS: Abdominal pain CLINICAL DATA: This is the patient's initial encounter. Patient reports that signs and symptoms have been present for 1 day and indicates a pain score of 3/10. MEDICAL/SURGICAL HISTORY: Renal failure, chronic. Cardiovascular disease. Cerebrovascular dis ease. Diabetes,dementia,asthma Hysterectomy. RADIATION DOSE: 22.06 CTDI (mGy) COMPARISON: [facility] [place], CT ABDOMEN & PELVIS W/O CONTRAST, 02/14/2016. . TECHNIQUE: Multiple contiguous axial images were obtained through the abdomen. Images were obtained using multiple row detector helical technique. Using dose reduction techniques, radiation dose was ke pt as low as reasonably achievable to obtain optimal diagnostic quality images. FINDINGS: Lower Lungs: Mild airspace disease characteristic of atelectasis is evident in the left base. Liver: The liver has a homogeneous density without space-occupying lesion. There is no dilation of th e biliary tree. Postcholecystectomy clips are noted. Spleen: Homogeneous density without enlargement. Pancreas: Unremarkable without mass or calcification. Kidneys: Normal in size and shape. No evidence of mass or hydronephrosis. Adrenal Glands: Unremarkable. Aorta: The aorta and proximal iliac vessels are grossly unremarkable without aneurysmal dilation. Bowel/Mesentery: The bowel loops are grossly unremarkable. The cecum and sigmoid colon have a normal configuration. Abdominal Wall: A fat-containing ventral hernia is identified in the lower pelvis just above the pub ic symphysis. Retroperitoneum: No evidence of adenopathy in the retrocrural, para-aortic, or deep pelvic regions. Bladder: Contours are smooth. Reproductive Organs: Uterus has been removed. Inguinal: The inguinal region is unremarkable without evidence of adenopathy. Bony Structures: Unremarkable. CONCLUSION: 1. Anterior pelvic wall ventral hernia 2. Status post cholecystectomy and hysterectomy 3. Left basilar airspace disease characteristic of atelectasis 4. No evidence of acute process, suspicious mass or lymphadenopathy. Electronically signed by: Yovany Kruse MD 09/15/2017 2:30 PM EDT
--- NOTE | 2017-09-15 14:52 | PD ---
Physical Exam Date Seen by Provider: September 15, 2017 Data Data Last Documented VS Vital Signs Date Time Temp Pulse Resp B/P (MAP) Pulse Ox O2 Delivery O2 Flow Rate FiO2 09/15/17 12:37 16 100 Room Air 09/15/17 12:04 99.0 91 165/79 (107) Orders Orders Electrocardiogram (09/15/17 12:19) Complete Blood Count With Diff (09/15/17 12:19) Comprehensive Metabolic Panel (09/15/17 12:19) Creatine Kinase (Cpk) (09/15/17 12:19) Troponin I (09/15/17 12:19) Urinalysis - C+S If Indicated (09/15/17 12:19) Ct Brain W/O Iv Contrast(Rout) (09/15/17 12:19) Blood Glucose (09/15/17 12:19) Ecg Monitoring (09/15/17 12:19) Iv Access Insert/Monitor (09/15/17 12:19) Oximetry (09/15/17 12:19) Sodium Chloride 0.9% Flush (Ns Flush) (09/15/17 12:30) Prothrombin Time / Inr (Pt) (09/15/17 12:19) Act Partial Throm Time (Ptt) (09/15/17 12:19) Type And Screen (09/15/17 12:19) Pantoprazole Inj (Protonix Inj) (09/15/17 12:30) Ct Abd/Pel W/O Iv Contrast (09/15/17 12:19) Labs Laboratory Tests Test 09/15/17 12:29 09/15/17 14:24 White Blood Count 8.0 TH/MM3 Red Blood Count 3.09 MIL/MM3 Hemoglobin 8.3 GM/DL Hematocrit 26.0 % Mean Corpuscular Volume 84.1 FL Mean Corpuscular Hemoglobin 26.7 PG Mean Corpuscular Hemoglobin Concent 31.8 % Red Cell Distribution Width 16.3 % Platelet Count 159 TH/MM3 Mean Platelet Volume 9.4 FL Neutrophils (%) (Auto) 62.7 % Lymphocytes (%) (Auto) 16.2 % Monocytes (%) (Auto) 9.6 % Eosinophils (%) (Auto) 11.0 % Basophils (%) (Auto) 0.5 % Neutrophils # (Auto) 5.0 TH/MM3 Lymphocytes # (Auto) 1.3 TH/MM3 Monocytes # (Auto) 0.8 TH/MM3 Eosinophils # (Auto) 0.9 TH/MM3 Basophils # (Auto) 0.0 TH/MM3 CBC Comment DIFF FINAL Differential Comment Prothrombin Time 10.6 SEC Prothromb Time International Ratio 1.0 RATIO Activated Partial Thromboplast Time 24.6 SEC Blood Urea Nitrogen 83 MG/DL Creatinine 3.49 MG/DL Random Glucose 168 MG/DL Total Protein 7.1 GM/DL Albumin 3.2 GM/DL Calcium Level 9.1 MG/DL Alkaline Phosphatase 91 U/L Aspartate Amino Transf (AST/SGOT) 22 U/L Alanine Aminotransferase (ALT/SGPT) 25 U/L Total Bilirubin 0.1 MG/DL Sodium Level 136 MEQ/L Potassium Level 3.1 MEQ/L Chloride Level 96 MEQ/L Carbon Dioxide Level 28.2 MEQ/L Anion Gap 12 MEQ/L Estimat Glomerular Filtration Rate 16 ML/MIN Total Creatine Kinase 84 U/L Troponin I LESS THAN 0.02 NG/ML [facility] Medical Record Reviewed: Yes Supervised Visit with JENI: Yes Narrative Course I, Dr. Sawyer, have reviewed the advance practice practitioner's documentation and am in agreement, met with the patient face to face, made the diagnosis, and the medical decision making was done by me. *My assessment and Findings: Generalized weakness with Melena and lethargy Diagnosis Primary Impression: GI bleed Additional Impression: Generalized weakness Brittni Sawyer DO September 15, 2017 14:52
[2017-09-15 15:08] LABS: BACTERIA, URINE MOD /hpf; BILIRUBIN, URINE NEG (NEG); BLOOD, URINE TRACE (NEG); GLUCOSE,URINE NEG (NEG); KETONE, URINE NEG (NEG); NITRITE,URINE NEG (NEG); PH, URINE 5.5 (5.0-8.5); SQUAMOUS EPITHELIAL CELL URINE 1 /hpf (0-5); URINE COLOR LIGHT-YELLOW (YELLW/STRAW); URINE LEUKOCYTE ESTERASE LARGE (NEG)
[2017-09-15] MEDS ORDERED: ONDANSETRON ODT 4 MG TAB PO PRN (15:30)
--- NOTE | 2017-09-15 15:43 | HHI.HP ---
[facility] Service [place] [facility] Primary Care Physician Unknown Admission Diagnosis GI bleed, generalized weakness Diagnoses: Chief Complaint: Bloody stool, lethargic Travel History International Travel<30 Days: No Contact w/Intl Traveler <30 Da: No Traveled to Known Affected Are: No History of Present Illness 62 years old female with history of CVA and right-sided weakness with contractures, diabetes and hypertension end-stage renal disease transferred from assisted living facility [facility] to the hospital due to lethargy and melena, in ED patient was found to have a black stool, even though she is on iron supplement but her Hemoccult was positive in the ED, patient is extremely poor historian speech is very slow she was barely able to mention her name no family at the bedside no sufficient history reported from assisted living. Abdominal exam revealed no tenderness to palpation positive bowel sounds Review of Systems All systems reviewed and was positive for what is mentioned in history of present illness otherwise negative Past Family Social History Past Medical History Asthma Coronary artery disease on Plavix Hypertension Dementia History of CVA Diabetes mellitus Hyperlipidemia Right-sided contractures End-stage kidney disease Past Surgical History Tumor removed from the abdomen section Cholecystectomy Thyroid nodule excision Hysterectomy Tonsillectomy Allergies: Coded Allergies: *MDRO Multi-Drug Resistant Organism (Verified Adverse Reaction, Unknown, MRSA, 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 - 05/31/16 VRE (urine)-06/29/16 Family History Unobtainable Social History Unobtainable Physical Exam Vital Signs Vital Signs Date Time Temp Pulse Resp B/P (MAP) Pulse Ox O2 Delivery O2 Flow Rate FiO2 09/15/17 12:37 16 100 Room Air 09/15/17 12:04 99.0 91 16 165/79 (107) 100 Physical Exam GENERAL: This is frail 62 -[place] resting in bed no acute distress SKIN: Some vesicular lesions on the chest HEAD: Atraumatic. Normocephalic. EYES: Pupils equal round and reactive. Extraocular motions intact. No scleral icterus. ENT: Nose without bleeding, or drainage, Airway patent. NECK: Trachea midline. Supple CARDIOVASCULAR: Regular rate and rhythm without murmurs, gallops, or rubs. RESPIRATORY: Fair air entry bilaterally. No wheezes, rales, or rhonchi. GASTROINTESTINAL: Abdomen soft, non-tender, nondistended. Positive bowel sounds MUSCULOSKELETAL: Extremities without clubbing, cyanosis, or edema. Pedal pulses appreciated NEUROLOGICAL: Awake but confused, not answering questions right extremity contractures and weakness Laboratory Laboratory Tests Test 09/15/17 12:29 09/15/17 14:24 White Blood Count 8.0 Red Blood Count 3.09 Hemoglobin 8.3 Hematocrit 26.0 Mean Corpuscular Volume 84.1 Mean Corpuscular Hemoglobin 26.7 Mean Corpuscular Hemoglobin Concent 31.8 Red Cell Distribution Width 16.3 Platelet Count 159 Mean Platelet Volume 9.4 Neutrophils (%) (Auto) 62.7 Lymphocytes (%) (Auto) 16.2 Monocytes (%) (Auto) 9.6 Eosinophils (%) (Auto) 11.0 Basophils (%) (Auto) 0.5 Neutrophils # (Auto) 5.0 Lymphocytes # (Auto) 1.3 Monocytes # (Auto) 0.8 Eosinophils # (Auto) 0.9 Basophils # (Auto) 0.0 CBC Comment DIFF FINAL Differential Comment Prothrombin Time 10.6 Prothromb Time International Ratio 1.0 Activated Partial Thromboplast Time 24.6 Blood Urea Nitrogen 83 Creatinine 3.49 Random Glucose 168 Total Protein 7.1 Albumin 3.2 Calcium Level 9.1 Alkaline Phosphatase 91 Aspartate Amino Transf (AST/SGOT) 22 Alanine Aminotransferase (ALT/SGPT) 25 Total Bilirubin 0.1 Sodium Level 136 Potassium Level 3.1 Chloride Level 96 Carbon Dioxide Level 28.2 Anion Gap 12 Estimat Glomerular Filtration Rate 16 Total Creatine Kinase 84 Troponin I LESS THAN 0.02 Urine Color LIGHT-YELLOW Urine Turbidity CLEAR Urine pH 5.5 Urine Specific [place] 1.005 Urine Protein TRACE Urine Glucose (UA) NEG Urine Ketones NEG Urine Occult Blood TRACE Urine Nitrite NEG Urine Bilirubin NEG Urine Urobilinogen LESS THAN 2.0 Urine Leukocyte Esterase LARGE Urine RBC LESS THAN 1 Urine WBC 5 Urine Squamous Epithelial Cells 1 Urine Bacteria MOD Microscopic Urinalysis Comment CATH-CULTURE IND Date/Time Source Procedure Growth Status 09/15/17 14:24 Urine Catheterized Urine Urine Culture Pending Received Result Diagram: 09/15/17 1229 09/15/17 1229 Imaging Last Impressions Head CT 09/15/17 1219 Signed Impressions: CONCLUSION: Abdomen/Pelvis CT 09/15/17 1219 Signed Impressions: CONCLUSION: Caprini VTE Risk Assessment Caprini VTE Risk Assessment: Mod/High Risk (score >= 2) VTE Pharm Contraindication: Hemorrhage Caprini Risk Assessment Model Point Value = 1 Point Value = 2 Point Value = 3 Point Value = 5 Age 41-60 Minor surgery BMI > 25 kg/m2 Swollen legs Varicose veins or History of unexplained or recurrent spontaneous Oral contraceptives or hormone replacement Sepsis (< 1 month) Serious lung disease, including pneumonia (< 1 month) Abnormal pulmonary function Acute myocardial infarction Congestive heart failure (< 1 month) History of inflammatory bowel disease Medical patient at bed rest Age 61-74 Arthroscopic surgery Major open surgery (> 45 min) Laparoscopic surgery (> 45 min) Malignancy Confined to bed (> 72 hours) Immobilizing plaster cast Central venous access Age >= 75 History of VTE Family history of VTE Factor V Leiden Prothrombin [id number] Lupus anticoagulant Anticardiolipin antibodies Elevated serum homocysteine Heparin-induced thrombocytopenia Other congenital or acquired thrombophilia Stroke (< 1 month) Elective arthroplasty Hip, pelvis, or leg fracture Acute spinal cord injury (< 1 month) Prophylaxis Regimen Total Risk Factor Score Risk Level Prophylaxis Regimen 0-1 Low Early ambulation 2 Moderate Order ONE of the following: *Sequential Compression Device (SCD) *Heparin 5000 units SQ BID 3-4 Higher Order ONE of the following medications: *Heparin 5000 units SQ TID *Enoxaparin/Lovenox 40 mg SQ daily (WT < 150 kg, CrCl > 30 mL/min) *Enoxaparin/Lovenox 30 mg SQ daily (WT < 150 kg, CrCl > 10-29 mL/min) *Enoxaparin/Lovenox 30 mg SQ BID (WT < 150 kg, CrCl > 30 mL/min) AND/OR *Sequential Compression Device (SCD) 5 or more Highest Order ONE of the following medications: *Heparin 5000 units SQ TID (Preferred with Epidurals) *Enoxaparin/Lovenox 40 mg SQ daily (WT < 150 kg, CrCl > 30 mL/min) *Enoxaparin/Lovenox 30 mg SQ daily (WT < 150 kg, CrCl > 10-29 mL/min) *Enoxaparin/Lovenox 30 mg SQ BID (WT < 150 kg, CrCl > 30 mL/min) AND *Sequential Compression Device (SCD) Assessment and Plan Assessment and Plan Acute anemia possibly on chronic Generalized weakness Hypokalemia DM 2 Chronic kidney disease stage IV History of CVA with left-sided weakness DVT prophylaxis with SCD no chemical due to GI bleed Plan: Admit for observation H&H every 8 hour Protonix IV twice daily Consider simvastatin if hemoglobin continue to drop Type cross and match and keep on hold 2 units of packed red blood cell hemoglobin still above 8 Reviewed EKG personally no acute ST changes Reviewed CT abdomen personally showing Anterior pelvic wall hernia, Left atelectasis, no evidence of acute process Consult GI accucheck with ISS SCD Discussed Condition With ed physician Dariusz Marc MD September 15, 2017 15:43
[2017-09-15] MEDS ORDERED: DEXTROSE 50% IN WATER 50 ML VIAL(D50) IV PUSH PRN (15:45)
[2017-09-15] MEDS ORDERED: GLUCAGON 1 MG/ML VIAL OTHER PRN ×2 (15:45)
[2017-09-15] MEDS: METOPROLOL TARTRATE 100 MG TAB PO SCH (15:45)
--- NOTE | 2017-09-15 16:22 | PD.CONS ---
HPI History of Present Illness This is a 62 year old female with ESRD, hx CVA who presented from her [facility] with lethargy and melena. Stool heme pos in ER. She does take supplemental iron. Pt indicates she has no abd pain. She was evaluated by our service for n/v in 2016 but I see no records of endoscopies. Pt is nonverbal. Hx obtained from EMR. 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 Family History Unobtainable Social History Unobtainable (Wendi Allan) Review of Systems Gastrointestinal: DENIES: Abdominal pain otherwise noncontributory (Wendi Allan) GI Exam Vitals I&O Vital Signs Date Time Temp Pulse Resp B/P (MAP) Pulse Ox O2 Delivery O2 Flow Rate FiO2 09/15/17 12:37 16 100 Room Air 09/15/17 12:04 99.0 91 16 165/79 (107) 100 Imaging Last Impressions Head CT 09/15/17 1219 Signed Impressions: CONCLUSION: Abdomen/Pelvis CT 09/15/17 1219 Signed Impressions: CONCLUSION: Laboratory Test 09/15/17 12:29 09/15/17 14:24 White Blood Count 8.0 TH/MM3 Red Blood Count 3.09 MIL/MM3 Hemoglobin 8.3 GM/DL Hematocrit 26.0 % Mean Corpuscular Volume 84.1 FL Mean Corpuscular Hemoglobin 26.7 PG Mean Corpuscular Hemoglobin Concent 31.8 % Red Cell Distribution Width 16.3 % Platelet Count 159 TH/MM3 Mean Platelet Volume 9.4 FL Neutrophils (%) (Auto) 62.7 % Lymphocytes (%) (Auto) 16.2 % Monocytes (%) (Auto) 9.6 % Eosinophils (%) (Auto) 11.0 % Basophils (%) (Auto) 0.5 % Neutrophils # (Auto) 5.0 TH/MM3 Lymphocytes # (Auto) 1.3 TH/MM3 Monocytes # (Auto) 0.8 TH/MM3 Eosinophils # (Auto) 0.9 TH/MM3 Basophils # (Auto) 0.0 TH/MM3 CBC Comment DIFF FINAL Differential Comment Prothrombin Time 10.6 SEC Prothromb Time International Ratio 1.0 RATIO Activated Partial Thromboplast Time 24.6 SEC Blood Urea Nitrogen 83 MG/DL Creatinine 3.49 MG/DL Random Glucose 168 MG/DL Total Protein 7.1 GM/DL Albumin 3.2 GM/DL Calcium Level 9.1 MG/DL Alkaline Phosphatase 91 U/L Aspartate Amino Transf (AST/SGOT) 22 U/L Alanine Aminotransferase (ALT/SGPT) 25 U/L Total Bilirubin 0.1 MG/DL Sodium Level 136 MEQ/L Potassium Level 3.1 MEQ/L Chloride Level 96 MEQ/L Carbon Dioxide Level 28.2 MEQ/L Anion Gap 12 MEQ/L Estimat Glomerular Filtration Rate 16 ML/MIN Total Creatine Kinase 84 U/L Troponin I LESS THAN 0.02 NG/ML Urine Color LIGHT-YELLOW Urine Turbidity CLEAR Urine pH 5.5 Urine Specific [place] 1.005 Urine Protein TRACE mg/dL Urine Glucose (UA) NEG mg/dL Urine Ketones NEG mg/dL Urine Occult Blood TRACE Urine Nitrite NEG Urine Bilirubin NEG Urine Urobilinogen LESS THAN 2.0 MG/DL Urine Leukocyte Esterase LARGE Urine RBC LESS THAN 1 /hpf Urine WBC 5 /hpf Urine Squamous Epithelial Cells 1 /hpf Urine Bacteria MOD /hpf Microscopic Urinalysis Comment CATH-CULTURE IND Date/Time Source Procedure Growth Status 09/15/17 14:24 Urine Catheterized Urine Urine Culture Pending Received Physical Examination HEENT: PERRL; normocephalic; atraumatic; no jaundice. CHEST: CTA CARDIAC: RRR ABDOMEN: Soft,distended, + abd hernia, nontender; no hepatosplenomegaly; bowel sounds are present in all four quadrants. EXTREMITIES: No clubbing, cyanosis, or edema. SKIN: Normal; no rash; no jaundice. 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 no further details CT no acute findings - anemia - likely multifactorial, pt has ESRD. microcytic. hgb 8.3 * attempted to contact sister/contact Anjali Tejeda [phone] and there was no answer and no voicemail PLAN - EGD if consent - ok for clears - PPI - monitor HH - transfuse as needed - notify GI of active bleeding pt seen by myself and Dr Calvin and this note is on his behalf (Wendi Allan) Physician Comments Patient seen and examined Agree with above Continue with current supportive care Monitor labs Plan for an EGD tomorrow (Dino Calvin MD) Wendi Allan September 15, 2017 16:22 Dino Calvin MD September 15, 2017 21:52
[2017-09-15] MEDS ORDERED: INSULIN ASPART SUPPLEMENTAL SCALE SQ SCH (17:00)
[2017-09-15] MEDS: INSULIN ASPART SUPPLEMENTAL SCALE SQ SCH ×2 (17:00→20:15)
[2017-09-15] MEDS: FERROUS SULFATE 325 MG (65 MG ELEMENTAL IRON) TAB PO SCH (18:14)
[2017-09-15] MEDS: SODIUM CHLOR 0.9% 1000 ML INJ 1,000 ML IV SCH (18:25)
[2017-09-15] MEDS: ATORVASTATIN 80 MG TAB PO SCH (20:16)
[2017-09-15] MEDS: DOXAZOSIN MESYLATE 4 MG TAB PO SCH (20:16)
[2017-09-15] MEDS: INSULIN DETEMIR 100 UNITS/ML VIAL SQ SCH (20:16)
[2017-09-15] MEDS: cloNIDine HCL 0.2 MG TAB PO SCH (20:17)
[2017-09-15] MEDS: GABAPENTIN 300 MG CAP PO SCH (20:17)
[2017-09-15] MEDS: hydrALAZINE HCL 100 MG TAB PO SCH (20:17)
[2017-09-15] MEDS: SODIUM CHLORIDE 0.9% FLUSH 10 ML FLUSH IV FLUSH SCH (20:17)
[2017-09-15] MEDS: FLUTICASONE PROPIONATE 50 MCG/ACT 16 GM NASAL SPRAY EACH NARE SCH (21:00)
--- NOTE | 2017-09-15 21:00 | EKG ---
Date Performed: 09/15/2017 Time Performed: 19:07:42 PTAGE: 62 years EKG: Sinus rhythm WITH SINUS ARRHYTHMIA Cannot rule out septal myocardial infarction NONSPECIFIC T-WAVE ABNORMALITY ARTIE RDERLINE ECG No significant change from prior electrocardiogram. PREVIOUS TRACING : 09/15/2017 12.37 DOCTOR: Cristian Sevilla Interpretating Date/Time 09/15/2017 20:59:24
[2017-09-15] MEDS ORDERED: hydrALAZINE HCL 20 MG/ML VIAL IV PUSH ONE (21:15)
[2017-09-15 22:10] LABS: HEMATOCRIT 25.5 % (35.0-46.0)
[2017-09-16] VITALS (8 sets, daily range): BP systolic 152–199; BP diastolic 67–86; PULSE 98–110; RESP 16–20; TEMP 98.3–98.7; O2SAT 98–100
[2017-09-16] MEDS: METOPROLOL TARTRATE 100 MG TAB PO SCH ×2 (03:45→13:32)
[2017-09-16] MEDS: SODIUM CHLOR 0.9% 1000 ML INJ 1,000 ML IV SCH ×2 (05:20→10:19)
[2017-09-16] MEDS ORDERED: hydrALAZINE HCL 20 MG/ML VIAL IV PUSH PRN ×2 (05:45→12:15)
[2017-09-16] MEDS: LEVOTHYROXINE SODIUM 25 MCG TAB PO SCH (05:52)
[2017-09-16] MEDS: hydrALAZINE HCL 100 MG TAB PO SCH ×3 (05:52→21:04)
[2017-09-16] MEDS: cloNIDine HCL 0.2 MG TAB PO SCH ×3 (05:52→21:03)
[2017-09-16] MEDS: GABAPENTIN 300 MG CAP PO SCH (05:52)
[2017-09-16] MEDS: INSULIN ASPART SUPPLEMENTAL SCALE SQ SCH ×4 (08:00→20:51)
[2017-09-16] MEDS: CITALOPRAM HYDROBROMIDE 20 MG TAB PO SCH (09:00)
[2017-09-16] MEDS: CALCITRIOL 0.25 MCG CAP PO SCH (09:00)
[2017-09-16] MEDS: METOLAZONE 5 MG TAB PO SCH (09:00)
[2017-09-16] MEDS: CLOPIDOGREL 75 MG TAB PO SCH (09:00)
[2017-09-16] MEDS: SODIUM CHLORIDE 0.9% FLUSH 10 ML FLUSH IV FLUSH SCH ×2 (09:00→21:00)
[2017-09-16] MEDS: PANTOPRAZOLE SODIUM 40 MG VIAL IV PUSH SCH (09:25)
[2017-09-16] MEDS: FERROUS SULFATE 325 MG (65 MG ELEMENTAL IRON) TAB PO SCH ×3 (09:30→21:03)
--- NOTE | 2017-09-16 10:01 | HHI.PR ---
Subjective Remarks Patient feels well evaluation. Patient nothing by mouth. Plan for EGD. Does not remember having a bowel movement today. [facility] with [facility] bleed/melena. Hemoglobin is stable at this time no need for transfusion. She denies having any chest pain or shortness of breath. No abdominal pain. Motor deficits at baseline from previous stroke right sided weakness. Patient is n.p.o. did not receive p.o. medications for blood pressure and blood pressure is noted elevated at this time. IV as needed. Objective Vitals Vital Signs Date Time Temp Pulse Resp B/P (MAP) Pulse Ox O2 Delivery O2 Flow Rate FiO2 09/16/17 08:41 98 21 09/16/17 08:00 98.5 101 16 176/74 (108) 98 09/16/17 07:00 Room Air 09/16/17 04:00 98.6 102 18 100 09/16/17 02:19 100 Room Air 09/16/17 00:00 98.3 98 18 152/67 (95) 100 09/15/17 20:20 Room Air 09/15/17 20:00 98.4 94 18 189/75 (113) 97 09/15/17 18:46 Room Air 09/15/17 17:52 97.9 92 18 151/100 (117) 100 09/15/17 17:30 86 16 164/79 (107) 97 Room Air 09/15/17 15:30 92 16 170/82 (111) 97 Room Air 09/15/17 14:00 88 16 168/79 (108) 98 Room Air 09/15/17 12:37 16 100 Room Air 09/15/17 12:04 99.0 91 16 165/79 (107) 100 I/O 09/15/17 09/15/17 09/15/17 09/16/17 09/16/17 09/16/17 07:00 15:00 23:00 07:00 15:00 23:00 Intake Total 50 ml Output Total 7 ml Balance 50 ml -7 ml Intake Oral 50 ml Output Urine Total 4 ml Stool Total 3 ml # Voids 6 # Bowel Movements 6 Result Diagram: 09/15/17 2153 09/15/171228 Imaging Last Impressions Head CT 09/15/17 1219 Signed Impressions: CONCLUSION: Abdomen/Pelvis CT 09/15/17 1219 Signed Impressions: CONCLUSION: Objective Remarks GENERAL: This is frail 62 -[place]ian resting in bed no acute distress SKIN: Scattered vesicular lesions on the chest CARDIOVASCULAR: Regular rate and rhythm without murmurs, gallops, or rubs. RESPIRATORY: Fair air entry bilaterally. No wheezes, rales, or rhonchi. GASTROINTESTINAL: Abdomen soft, non-tender, nondistended. Positive bowel sounds MUSCULOSKELETAL: Extremities without clubbing, cyanosis, or edema. Pedal pulses appreciated NEUROLOGICAL: Awake but confused, not answering questions right extremity contractures and weakness A/P Assessment and Plan Acute anemia possibly acute on chronic. Presented with melena Generalized weakness Hypokalemia, replaced, continue to monitor and repolace as need. patient failed swallow eval DM 2 Chronic kidney disease stage IV History of CVA with left-sided weakness Dysphagia. Failed swallow eval. STis following. Might consider Dubhoff feeding ti=ube for meds administration, feedings and if failed persistentl;y with swallow eval, or if no adequate intake PO might benefit from PEG tube placement Will also consult palliative care for goals of care Monitor H&H and transfuse of HGB < 7 or if symptomatic Protonix IV twice daily Consider octreotide if hemoglobin continue to drop Type, cross and match and keep on hold 2 units of packed red blood cells Reviewed EKG reviewed no acute ST changes CT abdomen reviewed: Anterior pelvic wall hernia, Left atelectasis, no evidence of acute process Consult GI, plan for EGD accucheck with ISS. Monitor BS and adjust as need Dysphagia. DVT prophylaxis with SCD as chemical ppx is CI due to GI bleed Discussed Condition With nurse, patient DC plan: plan for EGD Failed swallow eval Might need dubhoff temporarily and might need PEG placement Consult palliative care for goals of care Brianda Cooper MD September 16, 2017 10:01
[2017-09-16] MEDS: FLUTICASONE PROPIONATE 50 MCG/ACT 16 GM NASAL SPRAY EACH NARE SCH ×2 (10:19→21:05)
[2017-09-16 10:43] LABS: HEMATOCRIT 28.8 % (35.0-46.0); HEMOGLOBIN 8.9 GM/DL (11.6-15.3)
[2017-09-16] MEDS ORDERED: hydrALAZINE HCL 10 MG TAB PO PRN (12:15)
[2017-09-16 14:30] LABS: HEMATOCRIT 28.3 % (35.0-46.0); HEMOGLOBIN 8.9 GM/DL (11.6-15.3)
[2017-09-16] MEDS: LABETALOL HCL 100 MG/20 ML VIAL IV PUSH PRN (14:32)
--- NOTE | 2017-09-16 15:52 | HHI.GIFU ---
Subjective Remarks Per RN pt continues to have multiple black stools Pt unable to provide history RN was able to obtain consent for EGD (Terri Stevenson) Objective Vitals I&O Vital Signs Date Time Temp Pulse Resp B/P (MAP) Pulse Ox O2 Delivery O2 Flow Rate FiO2 09/16/17 12:00 98.7 103 17 199/71 (113) 99 09/16/17 08:41 98 21 09/16/17 08:00 98.5 101 16 176/74 (108) 98 09/16/17 07:00 Room Air 09/16/17 04:00 98.6 102 18 100 09/16/17 02:19 100 Room Air 09/16/17 00:00 98.3 98 18 152/67 (95) 100 09/15/17 20:20 Room Air 09/15/17 20:00 98.4 94 18 189/75 (113) 97 09/15/17 18:46 Room Air 09/15/17 17:52 97.9 92 18 151/100 (117) 100 09/15/17 17:30 86 16 164/79 (107) 97 Room Air I/O 09/15/17 09/15/17 09/15/17 09/16/17 09/16/17 09/16/17 07:00 15:00 23:00 07:00 15:00 23:00 Intake Total 50 ml Output Total 7 ml Balance 50 ml -7 ml Intake Oral 50 ml Output Urine Total 4 ml Stool Total 3 ml # Voids 6 # Bowel Movements 6 Laboratory Laboratory Tests Test 09/15/17 21:53 09/16/17 10:19 09/16/17 14:10 Hemoglobin 8.0 8.9 8.9 Hematocrit 25.5 28.8 28.3 Date/Time Source Procedure Growth Status 09/15/17 14:24 Urine Catheterized Urine Urine Culture - Preliminary Gram Negative Phil Resulted Imaging Last Impressions Head CT 09/15/17 121 Signed Impressions: CONCLUSION: Abdomen/Pelvis CT 09/15/171218 Signed Impressions: CONCLUSION: Physical Exam HEENT: Normocephalic; atraumatic CHEST: Even/unlabored ABDOMEN: Distended, firm, bowel sounds active SKIN: Normal; no rash; no jaundice. 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 no further details CT no acute findings - anemia - likely multifactorial, pt has ESRD. microcytic. hgb 8.3 * attempted to contact sister/contact Anjali Tejeda [phone] and there was no answer and no voicemail (09/16) EGD cancelled for today because consent was unable to be obtained. Discussed with RN Maggy, who states she just received consent via telephone from POA. She states pt continues to have multiple black BMs. H/H has remained stable, pt has not received any blood transfusions yet. Pt NPO, RN concerned because pt has been running hypertensive, has not been able to receive any PO medication. Will order NG tube since EGD will not be until tomorrow PLAN - Place NG tube - EGD tomorrow - Consent Obtained - NPO - Protonix - Serial H/H - Transfuse as needed - Further recommendations based on findings of above Pt has been seen and examined by myself and Dr. Calvin and this note is written on his behalf (Terri Stevenson) Physician Comments Patient seen and examined Agree with above Continue with current supportive care Monitor labs EGD tomorrow (Dino Calvin MD) Terri Stevenson September 16, 2017 15:52 Dino Calvin MD September 16, 2017 20:29
--- NOTE | 2017-09-16 20:50 | RADRPT ---
EXAM DATE: 09/16/2017 8:41 PM EDT AGE/SEX: 62 years / Female INDICATIONS: Confirm NG tube placement. CLINICAL DATA: This is the patient's subsequent encounter. Patient reports that signs and symptoms h ave been present for 1 day and indicates a pain score of Nonresponsive. MEDICAL/SURGICAL HISTORY: . Renal failure, chronic. Cardiovascular disease. Cerebrovascular dis ease. Diabetes,dementia,asthma Hysterectomy. COMPARISON: [facility] – [place]ST SINGLE AP, 08/08/2017. . FINDINGS: Gastric tube tip and side-port project within the stomach. No dilated loops of small or large bowel. The visualized lower lungs are clear. CONCLUSION: NG tube tip and side-port project within the stomach. Electronically signed by: Alex Barreto MD 09/16/2017 8:48 PM EDT
[2017-09-16] MEDS: INSULIN DETEMIR 100 UNITS/ML VIAL SQ SCH (20:51)
[2017-09-16] MEDS: ATORVASTATIN 80 MG TAB PO SCH (20:53)
[2017-09-16] MEDS: DOXAZOSIN MESYLATE 4 MG TAB PO SCH (21:03)
[2017-09-16 22:14] LABS: HEMATOCRIT 27.4 % (35.0-46.0); HEMOGLOBIN 8.5 GM/DL (11.6-15.3)
[2017-09-17] VITALS (7 sets, daily range): BP systolic 132–178; BP diastolic 59–81; PULSE 87–110; RESP 18–20; TEMP 97.6–99; O2SAT 97–98
[2017-09-17] MEDS: cloNIDine HCL 0.2 MG TAB PO SCH ×3 (05:00→22:00)
[2017-09-17] MEDS: LEVOTHYROXINE SODIUM 25 MCG TAB PO SCH (05:00)
[2017-09-17] MEDS: METOPROLOL TARTRATE 100 MG TAB PO SCH ×2 (05:01→17:00)
[2017-09-17] MEDS: hydrALAZINE HCL 100 MG TAB PO SCH ×3 (05:01→22:00)
[2017-09-17] MEDS: INSULIN ASPART SUPPLEMENTAL SCALE SQ SCH ×4 (08:00→21:00)
[2017-09-17] MEDS ORDERED: LACTATED RINGER'S 1000 ML IV PRN (08:30)
[2017-09-17] MEDS ORDERED: POVIDONE IODINE 5% (ANTISEPSIS KIT) 4 APPLICATIONS EACH NARE PRN (08:30)
[2017-09-17] MEDS ORDERED: CHLORHEXIDINE GLUCONATE 2 % 1 PACK (2 CLOTHS) TOPICAL PRN (08:30)
[2017-09-17] MEDS ORDERED: SODIUM CHLORID 0.9% 500 ML IV PRN (08:30)
[2017-09-17] MEDS ORDERED: METOPROLOL TARTRATE 25 MG TAB PO PRN (08:30)
[2017-09-17] MEDS: CALCITRIOL 0.25 MCG CAP PO SCH (08:46)
[2017-09-17] MEDS: CITALOPRAM HYDROBROMIDE 20 MG TAB PO SCH (08:47)
[2017-09-17] MEDS: PANTOPRAZOLE SODIUM 40 MG VIAL IV PUSH SCH (08:47)
[2017-09-17] MEDS: GABAPENTIN 300 MG CAP PO SCH (08:48)
[2017-09-17] MEDS: FERROUS SULFATE 325 MG (65 MG ELEMENTAL IRON) TAB PO SCH ×3 (08:49→18:30)
--- NOTE | 2017-09-17 08:56 | HHI.PR ---
Subjective Remarks She is in bed appears to not acute distress at this time. Since she did not have a bloody bowel movement or melena. Has a NG tube for Dobbhoff for meds administration and feedings necessary. Failure swallow evaluation. No new motor deficit. No nausea vomiting. No fever or chills. No abdominal pain. Objective Vitals Vital Signs Date Time Temp Pulse Resp B/P (MAP) Pulse Ox O2 Delivery O2 Flow Rate FiO2 09/17/17 07:00 Room Air 09/17/17 04:00 97.6 110 18 178/81 (113) 97 09/17/17 00:00 97.8 104 20 132/59 (83) 98 09/16/17 22:04 16 09/16/17 20:30 Room Air 21 09/16/17 20:11 99 09/16/17 20:00 98.7 110 20 187/86 (119) 98 09/16/17 16:00 98.5 102 18 189/77 (114) 98 09/16/17 12:00 98.7 103 17 199/71 (113) 99 I/O 09/16/17 09/16/17 09/16/17 09/17/17 09/17/17 09/17/17 07:00 15:00 23:00 07:00 15:00 23:00 Intake Total 50 ml 0 ml 0 ml Output Total 7 ml Balance 50 ml -7 ml 0 ml 0 ml Intake Oral 50 ml 0 ml 0 ml Output Urine Total 4 ml Stool Total 3 ml # Voids 6 1 2 # Bowel Movements 6 1 2 Result Diagram: 09/16/17 2205 09/15/17 1229 Imaging Last Impressions Abdomen X-Ray 09/16/17 0000 Signed Impressions: CONCLUSION: NG tube tip and side-port project within the stomach. Head CT 09/15/171218 Signed Impressions: CONCLUSION: 1. 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 2. No evidence of acute infarct, hemorrhage, mass or edema. 3. Chronic white matter disease characteristic of microvascular ischemic mckeon es. Abdomen/Pelvis CT 09/15/171218 Signed Impressions: CONCLUSION: 1. Anterior pelvic wall ventral hernia 2. Status post cholecystectomy and hysterectomy 3. Left basilar airspace disease characteristic of atelectasis 4. No evidence of acute process, suspicious mass or lymphadenopathy. Objective Remarks GENERAL: This is frail 62 -[place] resting in bed no acute distress SKIN: Scattered vesicular lesions on the chest CARDIOVASCULAR: Regular rate and rhythm without murmurs, gallops, or rubs. RESPIRATORY: Fair air entry bilaterally. No wheezes, rales, or rhonchi. GASTROINTESTINAL: Abdomen soft, non-tender, nondistended. Positive bowel sounds MUSCULOSKELETAL: Extremities without clubbing, cyanosis, or edema. Pedal pulses appreciated NEUROLOGICAL: Awake but confused, not answering questions right extremity contractures and weakness A/P Assessment and Plan Acute anemia possibly acute on chronic. Presented with melena Generalized weakness Hypokalemia, replaced, continue to monitor and repolace as need. patient failed swallow eval DM 2 Chronic kidney disease stage IV History of CVA with left-sided weakness Dysphagia. Failed swallow eval. ST is following. Dubhoff for feeding and for meds administration, if fails persistently with swallow eval, or if no adequate intake PO might benefit from PEG tube placement Will also consult palliative care for goals of care Monitor H&H and transfuse of HGB < 7 or if symptomatic Protonix IV twice daily Consider octreotide if hemoglobin continue to drop Type, cross and match and keep on hold 2 units of packed red blood cells Reviewed EKG reviewed no acute ST changes CT abdomen reviewed: Anterior pelvic wall hernia, Left atelectasis, no evidence of acute process Consult GI, plan for EGD accucheck with ISS. Monitor BS and adjust as need Dysphagia. DVT prophylaxis with SCD as chemical ppx is CI due to GI bleed Discussed Condition With nurse, patient DC plan: plan for EGD Failed swallow eval Dubhoff temporarily and might need PEG placement Consult palliative care for goals of care Brianda Cooper MD September 17, 2017 08:56
[2017-09-17] MEDS: SODIUM CHLORIDE 0.9% FLUSH 10 ML FLUSH IV FLUSH SCH ×2 (08:57→21:00)
[2017-09-17] MEDS: FLUTICASONE PROPIONATE 50 MCG/ACT 16 GM NASAL SPRAY EACH NARE SCH ×2 (08:57→21:00)
[2017-09-17] MEDS: METOLAZONE 5 MG TAB PO SCH (09:00)
[2017-09-17] MEDS: CLOPIDOGREL 75 MG TAB PO SCH (09:00)
[2017-09-17] MEDS ORDERED: LIDOCAINE HCL 1% PF 5 ML SYRINGE OTHER ONE (12:00)
[2017-09-17] MEDS ORDERED: PROPOFOL 200 MG/20 ML AMP IV ONE (12:00)
[2017-09-17] MEDS ORDERED: METOPROLOL TARTRATE 5 MG/5 ML VIAL IV ONE (12:00)
--- NOTE | 2017-09-17 15:56 | PD.PROCEDR ---
GI Procedure PROCEDURE PERFORMED EGD with biopsy INDICATION FOR PROCEDURE Melena, anemia PROCEDURE: The procedure, risks and benefits were discussed with Patient/POA and informed consent was obtained. Anesthesia sedated Patient with Diprivan. Patient was placed in the left lateral decubitus position. EGD: The Pentax videoscope was introduced through the oropharynx and advanced to the second portion of the duodenum under direct visualization. Retroflexion was performed in the stomach. FINDINGS: The esophagus this appeared to be unremarkable with normal limits Stomach there was linear erythema throughout the gastric body into the antrum with some patchy erythema in the antrum of unclear significance antral biopsies and gastric body biopsies were taken for further evaluation also noted was NG tube trauma injury to the gastric mucosa The duodenum this appeared to be unremarkable except there were specks of black noted in the duodenal bulb and sweep and descending duodenum this is of unclear significance this was biopsied for further evaluation ESTIMATED BLOOD LOSS: None SPECIMENS REMOVED: Gastric and duodenal biopsies COMPLICATIONS: None IMPRESSION: Gastritis and streaky erythema in the gastric body Abnormal duodenal mucosa with black specks of unclear significance PLAN: Await biopsies Continue with current supportive care Monitor labs No evidence of bleeding noted on endoscopy or blood work Dnio Calvin MD September 17, 2017 15:56
[2017-09-17] MEDS ORDERED: DO NOT ADM ANY ANTICOAGULANT DRUGS PRN (15:59)
[2017-09-17] MEDS: INSULIN DETEMIR 100 UNITS/ML VIAL SQ SCH (21:00)
[2017-09-17] MEDS: DOXAZOSIN MESYLATE 4 MG TAB PO SCH (21:00)
[2017-09-17] MEDS: ATORVASTATIN 80 MG TAB PO SCH (21:00)
[2017-09-17] MEDS: SODIUM CHLOR 0.9% 1000 ML INJ 1,000 ML IV SCH (21:20)
[2017-09-18] VITALS (9 sets, daily range): BP systolic 150–222; BP diastolic 65–149; PULSE 85–101; RESP 18–24; TEMP 97.4–99.3; O2SAT 96–98
[2017-09-18] MEDS: METOPROLOL TARTRATE 100 MG TAB PO SCH ×2 (03:45→15:45)
[2017-09-18] MEDS: cloNIDine HCL 0.2 MG TAB PO SCH ×2 (06:00→14:00)
[2017-09-18] MEDS: hydrALAZINE HCL 100 MG TAB PO SCH ×2 (06:00→14:00)
[2017-09-18] MEDS: LEVOTHYROXINE SODIUM 25 MCG TAB PO SCH (06:00)
[2017-09-18] MEDS: INSULIN ASPART SUPPLEMENTAL SCALE SQ SCH ×3 (08:00→17:00)
[2017-09-18] MEDS: CALCITRIOL 0.25 MCG CAP PO SCH (09:00)
[2017-09-18] MEDS: CITALOPRAM HYDROBROMIDE 20 MG TAB PO SCH (09:00)
[2017-09-18] MEDS: METOLAZONE 5 MG TAB PO SCH (09:00)
[2017-09-18] MEDS: GABAPENTIN 300 MG CAP PO SCH (09:00)
[2017-09-18] MEDS: CLOPIDOGREL 75 MG TAB PO SCH (09:00)
[2017-09-18] MEDS: SODIUM CHLORIDE 0.9% FLUSH 10 ML FLUSH IV FLUSH SCH ×2 (09:00→21:00)
[2017-09-18] MEDS: FERROUS SULFATE 325 MG (65 MG ELEMENTAL IRON) TAB PO SCH ×3 (09:30→18:30)
[2017-09-18 10:07] LABS: HEMATOCRIT 26.6 % (35.0-46.0); HEMOGLOBIN 8.2 GM/DL (11.6-15.3); MEAN CELL VOLUME 86.4 FL (80.0-100.0); MEAN CORPUSCULAR HEMOGLOBIN 26.7 PG (27.0-34.0); MEAN CORPUSCULAR HGB CONC 30.9 % (32.0-36.0); MEAN PLATELET VOLUME 8.8 FL (7.0-11.0); PLATELET COUNT 170 TH/MM3 (150-450); RED BLOOD COUNT 3.08 MIL/MM3 (4.00-5.30); RED CELL DISTRIBUTION WIDTH 16.4 % (11.6-17.2); WHITE BLOOD COUNT 7.8 TH/MM3 (4.0-11.0)
[2017-09-18 10:45] LABS: ALBUMIN 3.4 GM/DL (3.4-5.0); ALKALINE PHOSPHATASE 90 U/L (45-117); ALT (GPT) 22 U/L (10-53); AST (GOT) 22 U/L (15-37); BICARBONATE 29.1 MEQ/L (21.0-32.0); BLOOD UREA NITROGEN 32 MG/DL (7-18); CALCIUM 9.5 MG/DL (8.5-10.1); CHLORIDE 115 MEQ/L (98-107); CREATININE 2.02 MG/DL (0.50-1.00); GLOMERULAR FILTRATION RATE 30 ML/MIN (>89); GLUCOSE,RANDOM 198 MG/DL (74-106); SODIUM (NA) 153 MEQ/L (136-145); TOTAL BILIRUBIN ADULT 0.3 MG/DL (0.2-1.0); TOTAL PROTEIN 7.5 GM/DL (6.4-8.2)
[2017-09-18] MEDS: FLUTICASONE PROPIONATE 50 MCG/ACT 16 GM NASAL SPRAY EACH NARE SCH ×2 (12:48→21:00)
[2017-09-18] MEDS: PANTOPRAZOLE SODIUM 40 MG VIAL IV PUSH SCH (12:52)
[2017-09-18] MEDS: SODIUM CHLOR 0.9% 1000 ML INJ 1,000 ML IV SCH (12:53)
[2017-09-18] MEDS: SODIUM CHLOR 0.45% 1000 ML INJ 1,000 ML IV SCH (13:07)
--- NOTE | 2017-09-18 14:35 | HHI.GIFU ---
Subjective Remarks Pt is sleeping in bed, awakes upon physical exam, starts shouting, non verbal. Per nurse no black stools, not eating. 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) Objective Vitals I&O Vital Signs Date Time Temp Pulse Resp B/P (MAP) Pulse Ox O2 Delivery O2 Flow Rate FiO2 09/18/17 10:05 97 09/18/17 08:00 97.8 101 20 186/78 (114) 97 09/18/17 04:00 99.1 99 18 150/65 (93) 97 09/18/17 00:00 97.7 88 20 150/86 (107) 96 09/17/17 20:30 Room Air 21 09/17/17 20:00 99.0 95 18 144/63 (90) 98 09/17/17 17:15 97.9 94 18 166/73 (104) 97 09/17/17 16:30 98.7 95 24 136/55 (82) 99 Room Air 09/17/17 16:15 99 24 131/59 (83) 99 Room Air 09/17/17 16:10 Room Air 09/17/17 16:00 103 24 137/65 (89) 98 Nasal Cannula 2 09/17/17 15:58 98.8 95 27 120/59 (79) 98 Nasal Cannula 2 09/17/17 14:30 90 18 96 I/O 09/17/17 09/17/17 09/17/17 09/18/17 09/18/17 09/18/17 06:59 14:59 22:59 06:59 14:59 22:59 Intake Total 0 ml 400 ml Balance 0 ml 400 ml Intake Oral 0 ml 0 ml IV Total 0 ml Other 400 ml # Voids 2 2 4 # Bowel Movements 2 2 2 Laboratory Laboratory Tests Test 09/18/17 09:09 White Blood Count 7.8 Red Blood Count 3.08 Hemoglobin 8.2 Hematocrit 26.6 Mean Corpuscular Volume 86.4 Mean Corpuscular Hemoglobin 26.7 Mean Corpuscular Hemoglobin Concent 30.9 Red Cell Distribution Width 16.4 Platelet Count 170 Mean Platelet Volume 8.8 Blood Urea Nitrogen 32 Creatinine 2.02 Random Glucose 198 Total Protein 7.5 Albumin 3.4 Calcium Level 9.5 Alkaline Phosphatase 90 Aspartate Amino Transf (AST/SGOT) 22 Alanine Aminotransferase (ALT/SGPT) 22 Total Bilirubin 0.3 Sodium Level 153 Potassium Level 3.3 Chloride Level 115 Carbon Dioxide Level 29.1 Anion Gap 9 Estimat Glomerular Filtration Rate 30 Ammonia 13 Date/Time Source Procedure Growth Status 09/15/17 14:24 Urine Catheterized Urine Urine Culture - Final Klebsiella Pneumoniae Complete Imaging Last Impressions Abdomen X-Ray 09/16/17 0000 Signed Impressions: CONCLUSION: NG tube tip and side-port project within the stomach. Head CT 09/15/17 1219 Signed Impressions: CONCLUSION: 1. 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 2. No evidence of acute infarct, hemorrhage, mass or edema. 3. Chronic white matter disease characteristic of microvascular ischemic mckeon es. Abdomen/Pelvis CT 09/15/17 1219 Signed Impressions: CONCLUSION: 1. Anterior pelvic wall ventral hernia 2. Status post cholecystectomy and hysterectomy 3. Left basilar airspace disease characteristic of atelectasis 4. No evidence of acute process, suspicious mass or lymphadenopathy. Physical Exam HEENT: Normocephalic; atraumatic CHEST: Even/unlabored ABDOMEN: Soft, firm, bowel sounds active SKIN: Normal; no rash; no jaundice. 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 no further details CT no acute findings - anemia - likely multifactorial, pt has ESRD. microcytic. hgb 8.3 * attempted to contact sister/contact Anjali Tejeda [phone] and there was no answer and no voicemail (09/16) EGD cancelled for today because consent was unable to be obtained. Discussed with MOHAN Winter, who states she just received consent via telephone from POA. She states pt continues to have multiple black BMs. H/H has remained stable, pt has not received any blood transfusions yet. Pt NPO, RN concerned because pt has been running hypertensive, has not been able to receive any PO medication. Will order NG tube since EGD will not be until tomorrow (09/18) s/p EGD on 09/17/17 Gastritis and streaky erythema in the gastric body Abnormal duodenal mucosa with black specks of unclear significance HH stable, didn't require blood transfusion PLAN - DENNIS - Await bx - Okay to DC from GI stand point - Cont. ppi - F/u with GI upon discharge Pt has been seen and examined by myself and Dr. Calvin and this note is written on his behalf (Sosa Daly) Physician Comments Patient seen and examined Agree with above Continue with current supportive care Monitor labs We will sign off (Dino Calvin MD) Sosa Daly September 18, 2017 14:35 Dino Calvin MD September 18, 2017 15:08
[2017-09-18 15:01] LABS: RETIC # 60.7 MIL/L (20.0-150.0)
[2017-09-18 15:11] LABS: BICARBONATE 25.5 MEQ/L (21.0-32.0); CALCIUM 9.4 MG/DL (8.5-10.1)
[2017-09-18] MEDS ORDERED: PROMETHAZINE INJ 25 MG/ML VIAL IM PRN (16:45)
[2017-09-18] MEDS ORDERED: cloNIDine HCL 0.3 MG/24 HR PATCH T-DERMAL ONE (17:00)
[2017-09-18] MEDS ORDERED: hydrALAZINE HCL 20 MG/ML VIAL IV PUSH PRN (17:00)
[2017-09-18] MEDS ORDERED: PROMETHAZINE HCL 25 MG SUPP RECTAL ONE (17:00)
--- NOTE | 2017-09-18 17:04 | HHI.PR ---
Subjective Remarks Patient making throat clearing sound throughout the day per nursing. Patient makes this on exam, however stops and can talk clearly to say certain phrases, however is not helpful with answering questions for exam.. Objective Vital Signs Date Time Temp Pulse Resp B/P (MAP) Pulse Ox O2 Delivery O2 Flow Rate FiO2 09/18/17 16:00 98.7 85 18 195/80 (118) 98 09/18/17 12:00 97.9 99 18 193/83 (119) 96 09/18/17 10:05 97 09/18/17 08:00 97.8 101 20 186/78 (114) 97 09/18/17 04:00 99.1 99 18 150/65 (93) 97 09/18/17 00:00 97.7 88 20 150/86 (107) 96 09/17/17 20:30 Room Air 21 09/17/17 20:00 99.0 95 18 144/63 (90) 98 09/17/17 17:15 97.9 94 18 166/73 (104) 97 I/O 09/17/17 09/17/17 09/17/17 09/18/17 09/18/17 09/18/17 07:00 15:00 23:00 07:00 15:00 23:00 Intake Total 0 ml 400 ml Balance 0 ml 400 ml Intake Oral 0 ml 0 ml IV Total 0 ml Other 400 ml # Voids 2 2 4 # Bowel Movements 2 2 2 Result Diagram: 09/18/17 0909 09/18/17 1334 Objective Remarks GENERAL: Patient sitting up in bed. Appears comfortable. Making throat clearing sounds. SKIN: Warm and dry. HEAD: Normocephalic. EYES: No scleral icterus. No injection or drainage. NECK: Supple, trachea midline. No JVD. No oropharyngeal erythema. CARDIOVASCULAR: Regular rate and rhythm without murmurs, gallops, or rubs. RESPIRATORY: Breath sounds equal bilaterally. No accessory muscle use. GASTROINTESTINAL: Abdomen soft, non-tender, nondistended. MUSCULOSKELETAL: No cyanosis, or edema. BACK: Nontender without obvious deformity. No CVA tenderness. A/P Assessment and Plan == 09/18/17 //Dysphasia. Patient n.p.o. due to failing swallow. palliative care consult pending. Does not appear to effectively clear secretions, however she is talking. able to talk. EGD with no positive findings. //Suspected nausea. Although patient is not actually vomiting, suspect that some of her secretions could be secondary to reflux. Will order KUB, order NG tube. //Hypertension. Rebound hypertension due to n.p.o. status cannot take clonidine by mouth. Add clonidine patch and scheduled IV hydralazine //Hypernatremia. Sodium 152. Repeat also sodium 152. Will start half-normal saline. //Acute anemia possibly acute on chronic. Presented with melena //Generalized weakness //Hypokalemia, replaced, continue to monitor and repolace as need. patient failed swallow eval //DM 2 //Chronic kidney disease stage IV //History of CVA with left-sided weakness Dysphagia. Failed swallow eval. ST is following. Landonhoff for feeding and for meds administration, if fails persistently with swallow eval, or if no adequate intake PO might benefit from PEG tube placement Will also consult palliative care for goals of care Monitor H&H and transfuse of HGB < 7 or if symptomatic Protonix IV twice daily Consider octreotide if hemoglobin continue to drop Type, cross and match and keep on hold 2 units of packed red blood cells Reviewed EKG reviewed no acute ST changes CT abdomen reviewed: Anterior pelvic wall hernia, Left atelectasis, no evidence of acute process Consult GI, plan for EGD accucheck with ISS. Monitor BS and adjust as need //Dysphagia. //DVT prophylaxis with SCD as chemical ppx is CI due to GI bleed Discharge Planning Failed swallow eval Order NG tube temporarily and might need PEG placement Consult palliative care for goals of care -consult placed 09/18 Arnaldo Hampton MD September 18, 2017 17:04
--- NOTE | 2017-09-18 18:01 | HHI.HCPN ---
Palliative care consulted to assist with clarification of medical treatment goals. Case discussed with Dr. Hampton; attempted to contact family via telephone. Message left with Palliative care contact information- will await return phone call and/or follow up on Thursday09/21/17. Contacted [facility] where the patient is a halfway resident to inquire about written advanced directives- FULL CODE. Patient to remain a FULL CODE by default until able to speak with family directly. . Carly Vences September 18, 2017 18:01
[2017-09-18] MEDS: ATORVASTATIN 80 MG TAB PO SCH (21:00)
[2017-09-18] MEDS: DOXAZOSIN MESYLATE 4 MG TAB PO SCH (21:00)
[2017-09-18] MEDS: INSULIN DETEMIR 100 UNITS/ML VIAL SQ SCH (21:00)
--- NOTE | 2017-09-18 21:13 | RADRPT ---
EXAM DATE: 09/18/2017 9:09 PM EDT AGE/SEX: 62 years / Female INDICATIONS: Nausea and abdominal discomfort. CLINICAL DATA: This is the patient's initial encounter. Patient reports that signs and symptoms have been present for 1 day and indicates a pain score of Nonresponsive. MEDICAL/SURGICAL HISTORY: Non-responsive. Non-responsive. COMPARISON: [facility] – [place], ABDOMEN KUB ONLY, 02/19/2016. . FINDINGS: No dilated loops of small or large bowel. The visualized lower lungs are clear. Hemoclips in the rig ht upper quadrant from presumed cholecystectomy. Moderate degenerative changes in the spine. Large kelby dy habitus. CONCLUSION: No dilated loops of small or large bowel. Electronically signed by: Alex Barreto MD 09/18/2017 9:12 PM EDT
[2017-09-19] VITALS (36 sets, daily range): BP systolic 138–222; BP diastolic 63–94; PULSE 75–105; RESP 15–20; TEMP 98.6–99; O2SAT 95–100
[2017-09-19] MEDS: LABETALOL HCL 100 MG/20 ML VIAL IV PUSH PRN (01:15)
[2017-09-19] MEDS: SODIUM CHLOR 0.45% 1000 ML INJ 1,000 ML IV SCH (01:20)
[2017-09-19] MEDS ORDERED: LABETALOL HCL 100 MG/20 ML VIAL IV PUSH PRN (02:30)
[2017-09-19] MEDS: METOPROLOL TARTRATE 100 MG TAB PO SCH ×2 (03:45→15:13)
[2017-09-19] MEDS: LEVOTHYROXINE SODIUM 25 MCG TAB PO SCH (04:53)
[2017-09-19 05:33] LABS: AUTOMATED NEUTROPHIL # 5.6 TH/MM3 (1.8-7.7); BASOPHIL % 0.5 % (0.0-2.0); EOSINOPHIL % 0.5 % (0.0-4.0); HEMATOCRIT 25.8 % (35.0-46.0); LYMPH % 14.4 % (9.0-44.0); LYMPHOCYTE # 1.1 TH/MM3 (1.0-4.8); MEAN CELL VOLUME 86.4 FL (80.0-100.0); MEAN CORPUSCULAR HEMOGLOBIN 26.7 PG (27.0-34.0); MEAN CORPUSCULAR HGB CONC 30.9 % (32.0-36.0); MEAN PLATELET VOLUME 8.9 FL (7.0-11.0); MONO % 8.5 % (0.0-8.0); MONOCYTE # 0.6 TH/MM3 (0-0.9); NEUT % 76.1 % (16.0-70.0); PLATELET COUNT 169 TH/MM3 (150-450); RED BLOOD COUNT 2.99 MIL/MM3 (4.00-5.30); WHITE BLOOD COUNT 7.3 TH/MM3 (4.0-11.0)
[2017-09-19 06:05] LABS: ALBUMIN 3.3 GM/DL (3.4-5.0); BICARBONATE 28.7 MEQ/L (21.0-32.0); CALCIUM 9.3 MG/DL (8.5-10.1); CREATININE 1.93 MG/DL (0.50-1.00); PHOSPHORUS 1.5 MG/DL (2.5-4.9)
[2017-09-19] MEDS: INSULIN ASPART SUPPLEMENTAL SCALE SQ SCH ×5 (08:00→21:00)
[2017-09-19] MEDS: PANTOPRAZOLE SODIUM 40 MG VIAL IV PUSH SCH (08:14)
[2017-09-19] MEDS: SODIUM CHLORIDE 0.9% FLUSH 10 ML FLUSH IV FLUSH SCH ×2 (08:14→20:25)
[2017-09-19] MEDS: FLUTICASONE PROPIONATE 50 MCG/ACT 16 GM NASAL SPRAY EACH NARE SCH ×2 (08:15→20:26)
[2017-09-19] MEDS ORDERED: CHLOROTHIAZIDE SOD 500 MG VIAL IV ONE (08:30)
[2017-09-19] MEDS: GABAPENTIN 300 MG CAP PO SCH (09:00)
[2017-09-19] MEDS: CLOPIDOGREL 75 MG TAB PO SCH (09:00)
[2017-09-19] MEDS: CALCITRIOL 0.25 MCG CAP PO SCH (09:00)
[2017-09-19] MEDS: METOLAZONE 5 MG TAB PO SCH (09:00)
[2017-09-19] MEDS: CITALOPRAM HYDROBROMIDE 20 MG TAB PO SCH (09:00)
[2017-09-19] MEDS: METOPROLOL TARTRATE 5 MG/5 ML VIAL IV PUSH SCH ×3 (09:22→20:26)
[2017-09-19] MEDS: FERROUS SULFATE 325 MG (65 MG ELEMENTAL IRON) TAB PO SCH ×3 (09:30→18:30)
[2017-09-19] MEDS: D5W + KCL 20 MEQ INJ 1,000 ML IV SCH (09:46)
--- NOTE | 2017-09-19 09:49 | HHI.PR ---
Subjective Remarks Patient seen this morning around 9 AM. Appears comfortable, sleeping, wakes up for exam. Tells me to call Anjali. Called to patient's sister Anjali with rings off hook, does not go to voicemail. Objective Vital Signs Date Time Temp Pulse Resp B/P (MAP) Pulse Ox O2 Delivery O2 Flow Rate FiO2 09/19/17 09:32 100 21 09/19/17 08:19 98.6 96 17 207/93 (131) 100 09/19/17 07:40 94 09/19/17 07:20 86 17 203/86 (125) 100 09/19/17 07:05 90 218/93 (134) 98 09/19/17 06:50 94 172/81 (111) 100 09/19/17 06:35 94 220/94 (136) 99 09/19/17 04:40 99 222/91 (134) 09/19/17 03:50 98.7 94 19 190/78 (115) 99 214/94 (134) 09/19/17 02:20 86 18 182/64 (103) 95 09/19/17 02:05 96 18 182/64 (103) 96 213/88 (129) 09/19/17 01:50 92 20 171/74 (106) 98 09/19/17 00:02 186/72 (110) Automatic Cuff 09/18/17 23:50 99.3 90 24 222/149 (173) 97 203/83 (123) 09/18/17 23:15 96 Room Air 09/18/17 20:00 97.4 90 24 160/82 (108) 98 09/18/17 17:48 98 21 09/18/17 16:00 98.7 85 18 195/80 (118) 98 09/18/17 12:00 97.9 99 18 193/83 (119) 96 09/18/17 10:05 97 I/O 09/18/17 09/18/17 09/18/17 09/19/17 09/19/17 09/19/17 07:00 15:00 23:00 07:00 15:00 23:00 Intake Total 0 ml Balance 0 ml Intake Oral 0 ml # Voids 4 3 3 # Bowel Movements 2 2 Result Diagram: 09/19/1744109/19/17441 Objective Remarks GENERAL: Patient sitting up in bed. Appears comfortable. SKIN: Warm and dry. HEAD: Normocephalic. EYES: No scleral icterus. No injection or drainage. NECK: Supple, trachea midline. No JVD. No oropharyngeal erythema. CARDIOVASCULAR: Regular rate and rhythm without murmurs, gallops, or rubs. RESPIRATORY: Breath sounds equal bilaterally. No accessory muscle use. GASTROINTESTINAL: Abdomen soft, non-tender, nondistended. MUSCULOSKELETAL: No cyanosis, or edema. BACK: Nontender without obvious deformity. No CVA tenderness. A/P Assessment and Plan == 09/19/17 //Dysphasia. //Nausea = Patient vomited today after being seen. Bilious vomiting noted. KUB yesterday unremarkable. NG tube placed to low intermittent wall suction. Restraints, continue n.p.o. Transfer to ICU. //Accelerated hypertension. -Clonidine patch placed 09/18. -Hospital apparently is out of hydralazine IV. //Hypernatremia. Sodium 156. Increasing despite being on half-normal saline. We will start on D5 fluids. Follow-up labs this afternoon. //Hypokalemia. Replace. Follow-up. //Acute anemia possibly acute on chronic. Presented with melena //Generalized weakness //Hypokalemia, replaced, continue to monitor and repolace as need. patient failed swallow eval //DM 2 //Chronic kidney disease stage IV //History of CVA with left-sided weakness Dysphagia. Failed swallow eval. ST is following. Dubhoff for feeding and for meds administration, if fails persistently with swallow eval, or if no adequate intake PO might benefit from PEG tube placement Will also consult palliative care for goals of care Monitor H&H and transfuse of HGB < 7 or if symptomatic Protonix IV twice daily Consider octreotide if hemoglobin continue to drop Type, cross and match and keep on hold 2 units of packed red blood cells Reviewed EKG reviewed no acute ST changes CT abdomen reviewed: Anterior pelvic wall hernia, Left atelectasis, no evidence of acute process Consult GI, plan for EGD accucheck with ISS. Monitor BS and adjust as need //Dysphagia. //DVT prophylaxis with SCD as chemical ppx is CI due to GI bleed Discharge Planning Failed swallow eval Order NG tube temporarily and might need PEG placement Consult palliative care for goals of care -consult placed 09/18 Arnaldo Hampton MD September 19, 2017 09:49
[2017-09-19] MEDS ORDERED: POTASSIUM PHOSPHATE INJ 15 MMOL in SODIUM CHLORIDE 0.9% INJ 150 ML IV ONE (10:00)
[2017-09-19] MEDS: niCARdipine INJ 25 MG in SODIUM CHLOR 0.9% 250 ML INJ 250 ML IV PRN ×3 (10:30→20:24)
[2017-09-19] MEDS ORDERED: LORazepam 2 MG/ML VIAL IV PUSH PRN (11:15)
[2017-09-19] MEDS ORDERED: NITROGLYCERIN 2% OINT 1 GM PACKET TOPICAL ONE (11:30)
[2017-09-19] MEDS: hydrALAZINE HCL 100 MG TAB PO SCH ×2 (12:44→22:55)
[2017-09-19] MEDS: cloNIDine HCL 0.2 MG TAB PO SCH (12:44)
--- NOTE | 2017-09-19 15:18 | HHI.PR ---
Subjective Remarks This patient was last seen by myself as an inpatient at this institution last year May 2016. I checked my office records and there is no record in my EMR of having seeing this patient in my office in the last 2 years. Patient was subsequently admitted to this institution June 2017 and had an AV dialysis shunt created. I am assuming that she saw another garbage person who requested that this A-V shunt be created but as far as I am aware it was not me. I have requested that consultation be placed with the music professionals garbage person for this admission as it appears that she is already established with another garbage person. Objective Vital Signs Date Time Temp Pulse Resp B/P (MAP) Pulse Ox O2 Delivery O2 Flow Rate FiO2 09/19/17 13:10 104 09/19/17 12:00 99 Room Air 09/19/17 10:30 107 219/90 09/19/17 09:32 100 21 09/19/17 08:19 98.6 96 17 207/93 (131) 100 09/19/17 07:40 94 09/19/17 07:20 86 17 203/86 (125) 100 09/19/17 07:05 90 218/93 (134) 98 09/19/17 06:50 94 172/81 (111) 100 09/19/17 06:35 94 220/94 (136) 99 09/19/17 04:40 99 222/91 (134) 09/19/17 03:50 98.7 94 19 190/78 (115) 99 214/94 (134) 09/19/17 02:20 86 18 182/64 (103) 95 09/19/17 02:05 96 18 182/64 (103) 96 213/88 (129) 09/19/17 01:50 92 20 171/74 (106) 98 09/19/17 00:02 186/72 (110) Automatic Cuff 09/18/17 23:50 99.3 90 24 222/149 (173) 97 203/83 (123) 09/18/17 23:15 96 Room Air 09/18/17 20:00 97.4 90 24 160/82 (108) 98 09/18/17 17:48 98 21 09/18/17 16:00 98.7 85 18 195/80 (118) 98 I/O 5/25/18 5/2509/18/17 09/19/17 09/19/17 09/19/17 07:00 15:00 23:00 07:00 15:00 23:00 Intake Total 0 ml 250 ml Balance 0 ml 250 ml Intake Oral 0 ml IV Total 250 ml # Voids 4 3 3 # Bowel Movements 2 2 Result Diagram: 09/19/17 0442 09/19/17 0442 Brooks Vargas MD September 19, 2017 15:18
[2017-09-19 17:07] LABS: BICARBONATE 28.7 MEQ/L (21.0-32.0); CALCIUM 9.5 MG/DL (8.5-10.1); CREATININE 2.11 MG/DL (0.50-1.00)
--- NOTE | 2017-09-19 17:28 | PD.CONS ---
HPI Consult Requested By Reason for Consult Chronic kidney disease stage IV. Hypertension. Primary Care Physician Unknown History of Present Illness Initially I for that the patient was not my outpatient as apparently her last name is hyphenated as Jose Ronquillo however she is listed in the long-term is Dionicio and also during this admission and when I checked my electronic health record system in the office she was not listed as 1 of my office patients under that name. This is since been clarified. She has a history of long-standing chronic kidney disease. There was an episode of acute renal failure back in 2016. Kidney biopsy was performed as there was a question of glomerulonephritis however the biopsy showed diabetic nephropathy, nephrosclerosis and also severe interstitial nephritis. She required dialysis for fluid overload for short duration but dialysis was subsequently discontinued with improvement in renal function. She was subsequently followed up in the office and there was evidence of progressive chronic kidney disease with GFR is ranging between 16 and 17 and creatinine levels ranging between about 3.1 and 3.6. She was referred for placement of an AV dialysis shunt in preparation for dialysis. Quality of life issues were discussed with the patient and her daughter in view of her multiple comorbidities and they did wish to consider dialysis when the patient progressive end-stage renal disease. Patient admitted on this occasion with melena and subsequently upper endoscopy was performed showing evidence of gastritis. She was transferred to the ICU for accelerated hypertension. On reviewing previous admissions it appears that she was on clonidine previously as part of her hypertensive regimen. Patient has self can provide little history currently as she is lethargic. Despite the development of hypernatremia the patient's renal indices have actually improved during this admission.. Review of Systems ROS Limitations: Altered Mental Status Past Family Social History Allergies: Coded Allergies: *MDRO Multi-Drug Resistant Organism (Verified Adverse Reaction, Unknown, MRSA, 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 - 05/31/16 VRE (urine)-06/29/16 Past Medical History Biopsy confirmed diabetic nephropathy and nephrosclerosis. CKD stage IV. GFR as previously in the teens. Diabetes mellitus Hypertension Coronary disease by history. CVA. Diastolic dysfunction with previous CHF. History of acute renal insufficiency requiring temporary dialysis 2015. Past Surgical History Creation of AV dialysis shunt with subsequent transposition and into position with PTFE July 20, 2017. Dr. Fernandes. section. Reported Medications Reported Meds & Active Scripts Active Percocet (Oxycodone-Acetaminophen) 5-325 mg Tab 1 Tab PO Q4H PRN Lopressor (Metoprolol Tartrate) 100 Mg Tab 100 Mg PO Q12H Vitamin D3 (Cholecalciferol) 1,000 Unit Tab 2,000 Units PO DAILY Bumetanide 1 Mg Tab 2 Mg PO BID@18 Catapres (Clonidine) 0.2 Mg Tab 0.2 Mg PO Q8HR Norvasc (Amlodipine Besylate) 10 Mg Tab 10 Mg PO DAILY Reported Roxicodone (Oxycodone HCl) 5 Mg Tab 5 Mg PO BID Ferrous Sulfate 325 Mg (65 Mg Iron) Tablet 325 Mg PO TIDPC Calcitriol 0.25 Mcg Cap 0.25 Mcg PO DAILY Polyethylene Glycol 3350 Powder (Polyethylene Glycol) 17 Gram Pow 17 Gm PO DAILY Procrit Inj (Epoetin Govind) 20,000 Unit/Ml Inj 15,000 Units SQ 2 WEEKS Lantus Inj (Insulin Glargine) 1,000 Unit/10 Ml Vial 20 Units SQ HS Metolazone 5 Mg Tab 5 Mg PO DAILY Levothyroxine (Levothyroxine Sodium) 25 Mcg Tab 25 Mcg PO DAILY Cardura (Doxazosin Mesylate) 8 Mg Tab 8 Mg PO HS Novolog Flexpen Inj (Insulin Aspart) 300 Unit/3 Ml Pen 0-12 Units SQ ACHS SLIDING SCALE: 0-70=OJ and call , Repeat in 1hr, 71-150=0 units, 151-200=3 units, 201-250=5 units, 251-300=8 units, 301-400=10 units, > 400=12 units & Repeat in 2hrs, if > 350 call Hydralazine (Hydralazine HCl) 100 Mg Tab 100 Mg PO Q8HR Protonix (Pantoprazole Sodium) 40 Mg Tab 40 Mg PO DAILY Plavix (Clopidogrel Bisulfate) 75 Mg Tab 75 Mg PO DAILY Neurontin (Gabapentin) 300 Mg Cap 300 Mg PO Q8HR Celexa (Citalopram Hydrobromide) 20 Mg Tab 20 Mg PO DAILY Atorvastatin (Atorvastatin Calcium) 80 Mg Tab 80 Mg PO HS Aspirin 325 Mg Tab 325 Mg PO DAILY Fluticasone Nasal [place] 50 Mcg/Act Naspr 1 [place] EACH NARE Q12HR 50 mcg/spray Active Ordered Medications Current Medications Sodium Chloride (NS Flush) 2 ml UNSCH PRN IV FLUSH FLUSH AFTER USING IV ACCESS ; Start 09/15/17 at 12:30; Stop 09/16/17 at 06:12; Status DC Pantoprazole Sodium (Protonix Inj) 40 mg ONCE ONCE IVP Last administered on at 13:14; Start 09/15/17 at 12:30; Stop 09/15/17 at 12:31; Status DC Sodium Chloride 1,000 ml @ 75 mls/hr [id number] IV Last administered on at 12:53; Start 09/15/17 at 16:00; Stop 09/18/17 at 12:58; Status DC Sodium Chloride (NS Flush) 2 ml UNSCH PRN IV FLUSH FLUSH AFTER USING IV ACCESS ; Start 09/15/17 at 15:30 Sodium Chloride (NS Flush) 2 ml BID IV FLUSH Last administered on 09/19/17at 08: 14; Start 09/15/17 at 21:00 Ondansetron HCl (Zofran Odt) 4 mg Q6H PRN PO NAUSEA; Start 09/15/17 at 15:30 Pantoprazole Sodium (Protonix Inj) 40 mg DAILY IV PUSH Last administered on at 08:14; Start 09/16/17 at 09:00 Insulin Aspart (NovoLOG SUPPLEMENTAL SCALE) 1 ACHS SLIDING SCALE SQ ; Start at 17:00; Status UNV Glucagon (Glucagon Inj) 1 mg UNSCH PRN OTHER HYPOGLYCEMIA-SEE COMMENTS; Start 09/15/17 at 15:45; Status UNV Dextrose (D50w (Vial) Inj) 50 ml UNSCH PRN IV PUSH HYPOGLYCEMIA-SEE COMMENTS; Start 09/15/17 at 15:45; Status UNV Amlodipine Besylate (Norvasc) 10 mg DAILY PO Last administered on 09/19/17at 09: 00; Start 09/16/17 at 09:00 Atorvastatin Calcium (Lipitor) 80 mg HS PO Last administered on 09/16/17at 20:53 ; Start 09/15/17 at 21:00 Calcitriol (Rocaltrol) 0.25 mcg DAILY PO Last administered on 09/19/17at 09:00; Start 09/16/17 at 09:00 Citalopram Hydrobromide (CeleXA) 20 mg DAILY PO Last administered on 5/26/18at 09:00; Start 09/16/17 at 09:00 Clonidine (Catapres) 0.2 mg Q8HR PO Last administered on 09/19/17 12:44; Start 09/15/17 at 22:00; Status Future hold Clopidogrel Bisulfate (Plavix) 75 mg DAILY PO Last administered on 09/19/17 09 :00; Start 09/16/17 at 09:00 Doxazosin Mesylate (Cardura) 8 mg HS PO Last administered on 09/16/17 21:03; Start 09/15/17 at 21:00 Ferrous Sulfate (Ferrous Sulfate) 325 mg TIDPC PO Last administered on 08:49; Start 09/15/17 at 18:30 Fluticasone Propionate (Flonase [place] Spr) 1 spray Q12HR EACH NARE Last administered on 09/19/17 08:15; Start 09/15/17 at 21:00 Gabapentin (Neurontin) 300 mg Q8HR PO ; Start 09/15/17 at 22:00; Stop 09/16/17 at 09:05; Status DC Hydralazine HCl (Apresoline) 100 mg Q8HR PO Last administered on 09/19/17 12: 44; Start 09/15/17 at 22:00; Status Future hold Insulin Detemir (Levemir Inj) 20 units HS SQ ; Start 09/15/17 at 21:00 Levothyroxine Sodium (Synthroid) 25 mcg DAILY@0600 PO Last administered on 09/17 05:00; Start 09/16/17 at 06:00 Metolazone (Zaroxolyn) 5 mg DAILY PO Last administered on 09/19/17 09:00; Start 09/16/17 at 09:00 Metoprolol Tartrate (Lopressor) 100 mg Q12H PO Last administered on 09/19/17 15:13; Start 09/15/17 at 15:45 Oxycodone HCl (Roxicodone) 5 mg BID PO Last administered on 09/17/17 08:48; Start 09/15/17 at 21:00; Stop 09/19/17 at 09:47; Status DC Insulin Aspart (NovoLOG SUPPLEMENTAL SCALE) 1 ACHS SLIDING SCALE SQ Last administered on 5/26/18at 12:59; Start 09/15/17 at 17:00 Glucagon (Glucagon Inj) 1 mg UNSCH PRN OTHER HYPOGLYCEMIA-SEE COMMENTS; Start 09/15/17 at 15:45 Dextrose (D50w (Vial) Inj) 50 ml UNSCH PRN IV PUSH HYPOGLYCEMIA-SEE COMMENTS; Start 09/15/17 at 15:45 Hydralazine HCl (Apresoline Inj) 20 mg ONCE ONCE IV PUSH Last administered on 09/15/17at 21:12; Start 09/15/17 at 21:15; Stop 09/15/17 at 21:16; Status DC Hydralazine HCl (Apresoline Inj) 20 mg Q4H PRN IV PUSH SBP>160, DBP>90; Start 09/16/17 at 05:45; Stop 09/16/17 at 06:07; Status DC Gabapentin (Neurontin) 300 mg DAILY PO Last administered on 09/19/17at 09:00; Start 09/17/17 at 09:00 Hydralazine HCl (Apresoline) 10 mg Q6HR PRN PO SBP>160, DBP>90; Start 09/16/17 at 12:15 Hydralazine HCl (Apresoline Inj) 20 mg Q4H PRN IV PUSH SBP>160, DBP>90; Start 09/16/17 at 12:15; Status UNV Labetalol HCl (Trandate Inj) 10 mg Q6H PRN IV PUSH SBP>160, DBP>90, HR>65 Last administered on 09/19/17at 01:15; Start 09/16/17 at 12:15; Stop 09/19/17 at 02:28 ; Status DC Lactated Ringer's 1,000 ml @ 30 mls/hr Q24H PRN IV SEE LABEL COMMENTS; Start at 08:30; Stop 09/19/17 at 08:39; Status DC Sodium Chloride 500 ml @ 30 mls/hr [id number] PRN IV SEE LABEL COMMENTS; Start at 08:30; Stop 09/19/17 at 08:39; Status DC Metoprolol Tartrate (Lopressor) 25 mg MANAGER COMPLETIONS PRN PO SEE LABEL COMMENTS; Start 09/17/17 at 08:30; Stop 09/20/17 at 08:29 Povidone Iodine (Betadine 5% Antisepsis Kit) 1 applic MANAGER COMPLETIONS PRN EACH NARE SEE LABEL COMMENTS; Start 09/17/17 at 08:30; Stop 09/20/17 at 08:29 Chlorhexidine Gluconate (Chlorhexidine 2% Cloth) 3 pack MANAGER COMPLETIONS PRN TOPICAL SEE LABEL COMMENTS; Start 09/17/17 at 08:30; Stop 09/20/17 at 08:29 Miscellaneous Information ([facility] [place] [facility]) ALL NURSING DEPARTME... UNSCH PRN .XX SEE LABEL COMMENTS; Start 09/17/17 at 15:59; Stop 09/18/17 at 15: 58; Status DC Lidocaine HCl (Xylocaine-Mpf 1% Inj) 5 ml STK-MED ONCE OTHER ; Start 09/17/17 at 12:00; Stop 09/18/17 at 10:48; Status DC Metoprolol Tartrate (Lopressor Inj) 5 mg STK-MED ONCE IV ; Start 09/17/17 at 12: 00; Stop 09/18/17 at 10:48; Status DC Propofol (Diprivan 200 Mg/20 ml Inj) 200 mg STK-MED ONCE IV ; Start 09/17/17 at 12:00; Stop 09/18/17 at 10:48; Status DC Sodium Chloride 1,000 ml @ 84 mls/hr [id number] IV Last administered on at 01:20; Start 09/18/17 at 13:00; Stop 09/19/17 at 08:28; Status DC Promethazine HCl (Phenergan Inj) 25 mg Q6H PRN IM NAUSEA; Start 09/18/17 at 16: 45 Promethazine HCl (Phenergan Supp) 25 mg ONCE ONCE RECTAL Last administered on 09/18/17at 18:36; Start 09/18/17 at 17:00; Stop 09/18/17 at 17:01; Status DC Hydralazine HCl (Apresoline Inj) 20 mg Q4H PRN IV PUSH SBP>160, DBP>90; Start 09/18/17 at 17:00; Stop 09/19/17 at 02:31; Status DC Clonidine (Catapres-Tts 0.3 Mg Patch.7d) 1 patch ONCE ONCE T-DERMAL Last administered on 09/18/17at 18:36; Start 09/18/17 at 17:00; Stop 09/18/17 at 17:18 ; Status DC Labetalol HCl (Trandate Inj) 10 mg Q4H PRN IV PUSH SBP>160, DBP>90, HR>65 Last administered on 09/19/17at 06:16; Start 09/19/17 at 02:30 Potassium Chloride/Dextrose 1,000 ml @ 60 mls/hr [id number] IV Last administered on 09/19/17at 09:46; Start 09/19/17 at 10:00 Chlorothiazide Sodium (Diuril Inj) 500 mg ONCE ONCE IV Last administered on at 09:32; Start 09/19/17 at 08:30; Stop 09/19/17 at 08:34; Status DC Chlorothiazide Sodium (Diuril Inj) 500 mg DAILY IV ; Start 09/20/17 at 09:00 Metoprolol Tartrate (Lopressor Inj) 5 mg Q6H IV PUSH Last administered on at 15:12; Start 09/19/17 at 09:00 Potassium Phosphate 15 mmol/ Sodium Chloride 155 ml @ 38.75 mls/ hr ONCE ONCE IV Last administered on 09/19/17at 11:42; Start 09/19/17 at 10:00; Stop at 13:59; Status DC Nicardipine HCl 25 mg/Sodium Chloride 260 ml @ 52 mls/hr TITRATE PRN IV Blood pressure management Last administered on 09/19/17at 13:10; Start 09/19/17 at 10: 00 Lorazepam (Ativan Inj) 1 mg Q6H PRN IV PUSH ANXIETY AND/OR AGITATION Last administered on 09/19/17at 11:42; Start 09/19/17 at 11:15 Nitroglycerin (Nitroglycerin 2% Oint) 1 inch ONCE ONCE TOPICAL Last administered on 09/19/17at 11:42; Start 09/19/17 at 11:30; Stop 09/19/17 at 11:31 ; Status DC Family History Unobtainable from patient currently. Social History Patient resides in a long-term. Her sister is Anjali Tejeda telephone #[phone] Physical Exam Vital Signs Vital Signs Date Time Temp Pulse Resp B/P (MAP) Pulse Ox O2 Delivery O2 Flow Rate FiO2 09/19/17 13:10 104 09/19/17 12:00 99 Room Air 09/19/17 10:30 107 219/90 09/19/17 09:32 100 21 09/19/17 08:19 98.6 96 17 207/93 (131) 100 09/19/17 07:40 94 09/19/17 07:20 86 17 203/86 (125) 100 09/19/17 07:05 90 218/93 (134) 98 09/19/17 06:50 94 172/81 (111) 100 09/19/17 06:35 94 220/94 (136) 99 09/19/17 04:40 99 222/91 (134) 09/19/17 03:50 98.7 94 19 190/78 (115) 99 214/94 (134) 09/19/17 02:20 86 18 182/64 (103) 95 09/19/17 02:05 96 18 182/64 (103) 96 213/88 (129) 09/19/17 01:50 92 20 171/74 (106) 98 09/19/17 00:02 186/72 (110) Automatic Cuff 09/18/17 23:50 99.3 90 24 222/149 (173) 97 203/83 (123) 09/18/17 23:15 96 Room Air 09/18/17 20:00 97.4 90 24 160/82 (108) 98 09/18/17 17:48 98 21 Physical Exam GENERAL: -[place] female lying in bed not in respiratory distress. Opens eyes to name but nonverbal and not following simple commands. SKIN: Warm and dry. HEAD: Normocephalic. EYES: No scleral icterus. No injection or drainage. NECK: Supple, trachea midline. No JVD or lymphadenopathy. CARDIOVASCULAR: Regular rate and rhythm without murmurs, gallops, or rubs. RESPIRATORY: Breath sounds equal bilaterally. No accessory muscle use. GASTROINTESTINAL: Abdomen soft, non-tender, nondistended. MUSCULOSKELETAL: No cyanosis, or edema. Contracture limbs right side. Laboratory Laboratory Tests Test 09/19/17 04:42 09/19/17 16:30 White Blood Count 7.3 Red Blood Count 2.99 Hemoglobin 8.0 Hematocrit 25.8 Mean Corpuscular Volume 86.4 Mean Corpuscular Hemoglobin 26.7 Mean Corpuscular Hemoglobin Concent 30.9 Red Cell Distribution Width 17.0 Platelet Count 169 Mean Platelet Volume 8.9 Neutrophils (%) (Auto) 76.1 Lymphocytes (%) (Auto) 14.4 Monocytes (%) (Auto) 8.5 Eosinophils (%) (Auto) 0.5 Basophils (%) (Auto) 0.5 Neutrophils # (Auto) 5.6 Lymphocytes # (Auto) 1.1 Monocytes # (Auto) 0.6 Eosinophils # (Auto) 0.0 Basophils # (Auto) 0.0 CBC Comment DIFF FINAL Differential Comment Blood Urea Nitrogen 27 30 Creatinine 1.93 2.11 Random Glucose 182 278 Albumin 3.3 Calcium Level 9.3 9.5 Phosphorus Level 1.5 Magnesium Level 2.0 Sodium Level 156 155 Potassium Level 3.1 3.4 Chloride Level 118 120 Carbon Dioxide Level 28.7 28.7 Anion Gap 9 6 Estimat Glomerular Filtration Rate 32 29 Date/Time Source Procedure Growth Status 09/15/17 14:24 Urine Catheterized Urine Urine Culture - Final Klebsiella Pneumoniae Complete Result Diagram: 09/19/17 0442 09/19/17 0442 Imaging Last 48 hours Impressions Abdomen X-Ray 09/18/17 0000 Signed Impressions: CONCLUSION: No dilated loops of small or large bowel. Assessment and Plan Problem List: (1) CKD (chronic kidney disease) stage 4, GFR 15-29 ml/min ICD Codes: N18.4 - Chronic kidney disease, stage 4 (severe) Status: Chronic Plan: Patient's renal indices have actually improved despite the fact that she has developed hypernatremia suggesting a free water deficit. No evidence of fluid overload at this time. I see no indication to initiate dialysis currently. But will continue to follow patient. Medications should be adjusted for the patient's estimated GFR if clinically indicated. Avoid agents with significant potential for nephrotoxicity possible including NSAIDs for analgesia, iodine contrast agents. Gadolinium is contraindicated if the GFR is below 30. (2) Accelerated essential hypertension ICD Codes: I10 - Essential (primary) hypertension Status: Acute Plan: May be related to the fact that the patient is not on clonidine. I have resumed same at initial dose of 0.1 mg every 8 hourly and increase as indicated. Continue other hypertensive medications as ordered. (3) Hypernatremia ICD Codes: E87.0 - Hyperosmolality and hypernatremia Status: Acute Plan: Agree with hypotonic fluid administration. Monitor response. I will increase rate however. (4) Diabetic nephropathy ICD Codes: E11.21 - Type 2 diabetes mellitus with diabetic nephropathy (5) History of diastolic dysfunction ICD Codes: Z86.79 - Personal history of other diseases of the circulatory system Plan: No evidence of congestive heart failure clinically at this time. (6) Secondary hyperparathyroidism of renal origin ICD Codes: N25.81 - Secondary hyperparathyroidism of renal origin Plan: Continue calcitriol. Follow-up intact PTH level as well as vitamin D level. Brooks Vargas MD September 19, 2017 17:27
[2017-09-19] MEDS: cloNIDine HCL 0.1 MG TAB PO SCH ×2 (18:46→22:55)
[2017-09-19] MEDS: ATORVASTATIN 80 MG TAB PO SCH (20:26)
[2017-09-19] MEDS: INSULIN DETEMIR 100 UNITS/ML VIAL SQ SCH (21:00)
[2017-09-19] MEDS ORDERED: CHLORHEXIDINE GLUCONATE 2 % 1 PACK (2 CLOTHS)(extra cloths) TOPICAL PRN (21:45)
[2017-09-19 22:13] LABS: BACTERIA, URINE MANY /hpf; BILIRUBIN, URINE NEG (NEG); BLOOD, URINE MOD (NEG); GLUCOSE,URINE 300 mg/dL (NEG); KETONE, URINE 10 mg/dL (NEG); NITRITE,URINE NEG (NEG); PH, URINE 6.5 (5.0-8.5); SQUAMOUS EPITHELIAL CELL URINE 2 /hpf (0-5); URINE COLOR YELLOW (YELLW/STRAW); URINE LEUKOCYTE ESTERASE LARGE (NEG); WHITE BLOOD CELL CLUMPS MANY
[2017-09-19] MEDS: DOXAZOSIN MESYLATE 4 MG TAB PO SCH (22:55)
[2017-09-20] VITALS (13 sets, daily range): BP systolic 128–187; BP diastolic 67–130; PULSE 58–84; RESP 11–13; TEMP 97.5–98.6; O2SAT 100
[2017-09-20] MEDS: D5W + KCL 20 MEQ INJ 1,000 ML IV SCH (02:27)
[2017-09-20] MEDS: METOPROLOL TARTRATE 5 MG/5 ML VIAL IV PUSH SCH ×4 (03:04→14:55)
[2017-09-20] MEDS: METOPROLOL TARTRATE 100 MG TAB PO SCH ×2 (03:12→14:50)
[2017-09-20] MEDS: CHLORHEXIDINE GLUCONATE 2 % 1 PACK (2 CLOTHS)(taper/protocol) TOPICAL SCH (04:00)
[2017-09-20] MEDS: hydrALAZINE HCL 100 MG TAB PO SCH ×3 (05:35→21:53)
[2017-09-20] MEDS: cloNIDine HCL 0.1 MG TAB PO SCH ×3 (05:35→21:53)
[2017-09-20] MEDS: LEVOTHYROXINE SODIUM 25 MCG TAB PO SCH (05:35)
[2017-09-20] MEDS: INSULIN ASPART SUPPLEMENTAL SCALE SQ SCH ×4 (08:00→21:43)
[2017-09-20] MEDS: CALCITRIOL 0.25 MCG CAP PO SCH (08:04)
[2017-09-20] MEDS: FLUTICASONE PROPIONATE 50 MCG/ACT 16 GM NASAL SPRAY EACH NARE SCH ×2 (08:04→21:44)
[2017-09-20] MEDS: FERROUS SULFATE 325 MG (65 MG ELEMENTAL IRON) TAB PO SCH ×3 (08:04→17:52)
[2017-09-20] MEDS: SODIUM CHLORIDE 0.9% FLUSH 10 ML FLUSH IV FLUSH SCH ×2 (08:04→21:42)
[2017-09-20] MEDS: CITALOPRAM HYDROBROMIDE 20 MG TAB PO SCH (08:05)
[2017-09-20] MEDS: GABAPENTIN 300 MG CAP PO SCH (08:05)
[2017-09-20] MEDS: CLOPIDOGREL 75 MG TAB PO SCH (08:05)
[2017-09-20] MEDS: PANTOPRAZOLE SODIUM 40 MG VIAL IV PUSH SCH (08:20)
[2017-09-20] MEDS: METOLAZONE 5 MG TAB PO SCH (08:20)
[2017-09-20] MEDS ORDERED: CHLOROTHIAZIDE SOD 500 MG VIAL IV SCH (09:00)
[2017-09-20 09:51] LABS: AUTOMATED NEUTROPHIL # 5.1 TH/MM3 (1.8-7.7); BASOPHIL # 0.1 TH/MM3 (0-0.2); BASOPHIL % 0.9 % (0.0-2.0); EOSINOPHIL # 0.6 TH/MM3 (0-0.4); EOSINOPHIL % 7.5 % (0.0-4.0); HEMOGLOBIN 8.1 GM/DL (11.6-15.3); LYMPH % 15.3 % (9.0-44.0); LYMPHOCYTE # 1.1 TH/MM3 (1.0-4.8); MEAN CELL VOLUME 86.5 FL (80.0-100.0); MEAN CORPUSCULAR HEMOGLOBIN 26.8 PG (27.0-34.0); MEAN PLATELET VOLUME 8.9 FL (7.0-11.0); MONO % 6.9 % (0.0-8.0); MONOCYTE # 0.5 TH/MM3 (0-0.9); NEUT % 69.4 % (16.0-70.0); PLATELET COUNT 167 TH/MM3 (150-450); RED BLOOD COUNT 3.01 MIL/MM3 (4.00-5.30); RED CELL DISTRIBUTION WIDTH 16.9 % (11.6-17.2); WHITE BLOOD COUNT 7.4 TH/MM3 (4.0-11.0)
[2017-09-20 10:37] LABS: BICARBONATE 28.7 MEQ/L (21.0-32.0); CALCIUM 8.8 MG/DL (8.5-10.1); CREATININE 2.37 MG/DL (0.50-1.00); MAGNESIUM 1.8 MG/DL (1.5-2.5); PHOSPHORUS 1.5 MG/DL (2.5-4.9)
[2017-09-20] MEDS: CIPROFLOXACIN 500 MG TAB PO SCH ×2 (13:41→21:41)
--- NOTE | 2017-09-20 15:57 | HHI.PR ---
Subjective Remarks Indicates that she is feeling better today. Denies any chest pain shortness of breath. Denies nausea or vomiting. Objective Vital Signs Date Time Temp Pulse Resp B/P (MAP) Pulse Ox O2 Delivery O2 Flow Rate FiO2 09/20/17 14:00 69 09/20/17 12:00 84 09/20/17 12:00 97.5 71 13 187/130 (149) 100 09/20/17 10:00 73 09/20/17 08:00 75 09/20/17 07:00 100 Room Air 09/20/17 06:00 76 09/20/17 04:00 75 09/20/17 02:00 79 09/20/17 00:00 79 09/19/17 22:00 75 09/19/17 20:24 75 139/56 09/19/17 20:00 76 09/19/17 20:00 99.0 76 15 138/63 (88) 100 09/19/17 19:49 100 21 09/19/17 19:00 100 Room Air 21 09/19/17 17:20 80 09/19/17 17:10 79 09/19/17 17:00 79 09/19/17 16:50 80 09/19/17 16:30 79 09/19/17 16:20 82 09/19/17 16:10 78 09/19/17 16:00 79 I/O 09/19/17 09/19/17 09/19/17 09/20/17 09/20/17 09/20/17 07:00 15:00 23:00 07:00 15:00 23:00 Intake Total 250 ml 576 ml 964 ml Output Total 600 ml 250 ml Balance 250 ml -24 ml 714 ml Intake Oral 0 ml IV Total 250 ml 576 ml 844 ml Other 120 ml Output Urine Total 600 ml 250 ml # Voids 3 # Bowel Movements 1 Result Diagram: 09/20/1790509/20/17905 Objective Remarks GENERAL: Patient sitting up in bed. Appears comfortable. More alert today. SKIN: Warm and dry. HEAD: Normocephalic. EYES: No scleral icterus. No injection or drainage. NECK: Supple, trachea midline. No JVD. No oropharyngeal erythema. CARDIOVASCULAR: Regular rate and rhythm without murmurs, gallops, or rubs. RESPIRATORY: Breath sounds equal bilaterally. No accessory muscle use. GASTROINTESTINAL: Abdomen soft, non-tender, nondistended. MUSCULOSKELETAL: No cyanosis, or edema. BACK: Nontender without obvious deformity. No CVA tenderness. A/P Assessment and Plan == 09/20/17 //Dysphasia. //Nausea = Output from NG tube. Patient has been improved for modified diet which has been entered. Appreciate speech therapy assistance. Monitor on p.o. diet. //UTI. Growing gram-negative bacilli on recent urinalysis from 09/19. Follow- up cultures. Continue Cipro. //Accelerated hypertension. -Clonidine patch placed 09/18. -Hospital apparently is out of hydralazine IV. = Systolic blood pressure still elevated. Place on all p.o./NG tube meds. Increase clonidine. //Hypernatremia. Sodium down to 147 (corrected 150) from yesterday is corrected around 157. Will place on one quarter normal saline. Appreciate nephrology assistance. //Hypokalemia. Improved after placement. Continue to monitor. //Acute anemia possibly acute on chronic. Presented with melena //Generalized weakness //Hypokalemia, replaced, continue to monitor and repolace as need. patient failed swallow eval //DM 2 //Chronic kidney disease stage IV //History of CVA with left-sided weakness Dysphagia. Failed swallow eval. ST is following. [place] for feeding and for meds administration, if fails persistently with swallow eval, or if no adequate intake PO might benefit from PEG tube placement Will also consult palliative care for goals of care Monitor H&H and transfuse of HGB < 7 or if symptomatic Protonix IV twice daily Consider octreotide if hemoglobin continue to drop Type, cross and match and keep on hold 2 units of packed red blood cells Reviewed EKG reviewed no acute ST changes CT abdomen reviewed: Anterior pelvic wall hernia, Left atelectasis, no evidence of acute process Consult GI, plan for EGD accucheck with ISS. Monitor BS and adjust as need //Dysphagia. //DVT prophylaxis with SCD as chemical ppx is CI due to GI bleed Discharge Planning Failed swallow eval Order NG tube temporarily and might need PEG placement Consult palliative care for goals of care -consult placed 09/18 Arnaldo Hampton MD September 20, 2017 15:57
--- NOTE | 2017-09-20 16:56 | HHI.NPPN ---
Subjective History of Present Illness Initial confusion as apparently she has a hyphenated last name Jose Greenberg however she is listed in the [facility] and also at the hospital as Dionicio while at my office last name is listed as Jose. She has a history of long-standing chronic kidney disease. There was an episode of acute renal failure back in 2016. Kidney biopsy was performed as there was a question of glomerulonephritis however the biopsy showed diabetic nephropathy, nephrosclerosis and also severe interstitial nephritis. She required dialysis for fluid overload for short duration but dialysis was subsequently discontinued with improvement in renal function. She was subsequently followed up in the office and there was evidence of progressive chronic kidney disease with GFR is ranging between 16 and 17 and creatinine levels ranging between about 3.1 and 3.6. She was referred for placement of an AV dialysis shunt in preparation for dialysis. Quality of life issues were discussed with the patient and her daughter in view of her multiple comorbidities and they did wish to consider dialysis when the patient progressive end-stage renal disease. Patient admitted on this occasion with melena and subsequently upper endoscopy was performed showing evidence of gastritis. She was transferred to the ICU for accelerated hypertension. On reviewing previous admissions it appears that she was on clonidine previously as part of her hypertensive regimen. Despite the development of hypernatremia the patient's renal indices have actually improved during this admission.. Interval History Patient had no verbal complaints. Initially yesterday she was very lethargic but today she seems quite alert and at her baseline level communicating well as far simple questions are concerned. Objective Data Data Vital Signs Date Time Temp Pulse Resp B/P (MAP) Pulse Ox O2 Delivery O2 Flow Rate FiO2 09/20/17 14:00 69 09/20/17 12:00 84 09/20/17 12:00 97.5 71 13 187/130 (149) 100 09/20/17 10:00 73 09/20/17 08:00 75 09/20/17 07:00 100 Room Air 09/20/17 06:00 76 09/20/17 04:00 75 09/20/17 02:00 79 09/20/17 00:00 79 09/19/17 22:00 75 09/19/17 20:24 75 139/56 09/19/17 20:00 76 09/19/17 20:00 99.0 76 15 138/63 (88) 100 09/19/17 19:49 100 21 09/19/17 19:00 100 Room Air 21 09/19/17 17:20 80 09/19/17 17:10 79 09/19/17 17:00 79 09/19/17 16:50 80 -: 09/20/17 0906 09/20/17 0906 Microbiology 09/19/17 Urine Culture - Preliminary, Resulted Gram Negative Phil Assessment/Plan Problem List: (1) CKD (chronic kidney disease) stage 4, GFR 15-29 ml/min ICD Codes: N18.4 - Chronic kidney disease, stage 4 (severe) Status: Chronic Plan: Again currently no indication to initiate dialysis at this time based on clinical exam and laboratory results. Hyponatremia has improved. Creatinine level has risen but still better than her baseline level that was seen in the office . Continue hypotonic IV hydration as ordered. Patient showing no evidence of fluid overload clinically at this time. Medications should be adjusted for the patient's estimated GFR if clinically indicated. Avoid agents with significant potential for nephrotoxicity possible including NSAIDs for analgesia, iodine contrast agents. Gadolinium is contraindicated if the GFR is below 30. (2) Accelerated essential hypertension ICD Codes: I10 - Essential (primary) hypertension Status: Acute Plan: I believe this was related to discontinuance of clonidine. Has improved since clonidine was resumed. (3) Hypernatremia ICD Codes: E87.0 - Hyperosmolality and hypernatremia Status: Acute Plan: As above. (4) Diabetic nephropathy ICD Codes: E11.21 - Type 2 diabetes mellitus with diabetic nephropathy (5) History of diastolic dysfunction ICD Codes: Z86.79 - Personal history of other diseases of the circulatory system Plan: No evidence of congestive heart failure clinically at this time. (6) Secondary hyperparathyroidism of renal origin ICD Codes: N25.81 - Secondary hyperparathyroidism of renal origin Plan: Intact PTH level noted. Brooks Vargas MD September 20, 2017 16:56
[2017-09-20] MEDS: SODIUM CHLORIDE 23.4% INJ 38.5 MEQ in WATER STERILE FOR INJ 1,000 ML IV SCH (18:02)
[2017-09-20] MEDS: DOXAZOSIN MESYLATE 4 MG TAB PO SCH (21:41)
[2017-09-20] MEDS: ATORVASTATIN 80 MG TAB PO SCH (21:42)
[2017-09-20] MEDS: INSULIN DETEMIR 100 UNITS/ML VIAL SQ SCH (21:52)
[2017-09-21] VITALS (12 sets, daily range): BP systolic 102–163; BP diastolic 50–70; PULSE 63–93; RESP 10–19; TEMP 97.4–98.7; O2SAT 99–100
[2017-09-21] MEDS: CHLORHEXIDINE GLUCONATE 2 % 1 PACK (2 CLOTHS)(taper/protocol) TOPICAL SCH (03:07)
[2017-09-21] MEDS: SODIUM CHLORIDE 23.4% INJ 38.5 MEQ in WATER STERILE FOR INJ 1,000 ML IV SCH ×2 (03:11→17:35)
[2017-09-21] MEDS: METOPROLOL TARTRATE 100 MG TAB PO SCH ×2 (03:13→16:12)
[2017-09-21] MEDS: LEVOTHYROXINE SODIUM 25 MCG TAB PO SCH (05:55)
[2017-09-21] MEDS: hydrALAZINE HCL 100 MG TAB PO SCH ×3 (05:56→23:44)
[2017-09-21] MEDS: cloNIDine HCL 0.1 MG TAB PO SCH ×3 (05:56→23:44)
[2017-09-21] MEDS: INSULIN ASPART SUPPLEMENTAL SCALE SQ SCH ×4 (08:00→22:39)
[2017-09-21] MEDS: FLUTICASONE PROPIONATE 50 MCG/ACT 16 GM NASAL SPRAY EACH NARE SCH ×2 (08:40→22:32)
[2017-09-21] MEDS: GABAPENTIN 300 MG CAP PO SCH (08:40)
[2017-09-21] MEDS: CIPROFLOXACIN 500 MG TAB PO SCH (08:40)
[2017-09-21] MEDS: SODIUM CHLORIDE 0.9% FLUSH 10 ML FLUSH IV FLUSH SCH ×2 (08:40→22:23)
[2017-09-21] MEDS: PANTOPRAZOLE SODIUM 40 MG VIAL IV PUSH SCH (08:40)
[2017-09-21] MEDS: CITALOPRAM HYDROBROMIDE 20 MG TAB PO SCH (08:40)
[2017-09-21] MEDS: CALCITRIOL 0.25 MCG CAP PO SCH (08:41)
[2017-09-21] MEDS: CLOPIDOGREL 75 MG TAB PO SCH (08:41)
[2017-09-21] MEDS: METOLAZONE 5 MG TAB PO SCH (08:41)
[2017-09-21] MEDS: FERROUS SULFATE 325 MG (65 MG ELEMENTAL IRON) TAB PO SCH ×3 (08:41→17:35)
--- NOTE | 2017-09-21 09:35 | HHI.PR ---
Subjective Remarks Patient much more alert today. Smiling. She denies any pain. Says she is hungry. Objective Vital Signs Date Time Temp Pulse Resp B/P (MAP) Pulse Ox O2 Delivery O2 Flow Rate FiO2 09/21/17 06:00 68 09/21/17 04:00 98.7 65 14 138/63 (88) 100 09/21/17 04:00 65 09/21/17 02:00 71 09/21/17 00:00 77 09/21/17 00:00 98.4 77 15 102/50 (67) 100 09/20/17 22:00 59 09/20/17 21:45 100 21 09/20/17 20:00 71 09/20/17 20:00 98.6 71 11 159/67 (97) 100 Manual Cuff/Auscultation 09/20/17 19:00 100 Room Air 09/20/17 18:00 58 09/20/17 16:00 77 09/20/17 16:00 97.8 77 13 128/78 (95) 100 09/20/17 14:00 69 09/20/17 12:00 84 09/20/17 12:00 97.5 71 13 187/130 (149) 100 09/20/17 10:00 73 I/O 09/20/17 09/20/17 09/20/17 09/21/17 09/21/17 09/21/17 07:00 15:00 23:00 07:00 15:00 23:00 Intake Total 964 ml 0 ml 1291.625 ml Output Total 250 ml 325 ml 100 ml Balance 714 ml -325 ml 1191.625 ml Intake Oral 0 ml 0 ml 0 ml IV Total 844 ml 1291.625 ml Other 120 ml Output Urine Total 250 ml 325 ml 100 ml # Bowel Movements 1 0 0 Result Diagram: 09/20/1790509/20/17905 Objective Remarks GENERAL: Patient sitting up in bed. Appears comfortable. Disoriented, but more alert today. SKIN: Warm and dry. HEAD: Normocephalic. EYES: No scleral icterus. No injection or drainage. NECK: Supple, trachea midline. No JVD. No oropharyngeal erythema. CARDIOVASCULAR: Regular rate and rhythm without murmurs, gallops, or rubs. RESPIRATORY: Breath sounds equal bilaterally. No accessory muscle use. GASTROINTESTINAL: Abdomen soft, non-tender, nondistended. MUSCULOSKELETAL: No cyanosis, or edema. BACK: Nontender without obvious deformity. No CVA tenderness. A/P Assessment and Plan == 09/20/17 //Dysphasia. //Nausea = Advance diet as tolerated. Appreciate speech therapy assistance. //UTI. Growing gram-negative bacilli on recent urinalysis from 09/19. Follow- up cultures and sensitivities. Continue Cipro. //Accelerated hypertension. -Resolved. Transfer to floor. //Hypernatremia. Sodium down to [address] on one quarter normal saline. Appreciate nephrology assistance. = Repeat labs pending today //Hypokalemia. Improved after placement. Repeat labs pending. //Acute anemia possibly acute on chronic. Presented with melena //Generalized weakness //Hypokalemia, replaced, continue to monitor and repolace as need. patient failed swallow eval //DM 2 //Chronic kidney disease stage IV //History of CVA with left-sided weakness Dysphagia. Failed swallow eval. ST is following. Dubhoff for feeding and for meds administration, if fails persistently with swallow eval, or if no adequate intake PO might benefit from PEG tube placement Will also consult palliative care for goals of care Monitor H&H and transfuse of HGB < 7 or if symptomatic Protonix IV twice daily Consider octreotide if hemoglobin continue to drop Type, cross and match and keep on hold 2 units of packed red blood cells Reviewed EKG reviewed no acute ST changes CT abdomen reviewed: Anterior pelvic wall hernia, Left atelectasis, no evidence of acute process Consult GI, plan for EGD accucheck with ISS. Monitor BS and adjust as need //Dysphagia. //DVT prophylaxis with SCD as chemical ppx is CI due to GI bleed Discharge Planning Palliative care following. Transfer to floor. Improving, hopefully to SNF in the next 3 days Arnaldo Hampton MD September 21, 2017 09:35
--- NOTE | 2017-09-21 12:15 | PD.CONS ---
Consult Service Palliative Care . Consult Requested By Dr. Hampton . Primary Care Physician Unknown . Reason for Consultation a. To assist with evaluation and management of symptoms including: debility , dysphagia b. To assist medical decision maker(s) with: better understanding of current medical conditions; weighing benefits/burdens of medical treatment options; making medical treatment decisions. . HPI History of Present Illness Ms. Greenberg is a 62-year-old female with a history of CVA and right-sided hemiparesis with contractures, HTN, diabetes, hypertension, CAD, dementia and end-stage renal disease who presented to [facility] on 09/15/2017 for evaluation of generalized weakness and melena. Patient recently had an AV shunt placed and was preparing to go on dialysis. Additional diagnostic data: * Vital signs: Pulse 91, respiration 16, BP 165/79, oxygen saturation 100% on room air and oral temperature of 99.0 * WBC: 8.0, hemoglobin 8.3, hematocrit 26.0, platelets 159, neutrophils 62.7% * Sodium: 136, potassium 3.1, chloride 96, carbon dioxide 28.2, glucose 168, calcium 9.1 * BUN: 83, creatinine 3.49, GFR 16 * Total bilirubin: 0.1, AST 22, ALT 25, alkaline phosphatase 91 * Total creatine kinase: 84 troponin <0.02 * Total protein: 7.1, albumin 3.2 * PT: 10.6, INR 1.0, APTT 24.6 * Urinalysis with trace occult blood, large amount of leukocyte esterase and moderate amount of urine bacteria * Urine culture + Klebsiella * CT abdomen/pelvis showed an anterior pelvic wall ventral hernia; basilar airspace disease characteristic of atelectasis; no evidence of acute process, suspicious mass or lymphadenopathy. * CT head revealed an old left frontal parietal lobe infarct; chronic white matter disease characteristic of microvascular ischemic changes. No evidence of acute infarct, hemorrhage, mass or edema. While in the ED patient was found to have a black stool. She does take iron supplements, but stool was Hemoccult positive. IV Protonix was started. CBC showed a hemoglobin of 8.3 which is at baseline hemoglobin level and improved from a level of 7.3 on August 08, 2017. Patient was admitted for further evaluation and medical management of GI bleed. Speech therapy evaluated the patient who remains NPO awaiting GI consult. Patient underwent an EGD and biopsy with Dr. Calvin on 09/17/17 which showed evidence of gastritis. Patient became nauseated with complaints of abdominal discomfort on 09/18/2017; KUB showed no dilated loops of small or large bowel. Nephrology was consulted given patient known history of long-standing chronic kidney disease. There was an acute episode of renal failure in 2016. A biopsy of the kidney was performed because there was a question glomerulonephritis. However, the biopsy showed diabetic nephropathy, nephrosclerosis and also severe interstitial nephritis. Patient required dialysis for fluid overload for short time. She was subsequently seen bu nephrology outpatient and there was evidence of progressive chronic kidney disease with GFR ranging between 16 and 17 and creatinine levels ranging between about 3.1 and 3.6. Quality of life issues were discussed with the patient and her daughter in view of her multiple comorbidities, and they did wish to proceed with dialysis when indicated. Patient was referred for placement of an AV dialysis shunt in preparation for dialysis. Despite the development of hypernatremia the patient's renal indices have improved during this admission. Patient was transferred to the ICU secondary to accelerated hypertension. Patient was taking clonidine as part of her hypertensive regimen but had not been receiving due to NPO status. Started on clonidine patch and scheduled IV hydralazine. Patient was more alert and interactive yesterday 09/20/2017. Improved swallow function; diet advanced to mechanically soft with chopped, extra gravy and thin liquids. ST will continue to follow. Palliative Care was consulted to assist with symptom management and to discuss with the patient/family the benefits and burdens of her current illnesses and the options regarding future care. . Function/Cognitive Trajectory Patient has been living in a [facility] status post CVA with residual right sided deficits. Requires assist with all ADLs. . Review of Systems ROS Limitations: Clinical Condition, Speech Impaired, Poor Historian Constitutional: COMPLAINS OF: Generalized weakness Respiratory: DENIES: Shortness of breath Cardiovascular: DENIES: Chest pain Gastrointestinal: DENIES: Abdominal pain Hematologic/Lymphatics: COMPLAINS OF: Bruising Neurologic: COMPLAINS OF: Speech Problems Past Family Social History Coded Allergies: *MDRO Multi-Drug Resistant Organism (Verified Adverse Reaction, Unknown, MRSA, 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 - 05/31/16 VRE (urine)-06/29/16 Past Medical History Asthma Coronary artery disease on Plavix Hypertension Dementia History of CVA Diabetes mellitus Diabetic neuropathy Hyperlipidemia Right-sided contractures End-stage kidney disease . Past Surgical History Right shoulder repair Cholecystectomy Thyroid nodule excision Hysterectomy Tonsillectomy . Reported Medications Roxicodone (Oxycodone HCl) 5 Mg Tab 5 Mg PO BID Ferrous Sulfate 325 Mg (65 Mg Iron) Tablet 325 Mg PO TIDPC Calcitriol 0.25 Mcg Cap 0.25 Mcg PO DAILY Polyethylene Glycol 3350 Powder (Polyethylene Glycol) 17 Gram Pow 17 Gm PO DAILY Procrit Inj (Epoetin Govind) 20,000 Unit/Ml Inj 15,000 Units SQ 2 WEEKS Lantus Inj (Insulin Glargine) 1,000 Unit/10 Ml Vial 20 Units SQ HS Metolazone 5 Mg Tab 5 Mg PO DAILY Levothyroxine (Levothyroxine Sodium) 25 Mcg Tab 25 Mcg PO DAILY Cardura (Doxazosin Mesylate) 8 Mg Tab 8 Mg PO HS Novolog Flexpen Inj (Insulin Aspart) 300 Unit/3 Ml Pen 0-12 Units SQ ACHS SLIDING SCALE: 0-70=OJ and call MD, Repeat in 1hr, 71-150=0 units, 151-200=3 units, 201-250=5 units, 251-300=8 units, 301-400=10 units, > 400=12 units & Repeat in 2hrs, if > 350 call Hydralazine (Hydralazine HCl) 100 Mg Tab 100 Mg PO Q8HR Protonix (Pantoprazole Sodium) 40 Mg Tab 40 Mg PO DAILY Plavix (Clopidogrel Bisulfate) 75 Mg Tab 75 Mg PO DAILY Neurontin (Gabapentin) 300 Mg Cap 300 Mg PO Q8HR Celexa (Citalopram Hydrobromide) 20 Mg Tab 20 Mg PO DAILY Atorvastatin (Atorvastatin Calcium) 80 Mg Tab 80 Mg PO HS Aspirin 325 Mg Tab 325 Mg PO DAILY Fluticasone Nasal [place] 50 Mcg/Act Naspr 1 [place] EACH NARE Q12HR 50 mcg/spray . Current Medications Medications (Trade) Dose Ordered Sig/Maxien Route Start Time Stop Time Status Last Admin (NS Flush) 2 ml UNSCH PRN IV FLUSH 09/15/17 15:30 09/21/17 08:40 (NS Flush) 2 ml BID IV FLUSH 09/15/17 21:00 09/21/17 08:40 (Zofran Odt) 4 mg Q6H PRN PO 09/15/17 15:30 (Protonix Inj) 40 mg DAILY IV PUSH 09/16/17 09:00 09/21/17 08:40 (Norvasc) 10 mg DAILY PO 09/16/17 09:00 09/21/17 08:41 (Lipitor) 80 mg HS PO 09/15/17 21:00 09/20/17 21:42 (Rocaltrol) 0.25 mcg DAILY PO 09/16/17 09:00 09/21/17 08:41 (CeleXA) 20 mg DAILY PO 09/16/17 09:00 09/21/17 08:40 (Plavix) 75 mg DAILY PO 09/16/17 09:00 09/21/17 08:41 (Cardura) 8 mg HS PO 09/15/17 21:00 09/20/17 21:41 (Ferrous Sulfate) 325 mg TIDPC PO 09/15/17 18:30 09/21/17 08:41 (Flonase [place] Spr) 1 spray Q12HR EACH NARE 09/15/17 21:00 09/21/17 08:40 (Apresoline) 100 mg Q8HR PO 09/15/17 22:00 Future hold 09/21/17 05:56 (Levemir Inj) 20 units HS SQ 09/15/17 21:00 09/20/17 21:52 (Synthroid) 25 mcg DAILY@0600 PO 09/16/17 06:00 09/21/17 05:55 (Zaroxolyn) 5 mg DAILY PO 09/16/17 09:00 09/21/17 08:41 (Lopressor) 100 mg Q12H PO 09/15/17 15:45 09/21/17 03:13 (NovoLOG SUPPLEMENTAL SCALE) 1 ACHS SLIDING SCALE SQ 09/15/17 17:00 09/20/17 21:43 (Glucagon Inj) 1 mg UNSCH PRN OTHER 09/15/17 15:45 (D50w (Vial) Inj) 50 ml UNSCH PRN IV PUSH 09/15/17 15:45 (Neurontin) 300 mg DAILY PO 09/17/17 09:00 09/21/17 08:40 (Apresoline) 10 mg Q6HR PRN PO 09/16/17 12:15 (Phenergan Inj) 25 mg Q6H PRN IM 09/18/17 16:45 (Trandate Inj) 10 mg Q4H PRN IV PUSH 09/19/17 02:30 09/19/17 06:16 Nicardipine HCl 25 mg/Sodium Chloride 260 ml @ 52 mls/hr TITRATE PRN IV 09/19/17 10:00 09/19/17 20:24 (Ativan Inj) 1 mg Q6H PRN IV PUSH 09/19/17 11:15 09/19/17 11:42 ([facility] Patient in critical care unit? Ass... [id number] .XX 09/19/17 21:45 09/19/17 21:45 (Chlorhexidine 2% Cloth) 3 pack DAILY@04 TOPICAL 09/20/17 04:00 09/24/17 04:01 09/21/17 03:07 (Chlorhexidine 2% Cloth) 3 pack UNSCH PRN TOPICAL 09/19/17 21:45 09/24/17 21:34 (Cipro) 500 mg Q12HR PO 09/20/17 10:00 09/21/17 08:40 Sodium Chloride 38.5 meq/Sterile Water 1,009.625 ml @ 84 mls/hr Q12H2M IV 09/20/17 18:00 09/21/17 03:11 (Catapres) 0.2 mg Q8HR PO 09/20/17 22:00 09/21/17 05:56 Family History Mother with colon cancer, diabetes, CAD and hypertension. Father at the age of 63 from unknown cause. Per medical records, familial history is significant for hypertension, diabetes, depression and polysubstance abuse. . Substance Use Tobacco: Alcohol: Prescription med abuse: Illicits: Psychosocial History Patient was living in [place], [place] until November, when she moved here to live with her sister. She had previously been living independently with her until she had 2 strokes within a two-year period with residual right-sided hemiparesis and memory impairment. Patient has a son who is in his mid 30s; her son was recently released from a 17 year retirement sentence. At that time he was on parole and living near [place], [place]. She is currently a long- term resident of [facility]. . Spiritual/Cultural Factors Amish tori . Health Care Surrogate: Copy in medical record Date completed: . Health Care Surrogate(s): Anjali Tejeda (sister) is designated as the primary healthcare surrogate decision maker. Joni Morel is designated as the alternate healthcare surrogate decision maker. . Documented care wishes: No additional documented care wishes have been completed. . Today's verbally stated goals: Patient stating she wants "to go home." . Family/friends goals: Message left for patient's sister, awaiting return phone call. . Ethical and Legal Issues No know ethical or legal issues at this time. . Physical Exam Vital Signs Date Time Temp Pulse Resp B/P (MAP) Pulse Ox O2 Delivery O2 Flow Rate FiO2 09/21/17 09:00 71 10 134/60 (84) 100 09/21/17 08:00 98.3 66 12 140/63 (88) 100 09/21/17 07:00 100 Room Air 09/21/17 07:00 68 14 150/65 (93) 100 09/21/17 06:00 68 09/21/17 04:00 98.7 65 14 138/63 (88) 100 09/21/17 04:00 65 09/21/17 02:00 71 09/21/17 00:00 77 09/21/17 00:00 98.4 77 15 102/50 (67) 100 09/20/17 22:00 59 09/20/17 21:45 100 21 09/20/17 20:00 71 09/20/17 20:00 98.6 71 11 159/67 (97) 100 Manual Cuff/Auscultation 09/20/17 19:00 100 Room Air 09/20/17 18:00 58 09/20/17 16:00 77 09/20/17 16:00 97.8 77 13 128/78 (95) 100 09/20/17 14:00 69 09/20/17 12:00 84 09/20/17 12:00 97.5 71 13 187/130 (149) 100 09/20/17 10:00 73 . Exam CONSTITUTIONAL/GENERAL: This is an adequately nourished female patient in no acute distress. TUBES/LINES/DRAINS: PIV x 3, indwelling urinary cath SKIN: No wounds seen anteriorly. Skin temperature appropriate. Not diaphoretic. HEAD: Atraumatic. Normocephalic. EYES: Pupils equal and round and reactive. Extraocular motions intact. No scleral icterus. No injection or drainage. Fundi not examined. ENT: Hearing grossly normal. Nose without bleeding or purulent drainage. Throat without visible erythema, exudates, masses, or lesions. NECK: Trachea midline. Supple, nontender. No palpable thyroid enlargement or nodularity. CARDIOVASCULAR: Regular rate and rhythm without murmurs, gallops, or rubs. No JVD. Peripheral pulses symmetric. RESPIRATORY/CHEST: Symmetric, unlabored respirations. Clear to auscultation. Breath sounds diminished bilaterally. No wheezes, rales, or rhonchi. GASTROINTESTINAL: Abdomen soft, non-tender, nondistended. No guarding. Bowel sounds present. GENITOURINARY: Without palpable bladder distension. Dennis catheter in place. MUSCULOSKELETAL: Extremities without clubbing, cyanosis, or edema. No mottling or clubbing. LYMPHATICS: No palpable cervical or supraclavicular adenopathy. NEUROLOGICAL: Awake and alert. Smiling. Answers questions with brief responses. Follows simple commands. PSYCHIATRIC: No obvious anxiety/depression. No apparent hallucinations or other psychotic thought process. . Diagnostic Tests Laboratory Laboratory Tests Test 09/18/17 13:34 09/19/17 04:42 09/19/17 12:00 09/19/17 16:30 Blood Urea Nitrogen 29 MG/DL (7-18) 27 MG/DL (7-18) 30 MG/DL (7-18) Creatinine 2.00 MG/DL (0.50-1.00) 1.93 MG/DL (0.50-1.00) 2.11 MG/DL (0.50-1.00) Random Glucose 248 MG/DL (74-106) 182 MG/DL (74-106) 278 MG/DL (74-106) Calcium Level 9.4 MG/DL (8.5-10.1) 9.3 MG/DL (8.5-10.1) 9.5 MG/DL (8.5-10.1) Sodium Level 153 MEQ/L (136-145) 156 MEQ/L (136-145) 155 MEQ/L (136-145) Potassium Level 4.0 MEQ/L (3.5-5.1) 3.1 MEQ/L (3.5-5.1) 3.4 MEQ/L (3.5-5.1) Chloride Level 116 MEQ/L (98-107) 118 MEQ/L (98-107) 120 MEQ/L (98-107) Carbon Dioxide Level 25.5 MEQ/L (21.0-32.0) 28.7 MEQ/L (21.0-32.0) 28.7 MEQ/L (21.0-32.0) Anion Gap 12 MEQ/L (5-15) 9 MEQ/L (5-15) 6 MEQ/L (5-15) Estimat Glomerular Filtration Rate 30 ML/MIN (>89) 32 ML/MIN (>89) 29 ML/MIN (>89) White Blood Count 7.3 TH/MM3 (4.0-11.0) Red Blood Count 2.99 MIL/MM3 (4.00-5.30) Hemoglobin 8.0 GM/DL (11.6-15.3) Hematocrit 25.8 % (35.0-46.0) Mean Corpuscular Volume 86.4 FL (80.0-100.0) Mean Corpuscular Hemoglobin 26.7 PG (27.0-34.0) Mean Corpuscular Hemoglobin Concent 30.9 % (32.0-36.0) Red Cell Distribution Width 17.0 % (11.6-17.2) Platelet Count 169 TH/MM3 (150-450) Mean Platelet Volume 8.9 FL (7.0-11.0) Neutrophils (%) (Auto) 76.1 % (16.0-70.0) Lymphocytes (%) (Auto) 14.4 % (9.0-44.0) Monocytes (%) (Auto) 8.5 % (0.0-8.0) Eosinophils (%) (Auto) 0.5 % (0.0-4.0) Basophils (%) (Auto) 0.5 % (0.0-2.0) Neutrophils # (Auto) 5.6 TH/MM3 (1.8-7.7) Lymphocytes # (Auto) 1.1 TH/MM3 (1.0-4.8) Monocytes # (Auto) 0.6 TH/MM3 (0-0.9) Eosinophils # (Auto) 0.0 TH/MM3 (0-0.4) Basophils # (Auto) 0.0 TH/MM3 (0-0.2) CBC Comment DIFF FINAL Differential Comment Albumin 3.3 GM/DL (3.4-5.0) Phosphorus Level 1.5 MG/DL (2.5-4.9) Magnesium Level 2.0 MG/DL (1.5-2.5) Nasal Screen MRSA (PCR) MRSA DETECTED (NOT DETECT) Test 09/19/17 17:15 09/20/17 09:06 Urine Color YELLOW (YELLW/STRAW) Urine Turbidity CLOUDY (CLEAR) Urine pH 6.5 (5.0-8.5) Urine Specific Dorsey 1.015 (1.002-1.035) Urine Protein 300 mg/dL (NEG-TRACE) Urine Glucose (UA) 300 mg/dL (NEG) Urine Ketones 10 mg/dL (NEG) Urine Occult Blood MOD (NEG) Urine Nitrite NEG (NEG) Urine Bilirubin NEG (NEG) Urine Urobilinogen LESS THAN 2.0 MG/DL (LESS Urine Leukocyte Esterase LARGE (NEG) Urine RBC 14 /hpf (0-3) Urine WBC /hpf (0-5) Urine WBC Clumps MANY (NONE) Urine Squamous Epithelial Cells 2 /hpf (0-5) Urine Bacteria MANY /hpf (NONE) Microscopic Urinalysis Comment CATH-CULTURE IND White Blood Count 7.4 TH/MM3 (4.0-11.0) Red Blood Count 3.01 MIL/MM3 (4.00-5.30) Hemoglobin 8.1 GM/DL (11.6-15.3) Hematocrit 26.0 % (35.0-46.0) Mean Corpuscular Volume 86.5 FL (80.0-100.0) Mean Corpuscular Hemoglobin 26.8 PG (27.0-34.0) Mean Corpuscular Hemoglobin Concent 31.0 % (32.0-36.0) Red Cell Distribution Width 16.9 % (11.6-17.2) Platelet Count 167 TH/MM3 (150-450) Mean Platelet Volume 8.9 FL (7.0-11.0) Neutrophils (%) (Auto) 69.4 % (16.0-70.0) Lymphocytes (%) (Auto) 15.3 % (9.0-44.0) Monocytes (%) (Auto) 6.9 % (0.0-8.0) Eosinophils (%) (Auto) 7.5 % (0.0-4.0) Basophils (%) (Auto) 0.9 % (0.0-2.0) Neutrophils # (Auto) 5.1 TH/MM3 (1.8-7.7) Lymphocytes # (Auto) 1.1 TH/MM3 (1.0-4.8) Monocytes # (Auto) 0.5 TH/MM3 (0-0.9) Eosinophils # (Auto) 0.6 TH/MM3 (0-0.4) Basophils # (Auto) 0.1 TH/MM3 (0-0.2) CBC Comment DIFF FINAL Differential Comment Blood Urea Nitrogen 34 MG/DL (7-18) Creatinine 2.37 MG/DL (0.50-1.00) Random Glucose 345 MG/DL (74-106) Albumin 3.0 GM/DL (3.4-5.0) Calcium Level 8.8 MG/DL (8.5-10.1) Phosphorus Level 1.5 MG/DL (2.5-4.9) Magnesium Level 1.8 MG/DL (1.5-2.5) Sodium Level 147 MEQ/L (136-145) Potassium Level 4.1 MEQ/L (3.5-5.1) Chloride Level 112 MEQ/L (98-107) Carbon Dioxide Level 28.7 MEQ/L (21.0-32.0) Anion Gap 6 MEQ/L (5-15) Estimat Glomerular Filtration Rate 25 ML/MIN (>89) 25-Hydroxy Vitamin D Total 61.9 ng/ML (30-100) Parathyroid Hormone (Intact) 161.0 PG/ML (12.4-76.8) . Result Diagram: 09/20/1790509/20/17905 Microbiology Microbiology Date/Time Source Procedure Growth Status 09/19/17 17:15 Urine Catheterized Urine Urine Culture - Preliminary Gram Negative Phil Resulted . Patient/Family Conference Present at Family Conference: Met with patient at bedside. Message left for sister (Anjali) on voicemail with Palliative care contact information. . Family Conference Location: Bedside Issues Discussed: * Palliative care role, purpose, approach * Additional medical, psychosocial, and spiritual history * Patient/family understanding of the current medical problems * Questions answered to the best of my ability * Palliative care contact information provided . Assessment and Plan Disease Oriented Problem List: (1) Hypernatremia (2) Accelerated essential hypertension (3) GI bleed (4) End stage renal disease (5) UTI (urinary tract infection) (6) Diabetic nephropathy (7) Diabetes Symptom Scale: (1) Debility 0-10 Scale: Unable to quantify (2) Dysphagia 0-10 Scale: Unable to quantify Pertinent Non-Medical Issues Psychosocial: Patient is a long-term resident of [facility] Spiritual: Amish tori Legal: Ethical issues impacting care: Important Contacts Anjali Tejeda, sister/[facility]: [phone] or [phone] or [phone] Joni Morel: [phone] . Prognosis Mrs. Greenberg is a debilitated, elderly, female patient with a complex medical history who is a long-term [facility] resident status post CVA 2 with residual right-sided deficits and memory impairment. Admitted with generalized weakness and GI bleed; recent AVF placement secondary to ESRD. Given patient baseline debility in addition to her advanced age with multiple comorbidities, she is high risk for ongoing decline and setback. . Code Status: Full Code Plan * FULL CODE * Decision-making: Patient has limited insight and judgment related to her medical conditions; it is unlikely that she will regain capacity for medical decision-making. A healthcare designation form has been completed and names the patient's sister (Anjali Tejeda) as the primary healthcare surrogate decision maker. Joni Morel is designated as the alternate healthcare surrogate decision maker. * GOALS AGGRESSIVE * Palliative care attempted to contact the patient's sister (Anjali). A message was left on her voicemail with Palliative care contact information. * Discussed patient with RN (Yusra). * SYMPTOM MANAGEMENT: == Debility: Patient was living independently prior to CVA x 2 within 2 years. She moved to [place] so she could live with her sister who was her primary child care lead teacher. The patient currently lives in a [facility] where her increasing care needs can be met. Patient has residual right sided hemiparesis and memory deficits == Dysphagia: Patient was initially made NPO secondary to severe pharyngeal dysphagia with overt signs of aspiration of multiple consistencies and eventual partial bolus regurgitation from the pharynx post swallow with need for suction assistance. Recommendations for modified barium swallow. Diet advanced to mechanically soft with chopped meat, extra gravy and thin liquids on 09/20/2017. Speech therapy continues to follow. * Palliative care will continue to follow this patient throughout her hospitalization to establish trust, assist with symptom management and clarification of medical treatment goals. . Thank you for the opportunity to participate in the care of Ms. Greenberg. . Attestation To help prompt me to consider important information that might be impacting today's encounter and assessment, information from prior notes written by myself or my colleagues may have been "brought forward" into today's note. My signature on this note, however, is an attestation that I personally performed the exam, history, and/or decision-making noted today, and, unless otherwise indicated, the interactions with patient, family, and staff as well as the review of records all occurred today. I also attest that the listed assessment and stated plan reflect my best clinical judgment today based on the combination of historical information, prior notes, and today's exam/ interactions. When time spent is documented, it refers only to time spent today by the signer, or if indicated, combined time spent today by collaborating physician/nurse practitioner. . Carly Vences September 21, 2017 10:57
--- NOTE | 2017-09-21 17:42 | HHI.NPPN ---
Subjective History of Present Illness Initial confusion as apparently she has a hyphenated last name Jose Greenberg however she is listed in the residential and also at the hospital as Dionicio while at my office last name is listed as Jose. She has a history of long-standing chronic kidney disease. There was an episode of acute renal failure back in 2016. Kidney biopsy was performed as there was a question of glomerulonephritis however the biopsy showed diabetic nephropathy, nephrosclerosis and also severe interstitial nephritis. She required dialysis for fluid overload for short duration but dialysis was subsequently discontinued with improvement in renal function. She was subsequently followed up in the office and there was evidence of progressive chronic kidney disease with GFR is ranging between 16 and 17 and creatinine levels ranging between about 3.1 and 3.6. She was referred for placement of an AV dialysis shunt in preparation for dialysis. Quality of life issues were discussed with the patient and her daughter in view of her multiple comorbidities and they did wish to consider dialysis when the patient progressive end-stage renal disease. Patient admitted on this occasion with melena and subsequently upper endoscopy was performed showing evidence of gastritis. She was transferred to the ICU for accelerated hypertension. On reviewing previous admissions it appears that she was on clonidine previously as part of her hypertensive regimen. Despite the development of hypernatremia the patient's renal indices have actually improved during this admission.. Interval History Patient lying in bed with nasogastric tube in place. No verbal complaints. Mental status appears to be at baseline. Objective Data Data 09/21/17 09/22/17 19:00 07:00 Output Total 175 ml Balance -175 ml Output Urine Total 175 ml Vital Signs Date Time Temp Pulse Resp B/P (MAP) Pulse Ox O2 Delivery O2 Flow Rate FiO2 09/21/17 16:00 97.6 93 17 163/70 (101) 100 09/21/17 14:00 97.4 87 17 155/69 (97) 100 09/21/17 12:00 63 09/21/17 12:00 97.7 63 11 110/70 (83) 100 09/21/17 09:00 71 10 134/60 (84) 100 09/21/17 08:00 66 09/21/17 08:00 98.3 66 12 140/63 (88) 100 09/21/17 07:00 100 Room Air 09/21/17 07:00 68 14 150/65 (93) 100 09/21/17 06:00 68 09/21/17 04:00 98.7 65 14 138/63 (88) 100 09/21/17 04:00 65 09/21/17 02:00 71 09/21/17 00:00 77 09/21/17 00:00 98.4 77 15 102/50 (67) 100 09/20/17 22:00 59 09/20/17 21:45 100 21 09/20/17 20:00 71 09/20/17 20:00 98.6 71 11 159/67 (97) 100 Manual Cuff/Auscultation 09/20/17 19:00 100 Room Air 09/20/17 18:00 58 -: 09/20/17 0906 09/20/17 0906 Assessment/Plan Problem List: (1) CKD (chronic kidney disease) stage 4, GFR 15-29 ml/min ICD Codes: N18.4 - Chronic kidney disease, stage 4 (severe) Status: Chronic Plan: Unfortunately labs are pending. Continue current fluid management for the present with follow-up laboratory results in the a.m. Medications should be adjusted for the patient's estimated GFR if clinically indicated. Avoid agents with significant potential for nephrotoxicity possible including NSAIDs for analgesia, iodine contrast agents. Gadolinium is contraindicated if the GFR is below 30. (2) Accelerated essential hypertension ICD Codes: I10 - Essential (primary) hypertension Status: Acute Plan: I believe this was related to discontinuance of clonidine. Has improved since clonidine was resumed. (3) Hypernatremia ICD Codes: E87.0 - Hyperosmolality and hypernatremia Status: Acute Plan: As above. (4) Diabetic nephropathy ICD Codes: E11.21 - Type 2 diabetes mellitus with diabetic nephropathy (5) History of diastolic dysfunction ICD Codes: Z86.79 - Personal history of other diseases of the circulatory system Plan: No evidence of congestive heart failure clinically at this time. (6) Secondary hyperparathyroidism of renal origin ICD Codes: N25.81 - Secondary hyperparathyroidism of renal origin Plan: Intact PTH level noted. Brooks Vargas MD September 21, 2017 17:42
[2017-09-21 17:50] LABS: AUTOMATED NEUTROPHIL # 4.3 TH/MM3 (1.8-7.7); BASOPHIL % 0.7 % (0.0-2.0); EOSINOPHIL # 0.8 TH/MM3 (0-0.4); EOSINOPHIL % 11.6 % (0.0-4.0); HEMATOCRIT 25.5 % (35.0-46.0); HEMOGLOBIN 7.9 GM/DL (11.6-15.3); LYMPHOCYTE # 1.3 TH/MM3 (1.0-4.8); MEAN CELL VOLUME 85.5 FL (80.0-100.0); MEAN CORPUSCULAR HEMOGLOBIN 26.7 PG (27.0-34.0); MEAN CORPUSCULAR HGB CONC 31.2 % (32.0-36.0); MONO % 7.2 % (0.0-8.0); MONOCYTE # 0.5 TH/MM3 (0-0.9); NEUT % 61.5 % (16.0-70.0); PLATELET COUNT 147 TH/MM3 (150-450); RED BLOOD COUNT 2.98 MIL/MM3 (4.00-5.30); RED CELL DISTRIBUTION WIDTH 16.5 % (11.6-17.2); WHITE BLOOD COUNT 6.9 TH/MM3 (4.0-11.0)
[2017-09-21 18:10] LABS: BICARBONATE 25.8 MEQ/L (21.0-32.0); CALCIUM 8.7 MG/DL (8.5-10.1); CREATININE 2.82 MG/DL (0.50-1.00); PHOSPHORUS 1.8 MG/DL (2.5-4.9)
[2017-09-21] MEDS ORDERED: POTASSIUM PHOSPHATE MONOBASIC 500 MG TAB PO ONE (18:15)
[2017-09-21] MEDS: DOXAZOSIN MESYLATE 4 MG TAB PO SCH (22:23)
[2017-09-21] MEDS: ATORVASTATIN 80 MG TAB PO SCH (22:23)
[2017-09-21] MEDS: INSULIN DETEMIR 100 UNITS/ML VIAL SQ SCH (22:24)
[2017-09-22] VITALS (8 sets, daily range): BP systolic 137–195; BP diastolic 64–79; PULSE 67–73; RESP 17–19; TEMP 97.3–98.5; O2SAT 96–100
[2017-09-22] MEDS: CHLORHEXIDINE GLUCONATE 2 % 1 PACK (2 CLOTHS)(taper/protocol) TOPICAL SCH (04:00)
[2017-09-22] MEDS: cloNIDine HCL 0.1 MG TAB PO SCH ×3 (04:58→21:44)
[2017-09-22] MEDS: CIPROFLOXACIN 500 MG TAB PO SCH ×2 (04:58→21:43)
[2017-09-22] MEDS: METOPROLOL TARTRATE 100 MG TAB PO SCH ×2 (04:58→16:54)
[2017-09-22] MEDS: hydrALAZINE HCL 100 MG TAB PO SCH ×3 (04:58→21:43)
[2017-09-22] MEDS: LEVOTHYROXINE SODIUM 25 MCG TAB PO SCH (04:58)
[2017-09-22 05:57] LABS: AUTOMATED NEUTROPHIL # 3.2 TH/MM3 (1.8-7.7); BASOPHIL % 0.9 % (0.0-2.0); EOSINOPHIL # 0.7 TH/MM3 (0-0.4); EOSINOPHIL % 12.5 % (0.0-4.0); HEMATOCRIT 25.2 % (35.0-46.0); LYMPH % 22.5 % (9.0-44.0); LYMPHOCYTE # 1.3 TH/MM3 (1.0-4.8); MEAN CELL VOLUME 84.1 FL (80.0-100.0); MEAN CORPUSCULAR HEMOGLOBIN 26.7 PG (27.0-34.0); MEAN CORPUSCULAR HGB CONC 31.8 % (32.0-36.0); MEAN PLATELET VOLUME 8.8 FL (7.0-11.0); MONO % 8.3 % (0.0-8.0); MONOCYTE # 0.5 TH/MM3 (0-0.9); NEUT % 55.8 % (16.0-70.0); PLATELET COUNT 159 TH/MM3 (150-450); RED BLOOD COUNT 2.99 MIL/MM3 (4.00-5.30); RED CELL DISTRIBUTION WIDTH 16.2 % (11.6-17.2); WHITE BLOOD COUNT 5.7 TH/MM3 (4.0-11.0)
[2017-09-22 06:28] LABS: BICARBONATE 27.7 MEQ/L (21.0-32.0); CALCIUM 8.8 MG/DL (8.5-10.1); CREATININE 2.57 MG/DL (0.50-1.00); PHOSPHORUS 2.6 MG/DL (2.5-4.9)
[2017-09-22] MEDS: INSULIN ASPART SUPPLEMENTAL SCALE SQ SCH ×4 (08:00→21:44)
[2017-09-22] MEDS: CALCITRIOL 0.25 MCG CAP PO SCH (08:40)
[2017-09-22] MEDS: GABAPENTIN 300 MG CAP PO SCH (08:41)
[2017-09-22] MEDS: CLOPIDOGREL 75 MG TAB PO SCH (08:41)
[2017-09-22] MEDS: FERROUS SULFATE 325 MG (65 MG ELEMENTAL IRON) TAB PO SCH ×3 (08:41→16:53)
[2017-09-22] MEDS: METOLAZONE 5 MG TAB PO SCH (08:41)
[2017-09-22] MEDS: CITALOPRAM HYDROBROMIDE 20 MG TAB PO SCH (08:41)
[2017-09-22] MEDS: FLUTICASONE PROPIONATE 50 MCG/ACT 16 GM NASAL SPRAY EACH NARE SCH ×2 (08:42→21:44)
[2017-09-22] MEDS: SODIUM CHLORIDE 0.9% FLUSH 10 ML FLUSH IV FLUSH SCH ×2 (08:42→21:44)
[2017-09-22] MEDS: PANTOPRAZOLE SODIUM 40 MG VIAL IV PUSH SCH (08:42)
[2017-09-22] MEDS: ISOSORBIDE DINITRATE 5 MG TAB PO SCH ×3 (08:54→16:53)
--- NOTE | 2017-09-22 12:05 | HHI.NPPN ---
Subjective History of Present Illness Initial confusion as apparently she has a hyphenated last name Jose Greenberg however she is listed in the group home and also at the hospital as Dionicio while at my office last name is listed as Jose. She has a history of long-standing chronic kidney disease. There was an episode of acute renal failure back in 2016. Kidney biopsy was performed as there was a question of glomerulonephritis however the biopsy showed diabetic nephropathy, nephrosclerosis and also severe interstitial nephritis. She required dialysis for fluid overload for short duration but dialysis was subsequently discontinued with improvement in renal function. She was subsequently followed up in the office and there was evidence of progressive chronic kidney disease with GFR is ranging between 16 and 17 and creatinine levels ranging between about 3.1 and 3.6. She was referred for placement of an AV dialysis shunt in preparation for dialysis. Quality of life issues were discussed with the patient and her daughter in view of her multiple comorbidities and they did wish to consider dialysis when the patient progressive end-stage renal disease. Patient admitted on this occasion with melena and subsequently upper endoscopy was performed showing evidence of gastritis. She was transferred to the ICU for accelerated hypertension. On reviewing previous admissions it appears that she was on clonidine previously as part of her hypertensive regimen. Despite the development of hypernatremia the patient's renal indices have actually improved during this admission.. Interval History The patient is in good spirits today Overall no complaints Objective Data Data Vital Signs Date Time Temp Pulse Resp B/P (MAP) Pulse Ox O2 Delivery O2 Flow Rate FiO2 09/22/17 10:54 97 21 09/22/17 08:00 98.4 73 18 137/76 (96) 97 09/22/17 04:06 69 09/22/17 04:00 98.3 72 17 194/79 (117) 100 09/22/17 00:00 98.5 70 19 195/79 (117) 98 09/21/17 23:54 72 09/21/17 20:00 98.1 65 19 130/60 (83) 99 09/21/17 16:00 97.6 93 17 163/70 (101) 100 09/21/17 14:00 97.4 87 17 155/69 (97) 100 -: 09/22/17 0535 09/22/17 0535 Imaging Last Impressions Abdomen X-Ray 09/18/17 0000 Signed Impressions: CONCLUSION: No dilated loops of small or large bowel. Head CT 09/15/17 121 Signed Impressions: CONCLUSION: 1. 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 2. No evidence of acute infarct, hemorrhage, mass or edema. 3. Chronic white matter disease characteristic of microvascular ischemic mckeon es. Abdomen/Pelvis CT 09/15/17 1219 Signed Impressions: CONCLUSION: 1. Anterior pelvic wall ventral hernia 2. Status post cholecystectomy and hysterectomy 3. Left basilar airspace disease characteristic of atelectasis 4. No evidence of acute process, suspicious mass or lymphadenopathy. Medication Review Current Medications Medications (Trade) Dose Ordered Sig/Maxine Route Start Time Stop Time Status Last Admin (NS Flush) 2 ml UNSCH PRN IV FLUSH 09/15/17 15:30 09/21/17 08:40 (NS Flush) 2 ml BID IV FLUSH 09/15/17 21:00 09/22/17 08:42 (Zofran Odt) 4 mg Q6H PRN PO 09/15/17 15:30 (Protonix Inj) 40 mg DAILY IV PUSH 09/16/17 09:00 09/22/17 08:42 (Norvasc) 10 mg DAILY PO 09/16/17 09:00 09/22/17 08:41 (Lipitor) 80 mg HS PO 09/15/17 21:00 09/21/17 22:23 (Rocaltrol) 0.25 mcg DAILY PO 09/16/17 09:00 09/22/17 08:40 (CeleXA) 20 mg DAILY PO 09/16/17 09:00 09/22/17 08:41 (Plavix) 75 mg DAILY PO 09/16/17 09:00 09/22/17 08:41 (Cardura) 8 mg HS PO 09/15/17 21:00 09/21/17 22:23 (Ferrous Sulfate) 325 mg TIDPC PO 09/15/17 18:30 09/22/17 08:41 (Flonase Hudson Spr) 1 spray Q12HR EACH NARE 09/15/17 21:00 09/22/17 08:42 (Apresoline) 100 mg Q8HR PO 09/15/17 22:00 Future hold 09/22/17 04:58 (Levemir Inj) 20 units HS SQ 09/15/17 21:00 09/21/17 22:24 (Synthroid) 25 mcg DAILY@0600 PO 09/16/17 06:00 09/22/17 04:58 (Zaroxolyn) 5 mg DAILY PO 09/16/17 09:00 09/22/17 08:41 (Lopressor) 100 mg Q12H PO 09/15/17 15:45 09/22/17 04:58 (NovoLOG SUPPLEMENTAL SCALE) 1 ACHS SLIDING SCALE SQ 09/15/17 17:00 09/21/17 22:39 (Glucagon Inj) 1 mg UNSCH PRN OTHER 09/15/17 15:45 (D50w (Vial) Inj) 50 ml UNSCH PRN IV PUSH 09/15/17 15:45 (Neurontin) 300 mg DAILY PO 09/17/17 09:00 09/22/17 08:41 (Apresoline) 10 mg Q6HR PRN PO 09/16/17 12:15 (Phenergan Inj) 25 mg Q6H PRN IM 09/18/17 16:45 (Trandate Inj) 10 mg Q4H PRN IV PUSH 09/19/17 02:30 09/19/17 06:16 Nicardipine HCl 25 mg/Sodium Chloride 260 ml @ 52 mls/hr TITRATE PRN IV 09/19/17 10:00 09/19/17 20:24 (Ativan Inj) 1 mg Q6H PRN IV PUSH 09/19/17 11:15 09/19/17 11:42 ([facility] [place] [facility] [place]) Patient in critical care unit? Ass... Q361D .XX 09/19/17 21:45 09/19/17 21:45 (Chlorhexidine 2% Cloth) 3 pack DAILY@04 TOPICAL 09/20/17 04:00 09/24/17 04:01 09/21/17 03:07 (Chlorhexidine 2% Cloth) 3 pack UNSCH PRN TOPICAL 09/19/17 21:45 09/24/17 21:34 (Catapres) 0.2 mg Q8HR PO 09/20/17 22:00 09/22/17 04:58 (Cipro) 500 mg Q18H PO 09/22/17 03:00 09/22/17 04:58 (Isordil) 5 mg TIDAC PO 5/29/18 08:00 09/22/17 08:54 (Epogen Inj) 20,000 units ONCE@1400 ONCE SQ 09/22/17 14:00 09/22/17 14:01 Physical Exam General Appearance: No Acute Distress, Comfortable Neck Neck Exam: Neck Supple, Trachea Midline Pulmonary Resp Exam: Clear Bilaterally, Breath Sounds Equal Cardiology CV Exam: Regular, Normal Sinus Rhythm Gastrointestinal/Abdomen GI Exam: Soft, Non-Tender Genitourinary Exam: Clear Urine Extremeties Extremities Exam: No Edema Neurologic Neuro Exam: Alert, Awake Assessment/Plan Problem List: (1) CKD (chronic kidney disease) stage 4, GFR 15-29 ml/min ICD Codes: N18.4 - Chronic kidney disease, stage 4 (severe) Status: Chronic Plan: Renal functions fluctuating, but stable Hypernatremia improved IV discontinued Continue with po intake. UOP good. Continue to hold diuretics at the present. May need to be resumed at D/C, but this remains to be seen. Medications should be adjusted for the patient's estimated GFR if clinically indicated. Avoid agents with significant potential for nephrotoxicity possible including NSAIDs for analgesia, iodine contrast agents. Gadolinium is contraindicated if the GFR is below 30. (2) Accelerated essential hypertension ICD Codes: I10 - Essential (primary) hypertension Status: Acute Plan: BP improved Was significantly elevated last evening May need HS dose of Clonidine (3) Hypernatremia ICD Codes: E87.0 - Hyperosmolality and hypernatremia Status: Acute Plan: As above. (4) Diabetic nephropathy ICD Codes: E11.21 - Type 2 diabetes mellitus with diabetic nephropathy (5) History of diastolic dysfunction ICD Codes: Z86.79 - Personal history of other diseases of the circulatory system Plan: No evidence of congestive heart failure clinically at this time. (6) Secondary hyperparathyroidism of renal origin ICD Codes: N25.81 - Secondary hyperparathyroidism of renal origin Plan: Intact PTH level noted. (7) Anemia ICD Codes: D64.9 - Anemia, unspecified Status: Acute Plan: Continue on Procrit as before. Barbie Roach September 22, 2017 12:05
[2017-09-22] MEDS ORDERED: EPOETIN ALFA 20,000 UNITS/ML VIAL SQ ONE (14:00)
--- NOTE | 2017-09-22 14:04 | HHI.PR ---
Subjective Remarks The patient denies chest pain or shortness of breath. A febrile. Stable vital signs with improved blood pressure. Denies nausea, vomiting or abdominal pain. Patient states she is already eating and appetite is improving. Objective Vitals Vital Signs Date Time Temp Pulse Resp B/P (MAP) Pulse Ox O2 Delivery O2 Flow Rate FiO2 09/22/17 12:00 97.6 72 18 148/64 (92) 96 09/22/17 10:54 97 21 09/22/17 08:00 98.4 73 18 137/76 (96) 97 09/22/17 04:06 69 09/22/17 04:00 98.3 72 17 194/79 (117) 100 09/22/17 00:00 98.5 70 19 195/79 (117) 98 09/21/17 23:54 72 09/21/17 20:00 98.1 65 19 130/60 (83) 99 09/21/17 16:00 97.6 93 17 163/70 (101) 100 I/O 09/21/17 09/21/17 09/21/17 09/22/17 09/22/17 09/22/17 07:00 15:00 23:00 07:00 15:00 23:00 Intake Total 1291.625 ml 1960 ml 240 ml Output Total 100 ml 175 ml 950 ml 850 ml Balance 1191.625 ml -175 ml 1960 ml -710 ml -850 ml Intake Oral 0 ml 960 ml 240 ml IV Total 1291.625 ml 1000 ml Output Urine Total 100 ml 175 ml 950 ml 850 ml # Bowel Movements 0 Result Diagram: 09/22/17 0535 09/22/17 0535 Imaging Last Impressions Abdomen X-Ray 09/18/17 0000 Signed Impressions: CONCLUSION: No dilated loops of small or large bowel. Head CT 09/15/17 1219 Signed Impressions: CONCLUSION: 1. 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 2. No evidence of acute infarct, hemorrhage, mass or edema. 3. Chronic white matter disease characteristic of microvascular ischemic mckeon es. Abdomen/Pelvis CT 09/15/17 1219 Signed Impressions: CONCLUSION: 1. Anterior pelvic wall ventral hernia 2. Status post cholecystectomy and hysterectomy 3. Left basilar airspace disease characteristic of atelectasis 4. No evidence of acute process, suspicious mass or lymphadenopathy. Objective Remarks GENERAL: Patient lying in bed. Appears comfortable. He is to be alert. SKIN: Warm and dry. HEAD: Normocephalic. NG tube in place not connected drainage. EYES: No scleral icterus. No injection or drainage. NECK: Supple, trachea midline. No JVD. No oropharyngeal erythema. CARDIOVASCULAR: Regular rate and rhythm without murmurs, gallops, or rubs. RESPIRATORY: Breath sounds equal bilaterally. No accessory muscle use. GASTROINTESTINAL: Abdomen soft, non-tender, nondistended. MUSCULOSKELETAL: No cyanosis, or edema. BACK: Nontender without obvious deformity. No CVA tenderness. Dennis catheter in place. Medications and IVs Current Medications Medications (Trade) Dose Ordered Sig/Maxine Route Start Time Stop Time Status Last Admin (NS Flush) 2 ml UNSCH PRN IV FLUSH 09/15/17 15:30 09/21/17 08:40 (NS Flush) 2 ml BID IV FLUSH 09/15/17 21:00 09/22/17 08:42 (Zofran Odt) 4 mg Q6H PRN PO 09/15/17 15:30 (Protonix Inj) 40 mg DAILY IV PUSH 09/16/17 09:00 09/22/17 08:42 (Norvasc) 10 mg DAILY PO 09/16/17 09:00 09/22/17 08:41 (Lipitor) 80 mg HS PO 09/15/17 21:00 09/21/17 22:23 (Rocaltrol) 0.25 mcg DAILY PO 09/16/17 09:00 09/22/17 08:40 (CeleXA) 20 mg DAILY PO 09/16/17 09:00 09/22/17 08:41 (Plavix) 75 mg DAILY PO 09/16/17 09:00 09/22/17 08:41 (Cardura) 8 mg HS PO 09/15/17 21:00 09/21/17 22:23 (Ferrous Sulfate) 325 mg TIDPC PO 09/15/17 18:30 09/22/17 16:53 (Flonase Hudson Spr) 1 spray Q12HR EACH NARE 09/15/17 21:00 09/22/17 08:42 (Apresoline) 100 mg Q8HR PO 09/15/17 22:00 Future hold 09/22/17 12:48 (Levemir Inj) 20 units HS SQ 5/22/18 21:00 09/21/17 22:24 (Synthroid) 25 mcg DAILY@0600 PO 09/16/17 06:00 09/22/17 04:58 (Zaroxolyn) 5 mg DAILY PO 09/16/17 09:00 09/22/17 08:41 (Lopressor) 100 mg Q12H PO 09/15/17 15:45 09/22/17 16:54 (NovoLOG SUPPLEMENTAL SCALE) 1 ACHS SLIDING SCALE SQ 09/15/17 17:00 09/22/17 16:54 (Glucagon Inj) 1 mg UNSCH PRN OTHER 09/15/17 15:45 (D50w (Vial) Inj) 50 ml UNSCH PRN IV PUSH 09/15/17 15:45 (Neurontin) 300 mg DAILY PO 09/17/17 09:00 09/22/17 08:41 (Apresoline) 10 mg Q6HR PRN PO 09/16/17 12:15 (Phenergan Inj) 25 mg Q6H PRN IM 09/18/17 16:45 (Trandate Inj) 10 mg Q4H PRN IV PUSH 09/19/17 02:30 09/19/17 06:16 Nicardipine HCl 25 mg/Sodium Chloride 260 ml @ 52 mls/hr TITRATE PRN IV 09/19/17 10:00 09/19/17 20:24 (Ativan Inj) 1 mg Q6H PRN IV PUSH 09/19/17 11:15 09/19/17 11:42 ([facility] [place] [facility] [place] Patient in critical care unit? Ass... Q361D .XX 09/19/17 21:45 09/19/17 21:45 (Chlorhexidine 2% Cloth) 3 pack DAILY@04 TOPICAL 09/20/17 04:00 09/24/17 04:01 09/21/17 03:07 (Chlorhexidine 2% Cloth) 3 pack UNSCH PRN TOPICAL 09/19/17 21:45 09/24/17 21:34 (Catapres) 0.2 mg Q8HR PO 09/20/17 22:00 09/22/17 12:48 (Cipro) 500 mg Q18H PO 09/22/17 03:00 09/22/17 04:58 (Isordil) 5 mg TIDAC PO 09/22/17 08:00 09/22/17 16:53 A/P Problem List: (1) Dysphagia ICD Code: R13.10 - Dysphagia, unspecified Plan: Dysphagia improving. Advance diet as tolerated. Speech therapy following the patient. Patient currently on mechanical soft, chopped meat with gravy and thin liquids. Remove NG tube since patient is tolerating diet and is not nauseous or vomiting. (2) UTI (urinary tract infection) ICD Code: N39.0 - Urinary tract infection, site not specified Status: Acute Plan: Patient with Klebsiella pneumonia UTI. Continue oral ciprofloxacin. (3) Hypernatremia ICD Code: E87.0 - Hyperosmolality and hypernatremia Status: Resolved Plan: Resolved. Continue to monitor BMP. (4) Accelerated hypertension ICD Code: I10 - Essential (primary) hypertension Plan: Blood pressure more stable today. Status post nicardipine infusion. Continue clonidine, amlodipine, hydralazine, doxazosin. (5) History of CVA with residual deficit ICD Code: I69.30 - Unspecified sequelae of cerebral infarction Status: Chronic Plan: Continue Plavix. (6) Diabetes ICD Code: E11.9 - Type 2 diabetes mellitus without complications Plan: Blood sugar now severely elevated in the 300s range now that patient is able to eat. Switch Levemir to 15 units subcu twice daily. (7) Acute blood loss anemia ICD Code: D62 - Acute posthemorrhagic anemia Plan: Possibly acute on chronic. The patient presented with melena. Status post EGD which showed gastritis and streaky erythema in the gastric body. Abnormal duodenal mucosa with black specks of unclear significance. Biopsies taken. No evidence of GI bleeding noted on endoscopy. (8) CKD (chronic kidney disease) stage 4, GFR 15-29 ml/min ICD Code: N18.4 - Chronic kidney disease, stage 4 (severe) Status: Chronic Plan: Nephrology consulted and following. Possibly secondary to diabetic nephropathy. Hemoglobin seems to be stable. Continue to monitor BUN and creatinine, strict I's and O's. Continue to hold diuretics for now. (9) History of diastolic dysfunction ICD Code: Z86.79 - Personal history of other diseases of the circulatory system Status: Chronic Plan: Seems to be stable. Lasix on hold for now due to elevated creatinine. Possibly resume at discharge. Assessment and Plan GI prophylaxis: Continue PPI. Will DC IV Protonix and start on oral Protonix. Discharge Planning Possible discharge in a.m. will need nephrology clearance. Problem Qualifiers (1) Dysphagia: Qualified Codes: R13.10 - Dysphagia, unspecified (2) UTI (urinary tract infection): Qualified Codes: N30.00 - Acute cystitis without hematuria (3) Diabetes: Qualified Codes: E11.21 - Type 2 diabetes mellitus with diabetic nephropathy; Z79.4 - shelter (current) use of insulin Manish Scales MD September 22, 2017 14:04
--- NOTE | 2017-09-22 14:23 | HHI.HCPN ---
Reason for visit a. To assist with evaluation and management of symptoms including: debility , dysphagia b. To assist medical decision maker(s) with: better understanding of current medical conditions; weighing benefits/burdens of medical treatment options; making medical treatment decisions. . Subjective/Interval History Ms. Greenberg is a 62-year-old female with a history of CVA and right-sided hemiparesis with contractures, HTN, diabetes, hypertension, CAD, dementia and end-stage renal disease who presented to [place] ED on 09/15/2017 for evaluation of generalized weakness and melena. Patient recently had an AV shunt placed and was preparing to go on dialysis. Follow up visit for symptom management and clarification of medical treatment goals. Patient arouses easily to verbal stimuli. She has no complaints; denies pain and dyspnea. Urine culture on 09/19/2017 + Klebsiella. Renal functioning is relative stable, fluctuates. UOP good. BUN: 40, creatinine 2.57, GFR 23 Sent blood work reviewed from 09/22/2017: = WBC: 5.7, hemoglobin 8.0, hematocrit 25.2, platelets 159, neutrophils 55.8% = Sodium 143, potassium 3.6, chloride 108, carbon dioxide 27.7, glucose 119, calcium 8.8, phosphorus 2.6 Patient is jail resident at [facility]; she states she is anxious to go "home." Asking when the NGT will come out; stating she is hungry. . Family/friend interactions See interval history . Advance Directives Health Care Surrogate: Copy in medical record Advance Directive Specifics Date completed: . Health Care Surrogate(s): Anjali Tejeda (sister) is designated as the primary healthcare surrogate decision maker. Joni Morel is designated as the alternate healthcare surrogate decision maker. . Documented care wishes: No additional documented care wishes have been completed. . Objective Vital Signs Date Time Temp Pulse Resp B/P (MAP) Pulse Ox O2 Delivery O2 Flow Rate FiO2 09/22/17 12:00 97.6 72 18 148/64 (92) 96 09/22/17 10:54 97 21 09/22/17 08:00 98.4 73 18 137/76 (96) 97 09/22/17 04:06 69 09/22/17 04:00 98.3 72 17 194/79 (117) 100 09/22/17 00:00 98.5 70 19 195/79 (117) 98 09/21/17 23:54 72 09/21/17 20:00 98.1 65 19 130/60 (83) 99 09/21/17 16:00 97.6 93 17 163/70 (101) 100 09/21/17 14:00 97.4 87 17 155/69 (97) 100 Intake & Output 09/22/17 09/22/17 07:00 19:00 Intake Total 240 ml Output Total 950 ml 850 ml Balance -710 ml -850 ml Intake Oral 240 ml Output Urine Total 950 ml 850 ml . Physical Exam CONSTITUTIONAL/GENERAL: This is an adequately nourished female patient in no acute distress. TUBES/LINES/DRAINS: PIV x 3, indwelling urinary cath SKIN: No wounds seen anteriorly. Skin temperature appropriate. Not diaphoretic. HEAD: Atraumatic. Normocephalic. EYES: Pupils equal and round and reactive. Extraocular motions intact. No scleral icterus. No injection or drainage. Fundi not examined. ENT: Hearing grossly normal. Nose without bleeding or purulent drainage. Throat without visible erythema, exudates, masses, or lesions. NECK: Trachea midline. Supple, nontender. No palpable thyroid enlargement or nodularity. CARDIOVASCULAR: Regular rate and rhythm without murmurs, gallops, or rubs. No JVD. Peripheral pulses symmetric. RESPIRATORY/CHEST: Symmetric, unlabored respirations. Clear to auscultation. Breath sounds diminished bilaterally. No wheezes, rales, or rhonchi. GASTROINTESTINAL: Abdomen soft, non-tender, nondistended. No guarding. Bowel sounds present. GENITOURINARY: Without palpable bladder distension. Dennis catheter in place. MUSCULOSKELETAL: Extremities without clubbing, cyanosis, or edema. No mottling or clubbing. LYMPHATICS: No palpable cervical or supraclavicular adenopathy. NEUROLOGICAL: Awake and alert. Smiling. Answers questions with brief responses. Follows simple commands. PSYCHIATRIC: No obvious anxiety/depression. No apparent hallucinations or other psychotic thought process. . Diagnostic Tests Laboratory Laboratory Tests Test 09/19/17 16:30 09/19/17 17:15 09/20/17 09:06 09/21/17 16:30 Blood Urea Nitrogen 30 MG/DL (7-18) 34 MG/DL (7-18) 43 MG/DL (7-18) Creatinine 2.11 MG/DL (0.50-1.00) 2.37 MG/DL (0.50-1.00) 2.82 MG/DL (0.50-1.00) Random Glucose 278 MG/DL (74-106) 345 MG/DL (74-106) 197 MG/DL (74-106) Calcium Level 9.5 MG/DL (8.5-10.1) 8.8 MG/DL (8.5-10.1) 8.7 MG/DL (8.5-10.1) Sodium Level 155 MEQ/L (136-145) 147 MEQ/L (136-145) 139 MEQ/L (136-145) Potassium Level 3.4 MEQ/L (3.5-5.1) 4.1 MEQ/L (3.5-5.1) 3.5 MEQ/L (3.5-5.1) Chloride Level 120 MEQ/L (98-107) 112 MEQ/L (98-107) 106 MEQ/L (98-107) Carbon Dioxide Level 28.7 MEQ/L (21.0-32.0) 28.7 MEQ/L (21.0-32.0) 25.8 MEQ/L (21.0-32.0) Anion Gap 6 MEQ/L (5-15) 6 MEQ/L (5-15) 7 MEQ/L (5-15) Estimat Glomerular Filtration Rate 29 ML/MIN (>89) 25 ML/MIN (>89) 20 ML/MIN (>89) Urine Color YELLOW (YELLW/STRAW) Urine Turbidity CLOUDY (CLEAR) Urine pH 6.5 (5.0-8.5) Urine Specific [place] 1.015 (1.002-1.035) Urine Protein 300 mg/dL (NEG-TRACE) Urine Glucose (UA) 300 mg/dL (NEG) Urine Ketones 10 mg/dL (NEG) Urine Occult Blood MOD (NEG) Urine Nitrite NEG (NEG) Urine Bilirubin NEG (NEG) Urine Urobilinogen LESS THAN 2.0 MG/DL (LESS Urine Leukocyte Esterase LARGE (NEG) Urine RBC 14 /hpf (0-3) Urine WBC /hpf (0-5) Urine WBC Clumps MANY (NONE) Urine Squamous Epithelial Cells 2 /hpf (0-5) Urine Bacteria MANY /hpf (NONE) Microscopic Urinalysis Comment CATH-CULTURE IND White Blood Count 7.4 TH/MM3 (4.0-11.0) 6.9 TH/MM3 (4.0-11.0) Red Blood Count 3.01 MIL/MM3 (4.00-5.30) 2.98 MIL/MM3 (4.00-5.30) Hemoglobin 8.1 GM/DL (11.6-15.3) 7.9 GM/DL (11.6-15.3) Hematocrit 26.0 % (35.0-46.0) 25.5 % (35.0-46.0) Mean Corpuscular Volume 86.5 FL (80.0-100.0) 85.5 FL (80.0-100.0) Mean Corpuscular Hemoglobin 26.8 PG (27.0-34.0) 26.7 PG (27.0-34.0) Mean Corpuscular Hemoglobin Concent 31.0 % (32.0-36.0) 31.2 % (32.0-36.0) Red Cell Distribution Width 16.9 % (11.6-17.2) 16.5 % (11.6-17.2) Platelet Count 167 TH/MM3 (150-450) 147 TH/MM3 (150-450) Mean Platelet Volume 8.9 FL (7.0-11.0) 9.0 FL (7.0-11.0) Neutrophils (%) (Auto) 69.4 % (16.0-70.0) 61.5 % (16.0-70.0) Lymphocytes (%) (Auto) 15.3 % (9.0-44.0) 19.0 % (9.0-44.0) Monocytes (%) (Auto) 6.9 % (0.0-8.0) 7.2 % (0.0-8.0) Eosinophils (%) (Auto) 7.5 % (0.0-4.0) 11.6 % (0.0-4.0) Basophils (%) (Auto) 0.9 % (0.0-2.0) 0.7 % (0.0-2.0) Neutrophils # (Auto) 5.1 TH/MM3 (1.8-7.7) 4.3 TH/MM3 (1.8-7.7) Lymphocytes # (Auto) 1.1 TH/MM3 (1.0-4.8) 1.3 TH/MM3 (1.0-4.8) Monocytes # (Auto) 0.5 TH/MM3 (0-0.9) 0.5 TH/MM3 (0-0.9) Eosinophils # (Auto) 0.6 TH/MM3 (0-0.4) 0.8 TH/MM3 (0-0.4) Basophils # (Auto) 0.1 TH/MM3 (0-0.2) 0.0 TH/MM3 (0-0.2) CBC Comment DIFF FINAL DIFF FINAL Differential Comment Albumin 3.0 GM/DL (3.4-5.0) Phosphorus Level 1.5 MG/DL (2.5-4.9) 1.8 MG/DL (2.5-4.9) Magnesium Level 1.8 MG/DL (1.5-2.5) 25-Hydroxy Vitamin D Total 61.9 ng/ML (30-100) Parathyroid Hormone (Intact) 161.0 PG/ML (12.4-76.8) B-Type Natriuretic Peptide 131 PG/ML (0-100) Test 09/22/17 05:35 White Blood Count 5.7 TH/MM3 (4.0-11.0) Red Blood Count 2.99 MIL/MM3 (4.00-5.30) Hemoglobin 8.0 GM/DL (11.6-15.3) Hematocrit 25.2 % (35.0-46.0) Mean Corpuscular Volume 84.1 FL (80.0-100.0) Mean Corpuscular Hemoglobin 26.7 PG (27.0-34.0) Mean Corpuscular Hemoglobin Concent 31.8 % (32.0-36.0) Red Cell Distribution Width 16.2 % (11.6-17.2) Platelet Count 159 TH/MM3 (150-450) Mean Platelet Volume 8.8 FL (7.0-11.0) Neutrophils (%) (Auto) 55.8 % (16.0-70.0) Lymphocytes (%) (Auto) 22.5 % (9.0-44.0) Monocytes (%) (Auto) 8.3 % (0.0-8.0) Eosinophils (%) (Auto) 12.5 % (0.0-4.0) Basophils (%) (Auto) 0.9 % (0.0-2.0) Neutrophils # (Auto) 3.2 TH/MM3 (1.8-7.7) Lymphocytes # (Auto) 1.3 TH/MM3 (1.0-4.8) Monocytes # (Auto) 0.5 TH/MM3 (0-0.9) Eosinophils # (Auto) 0.7 TH/MM3 (0-0.4) Basophils # (Auto) 0.0 TH/MM3 (0-0.2) CBC Comment DIFF FINAL Differential Comment Blood Urea Nitrogen 40 MG/DL (7-18) Creatinine 2.57 MG/DL (0.50-1.00) Random Glucose 119 MG/DL (74-106) Calcium Level 8.8 MG/DL (8.5-10.1) Phosphorus Level 2.6 MG/DL (2.5-4.9) Sodium Level 143 MEQ/L (136-145) Potassium Level 3.6 MEQ/L (3.5-5.1) Chloride Level 108 MEQ/L (98-107) Carbon Dioxide Level 27.7 MEQ/L (21.0-32.0) Anion Gap 7 MEQ/L (5-15) Estimat Glomerular Filtration Rate 23 ML/MIN (>89) Result Diagram: 09/22/17 0535 09/22/17 0535 Microbiology Microbiology Date/Time Source Procedure Growth Status 09/19/17 17:15 Urine Catheterized Urine Urine Culture - Final Klebsiella Pneumoniae Complete Assessment and Plan Disease Oriented Problem List: (1) Hypernatremia (2) Accelerated essential hypertension (3) GI bleed (4) End stage renal disease (5) UTI (urinary tract infection) (6) Diabetic nephropathy (7) Diabetes Symptom Scale: (1) Debility 0-10 Scale: Unable to quantify (2) Dysphagia 0-10 Scale: Unable to quantify Pertinent Non-Medical Issues Psychosocial: Patient is a long-term resident of [facility] Spiritual: [employer] tori Legal: Ethical issues impacting care: Important Contacts Anjali Nikhil, sister/[facility]: [phone] or [phone] or [phone] Joni Adriel: [phone] . Prognosis Mrs. Greenberg is a debilitated, elderly, female patient with a complex medical history who is a long-term intermediate resident status post CVA 2 with residual right-sided deficits and memory impairment. Admitted with generalized weakness and GI bleed; recent AVF placement secondary to ESRD. Given patient baseline debility in addition to her advanced age with multiple comorbidities, she is high risk for ongoing decline and setback. . Code Status: Full Code Plan * FULL CODE * Decision-making: Patient has limited insight and judgment related to her medical conditions; it is unlikely that she will regain capacity for medical decision-making. A healthcare designation form has been completed and names the patient's sister (Anjali Tejeda) as the primary healthcare surrogate decision maker. Joni Morel is designated as the alternate healthcare surrogate decision maker. * GOALS AGGRESSIVE * Palliative care attempted to contact the patient's sister (Anjali). A message was left on her voicemail with Palliative care contact information. * Discussed patient with RN (Yusra). * SYMPTOM MANAGEMENT: == Debility: Patient was living independently prior to CVA x 2 within 2 years. She moved to [place] so she could live with her sister who was her primary rn long term care. The patient currently lives in a intermediate teacher care facility where her increasing care needs can be met. Patient has residual right sided hemiparesis and memory deficits == Dysphagia: Patient was initially made NPO secondary to severe pharyngeal dysphagia with overt signs of aspiration of multiple consistencies and eventual partial bolus regurgitation from the pharynx post swallow with need for suction assistance. Recommendations for modified barium swallow. Diet advanced to mechanically soft with chopped meat, extra gravy and thin liquids on 09/20/2017. Speech therapy continues to follow. * Palliative care will continue to follow this patient throughout her hospitalization to establish trust, assist with symptom management and clarification of medical treatment goals. . Carly Vences September 22, 2017 14:23
[2017-09-22] MEDS: ATORVASTATIN 80 MG TAB PO SCH (21:43)
[2017-09-22] MEDS: DOXAZOSIN MESYLATE 4 MG TAB PO SCH (21:43)
[2017-09-22] MEDS: INSULIN DETEMIR 100 UNITS/ML VIAL SQ SCH (21:44)
[2017-09-23] VITALS: BP 117/72; PULSE 62; RESP 17; TEMP 97.9; O2SAT 99
[2017-09-23 04:00] VITALS: BP 183/71; PULSE 69; RESP 17; TEMP 97.6; O2SAT 96
[2017-09-23] MEDS: CHLORHEXIDINE GLUCONATE 2 % 1 PACK (2 CLOTHS)(taper/protocol) TOPICAL SCH (04:00)
[2017-09-23] MEDS: METOPROLOL TARTRATE 100 MG TAB PO SCH ×2 (04:20→16:09)
[2017-09-23] MEDS: hydrALAZINE HCL 100 MG TAB PO SCH ×2 (05:37→16:09)
[2017-09-23] MEDS: cloNIDine HCL 0.1 MG TAB PO SCH ×2 (05:37→16:10)
[2017-09-23] MEDS: LEVOTHYROXINE SODIUM 25 MCG TAB PO SCH (05:37)
[2017-09-23 07:20] LABS: HEMATOCRIT 25.2 % (35.0-46.0); MEAN CELL VOLUME 83.7 FL (80.0-100.0); MEAN CORPUSCULAR HEMOGLOBIN 26.7 PG (27.0-34.0); MEAN CORPUSCULAR HGB CONC 31.9 % (32.0-36.0); MEAN PLATELET VOLUME 8.9 FL (7.0-11.0); PLATELET COUNT 148 TH/MM3 (150-450); RED BLOOD COUNT 3.02 MIL/MM3 (4.00-5.30); WHITE BLOOD COUNT 5.4 TH/MM3 (4.0-11.0)
[2017-09-23 08:00] VITALS: BP 181/75; PULSE 71; RESP 18; TEMP 97.7; O2SAT 98
[2017-09-23 08:01] LABS: ALBUMIN 2.6 GM/DL (3.4-5.0); BICARBONATE 25.1 MEQ/L (21.0-32.0); CREATININE 2.16 MG/DL (0.50-1.00); MAGNESIUM 1.6 MG/DL (1.5-2.5); PHOSPHORUS 2.7 MG/DL (2.5-4.9)
[2017-09-23] MEDS: METOLAZONE 5 MG TAB PO SCH (09:32)
[2017-09-23] MEDS: CITALOPRAM HYDROBROMIDE 20 MG TAB PO SCH (09:32)
[2017-09-23] MEDS: CALCITRIOL 0.25 MCG CAP PO SCH (09:32)
[2017-09-23] MEDS: FERROUS SULFATE 325 MG (65 MG ELEMENTAL IRON) TAB PO SCH ×2 (09:32→11:57)
[2017-09-23] MEDS: GABAPENTIN 300 MG CAP PO SCH (09:32)
[2017-09-23] MEDS: ISOSORBIDE DINITRATE 5 MG TAB PO SCH ×3 (09:32→16:09)
[2017-09-23] MEDS: CLOPIDOGREL 75 MG TAB PO SCH (09:32)
[2017-09-23] MEDS: PANTOPRAZOLE SODIUM 40 MG VIAL IV PUSH SCH (09:33)
[2017-09-23] MEDS: SODIUM CHLORIDE 0.9% FLUSH 10 ML FLUSH IV FLUSH SCH (09:34)
[2017-09-23] MEDS: FLUTICASONE PROPIONATE 50 MCG/ACT 16 GM NASAL SPRAY EACH NARE SCH (09:36)
[2017-09-23] MEDS: INSULIN ASPART SUPPLEMENTAL SCALE SQ SCH ×3 (09:37→16:16)
[2017-09-23] MEDS ORDERED: DOXAZOSIN MESYLATE 2 MG TAB PO ONE (10:15)
[2017-09-23 11:15] VITALS: O2SAT 98
[2017-09-23 12:00] VITALS: BP 108/63; PULSE 67; RESP 17; TEMP 97.8; O2SAT 100
[2017-09-23] MEDS ORDERED: CIPR-9 PO (14:03)
--- NOTE | 2017-09-23 14:06 | HHI.DCPOC ---
Discharge Care Plan Diagnosis: (1) Acute blood loss anemia (2) Dysphagia (3) Hypernatremia (4) Accelerated hypertension (5) History of CVA with residual deficit (6) History of diastolic dysfunction (7) Anemia (8) Debility (9) UTI (urinary tract infection) (10) Diabetes (11) End stage renal disease Goals to Promote Your Health * To prevent worsening of your condition and complications * To maintain your health at the optimal level Directions to Meet Your Goals Take your medications as prescribed Follow your dietary instruction Follow activity as directed Keep your appointments as scheduled Take your immunizations and boosters as scheduled If your symptoms worsen call your PCP, if no PCP go to Urgent Care Center or Emergency Room Smoking is Dangerous to Your Health. Avoid second hand smoke Call the 24-hour hour crisis hotline for domestic abuse at Manish Scales MD September 23, 2017 14:06
--- NOTE | 2017-09-23 14:29 | HHI.DS ---
Discharge Summary Admission Date September 19, 2017 at 11:13 Discharge Date: September 23, 2017 Admitting Diagnosis GI bleed, generalized weakness (1) Dysphagia ICD Code: R13.10 - Dysphagia, unspecified (2) UTI (urinary tract infection) ICD Code: N39.0 - Urinary tract infection, site not specified Status: Acute (3) Hypernatremia ICD Code: E87.0 - Hyperosmolality and hypernatremia Diagnosis: Principal Status: Resolved (4) Accelerated hypertension ICD Code: I10 - Essential (primary) hypertension Diagnosis: Principal (5) History of CVA with residual deficit ICD Code: I69.30 - Unspecified sequelae of cerebral infarction Diagnosis: Secondary Status: Chronic (6) Diabetes ICD Code: E11.9 - Type 2 diabetes mellitus without complications Diagnosis: Principal Status: Chronic (7) Acute blood loss anemia ICD Code: D62 - Acute posthemorrhagic anemia Diagnosis: Principal Status: Resolved (8) CKD (chronic kidney disease) stage 4, GFR 15-29 ml/min ICD Code: N18.4 - Chronic kidney disease, stage 4 (severe) Status: Chronic (9) History of diastolic dysfunction ICD Code: Z86.79 - Personal history of other diseases of the circulatory system Diagnosis: Principal Status: Chronic Procedures sp EGD which showed Gastritis and streaky erythema in the gastric body Abnormal duodenal mucosa with black specks of unclear significance Brief History - From Admission 62 years old female with history of CVA and right-sided weakness with contractures, diabetes and hypertension end-stage renal disease transferred from assisted living [facility] to the hospital due to lethargy and melena, in ED patient was found to have a black stool, even though she is on iron supplement but her Hemoccult was positive in the ED, patient is extremely poor historian speech is very slow she was barely able to mention her name no family at the bedside no sufficient history reported from assisted living. Abdominal exam revealed no tenderness to palpation positive bowel sounds CBC/BMP: 09/23/17 0646 09/23/17 0646 Significant Findings Laboratory Tests Test 09/21/17 16:30 09/22/17 05:35 09/23/17 06:46 Red Blood Count 2.98 MIL/MM3 (4.00-5.30) 2.99 MIL/MM3 (4.00-5.30) 3.02 MIL/MM3 (4.00-5.30) Hemoglobin 7.9 GM/DL (11.6-15.3) 8.0 GM/DL (11.6-15.3) 8.0 GM/DL (11.6-15.3) Hematocrit 25.5 % (35.0-46.0) 25.2 % (35.0-46.0) 25.2 % (35.0-46.0) Mean Corpuscular Hemoglobin 26.7 PG (27.0-34.0) 26.7 PG (27.0-34.0) 26.7 PG (27.0-34.0) Mean Corpuscular Hemoglobin Concent 31.2 % (32.0-36.0) 31.8 % (32.0-36.0) 31.9 % (32.0-36.0) Platelet Count 147 TH/MM3 (150-450) 148 TH/MM3 (150-450) Eosinophils (%) (Auto) 11.6 % (0.0-4.0) 12.5 % (0.0-4.0) Eosinophils # (Auto) 0.8 TH/MM3 (0-0.4) 0.7 TH/MM3 (0-0.4) Blood Urea Nitrogen 43 MG/DL (7-18) 40 MG/DL (7-18) 41 MG/DL (7-18) Creatinine 2.82 MG/DL (0.50-1.00) 2.57 MG/DL (0.50-1.00) 2.16 MG/DL (0.50-1.00) Random Glucose 197 MG/DL (74-106) 119 MG/DL (74-106) 135 MG/DL (74-106) Phosphorus Level 1.8 MG/DL (2.5-4.9) Estimat Glomerular Filtration Rate 20 ML/MIN (>89) 23 ML/MIN (>89) 28 ML/MIN (>89) B-Type Natriuretic Peptide 131 PG/ML (0-100) Monocytes (%) (Auto) 8.3 % (0.0-8.0) Chloride Level 108 MEQ/L (98-107) Albumin 2.6 GM/DL (3.4-5.0) Imaging Last Impressions Abdomen X-Ray 09/18/17 0000 Signed Impressions: CONCLUSION: No dilated loops of small or large bowel. Head CT 09/15/17 1219 Signed Impressions: CONCLUSION: 1. 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 2. No evidence of acute infarct, hemorrhage, mass or edema. 3. Chronic white matter disease characteristic of microvascular ischemic mckeon es. Abdomen/Pelvis CT 09/15/17 1219 Signed Impressions: CONCLUSION: 1. Anterior pelvic wall ventral hernia 2. Status post cholecystectomy and hysterectomy 3. Left basilar airspace disease characteristic of atelectasis 4. No evidence of acute process, suspicious mass or lymphadenopathy. PE at Discharge GENERAL: Patient lying in bed. Appears comfortable. He is to be alert. SKIN: Warm and dry. HEAD: Normocephalic. NG tube in place not connected drainage. EYES: No scleral icterus. No injection or drainage. NECK: Supple, trachea midline. No JVD. No oropharyngeal erythema. CARDIOVASCULAR: Regular rate and rhythm without murmurs, gallops, or rubs. RESPIRATORY: Breath sounds equal bilaterally. No accessory muscle use. GASTROINTESTINAL: Abdomen soft, non-tender, nondistended. MUSCULOSKELETAL: No cyanosis, or edema. BACK: Nontender without obvious deformity. No CVA tenderness. Dennis catheter in place. Pt update on day of discharge No major overnight events. The patient denies chest pain or shortness of breath. Very good urine output. Hospital Course (1) Dysphagia Speech therapy consulted. Recommended mechanical soft, chopped meat with gravy and thin liquids. Dysphagia likely neurogenic in origin since patient has history of CVA. Patient had NG tube that was placed due to nausea vomiting and GI bleed. NG tube discontinued on 09/22/17. (2) UTI (urinary tract infection) Patient with Klebsiella pneumonia UTI. Started on oral ciprofloxacin. Will continue upon discharge. Patient is afebrile with normal white count. (3) Hypernatremia Patient's sodium trended up to 156. Status post treatment with hypotonic saline. Resolved prior to discharge. BMP monitored throughout hospital stay. (4) Accelerated hypertension Blood pressure more stable today. Status post nicardipine infusion. Continue clonidine, amlodipine, hydralazine, doxazosin. (5) History of CVA with residual deficit Aspirin and Plavix initially held due to patient's GI bleed. Once EGD done and GI bleed controlled, Plavix was resumed. Will DC on Plavix and aspirin 81 mg daily. (6) Diabetes The patient was placed on SSI with insulin NovoLog. Once the patient able to eat the patient's blood sugar went up to the 300s range. The patient was placed on Levemir which was titrated and adjusted to 50 units subcu twice daily after which blood sugars are much improved. Discharge on previous home regimen. (7) Acute blood loss anemia Possibly acute on chronic. The patient presented with melena. The patient is status post EGD which showed gastritis and streaky erythema in the gastric body. Abnormal duodenal mucosa with black specks of unclear significance. Biopsies taken. No evidence of GI bleeding noted on endoscopy. Pathology pending at the time of discharge. (8) CKD (chronic kidney disease) stage 4, GFR 15-29 ml/min Nephrology consulted and following. Possibly secondary to diabetic nephropathy. Hemoglobin seems to be stable. BUN and creatinine monitored during hospital stay as well as history I's and O's. Resume diuretics on discharge. (9) History of diastolic dysfunction Remained stable. Sravani initially held due to elevated creatinine. Resume on DC. GI prophylaxis: Placed on PPI. Pt Condition on Discharge: Stable Discharge Disposition: Discharge to SNF Discharge Time: > 30 minutes Discharge Instructions DIET: Follow Instructions for: Renal Failure Diet Activities you can perform: See Additionl Instruction Other Activity Instructions: as per PT OOB to chair with assistance Follow up Referrals: Nephrology - As Per Protocol with Brooks Vargas MD PCP Follow-up - 2 Weeks New Medications: Ciprofloxacin (Cipro) 500 Mg Tab 500 MG PO Q18H for Blood Pressure Management, #2 TAB Continued Medications: Amlodipine (Norvasc) 10 Mg Tab 10 MG PO DAILY, #30 TAB 1 Refill Atorvastatin (Atorvastatin) 80 Mg Tab 80 MG PO HS for Cholesterol Management, #30 TAB 0 Refills Calcitriol (Calcitriol) 0.25 Mcg Cap 0.25 MCG PO DAILY for Calcium Supplement, #30 CAP 0 Refills Cholecalciferol (Vitamin D3) 1,000 Unit Tab 2000 UNITS PO DAILY, #30 TAB 0 Refills Citalopram (Celexa) 20 Mg Tab 20 MG PO DAILY for Control Depression, #30 TAB 0 Refills Clonidine (Catapres) 0.2 Mg Tab 0.2 MG PO Q8HR, #90 TAB 1 Refill Clopidogrel (Plavix) 75 Mg Tab 75 MG PO DAILY for Blood Clot Prevention, #30 TAB 0 Refills Doxazosin (Cardura) 8 Mg Tab 8 MG PO HS, #30 TAB 0 Refills Epoetin Inj (Procrit Inj) 20,000 Unit/Ml Inj 10194 UNITS SQ 2 weeks for Anemia, #12 VIAL 0 Refills Ferrous Sulfate (Ferrous Sulfate) 325 Mg (65 Mg Iron) Tablet 325 MG PO TIDPC for Nutritional Supplement, #90 TAB 0 Refills Fluticasone Nasal [place] (Fluticasone Nasal [place]) 50 Mcg/Act Naspr 1 SPRAY EACH NARE Q12HR for Allergy Management, #1 BOTTLE 0 Refills 50 mcg/spray Gabapentin (Neurontin) 300 Mg Cap 300 MG PO Q8HR, #90 CAP 0 Refills Hydralazine (Hydralazine) 100 Mg Tab 100 MG PO Q8HR for Blood Pressure Management, TAB 0 Refills Insulin Aspart Inj (Novolog Flexpen Inj) 300 Unit/3 Ml Pen 0-12 UNITS SQ ACHS for Blood Sugar Management, #1 PEN 0 Refills SLIDING SCALE: 0-70=OJ and call MD, Repeat in 1hr, 71-150=0 units, 151-200=3 units, 201-250=5 units, 251-300=8 units, 301-400=10 units, > 400=12 units & Repeat in 2hrs, if > 350 call Insulin Glargine Inj (Lantus Inj) 1,000 Unit/10 Ml Vial 20 UNITS SQ HS for Blood Sugar Management, VIAL 0 Refills Levothyroxine (Levothyroxine) 25 Mcg Tab 25 MCG PO DAILY for Thyroid, TAB 0 Refills Metolazone (Metolazone) 5 Mg Tab 5 MG PO DAILY, TAB 0 Refills Metoprolol Tartrate (Lopressor) 100 Mg Tab 100 MG PO Q12H, #60 TAB 0 Refills Oxycodone (Roxicodone) 5 Mg Tab 5 MG PO BID, TAB 0 Refills Pantoprazole (Protonix) 40 Mg Tab 40 MG PO DAILY for Reflux, #30 TAB 0 Refills Polyethylene Glycol 3350 Powder (Polyethylene Glycol 3350 Powder) 17 Gram Pow 17 GM PO DAILY for Constipation, BOTTLE 0 Refills Discontinued Medications: Aspirin (Aspirin) 325 Mg Tab 325 MG PO DAILY, TAB 0 Refills Bumetanide (Bumetanide) 1 Mg Tab 2 MG PO BID@,18, #60 TAB 0 Refills Oxycodone-Acetaminophen (Percocet) 5-325 mg Tab 1 TAB PO Q4H PRN for PAIN, #20 TAB 0 Refills Manish Scales MD September 23, 2017 14:29
[2017-09-23] MEDS ORDERED: ASPI-516 CHEW (14:44)
[2017-09-23 16:00] VITALS: BP 184/79; PULSE 58; RESP 19; TEMP 97.9; O2SAT 98
[2017-09-23] MEDS: CIPROFLOXACIN 500 MG TAB PO SCH (16:09)
--- NOTE | 2017-09-23 17:00 | HHI.HCPN ---
Reason for visit a. To assist with evaluation and management of symptoms including: debility , dysphagia b. To assist medical decision maker(s) with: better understanding of current medical conditions; weighing benefits/burdens of medical treatment options; making medical treatment decisions. . Subjective/Interval History Ms. Greenberg is a 62-year-old female with a history of CVA and right-sided hemiparesis with contractures, HTN, diabetes, hypertension, CAD, dementia and end-stage renal disease who presented to [facility] ED on 09/15/2017 for evaluation of generalized weakness and melena. Patient recently had an AV shunt placed and was preparing to go on dialysis. Follow up visit for symptom management and clarification of medical treatment goals. Patient denies pain and dyspnea. Urine culture on 09/19/2017 + Klebsiella. Renal functioning is relative stable, fluctuates. BUN: 41, creatinine 2.16, GFR 28. Will discharge home on ciprofloxacin; will follow up with nephrology (Dr. Vargas ) outpatient. ST following. Recommended mechanical soft, chopped meat with gravy and thin liquids. Dysphagia likely neurogenic in origin since patient has history of CVA. NGT was placed due to nausea vomiting and GI bleed; discontinued on 09/22/17. Reviewed blood work from 09/23/17: = WBC: 5.4, hemoglobin 8.0, hematocrit 25.2, platelets 148 = Sodium 141, potassium 4.7, chloride 106, carbon dioxide 25.1, glucose 135, calcium 9.0, phosphorus 2.7, magnesium 1.6 = Albumin: 2.6 Patient will return to [facility] upon discharge where she is a long-term resident. . Advance Directives Health Care Surrogate: Copy in medical record Advance Directive Specifics Date completed: . Health Care Surrogate(s): Anjali Tejeda (sister) is designated as the primary healthcare surrogate decision maker. Joni Morel is designated as the alternate healthcare surrogate decision maker. . Documented care wishes: No additional documented care wishes have been completed. . Objective . Vital Signs Date Time Temp Pulse Resp B/P (MAP) Pulse Ox O2 Delivery O2 Flow Rate FiO2 09/23/17 12:00 97.8 67 17 108/63 (78) 100 09/23/17 11:15 98 09/23/17 08:00 97.7 71 18 181/75 (110) 98 09/23/17 04:00 97.6 69 17 183/71 (108) 96 09/23/17 00:00 97.9 62 17 117/72 (87) 99 09/22/17 21:56 Room Air 09/22/17 20:00 97.7 72 19 170/76 (107) 98 Intake & Output 09/23/17 09/23/17 06:59 18:59 Intake Total 240 ml Output Total 850 ml Balance -610 ml Intake Oral 240 ml Output Urine Total 850 ml # Bowel Movements 2 . Physical Exam CONSTITUTIONAL/GENERAL: This is an adequately nourished female patient in no acute distress. TUBES/LINES/DRAINS: PIV x 3, indwelling urinary cath SKIN: No wounds seen anteriorly. Skin temperature appropriate. Not diaphoretic. HEAD: Atraumatic. Normocephalic. EYES: Pupils equal and round and reactive. Extraocular motions intact. No scleral icterus. No injection or drainage. Fundi not examined. ENT: Hearing grossly normal. Nose without bleeding or purulent drainage. Throat without visible erythema, exudates, masses, or lesions. NECK: Trachea midline. Supple, nontender. No palpable thyroid enlargement or nodularity. CARDIOVASCULAR: Regular rate and rhythm without murmurs, gallops, or rubs. No JVD. Peripheral pulses symmetric. RESPIRATORY/CHEST: Symmetric, unlabored respirations. Clear to auscultation. Breath sounds diminished bilaterally. No wheezes, rales, or rhonchi. GASTROINTESTINAL: Abdomen soft, non-tender, nondistended. No guarding. Bowel sounds present. GENITOURINARY: Without palpable bladder distension. Dennis catheter in place. MUSCULOSKELETAL: Extremities without clubbing, cyanosis, or edema. No mottling or clubbing. LYMPHATICS: No palpable cervical or supraclavicular adenopathy. NEUROLOGICAL: Awake and alert. Smiling. Answers questions with brief responses. Follows simple commands. PSYCHIATRIC: No obvious anxiety/depression. No apparent hallucinations or other psychotic thought process. . Diagnostic Tests Laboratory Laboratory Tests Test 09/21/17 16:30 09/22/17 05:35 09/23/17 06:46 White Blood Count 6.9 TH/MM3 (4.0-11.0) 5.7 TH/MM3 (4.0-11.0) 5.4 TH/MM3 (4.0-11.0) Red Blood Count 2.98 MIL/MM3 (4.00-5.30) 2.99 MIL/MM3 (4.00-5.30) 3.02 MIL/MM3 (4.00-5.30) Hemoglobin 7.9 GM/DL (11.6-15.3) 8.0 GM/DL (11.6-15.3) 8.0 GM/DL (11.6-15.3) Hematocrit 25.5 % (35.0-46.0) 25.2 % (35.0-46.0) 25.2 % (35.0-46.0) Mean Corpuscular Volume 85.5 FL (80.0-100.0) 84.1 FL (80.0-100.0) 83.7 FL (80.0-100.0) Mean Corpuscular Hemoglobin 26.7 PG (27.0-34.0) 26.7 PG (27.0-34.0) 26.7 PG (27.0-34.0) Mean Corpuscular Hemoglobin Concent 31.2 % (32.0-36.0) 31.8 % (32.0-36.0) 31.9 % (32.0-36.0) Red Cell Distribution Width 16.5 % (11.6-17.2) 16.2 % (11.6-17.2) 16.0 % (11.6-17.2) Platelet Count 147 TH/MM3 (150-450) 159 TH/MM3 (150-450) 148 TH/MM3 (150-450) Mean Platelet Volume 9.0 FL (7.0-11.0) 8.8 FL (7.0-11.0) 8.9 FL (7.0-11.0) Neutrophils (%) (Auto) 61.5 % (16.0-70.0) 55.8 % (16.0-70.0) Lymphocytes (%) (Auto) 19.0 % (9.0-44.0) 22.5 % (9.0-44.0) Monocytes (%) (Auto) 7.2 % (0.0-8.0) 8.3 % (0.0-8.0) Eosinophils (%) (Auto) 11.6 % (0.0-4.0) 12.5 % (0.0-4.0) Basophils (%) (Auto) 0.7 % (0.0-2.0) 0.9 % (0.0-2.0) Neutrophils # (Auto) 4.3 TH/MM3 (1.8-7.7) 3.2 TH/MM3 (1.8-7.7) Lymphocytes # (Auto) 1.3 TH/MM3 (1.0-4.8) 1.3 TH/MM3 (1.0-4.8) Monocytes # (Auto) 0.5 TH/MM3 (0-0.9) 0.5 TH/MM3 (0-0.9) Eosinophils # (Auto) 0.8 TH/MM3 (0-0.4) 0.7 TH/MM3 (0-0.4) Basophils # (Auto) 0.0 TH/MM3 (0-0.2) 0.0 TH/MM3 (0-0.2) CBC Comment DIFF FINAL DIFF FINAL Differential Comment Blood Urea Nitrogen 43 MG/DL (7-18) 40 MG/DL (7-18) 41 MG/DL (7-18) Creatinine 2.82 MG/DL (0.50-1.00) 2.57 MG/DL (0.50-1.00) 2.16 MG/DL (0.50-1.00) Random Glucose 197 MG/DL (74-106) 119 MG/DL (74-106) 135 MG/DL (74-106) Calcium Level 8.7 MG/DL (8.5-10.1) 8.8 MG/DL (8.5-10.1) 9.0 MG/DL (8.5-10.1) Phosphorus Level 1.8 MG/DL (2.5-4.9) 2.6 MG/DL (2.5-4.9) 2.7 MG/DL (2.5-4.9) Sodium Level 139 MEQ/L (136-145) 143 MEQ/L (136-145) 141 MEQ/L (136-145) Potassium Level 3.5 MEQ/L (3.5-5.1) 3.6 MEQ/L (3.5-5.1) 4.7 MEQ/L (3.5-5.1) Chloride Level 106 MEQ/L (98-107) 108 MEQ/L (98-107) 106 MEQ/L (98-107) Carbon Dioxide Level 25.8 MEQ/L (21.0-32.0) 27.7 MEQ/L (21.0-32.0) 25.1 MEQ/L (21.0-32.0) Anion Gap 7 MEQ/L (5-15) 7 MEQ/L (5-15) 10 MEQ/L (5-15) Estimat Glomerular Filtration Rate 20 ML/MIN (>89) 23 ML/MIN (>89) 28 ML/MIN (>89) B-Type Natriuretic Peptide 131 PG/ML (0-100) Albumin 2.6 GM/DL (3.4-5.0) Magnesium Level 1.6 MG/DL (1.5-2.5) Result Diagram: 09/23/1764509/23/17645 Assessment and Plan Disease Oriented Problem List: (1) Hypernatremia (2) Accelerated essential hypertension (3) GI bleed (4) End stage renal disease (5) UTI (urinary tract infection) (6) Diabetic nephropathy (7) Diabetes Symptom Scale: (1) Debility 0-10 Scale: Unable to quantify (2) Dysphagia 0-10 Scale: Unable to quantify Pertinent Non-Medical Issues Psychosocial: Patient is a long-term resident of [facility] Spiritual: Muslim tori Legal: Ethical issues impacting care: Important Contacts Anjali Tejeda, sister/[facility]: [phone] or [phone] or [phone] Joni [facility]: [phone] . Prognosis Mrs. Greenberg is a debilitated, elderly, female patient with a complex medical history who is a long-term assisted resident status post CVA 2 with residual right-sided deficits and memory impairment. Admitted with generalized weakness and GI bleed; recent AVF placement secondary to ESRD. Given patient baseline debility in addition to her advanced age with multiple comorbidities, she is high risk for ongoing decline and setback. . Code Status: Full Code Plan * FULL CODE * Decision-making: Patient has limited insight and judgment related to her medical conditions; it is unlikely that she will regain capacity for medical decision-making. A healthcare designation form has been completed and names the patient's sister (Anjali Tejeda) as the primary healthcare surrogate decision maker. Joni Morel is designated as the alternate healthcare surrogate decision maker. * GOALS AGGRESSIVE. Discharge back to stand with assisted where the patient is a long-term resident. * SYMPTOM MANAGEMENT: == Debility: Patient was living independently prior to CVA x 2 within 2 years. She moved to [place] so she could live with her sister who was her primary progressive care nurse. The patient currently lives in a [facility] facility where her increasing care needs can be met. Patient has residual right sided hemiparesis and memory deficits == Dysphagia: Patient was initially made NPO secondary to severe pharyngeal dysphagia with overt signs of aspiration of multiple consistencies and eventual partial bolus regurgitation from the pharynx post swallow with need for suction assistance. Recommendations for modified barium swallow. Diet advanced to mechanically soft with chopped meat, extra gravy and thin liquids on 09/20/2017. Speech therapy continues to follow. * Palliative care will continue to follow this patient throughout her hospitalization to establish trust, assist with symptom management and clarification of medical treatment goals. . Attestation To help prompt me to consider important information that might be impacting today's encounter and assessment, information from prior notes written by myself or my colleagues may have been "brought forward" into today's note. My signature on this note, however, is an attestation that I personally performed the exam, history, and/or decision-making noted today, and, unless otherwise indicated, the interactions with patient, family, and staff as well as the review of records all occurred today. I also attest that the listed assessment and stated plan reflect my best clinical judgment today based on the combination of historical information, prior notes, and today's exam/ interactions. When time spent is documented, it refers only to time spent today by the signer, or if indicated, combined time spent today by collaborating physician/nurse practitioner. . Carly Vences September 23, 2017 17:00
[2017-09-24] MEDS ORDERED: DOXAZOSIN MESYLATE 2 MG TAB PO SCH (09:00)
== END 2017-09-23 17:51 | DRG 377 ==
LOC: NEPE 11:56 → NEDA 15:07 → INTOOBSV 15:07 → N04B 17:52 → HIME 09-19 10:00 → OBSVTOIN 09-19 11:13 → N07B 09-21 13:48
PROVIDERS: ADMIT Hospitalist; ATTEND Hospitalist
PROC: 0DB68ZX Excision of Stomach, Via Natural or Artificial Opening Endoscopic, Diagnostic (ICD-10-PCS; 2017-09-17)
PROC: 0DB98ZX Excision of Duodenum, Via Natural or Artificial Opening Endoscopic, Diagnostic (ICD-10-PCS; principal; 2017-09-17 14:57)
DX: K92.1 Melena (principal); N18.6 End stage renal disease; E87.0 Hyperosmolality and hypernatremia; I12.0 Hypertensive chronic kidney disease with stage 5 chronic kidney disease or end stage renal disease; F03.90 Unspecified dementia, unspecified severity, without behavioral disturbance, psychotic disturbance, mood disturbance, and anxiety; D62 Acute posthemorrhagic anemia; N25.81 Secondary hyperparathyroidism of renal origin; I69.354 Hemiplegia and hemiparesis following cerebral infarction affecting left non-dominant side; N39.0 Urinary tract infection, site not specified; I69.391 Dysphagia following cerebral infarction; E11.21 Type 2 diabetes mellitus with diabetic nephropathy; D64.9 Anemia, unspecified; R13.10 Dysphagia, unspecified; E11.22 Type 2 diabetes mellitus with diabetic chronic kidney disease; E87.6 Hypokalemia; I25.10 Atherosclerotic heart disease of native coronary artery without angina pectoris; E78.5 Hyperlipidemia, unspecified; K29.70 Gastritis, unspecified, without bleeding; Z51.5 Encounter for palliative care; R47.02 Dysphasia; B96.1 Klebsiella pneumoniae [K. pneumoniae] as the cause of diseases classified elsewhere
CPT/HCPCS: 70450; 74018; 74176; 80048; 80053; 80069; 81001; 82140; 82306; 82550; 82948; 83735; 83880; 83970; 84100; 84484; 85014; 85018; 85025; 85027; 85044; 85610; 85730; 86850; 86900; 86901; 87077; 87086; 87186; 87641; 88305; 88312; 93005; C9113; J0360; J1205; J1815; J2060; J3480; J7030; J7050; Q4081

== ENCOUNTER 2018-01-30 09:49 | Inpatient (IN) ==
--- NOTE | 2018-01-30 10:43 | XR ---
EXAM DATE: 01/30/2018 10:25 AM EDT AGE/SEX: 62 years / Female INDICATIONS: Chest pain. CLINICAL DATA: This is the patient's initial encounter. Patient reports that signs and symptoms have been present for 1 day and indicates a pain score of Nonresponsive. MEDICAL/SURGICAL HISTORY: Non-responsive. Non-responsive. COMPARISON: . FINDINGS: The heart size is enlarged. The lungs appear grossly clear. A significant effusion is not seen. CONCLUSION: Cardiomegaly. Electronically signed by: Vipin Vasquez MD 01/30/2018 10:41 AM EDT
[2018-01-30 10:52] LABS: Amorphous Sediment,Urine Few /hpf; Bacteria,Urine Occasional /hpf; Bilirubin,Urine Negative (Negative); Clarity,Urine Hazy (Clear); Color,Urine Yellow (Yellw/Straw); Glucose,Urine (UA) 500 or Greater mg/dL (Negative); Hyaline Casts,Urine 7 /lpf (0-3); Leukocyte Esterase,Urine Small (Negative); Mucus,Urine Few /lpf (Occasional); Nitrite,Urine Negative (Negative); Specific Gravity,Urine 1.007 (1.002-1.035); Squamous Epithelial Cell,Urine <1 /hpf (0-5)
[2018-01-30 10:59] LABS: Albumin 2.8 g/dL (3.4-5.0); Anion Gap 10 meq/L (5-15); Aspartate Aminotransferase 14 U/L (15-37); Blood Urea Nitrogen 69 mg/dL (7-18); Calcium 8.8 mg/dL (8.5-10.1); Carbon Dioxide 27.8 meq/L (21.0-32.0); Chloride 107 meq/L (98-107); Glomerular Filtration Rate 22 mL/min (>89); Glucose,Random 248 mg/dL (74-106); Sodium 145 meq/L (136-145)
--- NOTE | 2018-01-30 11:01 | CT ---
EXAM DATE: 01/30/2018 10:31 AM EDT AGE/SEX: 62 years / Female INDICATIONS: Altered mental status. CLINICAL DATA: This is the patient's initial encounter. Patient reports that signs and symptoms have been present for 1 day and indicates a pain score of Nonresponsive. MEDICAL/SURGICAL HISTORY: Stroke. Diabetes. Hypertension. None. RADIATION DOSE: 56.35 CTDI (mGy) COMPARISON: 09/15/2017. TECHNIQUE: CT of the head without contrast. Using automated exposure control and adjustment of the mA and/or kV according to patient size, radiation dose was kept as low as reasonably achievable to ob tain optimal diagnostic quality images. DICOM format image data is available electronically for revi ew and comparison. FINDINGS: Cerebrum: There is decreased density seen throughout the cerebral white matter. There is more extens germaine low density seen on the left side involving portions of the cortex at the left parietal and poste rior frontal lobes. Additional lacunar infarct at the right basal ganglia. There are some expansion o f the lateral ventricles especially on the right secondary to volume loss. This is more extensive on the left side No evidence of midline shift, mass lesion, hemorrhage or acute infarction. No extraaxi al fluid collections are seen. Posterior Fossa: The cerebellum and brainstem are intact. The 4th ventricle is midline. The cerebe llopontine angle is unremarkable. Extracranial: The visualized portion of the orbits is intact. Skull: The calvaria is intact. No evidence of skull fracture. CONCLUSION: 1. No acute abnormality or significant change is seen. 2. Low-density in the cerebral white matter likely from small vessel ischemic change. 3. Encephalomalacia involving portions of the left parietal and posterior frontal lobes. . Electronically signed by: Vipin Vasquez MD 01/30/2018 11:00 AM EDT
[2018-01-30 11:02] LABS: Alanine Aminotransferase 18 U/L (10-53); Alkaline Phosphatase 104 U/L (45-117); Total Protein 6.7 g/dL (6.4-8.2)
[2018-01-30 11:06] LABS: Baso % (Auto) 0.6 % (0.0-2.0); Eos # (Auto) 0.1 th/mm3 (0.0-0.4); Eos % (Auto) 1.4 % (0.0-4.0); Hematocrit 30.9 % (35.0-46.0); Hemoglobin 9.8 gm/dL (11.6-15.3); Lymph # (Auto) 1.4 th/mm3 (1.0-4.8); Lymph % (Auto) 21.3 % (9.0-44.0); Mean Corpuscular HGB Conc 31.8 % (32.0-36.0); Mean Corpuscular Hemoglobin 26.7 pg (27.0-34.0); Mean Corpuscular Volume 83.9 fL (80.0-100.0); Mean Platelet Volume 9.4 fL (7.0-11.0); Mono # (Auto) 0.3 th/mm3 (0.0-0.9); Mono % (Auto) 4.5 % (0.0-8.0); Neut # (Auto) 4.9 th/mm3 (1.8-7.7); Neut % (Auto) 72.2 % (16.0-70.0); Platelet Count 242 th/mm3 (150-450); Red Blood Count 3.68 mil/mm3 (4.00-5.30); Red Cell Distribution Width 16.4 % (11.6-17.2); White Blood Count 6.8 th/mm3 (4.0-11.0)
[2018-01-30] MEDS ORDERED: amLODIPine 10 MG Tablet PO ONE (11:07)
--- NOTE | 2018-01-30 11:07 | ED ---
HPI General Chief Complaint: Altered Mental Status Stated Complaint: Alter mental Time Seen by Provider: 01/30/18 10:25 Source: EMS Mode of arrival: EMS Limitations: language barrier and altered mental status History of Present Illness HPI narrative: 62-year-old female arrives by EMS due to altered mental status at [facility]. Last night patient was evidently weak and less interactive than normal. Normally the patient is conversant and interactive with car residents and staff. This morning at 5 AM she was nonverbal and EMS was activated and the patient was brought here. Patient is unable to speak here in the ED thereby limiting history. There is record of stroke with residual deficit on the right side. MD complaint: Reports decreased responsiveness Onset (ago): hour(s) (12) Timing confirmed by: other (Staff at nursing facility) Severity: moderate Consistency of symptoms: constant Related Data Home Medications Medication Instructions Recorded Confirmed amlodipine 10 mg PO DAILY 01/30/18 01/30/18 aspirin [Aspirin Low Dose] 81 mg PO DAILY 01/30/18 01/30/18 atorvastatin 80 mg PO DAILY 01/30/18 01/30/18 bumetanide 1 mg PO HS 01/30/18 01/30/18 bumetanide 2 mg PO DAILY 01/30/18 01/30/18 calcitriol 0.25 mcg PO DAILY 01/30/18 01/30/18 cholecalciferol (vitamin D3) 2,000 unit PO DAILY 01/30/18 01/30/18 [Vitamin D3] citalopram 20 mg PO DAILY 01/30/18 01/30/18 clonidine HCl 0.2 mg PO TID 01/30/18 01/30/18 clopidogrel 75 mg PO DAILY 01/30/18 01/30/18 doxazosin 8 mg PO DAILY 01/30/18 01/30/18 epoetin adelita [Procrit] 15,000 unit SUBCUT 2XWEEK 01/30/18 01/30/18 ferrous sulfate 325 mg PO TID 01/30/18 01/30/18 fluticasone 1 inh INHALATION Q12H 01/30/18 01/30/18 gabapentin 100 mg PO TID 01/30/18 01/30/18 hydralazine 100 mg PO TID 01/30/18 01/30/18 insulin aspart U-100 [Novolog 5 unit SUBCUT QPM 01/30/18 01/30/18 Flexpen U-100 Insulin] insulin glargine [Lantus Solostar 20 unit SUBCUT DAILY 01/30/18 01/30/18 U-100 Insulin] levothyroxine 25 mcg PO DAILY 01/30/18 01/30/18 metolazone 5 mg PO DAILY 01/30/18 01/30/18 metoprolol tartrate 100 mg PO BID 01/30/18 01/30/18 oxycodone 5 mg PO BID 01/30/18 01/30/18 pantoprazole 20 mg PO DAILY 01/30/18 01/30/18 polyethylene glycol 3350 17 g PO DAILY 01/30/18 01/30/18 potassium chloride 10 meq PO DAILY 01/30/18 01/30/18 Allergies Allergy/AdvReac Type Severity Reaction Status Date / Time *MDRO Multi-Drug Resistant AdvReac Unknown MRSA Uncoded 07/20/17 14:53 Organism Review of Systems ROS Unobtainable ROS Unobtainable: unobtainable due to mental condition PMFSH Medical History Medical History Anemia (Acute) CKD (chronic kidney disease) (Acute) CVA (cerebral vascular accident) (Acute) Diabetes (Acute) Dysphagia (Acute) End stage chronic kidney disease (Acute) Hypertension (Acute) Social History Social History Substance History: No History of Abuse Second Hand Smoke Exposure: No Smoking Status: Smoker, status unknown Tobacco Type: Cigarettes How Often Do You Have a Drink Containing Alcohol: Never Recent Travel in [facility] within the Last 8 Weeks: No Recent Out of Country Travel within the Last 8 Weeks: No Immunization History Tetanus Immunization: Unsure Exam Narrative Exam Narrative: GENERAL: She is a 2-year-old female pleasant well-nourished well -developed, nonverbal in the ED, makes good eye contact, nods occasionally SKIN: Focused skin assessment warm/dry. HEAD: Atraumatic. Normocephalic. EYES: Pupils equal and round. No scleral icterus. No injection or drainage. ENT: No nasal bleeding or discharge. Mucous membranes pink and moist. NECK: Trachea midline. No JVD. CARDIOVASCULAR: Regular rate and rhythm. No murmur appreciated. RESPIRATORY: No accessory muscle use. Clear to auscultation. Breath sounds equal bilaterally. GASTROINTESTINAL: Abdomen soft, non-tender, nondistended. Hepatic and splenic margins not palpable. MUSCULOSKELETAL: No obvious deformities. No clubbing. No cyanosis. No edema. NEUROLOGICAL: There appears to be a left-sided facial droop. Patient is nonverbal here. Patient is awake and alert. PSYCHIATRIC: Unable to assess. Course Initial Documented Vital Signs Temperature 98.1 F 01/30/18 10:28 Pulse Rate 93 H 01/30/18 10:28 Respiratory Rate 14 01/30/18 10:28 Blood Pressure 196/80 H 01/30/18 10:28 Pulse Oximetry 98 01/30/18 10:28 Last Documented Vital Signs Temperature 98.1 F 01/30/18 10:28 Pulse Rate 93 H 01/30/18 10:28 Respiratory Rate 14 01/30/18 10:28 Blood Pressure 187/88 H 01/30/18 11:48 Pulse Oximetry 98 01/30/18 10:51 Critical Care Time Critical Care Time: Yes Total Critical Care Time: 40 Attestation: Aggregate critical care time was 40 minutes. Time to perform other separately billable procedures was not included in the critical care time. My time did not include minutes spent treating any other patients simultaneously or on activities that did not directly contribute to the patient's treatment. The services I provided to this patient were to treat and/or prevent clinically significant deterioration that could result in: Permanent disability, intracranial hemorrhage from high blood pressure I provided critical care services requiring my management, as noted below: Chart data review, documentation time, medication orders and management, vital sign assessments/reviewing monitor data, ordering and reviewing lab tests, ordering and interpreting/reviewing x-rays and diagnostic studies, care of the patient and discussion of the patient with the admitting physicians. Medical Decision Making MDM Narrative Medical decision making narrative: Patient has altered mental status of unknown etiology so far however we do see a UTI and the patient did arrive fairly hypertensive with a blood pressure of 220/114. Morning meds were tolerated orally at about 11:30 AM, clonidine 0.2 mg and amlodipine 10 mg. Zofran given prior. The patient had a blood pressure decreased to 187/88 at 12:03 PM. Case discussed with Dr. Britt for [facility] who advises [facility] admission and MR head, which were ordered. Medical Screen Exam Complete: Yes Emergency Medical Condition: Yes Differential Diagnosis Differential Diagnosis: Metabolic abnormality, infection, polypharmacy, stroke, hypertensive encephalopathy, dementia Medical Records Medical records reviewed: Yes I reviewed the patient's medical records. Lab Data Lab results reviewed: Yes I reviewed the patient's lab results. Result diagrams: 01/30/18 10:25 01/30/18 10:25 Lab Results 01/30/18 01/30/18 01/30/18 Range/Units 10:25 10:25 10:25 WBC 6.8 (4.0-11.0) th/mm3 RBC 3.68 L (4.00-5.30) mil/mm3 Hgb 9.8 L (11.6-15.3) gm/dL Hct 30.9 L (35.0-46.0) % MCV 83.9 (80.0-100.0) fL MCH 26.7 L (27.0-34.0) pg MCHC 31.8 L (32.0-36.0) % RDW 16.4 (11.6-17.2) % Plt Count 242 (150-450) th/mm3 MPV 9.4 (7.0-11.0) fL Neut % (Auto) 72.2 H (16.0-70.0) % Lymph % (Auto) 21.3 (9.0-44.0) % [place] % (Auto) 4.5 (0.0-8.0) % Eos % (Auto) 1.4 (0.0-4.0) % Baso % (Auto) 0.6 (0.0-2.0) % Neut # (Auto) 4.9 (1.8-7.7) th/mm3 Lymph # (Auto) 1.4 (1.0-4.8) th/mm3 [place] # (Auto) 0.3 (0.0-0.9) th/mm3 Eos # (Auto) 0.1 (0.0-0.4) th/mm3 Baso # (Auto) 0.0 (0.0-0.2) th/mm3 WBC Differential . Differential Comment Auto diff final Sodium 145 (136-145) meq/L Potassium 3.0 L (3.5-5.1) meq/L Chloride 107 (98-107) meq/L Carbon Dioxide 27.8 (21.0-32.0) meq/L Anion Gap 10 (5-15) meq/L BUN 69 H (7-18) mg/dL Creatinine 2.70 H (0.50-1.00) mg/dL Estimated GFR 22 L (>89) mL/min Random Glucose 248 H (74-106) mg/dL Calcium 8.8 (8.5-10.1) mg/dL Total Bilirubin 0.2 (0.2-1.0) mg/dL AST 14 L (15-37) U/L ALT 18 (10-53) U/L Alkaline Phosphatase 104 (45-117) U/L Total Protein 6.7 (6.4-8.2) g/dL Albumin 2.8 L (3.4-5.0) g/dL Urine Color Yellow (Yellw/Straw) Urine Clarity Hazy H (Clear) Urine pH 5.0 (5.0-8.5) Ur Specific [place] 1.007 (1.002-1.035) Urine Protein 30 H (Neg-Trace) mg/dL Urine Glucose (UA) 500 or greater (Negative) mg/dL Urine Ketones Negative (Negative) mg/dL Urine Occult Blood Negative (Negative) Urine Nitrate Negative (Negative) Urine Bilirubin Negative (Negative) Urine Urobilinogen Less than 2 (Less than 2) mg/dL Ur Leukocyte Esterase Small H (Negative) Urine RBC 1 (0-3) /hpf Urine WBC 14 H (0-5) /hpf Urine WBC Clumps Occasional H (None) Ur Squamous Epith Cells <1 (0-5) /hpf Amorphous Sediment Few H (None) /hpf Urine Bacteria Occasional H (None) /hpf Hyaline Casts 7 (0-3) /lpf Urine Mucus Few H (Occasional) /lpf Micro UA Comment Cath-culture ind Ur Microscopic Review Not Reportable Urine Culture Comments Cath-cult indicated UA shows UTI LFTs unremarkable Imaging Data Attestation: I personally reviewed and interpreted this imaging study as follows : Radiologist's impression: Chest X-Ray 01/30/18 10:25 CONCLUSION: Cardiomegaly. Head CT 01/30/18 10:25 CONCLUSION: 1. No acute abnormality or significant change is seen. 2. Low-density in the cerebral white matter likely from small vessel ischemic change. 3. Encephalomalacia involving portions of the left parietal and posterior frontal lobes. . Discharge Plan Discharge Disposition Patient Disposition: 30 Still Patient Physicians Team ED Provider: Ba Nobles Primary Care Provider: King Degroot Attending Provider: Bee Britt Discharge Interventions Interventions: Vital Signs Last Done: 01/30/18 11:26 Status ED Status: Admitted Patient
[2018-01-30] MEDS ORDERED: niCARdipine Inj 25 MG in Sodium Chlor 0.9% Inj 240 ML IV.CONT PRN (11:37)
--- NOTE | 2018-01-30 14:48 | MR ---
EXAM DATE: 01/30/2018 12:56 PM EDT AGE/SEX: 62 years / Female INDICATIONS: Altered mental status. CLINICAL DATA: This is the patient's initial encounter. Patient reports that signs and symptoms have been present for 1 day and indicates a pain score of 0/10. MEDICAL/SURGICAL HISTORY: Diabetes mellitus type II. Hypertension. Dementia. Cholecystectomy. Tonsillectomy. COMPARISON: [facility], MRI BRAIN W/O CONTRAST, 05/31/2016. . TECHNIQUE: Multiplanar, multisequence examination of the brain was performed without contrast. FINDINGS: Cerebrum: The ventricles are normal for age and stable compared to the prior study. There is stable encephalomalacia involving the left cerebral vertex consistent with old area of infarction.. No evid ence of midline shift, mass lesion, hemorrhage or acute infarction. No extraaxial fluid collections are seen. The pituitary gland and suprasellar cistern are normal in configuration. White Matter: There continues to be stable moderate white matter changes throughout the white matter tracts bilaterally. There has been no significant change compared to the prior examination. Posterior Fossa: The cerebellum and brainstem are intact. The 4th ventricle is midline. The cerebel lopontine angle is unremarkable. The cerebellar tonsils are normal in position. Diffusion Imaging: No focal areas of restricted diffusion are seen. No evidence of acute infarction . Extracranial: The visualized portions of the orbits and paranasal sinuses are unremarkable. CONCLUSION: 1. Stable follow-up MRI of the brain compared to the prior exam from 05/31/2016. 2. Stable encephalomalacia involving the left cerebral vertex suggestive of old infarction. 3. Stable chronic white matter changes. Electronically signed by: Jaron Ren MD 01/30/2018 2:47 PM EDT
[2018-01-30] MEDS ORDERED: levETIRAcetam 1000mg/100mL Inj 100 ML IV.SIG ONE (16:26)
--- NOTE | 2018-01-30 16:35 | US ---
EXAM DATE: 01/30/2018 12:00 AM EDT AGE/SEX: 62 years / Female INDICATIONS: Weakness. Altered state of mind. CLINICAL DATA: This is the patient's initial encounter. Patient reports that signs and symptoms have been present for 1 day and indicates a pain score of Nonresponsive. MEDICAL/SURGICAL HISTORY: Anemia. Diabetes. Hypertension. Dysphagia. CVA. Chronic kidney dis ease. CVA. None. COMPARISON: No prior exams available for comparison. VELOCITY PARAMETERS: ICA/CCA Ratio: Right 0.9 , Left 0.4 ICA: Right 95 cm/sec, Left 64 cm/sec CCA: Right 101 cm/sec, Left 143 cm/sec ECA: Right 131 cm/sec, Left 140 cm/sec Vertebral: Right not visualized cm/sec absent, Left 73 cm/sec antegrade FINDINGS: Right Carotid: No significant plaque is visualized.The waveforms are within normal limits. Left Carotid: No significant plaque is visualized. The waveforms are within normal limits. Other: None. CONCLUSION: Unremarkable carotid ultrasound. No focal high-grade or hemodynamically significant steno sis. Electronically signed by: Jaron Ren MD 01/30/2018 4:33 PM EDT
--- NOTE | 2018-01-30 16:49 | XR ---
EXAM DATE: 01/30/2018 4:12 PM EDT AGE/SEX: 62 years / Female INDICATIONS: Abdomen pain with nausea and vomiting. CLINICAL DATA: This is the patient's subsequent encounter. Patient reports that signs and symptoms h ave been present for 1 day and indicates a pain score of Nonresponsive. MEDICAL/SURGICAL HISTORY: . Anemia. Diabetes. Hypertension. Dysphagia. CVA. Chronic kidney dise ase. None. COMPARISON: [facility], ABDOMEN [facility] ONLY, 09/18/2017. . FINDINGS: Supine and upright views of the abdomen were performed. The abdominal bowel gas pattern is normal. No air-fluid levels are seen. There is stool throughout the colon. There is an NG tube in the stomach.. The visualized lower lungs are clear. No evidence of free intraperitoneal gas. The osseous structure s are unremarkable. CONCLUSION: 1. NG tube in stomach. 2. Benign-appearing abdomen. Electronically signed by: Jaron Ren MD 01/30/2018 4:48 PM EDT
--- NOTE | 2018-01-30 16:51 | P.HP ---
History of Present Illness Service: [facility] hospitalist service Primary Care Physician: King Degroot MD Chief Complaint: Acute change in mental status History of Present Illness: Patient is a 62-year-old female who was sent here from [facility] because of acute change in mental status. history obtained from review of [facility] records and I called up her niece Brittney who is her healthcare surrogate. known history of diabetes mellitus type 2, chronic kidney disease at one point was on hemodialysis but has been off it for 8 months now, history of CVA x2 with right-sided weakness baseline independent with ADLs, she is able to walk with short distance with standby assist,but most of the time gets around with her wheelchair. Per [facility] staff and patient is very talkative and alert , eats on her own and is continent of urine. Yesterday morning staff noted that patient mumbling however was able to get up to go to the dining room area to eat. They check her blood sugar states reportedly was good. Last evening started vomiting. noted Poor p.o. intake ate only 25% of dinner. This morning had another episode of vomiting with bilious "greenish color". Was drowsy. No fever reported check her blood sugars which are around 200s. Her blood pressure this morning was 131/77. On evaluation patient is unresponsive, eyes opened when vigorously called open her eyes but seem to have blank stares, noted jerking movements of the left sided extremities. Constant twitching of both eyes. Neck was rigid to exam. Temperature is normal. At bedside patient constantly nauseated and coughing/spitting up a lot of saliva -clear whitish At the ER head CT was done and MRI showed no acute findings. Patient admitted for further evaluation and management. Inpatient Certification: I certify that the inpatient services were ordered in accordance with Medicare regulations governing the order. This includes certification that hospital inpatient services are reasonable and necessary and in the case of services not specified as inpatient-only under 42 CFR 419.22(n), that they are appropriately provided as inpatient services in accordance to with the 2-midnight benchmark under 43 CFR 412.3(e) Estimated Total Length of Stay (Days): 3 Plans for Post Hospital Care: Not yet determined Review of Systems Patient currently is eyes open but not interactive, seems obtunded. But per discussion with staff in the facility patient is mostly wheelchair- bound as total assist with ADLs but able to walk with short distances with no, usually very talkative and alert and eats on her own and is continent of urine. [facility] - History History Provided By: Medical Record (Based on records history of hypertension, hyperlipidemia, chronic kidney disease, history of CVA with right-sided hemiparesisHypertension, hypothyroidism, anemia of chronic kidney disease, diabetes type 2 insulin requiring) - Medical History Medical History: Medical History (Last Reviewed 01/31/18 @ 12:01 by Hema Nettles) Anemia CKD (chronic kidney disease) CVA (cerebral vascular accident) Diabetes Dysphagia End stage chronic kidney disease Hypertension - Tobacco History Second Hand Smoke Exposure: No Tobacco Use In Past 30 Days: No Smoking Status: Smoker, status unknown Tobacco Type: Cigarettes - Alcohol History How Often Do You Have a Drink Containing Alcohol: Never - Substance Use History Substance History: No History of Abuse - Travel History Recent Travel in the [place] Within the Last 8 Weeks: No Recent Travel Out of the Country Within the Last 8 Weeks: No - Immunization History Tetanus Immunization: Unsure Medications and Allergies Active Medications: Active Medications Sodium Chloride (Ns Inj) 1,000 mls @ 60 mls/hr IV.CONT .[id number] ALEKSANDR Levetiracetam (Keppra 1000 Mg/100 Ml Premix) 100 mls @ 400 mls/hr IV.SIG ONCE ONE Stop: 01/30/18 16:40 Sodium Chloride (Ns Flush) 2 ml IV.FLUSH PRN PRN PRN Reason: FLUSH AFTER USING IV ACCESS Allergies Allergy/AdvReac Type Severity Reaction Status Date / Time *MDRO Multi-Drug Resistant AdvReac Unknown MRSA Uncoded 07/20/17 14:53 Organism Home Medications Medication Instructions Recorded Confirmed Type amlodipine 10 mg PO DAILY 01/30/18 01/30/18 History atorvastatin 80 mg PO DAILY 01/30/18 01/30/18 History calcitriol 0.25 mcg PO DAILY 01/30/18 01/30/18 History cholecalciferol (vitamin D3) 2,000 unit PO DAILY 01/30/18 01/30/18 History [Vitamin D3] clonidine HCl 0.2 mg PO TID 01/30/18 01/30/18 History doxazosin 8 mg PO DAILY 01/30/18 01/30/18 History ferrous sulfate 325 mg PO TID 01/30/18 01/30/18 History fluticasone 1 inh INHALATION Q12H 01/30/18 01/30/18 History gabapentin 100 mg PO TID 01/30/18 01/30/18 History hydralazine 100 mg PO TID 01/30/18 01/30/18 History levothyroxine 25 mcg PO DAILY 01/30/18 01/30/18 History metoprolol tartrate 100 mg PO BID 01/30/18 01/30/18 History pantoprazole 20 mg PO DAILY 01/30/18 01/30/18 History polyethylene glycol 3350 17 g PO DAILY 01/30/18 01/30/18 History Exam Vital signs: Vital Signs 01/30/18 10:28 01/30/18 10:51 01/30/18 11:26 Temperature 98.1 F Pulse Rate 93 H Respiratory Rate 14 Blood Pressure 196/80 H 184/114 H Pulse Oximetry 98 98 01/30/18 11:48 01/30/18 12:11 01/30/18 13:06 Temperature Pulse Rate 95 H 93 H Respiratory Rate 17 Blood Pressure 187/88 H 190/79 H 177/80 H Pulse Oximetry 96 01/30/18 14:00 Temperature Pulse Rate Respiratory Rate Blood Pressure 183/83 H Pulse Oximetry Intake & Output 01/29/18 01/30/18 01/30/18 18:59 06:59 18:59 Intake Total 100 / 100 Balance 100 / 100 Weight 83.915 kg Intake: IV 100 / 100 Rocephin Inj 1,000 MG In NS Inj 100 / 100 100 ML @ 200 mls/hr IV.SIG ONCE ONE Rx#:[id number] Narrative: On exam eyes closed appears obtunded, not following commands, noted some jerking movements of the left sided extremities, HEENT exam anicteric sclerae pupils equal neck is rigid chest lungs no rales no wheezes heart regular rhythm tachycardic at 104 no murmur Abdomen is soft with good bowel sounds, bladder feels distended Extremities no edema right upper extremity AV fistula in place with positive bruit Neuro exam Eyes did open briefly on repeated vigorous call of her name, nonverbal anicteric sclerae pupils equal no facial asymmetry, twitching movements of both eyes Positive gag when NG tube was placed neck is rigid some right-sided mild weakness jerking movements noted on the left sided extremities positive Babinski on the left no calf swelling no edema Results - Labs CBC & Chem 7: 02/04/18 07:03 02/04/18 07:03 Labs: Laboratory Results - last 24 hr 01/30/18 01/30/18 01/30/18 10:25 10:25 10:25 WBC 6.8 RBC 3.68 L Hgb 9.8 L Hct 30.9 L MCV 83.9 MCH 26.7 L MCHC 31.8 L RDW 16.4 Plt Count 242 MPV 9.4 Neut % (Auto) 72.2 H Lymph % (Auto) 21.3 Bartholomew % (Auto) 4.5 Eos % (Auto) 1.4 Baso % (Auto) 0.6 Neut # (Auto) 4.9 Lymph # (Auto) 1.4 Bartholomew # (Auto) 0.3 Eos # (Auto) 0.1 Baso # (Auto) 0.0 WBC Differential . Differential Comment Auto diff final Sodium 145 Potassium 3.0 L Chloride 107 Carbon Dioxide 27.8 Anion Gap 10 BUN 69 H Creatinine 2.70 H Estimated GFR 22 L POC Glucose Random Glucose 248 H Calcium 8.8 Total Bilirubin 0.2 AST 14 L ALT 18 Alkaline Phosphatase 104 Total Protein 6.7 Albumin 2.8 L Urine Color Yellow Urine Clarity Hazy H Urine pH 5.0 Ur Specific [place] 1.007 Urine Protein 30 H Urine Glucose (UA) 500 or greater Urine Ketones Negative Urine Occult Blood Negative Urine Nitrate Negative Urine Bilirubin Negative Urine Urobilinogen Less than 2 Ur Leukocyte Esterase Small H Urine RBC 1 Urine WBC 14 H Urine WBC Clumps Occasional H Ur Squamous Epith Cells <1 Amorphous Sediment Few H Urine Bacteria Occasional H Hyaline Casts 7 Urine Mucus Few H Micro UA Comment Cath-culture ind Ur Microscopic Review Not Reportable Urine Culture Comments Cath-cult indicated 01/30/18 15:59 WBC RBC Hgb Hct MCV MCH MCHC RDW Plt Count MPV Neut % (Auto) Lymph % (Auto) Bartholomew % (Auto) Eos % (Auto) Baso % (Auto) Neut # (Auto) Lymph # (Auto) Bartholomew # (Auto) Eos # (Auto) Baso # (Auto) WBC Differential Differential Comment Sodium Potassium Chloride Carbon Dioxide Anion Gap BUN Creatinine Estimated GFR POC Glucose 253 H Random Glucose Calcium Total Bilirubin AST ALT Alkaline Phosphatase Total Protein Albumin Urine Color Urine Clarity Urine pH Ur Specific [place] Urine Protein Urine Glucose (UA) Urine Ketones Urine Occult Blood Urine Nitrate Urine Bilirubin Urine Urobilinogen Ur Leukocyte Esterase Urine RBC Urine WBC Urine WBC Clumps Ur Squamous Epith Cells Amorphous Sediment Urine Bacteria Hyaline Casts Urine Mucus Micro UA Comment Ur Microscopic Review Urine Culture Comments - Imaging Impressions Chest X-Ray 01/30/18 10:25 CONCLUSION: Cardiomegaly. Head CT 01/30/18 10:25 CONCLUSION: 1. No acute abnormality or significant change is seen. 2. Low-density in the cerebral white matter likely from small vessel ischemic change. 3. Encephalomalacia involving portions of the left parietal and posterior frontal lobes. . Head MRI 01/30/18 11:38 CONCLUSION: 1. Stable follow-up MRI of the brain compared to the prior exam from 05/31/2016. 2. Stable encephalomalacia involving the left cerebral vertex suggestive of old infarction. 3. Stable chronic white matter changes. Caprini VTE Risk Assessment Caprini VTE Risk Assessment: Moderate/High Risk (score >= 2) (may need LP for complete evaluation) Caprini Risk Assessment Model: Point Value = 1 Point Value = 2 Point Value = 3 Point Value = 5 Age 41-60 Minor surgery BMI > 25 kg/m2 Swollen legs Varicose veins or History of unexplained or recurrent spontaneous Oral contraceptives or hormone replacement Sepsis (< 1 month) Serious lung disease, including pneumonia (< 1 month) Abnormal pulmonary function Acute myocardial infarction Congestive heart failure (< 1 month) History of inflammatory bowel disease Medical patient at bed rest Age 61-74 Arthroscopic surgery Major open surgery (> 45 min) Laparoscopic surgery (> 45 min) Malignancy Confined to bed (> 72 hours) Immobilizing plaster cast Central venous access Age >= 75 History of VTE Family history of VTE Factor V Leiden Prothrombin [id number] Lupus anticoagulant Anticardiolipin antibodies Elevated serum homocysteine Heparin-induced thrombocytopenia Other congenital or acquired thrombophilia Stroke (< 1 month) Elective arthroplasty Hip, pelvis, or leg fracture Acute spinal cord injury (< 1 month) Prophylaxis Regimen: Total Risk Factor Score Risk Level Prophylaxis Regimen 0-1 Low Early ambulation 2 Moderate Order ONE of the following: *Sequential Compression Device (SCD) *Heparin 5000 units SQ BID 3-4 Higher Order ONE of the following medications: *Heparin 5000 units SQ TID *Enoxaparin/Lovenox 40 mg SQ daily (WT < 150 kg, CrCl > 30 mL/min) *Enoxaparin/Lovenox 30 mg SQ daily (WT < 150 kg, CrCl > 10-29 mL/min) *Enoxaparin/Lovenox 30 mg SQ BID (WT < 150 kg, CrCl > 30 mL/min) AND/OR *Sequential Compression Device (SCD) 5 or more Highest Order ONE of the following medications: *Heparin 5000 units SQ TID (Preferred with Epidurals) *Enoxaparin/Lovenox 40 mg SQ daily (WT < 150 kg, CrCl > 30 mL/min) *Enoxaparin/Lovenox 30 mg SQ daily (WT < 150 kg, CrCl > 10-29 mL/min) *Enoxaparin/Lovenox 30 mg SQ BID (WT < 150 kg, CrCl > 30 mL/min) AND *Sequential Compression Device (SCD) Assessment and Plan - Plan 62-year-old female with history of hypertension chronic kidney disease, history of CVA with mild right-sided right hemiparesis presenting with Acute encephalopathy Acute Focal seizure-like activity of the left sided extremities With twitching of the eyes History of previous CVA with right-sided hemiparesis -Head CT / MRI done -no acute findings, no fever, no WBC elevation -Get a stat EEG, Echo -We will give 1 g Keppra IV now then 500 mg q 12 -Neurology consult-we will discuss with them whether to proceed questionable LP. - no reported fever no WBC elevation though neck seems to regenerate on exam -Admit to C with close monitoring -We will hold off on Plavix/ASA for now in the event -may need/consider LP. Hypertension chronic. some SBP readings -NG tube was placed -Start meds per NG tube -Start amlodipine 10 mg daily, clonidine 0.2 mg p.o. every 8, doxazosin 8 mg at bedtime - Hydralazine 100 mg every 8 Acute on Chronic kidney disease stage III- IV at one point was on hemodialysis- AV fistula in place Acute urinary retention- bladder was distended on exam Anemia of chronic kidney disease -Renal functions slightly elevated but this is near baseline prerenal. Will start patient on gentle hydration -Follow renal functions -Continue ferrous sulfate 325 mg 3 times daily - Patient is getting Procrit every 2 weeks -Continue on Rocaltrol 0.25 mg daily -Consult her material engineer Dr. Vargas - Hold diuretics for now - place ley- obtained 500cc urine Hypokalemia - give extra 50 meq KCL/NGT - continue home KCL supplement - BMP in am UTI- - started rocephin IV - ff c and s Diabetes type 2 insulin requiring -Follow blood sugars 3 times daily and at bedtime with sliding scale for now History of hypothyroidism continue on Synthroid 25 mcg daily NG tube placed give all meds per NG tube. if no improvement in MS- get dietitian consult for TF recommendations We will consult speech therapy PT OT faiza in a.m. Teds SCDs for DVT prophylaxis. Hold chemical prophylaxis for now in the event that we will need LP for further evaluation. Discussed with family-niece- Brittney- who is healthcare surrogate. Full code
[2018-01-30 17:11] LABS: ABG PCO2 47 mmHg (38-42); ABG PO2 53 mmHG (61-120)
[2018-01-30] MEDS ORDERED: Potassium Chloride 25 MEQ Effervescent Tablet NG/OG ONE (17:32)
[2018-01-30] MEDS ORDERED: Dextrose 50% in Water 50 ML Vial IV.PUSH PRN ×2 (17:52→17:53)
--- NOTE | 2018-01-30 18:18 | P.CONNP ---
History of Present Illness Reason for Consult: Chronic kidney disease stage IV. Primary Care Provider: King Degroot MD Chief Complaint: Acute change in mental status History of Present Illness: This patient is a very pleasant 62-year-old -[place] female with a history of known CKD stage IV with a baseline estimated GFR of about 25. She did have a kidney biopsy performed back in February 2016 which revealed diabetic nephropathy, glomerulosclerosis and severe interstitial fibrosis. The patient was being followed intermittently in the office and being prepared for dialysis with placement of an AV dialysis shunt. He should be noted however that her renal indices did improve somewhat since then with no indication to initiate dialysis presently. She also has a history of secondary hyperparathyroidism renal disease as well as anemia of renal disease. Patient now admitted with change in mental status. MRI of the brain apparently showing no acute pathology. Patient is generally a poor historian but on examination today her mental status has deteriorated significantly compared to baseline and the patient is obtunded. Review of Systems unobtainable due to mental status PMFSH - History History Provided By: Medical Record (Based on records history of hypertension, hyperlipidemia, chronic kidney disease, history of CVA with right-sided hemiparesisHypertension, hypothyroidism, anemia of chronic kidney disease, diabetes type 2 insulin requiring) - Medical History Medical History: Medical History (Last Updated 01/30/18 @ 10:25 by Shanell Ward) Anemia CKD (chronic kidney disease) CVA (cerebral vascular accident) Diabetes Dysphagia End stage chronic kidney disease Hypertension - Tobacco History Second Hand Smoke Exposure: No Tobacco Use In Past 30 Days: No Smoking Status: Smoker, status unknown Tobacco Type: Cigarettes - Alcohol History How Often Do You Have a Drink Containing Alcohol: Never - Substance Use History Substance History: No History of Abuse - Travel History Recent Travel in the [place] Within the Last 8 Weeks: No Recent Travel Out of the Country Within the Last 8 Weeks: No - Immunization History Tetanus Immunization: Unsure Medications and Allergies Active Medications: Active Medications Amlodipine Besylate (Norvasc) 10 mg PO DAILY ALEKSANDR Atorvastatin Calcium (Lipitor) 80 mg PO DAILY ALEKSANDR Calcitriol (Rocaltrol) 0.25 mcg PO DAILY ALEKSANDR Citalopram Hydrobromide (Celexa) 20 mg PO DAILY ALEKSANDR Clonidine HCl (Catapres) 0.2 mg PO TID ALEKSANDR Dextrose (D50w Vial) 50 ml IV.PUSH UNSCH PRN PRN Reason: PER HYPOGLYCEMIA PROTOCOL Doxazosin Mesylate (Cardura) 8 mg PO DAILY ALEKSANDR Epoetin Adelita (Epogen Inj) 15,000 unit SQ WeSa@2000 ALEKSANDR Ferrous Sulfate (Ferosul) 325 mg PO TID ALEKSANDR Gabapentin (Neurontin) 100 mg PO TID ALEKSANDR Glucagon (Glucagon Inj) 1 mg OTHER PRN PRN PRN Reason: for Hypoglycemia Protocol Hydralazine HCl (Apresoline) 100 mg PO TID ALEKSANDR Sodium Chloride (Ns Inj) 1,000 mls @ 60 mls/hr IV.CONT .[id number] ALEKSANDR Levetiracetam 500 mg/ Sodium (Chloride) 105 mls @ 400 mls/hr IV.SIG Q12H ALEKSANDR Insulin Aspart (Novolog Insulin Correctional Sugar Inj) 0 unit SQ Q6HR ALEKSANDR; Protocol Levothyroxine Sodium (Synthroid) 25 mcg PO DAILY@0600 [facility] Metoprolol Tartrate (Lopressor) 100 mg PO BID [facility] Non-Formulary Medication (Fluticasone [Fluticasone]) 1 inh INHALATION Q12H [facility] Pantoprazole Sodium (Protonix) 20 mg PO DAILY [facility] Polyethylene Glycol (Miralax) 17 gm PO DAILY [facility] Potassium Chloride (Kcl) 10 meq PO DAILY [facility] Sodium Chloride (Ns Flush) 2 ml IV.FLUSH PRN PRN PRN Reason: FLUSH AFTER USING IV ACCESS Vitamin D (Vitamin D3) 2,000 unit PO DAILY [facility] Allergies Allergy/AdvReac Type Severity Reaction Status Date / Time *MDRO Multi-Drug Resistant AdvReac Unknown MRSA Uncoded 07/20/17 14:53 Organism Home Medications Medication Instructions Recorded Confirmed Type amlodipine 10 mg PO DAILY 01/30/18 01/30/18 History aspirin [Aspirin Low Dose] 81 mg PO DAILY 01/30/18 01/30/18 History atorvastatin 80 mg PO DAILY 01/30/18 01/30/18 History bumetanide 1 mg PO HS 01/30/18 01/30/18 History bumetanide 2 mg PO DAILY 01/30/18 01/30/18 History calcitriol 0.25 mcg PO DAILY 01/30/18 01/30/18 History cholecalciferol (vitamin D3) 2,000 unit PO DAILY 01/30/18 01/30/18 History [Vitamin D3] citalopram 20 mg PO DAILY 01/30/18 01/30/18 History clonidine HCl 0.2 mg PO TID 01/30/18 01/30/18 History clopidogrel 75 mg PO DAILY 01/30/18 01/30/18 History doxazosin 8 mg PO DAILY 01/30/18 01/30/18 History epoetin adelita [Procrit] 15,000 unit SUBCUT 2XWEEK 01/30/18 01/30/18 History ferrous sulfate 325 mg PO TID 01/30/18 01/30/18 History fluticasone 1 inh INHALATION Q12H 01/30/18 01/30/18 History gabapentin 100 mg PO TID 01/30/18 01/30/18 History hydralazine 100 mg PO TID 01/30/18 01/30/18 History insulin aspart U-100 [Novolog 5 unit SUBCUT QPM 01/30/18 01/30/18 History Flexpen U-100 Insulin] insulin glargine [Lantus Solostar 20 unit SUBCUT DAILY 01/30/18 01/30/18 History U-100 Insulin] levothyroxine 25 mcg PO DAILY 01/30/18 01/30/18 History metolazone 5 mg PO DAILY 01/30/18 01/30/18 History metoprolol tartrate 100 mg PO BID 01/30/18 01/30/18 History oxycodone 5 mg PO BID 01/30/18 01/30/18 History pantoprazole 20 mg PO DAILY 01/30/18 01/30/18 History polyethylene glycol 3350 17 g PO DAILY 01/30/18 01/30/18 History potassium chloride 10 meq PO DAILY 01/30/18 01/30/18 History Exam Vital signs: Vital Signs 01/30/18 10:28 01/30/18 10:51 01/30/18 11:26 Temperature 98.1 F Pulse Rate 93 H Respiratory Rate 14 Blood Pressure 196/80 H 184/114 H Pulse Oximetry 98 98 01/30/18 11:48 01/30/18 12:11 01/30/18 13:06 Temperature Pulse Rate 95 H 93 H Respiratory Rate 17 Blood Pressure 187/88 H 190/79 H 177/80 H Pulse Oximetry 96 01/30/18 14:00 Temperature Pulse Rate Respiratory Rate Blood Pressure 183/83 H Pulse Oximetry Intake & Output 01/29/18 01/30/18 01/30/18 18:59 06:59 18:59 Intake Total 100 / 100 Balance 100 / 100 Weight 83.915 kg Intake: IV 100 / 100 Rocephin Inj 1,000 MG In NS Inj 100 / 100 100 ML @ 200 mls/hr IV.SIG ONCE ONE Rx#:[id number] Narrative: GENERAL: Obese -[place] female lying in bed not in respiratory distress appearing to have rigors.. SKIN: Warm and dry. HEAD: Atraumatic. Normocephalic. EYES: Pupils equal and round. No scleral icterus. No injection or drainage. ENT: No nasal bleeding or discharge. Mucous membranes pink and moist. NECK: Trachea midline. No JVD. CARDIOVASCULAR: Regular rate and rhythm. There is an AV dialysis graft present in her right along the medial aspect. Has a bruit and thrill. Appears to be intact with no erythema. RESPIRATORY: No accessory muscle use. Clear to auscultation. Breath sounds equal bilaterally. GASTROINTESTINAL: Abdomen soft, non-tender, slightly distended but not obviously tender. No guarding or rebound. MUSCULOSKELETAL: Extremities without clubbing, cyanosis, or edema. NEUROLOGICAL: Obtunded. Moving all limbs. Results - Lab Results 01/30/18 10:25 01/30/18 10:25 Most recent lab results ABG pH 7.43 (7.380-7.420) H 01/30/18 17:01 ABG pCO2 47 mmHg (38-42) H 01/30/18 17:01 ABG pO2 53 mmHG (61-120) L* 01/30/18 17:01 ABG HCO3 30 mmol/L (22-26) H 01/30/18 17:01 Calcium 8.8 mg/dL (8.5-10.1) 01/30/18 10:25 Assessment and Plan - Assessment (1) CKD (chronic kidney disease), stage IV Code(s): N18.4 - Chronic kidney disease, stage 4 (severe) Status: Acute Plan: Renal indices are not far off her usual baseline level. No indication that she has progressive end-stage renal disease and I do not believe that her symptomatology is related to uremia. Would recommend screening the patient for possible sepsis. Will follow patient with you as indicated. Medications should be adjusted for the patient's estimated GFR if clinically indicated. Avoid agents with significant potential for nephrotoxicity possible including NSAIDs for analgesia, iodine contrast agents. Gadolinium is contraindicated if the GFR is below 30. (2) Diabetic nephropathy associated with type 2 diabetes mellitus Code(s): E11.21 - Type 2 diabetes mellitus with diabetic nephropathy Status: Acute Plan: Defer diabetic management to chief of police. (3) Anemia of renal disease Code(s): D63.1 - Anemia in chronic kidney disease Status: Acute (4) Hypertension associated with stage 4 chronic kidney disease due to type 2 diabetes mellitus Code(s): E11.22 - Type 2 diabetes mellitus with diabetic chronic kidney disease ; I12.9 - Hypertensive chronic kidney disease with stage 1 through stage 4 chronic kidney disease, or unspecified chronic kidney disease; N18.4 - Chronic kidney disease, stage 4 (severe) Status: Acute (5) Secondary hyperparathyroidism of renal origin Code(s): N25.81 - Secondary hyperparathyroidism of renal origin Status: Acute Plan: Check intact PTH level.
[2018-01-30] MEDS: Sod Chloride 0.9% Inj 1,000 ML IV.CONT SCH (18:45)
[2018-01-30] MEDS: Insulin NovoLOG Aspart Correctional Sugar Inj SQ SCH (18:46)
[2018-01-30 18:56] LABS: Amphetamine Screen,Urine Neg (Neg); Barbiturate Screen,Urine Neg (Neg); Cannabinoid Screen,Urine Neg (Neg); Cocaine Screen,Urine Neg (Neg)
[2018-01-30 18:59] LABS: Opiate Screen,Urine Neg (Neg)
[2018-01-30] MEDS: Gabapentin 100 MG Capsule PO SCH (19:36)
[2018-01-30] MEDS: Ferrous Sulfate 325 MG Tablet PO SCH (19:36)
[2018-01-30] MEDS: Metoprolol Tartrate 100 MG Tablet PO SCH (21:02)
[2018-01-30] MEDS: Epoetin Alfa Inj 20,000 UNIT/ML Vial SQ SCH (22:07)
[2018-01-30] MEDS ORDERED: Labetalol HCl Inj 100 MG/20 ML Vial IV.PUSH ONE (22:34)
[2018-01-31] MEDS: Insulin NovoLOG Aspart Correctional Sugar Inj SQ SCH ×5 (01:35→23:27)
[2018-01-31] MEDS ORDERED: Labetalol HCl Inj 100 MG/20 ML Vial IV.PUSH ONE (02:53)
--- NOTE | 2018-01-31 08:02 | P.PN ---
Subjective Interval history: seen with staff nurse opened eyes to call of her name, and to deep sternal rub mumbling " Mamamamama" but needs vigorosu stimulation not ff commands, Physical Exam Vital signs: Vital Signs 01/30/18 10:28 01/30/18 10:51 01/30/18 11:26 Temperature 98.1 F Pulse Rate 93 H Respiratory Rate 14 Blood Pressure 196/80 H 184/114 H Pulse Oximetry 98 98 01/30/18 11:48 01/30/18 12:11 01/30/18 13:06 Temperature Pulse Rate 95 H 93 H Respiratory Rate 17 Blood Pressure 187/88 H 190/79 H 177/80 H Pulse Oximetry 96 01/30/18 14:00 01/30/18 16:00 01/30/18 18:28 Temperature 98.7 F Pulse Rate 101 H 112 H Respiratory Rate 22 23 Blood Pressure 183/83 H 166/84 H Pulse Oximetry 100 01/30/18 18:30 01/30/18 18:54 01/30/18 19:00 Temperature Pulse Rate 112 H 115 H 117 H Respiratory Rate 44 H 22 24 Blood Pressure 198/82 H 180/81 H Pulse Oximetry 100 97 94 L 01/30/18 19:01 01/30/18 19:06 01/30/18 19:30 Temperature Pulse Rate 115 H 115 H 113 H Respiratory Rate 29 H 30 H 20 Blood Pressure 217/84 H 211/91 H 185/79 H Pulse Oximetry 91 L 99 100 01/30/18 20:00 01/30/18 20:30 01/30/18 20:53 Temperature 98.5 F Pulse Rate 112 H 114 H 113 H Respiratory Rate 25 H 19 22 Blood Pressure 195/90 H 208/91 H 208/81 H Pulse Oximetry 100 100 100 01/30/18 21:00 01/30/18 21:30 01/30/18 22:00 Temperature Pulse Rate 115 H 114 H 114 H Respiratory Rate 21 23 26 H Blood Pressure 202/89 H 217/86 H Pulse Oximetry 100 100 100 01/30/18 22:01 01/30/18 22:30 01/30/18 23:00 Temperature Pulse Rate 114 H 114 H 108 H Respiratory Rate 23 23 24 Blood Pressure 192/85 H 187/84 H 189/84 H Pulse Oximetry 100 100 100 01/30/18 23:30 01/31/18 00:00 01/31/18 00:30 Temperature 99.4 F Pulse Rate 109 H 109 H 112 H Respiratory Rate 23 21 30 H Blood Pressure 208/98 H 178/87 H 181/83 H Pulse Oximetry 100 100 100 01/31/18 01:00 01/31/18 01:30 01/31/18 02:00 Temperature Pulse Rate 106 H 106 H 108 H Respiratory Rate 16 21 27 H Blood Pressure 156/70 H 162/88 H 189/85 H Pulse Oximetry 100 100 100 01/31/18 02:14 01/31/18 02:16 01/31/18 02:30 Temperature Pulse Rate 108 H 108 H 105 H Respiratory Rate 26 H 24 21 Blood Pressure 230/95 H 194/82 H 209/79 H Pulse Oximetry 100 100 100 01/31/18 02:45 01/31/18 03:00 01/31/18 03:34 Temperature Pulse Rate 104 H 104 H 101 H Respiratory Rate 21 21 22 Blood Pressure 206/87 H 209/98 H 196/84 H Pulse Oximetry 100 100 100 01/31/18 04:00 01/31/18 04:01 01/31/18 07:37 Temperature 99.1 F Pulse Rate 100 H 100 H Respiratory Rate 18 16 Blood Pressure 144/64 H 144/64 H Pulse Oximetry 100 100 100 Intake & Output 01/30/18 01/31/18 01/31/18 18:59 06:59 18:59 Intake Total 100 / 100 180 / 180 Output Total 1000 / 1000 500 / 500 Balance -900 / -900 -320 / -320 Weight 76.4 kg 76.8 kg Intake: IV 100 / 100 Rocephin Inj 1,000 MG In NS Inj 100 / 100 100 ML @ 200 mls/hr IV.SIG ONCE ONE Rx#:[id number] Oral 0 / 0 Tube Irrigant 180 / 180 Output: Urine 500 / 500 Emesis 500 / 500 Urine Amount (Catheter) 500 / 500 Indwelling Urethral Catheter 500 / 500 Other: Date of Last Bowel Movement 01/30/18 # Bowel Movements 0 # Emeses 3 Narrative: stuporous noted some jerking movements of the left sided extremities, HEENT exam anicteric sclerae pupils equal neck supple chest lungs no rales no wheezes heart regular rhythm Abdomen is soft with good bowel sounds Extremities no edema right upper extremity AV fistula in place with positive bruit Neuro exam stuporous-, openeed eyes deep sternal rub, mumbling anicteric sclerae pupils equal no facial asymmetry, jerking movememild right-sided mild weakness jnts noted on the left sided extremities positive Babinski on the left no calf swelling no edema - Urinary Catheter Management Indwelling Urethral Catheter Cath placed during this visit: yes Urethral indwelling: Yes Reason for continuing: Acute urinary retention Insertion date: 01/30/18 Insertion time: 17:25 Results - Labs CBC & Chem 7: 01/31/18 09:10 01/31/18 08:30 Laboratory Results - last 24 hr 01/30/18 01/30/18 01/30/18 10:25 10:25 10:25 WBC 6.8 RBC 3.68 L Hgb 9.8 L Hct 30.9 L MCV 83.9 MCH 26.7 L MCHC 31.8 L RDW 16.4 Plt Count 242 MPV 9.4 Neut % (Auto) 72.2 H Lymph % (Auto) 21.3 [place] % (Auto) 4.5 Eos % (Auto) 1.4 Baso % (Auto) 0.6 Neut # (Auto) 4.9 Lymph # (Auto) 1.4 [place] # (Auto) 0.3 Eos # (Auto) 0.1 Baso # (Auto) 0.0 WBC Differential . Differential Comment Auto diff final Puncture Site Patient Temperature O2 Saturation ABG pH ABG pCO2 ABG pO2 ABG HCO3 ABG O2 Content ABG Base Excess ABG Methemoglobin Khurram Test Hemoglobin Carboxyhemoglobin O2 Delivery Device Liter Flow Critical Value Sodium 145 Potassium 3.0 L Chloride 107 Carbon Dioxide 27.8 Anion Gap 10 BUN 69 H Creatinine 2.70 H Estimated GFR 22 L POC Glucose Random Glucose 248 H Calcium 8.8 Total Bilirubin 0.2 AST 14 L ALT 18 Alkaline Phosphatase 104 Total Protein 6.7 Albumin 2.8 L Urine Color Yellow Urine Clarity Hazy H Urine pH 5.0 Ur Specific Success 1.007 Urine Protein 30 H Urine Glucose (UA) 500 or greater Urine Ketones Negative Urine Occult Blood Negative Urine Nitrate Negative Urine Bilirubin Negative Urine Urobilinogen Less than 2 Ur Leukocyte Esterase Small H Urine RBC 1 Urine WBC 14 H Urine WBC Clumps Occasional H Ur Squamous Epith Cells <1 Amorphous Sediment Few H Urine Bacteria Occasional H Hyaline Casts 7 Urine Mucus Few H Micro UA Comment Cath-culture ind Ur Microscopic Review Not Reportable Urine Culture Comments Cath-cult indicated Urine Opiates Screen Ur Barbiturates Screen Ur Amphetamines Screen U Benzodiazepines Scrn Urine Cocaine Screen U Cannabinoids Screen 01/30/18 01/30/18 01/30/18 15:59 17:01 17:45 WBC RBC Hgb Hct MCV MCH MCHC RDW Plt Count MPV Neut % (Auto) Lymph % (Auto) [place] % (Auto) Eos % (Auto) Baso % (Auto) Neut # (Auto) Lymph # (Auto) [place] # (Auto) Eos # (Auto) Baso # (Auto) WBC Differential Differential Comment Puncture Site Left radial Patient Temperature 98.6 O2 Saturation 84 L* ABG pH 7.43 H ABG pCO2 47 H ABG pO2 53 L* ABG HCO3 30 H ABG O2 Content 12.0 ABG Base Excess 6.0 H ABG Methemoglobin 1.9 Khurram Test Present Hemoglobin 10.1 L Carboxyhemoglobin 1.1 O2 Delivery Device Nasal cannula Liter Flow 3.00 Critical Value Yes Sodium Potassium Chloride Carbon Dioxide Anion Gap BUN Creatinine Estimated GFR POC Glucose 253 H Random Glucose Calcium Total Bilirubin AST ALT Alkaline Phosphatase Total Protein Albumin Urine Color Urine Clarity Urine pH Ur Specific Success Urine Protein Urine Glucose (UA) Urine Ketones Urine Occult Blood Urine Nitrate Urine Bilirubin Urine Urobilinogen Ur Leukocyte Esterase Urine RBC Urine WBC Urine WBC Clumps Ur Squamous Epith Cells Amorphous Sediment Urine Bacteria Hyaline Casts Urine Mucus Micro UA Comment Ur Microscopic Review Urine Culture Comments Urine Opiates Screen Neg Ur Barbiturates Screen Neg Ur Amphetamines Screen Neg U Benzodiazepines Scrn Neg Urine Cocaine Screen Neg U Cannabinoids Screen Neg 01/30/18 01/31/18 01/31/18 18:25 00:27 05:18 WBC RBC Hgb Hct MCV MCH MCHC RDW Plt Count MPV Neut % (Auto) Lymph % (Auto) [place] % (Auto) Eos % (Auto) Baso % (Auto) Neut # (Auto) Lymph # (Auto) [place] # (Auto) Eos # (Auto) Baso # (Auto) WBC Differential Differential Comment Puncture Site Patient Temperature O2 Saturation ABG pH ABG pCO2 ABG pO2 ABG HCO3 ABG O2 Content ABG Base Excess ABG Methemoglobin Khurram Test Hemoglobin Carboxyhemoglobin O2 Delivery Device Liter Flow Critical Value Sodium Potassium Chloride Carbon Dioxide Anion Gap BUN Creatinine Estimated GFR POC Glucose 270 H 243 H 286 H Random Glucose Calcium Total Bilirubin AST ALT Alkaline Phosphatase Total Protein Albumin Urine Color Urine Clarity Urine pH Ur Specific Success Urine Protein Urine Glucose (UA) Urine Ketones Urine Occult Blood Urine Nitrate Urine Bilirubin Urine Urobilinogen Ur Leukocyte Esterase Urine RBC Urine WBC Urine WBC Clumps Ur Squamous Epith Cells Amorphous Sediment Urine Bacteria Hyaline Casts Urine Mucus Micro UA Comment Ur Microscopic Review Urine Culture Comments Urine Opiates Screen Ur Barbiturates Screen Ur Amphetamines Screen U Benzodiazepines Scrn Urine Cocaine Screen U Cannabinoids Screen - Imaging Impressions Carotid Doppler Study 01/30/18 00:00 CONCLUSION: Unremarkable carotid ultrasound. No focal high-grade or hemodynamically significant stenosis. Chest X-Ray 01/30/18 10:25 CONCLUSION: Cardiomegaly. Head CT 01/30/18 10:25 CONCLUSION: 1. No acute abnormality or significant change is seen. 2. Low-density in the cerebral white matter likely from small vessel ischemic change. 3. Encephalomalacia involving portions of the left parietal and posterior frontal lobes. . Head MRI 01/30/18 11:38 CONCLUSION: 1. Stable follow-up MRI of the brain compared to the prior exam from 05/31/2016. 2. Stable encephalomalacia involving the left cerebral vertex suggestive of old infarction. 3. Stable chronic white matter changes. Abdomen X-Ray 01/30/18 16:12 CONCLUSION: 1. NG tube in stomach. 2. Benign-appearing abdomen. Assessment and Plan - Plan 62-year-old female with history of hypertension chronic kidney disease, history of CVA with mild right-sided right hemiparesis presenting with Acute encephalopathy- this am- stuporous- some eye opening and mumbling ( obtunded on admission)- work up in progress Acute Focal seizure-like activity of the left sided extremities/With twitching of the eyes History of previous CVA with right-sided hemiparesis -Head CT / MRI done -no acute findings -Get EEG, Echo -received 1 g Keppra IV on admission - on 500 mg q 12 -Neurology consult-we will discuss with them whether to proceed ? LP. - no reported fever no WBC elevation though neck seems to rigid on admitting exam -Admit to C with close monitoring -We will hold off on Plavix/ASA for now in the event -may need/consider LP. -recheck CBC today Hypertension chronic. -NG tube was placed -Start meds per NG tube -Start amlodipine 10 mg daily, clonidine 0.2 mg p.o. every 8, doxazosin 8 mg at bedtime - Hydralazine 100 mg every 8 - add BB- and montior- Lopress 25 mg po q8 - start TF Acute on Chronic kidney disease stage III- IV at one point was on hemodialysis- AV fistula in place Acute urinary retention- bladder was distended on admission- 500 cc on ley placed 01/30 Anemia of chronic kidney disease -Renal functions slightly elevated but this is near baseline prerenal. -on gentle hydration. good urine output -Follow renal functions- pending -Continue ferrous sulfate 325 mg 3 times daily - Patient is getting Procrit every 2 weeks -Continue on Rocaltrol 0.25 mg daily -Consult her [employer] [address] Vargas - Hold diuretics for now Hypokalemia - give extra 50 meq KCL/NGT - continue home KCL supplement - BMP this am Mild hypernatremia- - change IVF to 1/2 NS UTI- - started rocephin IV - ff c and s Diabetes type 2 insulin requiring -Follow blood sugars 3 times daily and at bedtime with sliding scale for now - get [id number] - start TF - start Levemer 10 units HS- as OP was on 20 units lantus HS History of hypothyroidism continue on Synthroid 25 mcg daily NG tube placed give all meds per NG tube. get dietitian consult for TF recommendations We will consult speech therapy PT OT faiza in a.m. Teds SCDs for DVT prophylaxis. Hold chemical prophylaxis for now in the event that we will need LP for further evaluation. Discussed with family-niece- Brittney- who is healthcare surrogate. Full code 01/30
[2018-01-31] MEDS ORDERED: Dextrose 50% in Water 50 ML Vial IV.PUSH PRN (08:06)
[2018-01-31] MEDS: Citalopram 20 MG Tablet PO SCH (08:21)
[2018-01-31] MEDS: Doxazosin 4 MG Tablet PO SCH (08:21)
[2018-01-31] MEDS: amLODIPine 10 MG Tablet PO SCH (08:22)
[2018-01-31] MEDS: Gabapentin 100 MG Capsule PO SCH ×3 (08:22→17:53)
[2018-01-31] MEDS: Calcitriol 0.25 MCG Capsule PO SCH (08:22)
[2018-01-31] MEDS: Metoprolol Tartrate 100 MG Tablet PO SCH ×2 (08:22→21:11)
[2018-01-31] MEDS: Polyethylene Glycol 3350 17 GM Packet PO SCH (08:22)
[2018-01-31] MEDS: Pantoprazole Sodium 20 MG DR Tablet PO SCH (08:23)
[2018-01-31] MEDS: Ferrous Sulfate 325 MG Tablet PO SCH ×3 (08:23→17:53)
[2018-01-31] MEDS: Sod Chloride 0.9% Inj 1,000 ML IV.CONT SCH (09:03)
[2018-01-31 09:44] LABS: Calcium 9.5 mg/dL (8.5-10.1); Carbon Dioxide 30.9 meq/L (21.0-32.0); Potassium 4.1 meq/L (3.5-5.1)
[2018-01-31 09:56] LABS: Baso % (Auto) 0.6 % (0.0-2.0); Eos % (Auto) 0.6 % (0.0-4.0); Hematocrit 26.9 % (35.0-46.0); Hemoglobin 8.5 gm/dL (11.6-15.3); Lymph # (Auto) 1.3 th/mm3 (1.0-4.8); Lymph % (Auto) 21.5 % (9.0-44.0); Mean Corpuscular HGB Conc 31.8 % (32.0-36.0); Mean Corpuscular Hemoglobin 26.6 pg (27.0-34.0); Mean Corpuscular Volume 83.7 fL (80.0-100.0); Mean Platelet Volume 9.5 fL (7.0-11.0); Mono # (Auto) 0.5 th/mm3 (0.0-0.9); Mono % (Auto) 8.7 % (0.0-8.0); Neut # (Auto) 4.2 th/mm3 (1.8-7.7); Neut % (Auto) 68.6 % (16.0-70.0); Platelet Count 215 th/mm3 (150-450); Red Blood Count 3.21 mil/mm3 (4.00-5.30); Red Cell Distribution Width 16.4 % (11.6-17.2); White Blood Count 6.2 th/mm3 (4.0-11.0)
--- NOTE | 2018-01-31 10:06 | ECG ---
Date Performed: 01/30/2018 Time Performed: 11:47:29 PTAGE: 62 years EKG: Sinus rhythm POSSIBLE RIGHT VENTRICULAR HYPERTROPHY NONSPECIFIC T-WAVE ABNORMALITY ABNORMAL ECG PREVIOUS TRACING : 09/15/2017 19.07 DOCTOR: Tiffani Matt Interpretating Date/Time 01/31/2018 10:03:33
--- NOTE | 2018-01-31 12:41 | P.DIET ---
Nutritional Evaluation Type of nutrition evaluation: initial Nutrition consult regarding: Tube Feeding [place] [facility] [place] [facility] [place] - Diagnosis AMS, UTI, HTN - Objective Goodwin body weight: 57 kg % IBW: 135 Energy Needs - Lower Range (kCal/kg): 25 Energy Needs - Upper Range (kCal/kg): 30 Lower Limit kCal/kg (kCals): 1,425 Upper Limit kCal/kg (kCals): 1,710 Lower Limit Protein Factor (Grams per Kg): 0.8 Upper Limit Protein Factor (Grams per Kg): 1.0 Lower Protein Needs (Protein): 62 Upper Protein Needs (Protein): 77 Dietitian Reviewed in Medical Record: Current diet, Curent medications, Intake & Output, Labs, Medical history Diet Order: NPO Objective Comments: Pt caloric needs based on IBW (57kg), protein needs based on actual wt (77kg) PMH: CKD Stage IV, DM, CVA, Dysphagia, HTN Labs include: BUN 69, Cr 2.87, GFR 20, Glucose 270, POC Glucose 286, 261 Assessment Assessment: Pt at nutritional risk r/t current clinical status and need for a TF for nutrition support. Reviewed design inserter note, pt's baseline GFR is 25. No plan for HD at this time. Pt's nutritional needs as assessed above. Recommend TF Nepro with goal rate 35ml/hr to provide 1520kcals, 68gms protein and 611mls free water. Will monitor TF tolerance, clinical course. Recommendations: Recommend TF Nepro with goal rate 35ml/hr Dietitian to Monitor: Renal labs, Glucose level, Tube feeding tolerance, Weight change, Medical course
[2018-01-31 12:52] LABS: Hemoglobin A1c 9.9 % (4.3-6.0)
[2018-01-31] MEDS ORDERED: Sodium Chloride 0.45 % Inj 1,000 ML IV.CONT SCH (13:00)
--- NOTE | 2018-01-31 13:04 | MB ---
cc: Abdiaziz Garrison MD DATE: 01/31/2018 REASON FOR CONSULT: Seizure. HISTORY OF PRESENT ILLNESS: A 62-year-old -[place] female is seen for evaluation of abnormal movement? seizures. The patient is confused and unable to obtain history from, thus, history is obtained from medical records and attending physician. Reportedly, the patient was sent from the residential because of an acute change in her mental status, history of diabetes mellitus, CKD. She was on hemodialysis, discontinued for the past 8 months, history of stroke with right-sided weakness and at baseline, she is independent with her ADLs and is able to walk short distances, but most of the time uses a wheelchair. Per residential staff, the patient is very talkative and alert, continent of urine, and can feed herself. The staff at the residential noted that the patient was mumbling, however, was able to get up and go to the dining room and eat. Blood sugar was reportedly normal. Later that day, she started vomiting with poor oral intake and the morning of the presentation to the hospital, there was another episode of vomiting with bilious greenish colored vomitus. She was drowsy with normal vital signs. Initially, the patient was unresponsive and had blank stares and they have noticed jerky movements of the left upper and lower extremity and neck. Neck was rigid to the exam. Head CT scan and brain MRI with no acute findings. REVIEW OF SYSTEMS: A 12-point review of systems negative except what is stated in the HPI. PAST MEDICAL HISTORY: Anemia of chronic kidney disease, stroke, diabetes, dysphagia, end-stage renal disease and hypertension. SOCIAL HISTORY: Lives in a residential, cigarette smoker, never alcohol. No history of abuse as per review of medical records. MEDICATIONS: 1. Keppra. 2. Sodium chloride. PAST SURGICAL HISTORY: Unable to obtain. FAMILY HISTORY: Unable to obtain. PHYSICAL EXAMINATION: GENERAL: The patient is confused, opens her eyes to commands. Overweight. HEENT: Atraumatic, normocephalic. Intact hearing. NECK: Mild neck stiffness. No carotid bruit. ABDOMEN: Soft, nontender. EXTREMITIES: Can move extremities. AV fistula placed in the right upper extremity. NEUROLOGIC: The patient is confused, opens eyes to verbal commands, mumbles words, squeezes fingers on both hands. Moves extremities. Unable to comprehend. She sticks out her tongue. No facial asymmetry. No gaze deviation. Pupils are small, 1-2 mm. No facial twitches noted. Reflexes 1+ bilateral symmetrical. Plantars are bilateral downgoing. Unable to assess cerebellar functions, gait and walking. LABORATORY DATA: CBC revealed hemoglobin 9.8, white blood cells 6.8, MCV 83.9. CMP revealed sodium 145, hypokalemia at 3. Elevated BUN and creatinine and low GFR, random glucose of 248. Normal calcium. Urine toxicology is negative. IMAGING: Carotid ultrasound, no hemodynamically significant stenosis. Chest x-ray revealed cardiomegaly. Head CT scan, no acute abnormality or significant change seen. Low density in the cerebellar white matter, likely from both small vessel ischemic change. Encephalomalacia involving the left parietal and posterior frontal lobe. Head MRI with a stable followup MRI compared to prior exam in 2016. Stable encephalomalacia involving the left cerebral cortex suggestive of old infarction. Stable chronic white matter changes. ASSESSMENT: 1. Acute encephalopathy. Likely multifactorial due to metabolic derangement, hypokalemia, hyperglycemia, and other likely possibility is seizure activity of the left extremities. Unlikely to be acute stroke. Seizure activity, left upper and lower extremity. This morning, there is some jerking in the right upper extremity. She responded to Keppra given yesterday. 2. Hypertension. 3. Acute on chronic kidney disease. 4. Hypokalemia. 5. Urinary tract infection. 6. Diabetes. 7. Neuro checks every 4 hourly. 8. EEG. 9. Continue Keppra 500 mg twice daily. 10. We will defer doing LP given no clinical or lab indication at this time. 11. Tele monitoring. 12. Seizure precautions. 13. Replenish electrolytes and supportive medical therapy by attending physician team. 14. Gastrointestinal prophylaxis. 15. Deep venous thrombosis prophylaxis. Dr. Núñez from [facility] will follow up on Thursday. Thank you for the opportunity to participate in the care of your patient. Abdiaziz Garrison MD RGO/sv , 10:34 AM , 11:14 AM NIK
--- NOTE | 2018-01-31 13:25 | P.PNNP ---
Subjective Interval history: Patient lethargic but is arousable. Physical Exam Vital signs: Vital Signs 01/30/18 14:00 01/30/18 16:00 01/30/18 18:28 Temperature 98.7 F Pulse Rate 101 H 112 H Respiratory Rate 22 23 Blood Pressure 183/83 H 166/84 H Pulse Oximetry 100 01/30/18 18:30 01/30/18 18:54 01/30/18 19:00 Temperature Pulse Rate 112 H 115 H 117 H Respiratory Rate 44 H 22 24 Blood Pressure 198/82 H 180/81 H Pulse Oximetry 100 97 94 L 01/30/18 19:01 01/30/18 19:06 01/30/18 19:30 Temperature Pulse Rate 115 H 115 H 113 H Respiratory Rate 29 H 30 H 20 Blood Pressure 217/84 H 211/91 H 185/79 H Pulse Oximetry 91 L 99 100 01/30/18 20:00 01/30/18 20:30 01/30/18 20:53 Temperature 98.5 F Pulse Rate 112 H 114 H 113 H Respiratory Rate 25 H 19 22 Blood Pressure 195/90 H 208/91 H 208/81 H Pulse Oximetry 100 100 100 01/30/18 21:00 01/30/18 21:30 01/30/18 22:00 Temperature Pulse Rate 115 H 114 H 114 H Respiratory Rate 21 23 26 H Blood Pressure 202/89 H 217/86 H Pulse Oximetry 100 100 100 01/30/18 22:01 01/30/18 22:30 01/30/18 23:00 Temperature Pulse Rate 114 H 114 H 108 H Respiratory Rate 23 23 24 Blood Pressure 192/85 H 187/84 H 189/84 H Pulse Oximetry 100 100 100 01/30/18 23:30 01/31/18 00:00 01/31/18 00:30 Temperature 99.4 F Pulse Rate 109 H 109 H 112 H Respiratory Rate 23 21 30 H Blood Pressure 208/98 H 178/87 H 181/83 H Pulse Oximetry 100 100 100 01/31/18 01:00 01/31/18 01:30 01/31/18 02:00 Temperature Pulse Rate 106 H 106 H 108 H Respiratory Rate 16 21 27 H Blood Pressure 156/70 H 162/88 H 189/85 H Pulse Oximetry 100 100 100 01/31/18 02:14 01/31/18 02:16 01/31/18 02:30 Temperature Pulse Rate 108 H 108 H 105 H Respiratory Rate 26 H 24 21 Blood Pressure 230/95 H 194/82 H 209/79 H Pulse Oximetry 100 100 100 01/31/18 02:45 01/31/18 03:00 01/31/18 03:34 Temperature Pulse Rate 104 H 104 H 101 H Respiratory Rate 21 21 22 Blood Pressure 206/87 H 209/98 H 196/84 H Pulse Oximetry 100 100 100 01/31/18 04:00 01/31/18 04:01 01/31/18 04:31 Temperature 99.1 F Pulse Rate 100 H 100 H 97 H Respiratory Rate 18 16 26 H Blood Pressure 144/64 H 144/64 H 189/85 H Pulse Oximetry 100 100 100 01/31/18 05:00 01/31/18 05:06 01/31/18 05:30 Temperature Pulse Rate 97 H 98 H 94 H Respiratory Rate 28 H 22 21 Blood Pressure 203/91 H 176/78 H 177/73 H Pulse Oximetry 100 100 100 01/31/18 06:00 01/31/18 06:31 01/31/18 07:00 Temperature Pulse Rate 95 H 96 H 92 H Respiratory Rate 18 23 21 Blood Pressure 193/77 H 148/64 H Pulse Oximetry 100 100 100 01/31/18 07:01 01/31/18 07:02 01/31/18 07:30 Temperature Pulse Rate 92 H 93 H 92 H Respiratory Rate 18 23 18 Blood Pressure 194/81 H 185/77 H 184/82 H Pulse Oximetry 100 100 100 01/31/18 07:37 01/31/18 08:00 01/31/18 08:37 Temperature 98.9 F Pulse Rate 92 H 90 Respiratory Rate 22 17 Blood Pressure 192/87 H 177/81 H Pulse Oximetry 100 100 100 01/31/18 09:00 01/31/18 09:01 01/31/18 09:30 Temperature Pulse Rate 85 85 82 Respiratory Rate 17 18 11 L Blood Pressure 135/69 109/58 L Pulse Oximetry 100 100 100 01/31/18 10:00 01/31/18 11:00 01/31/18 12:00 Temperature 98.4 F 97.7 F Pulse Rate 82 81 81 Respiratory Rate 14 11 L 11 L Blood Pressure 113/73 133/66 146/65 H Pulse Oximetry 100 100 100 Intake & Output 01/30/18 01/31/18 01/31/18 18:59 06:59 18:59 Intake Total 100 / 100 180 / 180 1000 / 1000 Output Total 1000 / 1000 500 / 500 Balance -900 / -900 -320 / -320 1000 / 1000 Weight 76.4 kg 76.8 kg Intake: IV 100 / 100 1000 / 1000 NS Inj 1,000 ML @ 60 mls/hr IV. 1000 / 1000 CONT .[id number] [facility] Rx#:[id number] Rocephin Inj 1,000 MG In NS Inj 100 / 100 100 ML @ 200 mls/hr IV.SIG ONCE ONE Rx#:[id number] Oral 0 / 0 Tube Irrigant 180 / 180 Output: Urine 500 / 500 Emesis 500 / 500 Urine Amount (Catheter) 500 / 500 Indwelling Urethral Catheter 500 / 500 Other: Date of Last Bowel Movement 01/30/18 01/30/18 # Bowel Movements 0 # Emeses 3 Narrative: stuporous HEENT exam anicteric sclerae pupils equal neck supple chest lungs no rales no wheezes heart regular rhythm Abdomen is soft with good bowel sounds Extremities no edema right upper extremity AV fistula in place with positive bruit - Urinary Catheter Management Indwelling Urethral Catheter Cath placed during this visit: yes Urethral indwelling: Yes Reason for continuing: Acute urinary retention Insertion date: 01/30/18 Insertion time: 17:25 Assessment and Plan - Assessment (1) CKD (chronic kidney disease), stage IV Code(s): N18.4 - Chronic kidney disease, stage 4 (severe) Status: Acute Plan: Renal indices are not far off her usual baseline level. No indication that she has progressive end-stage renal disease and I do not believe that her symptomatology is related to uremia. Blood cultures negative times 24 hours. Etiology of change in mental status still uncertain. Medications should be adjusted for the patient's estimated GFR if clinically indicated. Avoid agents with significant potential for nephrotoxicity possible including NSAIDs for analgesia, iodine contrast agents. Gadolinium is contraindicated if the GFR is below 30. (2) Diabetic nephropathy associated with type 2 diabetes mellitus Code(s): E11.21 - Type 2 diabetes mellitus with diabetic nephropathy Status: Acute Plan: Defer diabetic management to day spa manager. (3) Anemia of renal disease Code(s): D63.1 - Anemia in chronic kidney disease Status: Acute Plan: Patient was on erythropoietin replacement therapy at the detention. Will continue. (4) Hypertension associated with stage 4 chronic kidney disease due to type 2 diabetes mellitus Code(s): E11.22 - Type 2 diabetes mellitus with diabetic chronic kidney disease ; I12.9 - Hypertensive chronic kidney disease with stage 1 through stage 4 chronic kidney disease, or unspecified chronic kidney disease; N18.4 - Chronic kidney disease, stage 4 (severe) Status: Acute (5) Secondary hyperparathyroidism of renal origin Code(s): N25.81 - Secondary hyperparathyroidism of renal origin Status: Acute Plan: Check intact PTH level.
[2018-01-31] MEDS: Potassium Chloride 10 MEQ ER Capsule PO SCH (15:47)
[2018-01-31] MEDS ORDERED: Insulin Detemir Inj 1,000 UNIT/10 ML Vial SQ SCH (21:00)
--- NOTE | 2018-02-01 00:55 | MG ---
cc: Abdiaziz Garrison MD MEDICAL HISTORY: Anemia, CKD, stroke, diabetes mellitus, dysphagia, end-stage renal disease, hypertension, MRSA. MEDICATIONS: Norvasc, Lipitor, calcitriol, Celexa, Catapres, Cardura, Neurontin, Apresoline, Keppra, Synthroid, Lopressor . DESCRIPTION: There is generalized slowing of the EEG recording with excessive muscle and movement artifact. There is some slowing in the left hemisphere at the temporoparietal temporal area that may indicate a structural lesion. There is some of the left sharp-like activities intermittent in the right hemisphere that may be epileptogenic in nature. Hyperventilation was not done. Photic stimulation did not elicit a driving response. INTERPRETATION: This is an abnormal drowsy EEG with generalized slowing that may indicate an encephalopathic pattern due to metabolic, hypoxic, or medication effect. As etiological factor, there is some slowing of the background of the left that may indicate a structural lesion and sharp-like activity that may be epileptogenic in nature on the right parietal temporal area. Clinical correlation is recommended. MD VANDANA Sam/aftab/candice , 12:18 AM , 12:23 AM MTDGrant
[2018-02-01] MEDS: Insulin NovoLOG Aspart Correctional Sugar Inj SQ SCH ×2 (05:04→12:03)
[2018-02-01 08:46] LABS: Calcium 9.4 mg/dL (8.5-10.1); Carbon Dioxide 30.8 meq/L (21.0-32.0); Potassium 3.8 meq/L (3.5-5.1)
[2018-02-01] MEDS: Gabapentin 100 MG Capsule PO SCH ×2 (08:57→11:59)
[2018-02-01] MEDS: Calcitriol 0.25 MCG Capsule PO SCH (08:57)
[2018-02-01] MEDS: Potassium Chloride 10 MEQ ER Capsule PO SCH (08:57)
[2018-02-01] MEDS: Pantoprazole Sodium 20 MG DR Tablet PO SCH (08:58)
[2018-02-01] MEDS: amLODIPine 10 MG Tablet PO SCH (08:58)
[2018-02-01] MEDS: Metoprolol Tartrate 100 MG Tablet PO SCH ×2 (08:58→21:34)
[2018-02-01] MEDS: Ferrous Sulfate 325 MG Tablet PO SCH ×2 (08:58→12:00)
[2018-02-01] MEDS: Citalopram 20 MG Tablet PO SCH (08:58)
[2018-02-01] MEDS: Doxazosin 4 MG Tablet PO SCH (08:58)
[2018-02-01] MEDS: Polyethylene Glycol 3350 17 GM Packet PO SCH (08:59)
--- NOTE | 2018-02-01 10:04 | P.PN ---
Subjective Interval history: pt awake alert smiling no new issues reported. Physical Exam Vital signs: Vital Signs 01/31/18 11:00 01/31/18 12:00 01/31/18 13:00 Temperature 97.7 F Pulse Rate 81 81 81 Respiratory Rate 11 L 11 L 9 L Blood Pressure 133/66 146/65 H 127/60 Pulse Oximetry 100 100 96 01/31/18 14:00 01/31/18 15:00 01/31/18 16:00 Temperature 98.2 F 98 F Pulse Rate 80 83 80 Respiratory Rate 11 L 14 11 L Blood Pressure 113/54 L 114/71 125/56 L Pulse Oximetry 95 100 100 01/31/18 17:00 01/31/18 18:00 01/31/18 19:00 Temperature 98 F Pulse Rate 82 85 83 Respiratory Rate 12 10 L Blood Pressure 130/84 116/61 Pulse Oximetry 100 100 100 01/31/18 20:00 01/31/18 21:00 01/31/18 22:00 Temperature 98.2 F Pulse Rate 82 83 86 Respiratory Rate 10 L 10 L 15 Blood Pressure 108/70 158/72 H 175/69 H Pulse Oximetry 100 100 100 01/31/18 23:00 01/31/18 23:30 02/01/18 00:00 Temperature 98.3 F Pulse Rate 82 83 83 Respiratory Rate 10 L 17 12 Blood Pressure 139/61 145/85 H 145/85 H Pulse Oximetry 100 100 100 02/01/18 00:01 02/01/18 00:30 02/01/18 01:00 Temperature Pulse Rate 84 83 83 Respiratory Rate 12 18 12 Blood Pressure 171/76 H 163/77 H 148/81 H Pulse Oximetry 100 100 100 02/01/18 01:30 02/01/18 02:00 02/01/18 02:30 Temperature Pulse Rate 84 82 83 Respiratory Rate 20 23 17 Blood Pressure 149/67 H 150/66 H 153/67 H Pulse Oximetry 100 100 100 02/01/18 03:00 02/01/18 03:30 02/01/18 04:00 Temperature Pulse Rate 82 83 84 Respiratory Rate 19 13 15 Blood Pressure 146/78 H 152/70 H Pulse Oximetry 100 100 100 02/01/18 04:01 02/01/18 04:04 02/01/18 04:35 Temperature 98.2 F Pulse Rate 84 84 84 Respiratory Rate 20 17 14 Blood Pressure 183/85 H 164/75 H 175/77 H Pulse Oximetry 100 100 100 02/01/18 08:00 Temperature Pulse Rate Respiratory Rate Blood Pressure Pulse Oximetry 100 Intake & Output 01/31/18 02/01/18 02/01/18 18:59 06:59 18:59 Intake Total 1808 / 1808 1475 / 1475 Output Total 350 / 350 475 / 475 Balance 1458 / 1458 1000 / 1000 Weight 80.8 kg Intake: IV 1425 / 1425 920 / 920 NS Inj 1,000 ML @ 60 mls/hr IV. 1320 / 1320 CONT .[id number] [facility] Rx#:[id number] 1/2 Normal Saline Inj 1,000 ML 815 / 815 @ 42 mls/hr IV.CONT .[id number] [facility] Rx#:[id number] Keppra Inj 500 MG In NS Inj 100 105 / 105 105 / 105 ML @ 400 mls/hr IV.SIG Q12H [facility] Rx#:[id number] Tube Feeding 153 / 153 375 / 375 Tube Irrigant 180 / 180 Water Bolus Amount 230 / 230 Output: Urine Amount (Catheter) 350 / 350 475 / 475 Indwelling Urethral Catheter 350 / 350 475 / 475 Other: Date of Last Bowel Movement 01/30/18 02/01/18 # Bowel Movements 0 1 Narrative: awake alert follows commands right hemiparesis rue >rle can move right leg right toe upgoing dtrs brisk. mild tremor in right hand no active twitching. - Urinary Catheter Management Indwelling Urethral Catheter Cath placed during this visit: yes Urethral indwelling: Yes Reason for continuing: Acute urinary retention Insertion date: 01/30/18 Insertion time: 17:25 Results - Labs CBC & Chem 7: 01/31/18 09:10 02/01/18 06:13 Laboratory Results - last 24 hr 01/31/18 01/31/18 01/31/18 09:10 12:03 17:37 Sodium Potassium Chloride Carbon Dioxide Anion Gap BUN Creatinine Estimated GFR POC Glucose 261 H 222 H Random Glucose Hemoglobin A1c 9.9 H Calcium 01/31/18 01/31/18 02/01/18 21:15 23:24 05:02 Sodium Potassium Chloride Carbon Dioxide Anion Gap BUN Creatinine Estimated GFR POC Glucose 248 H 283 H 232 H Random Glucose Hemoglobin A1c Calcium 02/01/18 06:13 Sodium 149 H Potassium 3.8 Chloride 110 H Carbon Dioxide 30.8 Anion Gap 8 BUN 62 H Creatinine 2.94 H Estimated GFR 20 L POC Glucose Random Glucose 229 H Hemoglobin A1c Calcium 9.4 Microbiology 01/30/18 10:25 Catheterized Urine Urine Culture - Preliminary Staphylococcus coag negative 01/30/18 19:00 Blood - Other Aerobic Blood Culture - Preliminary No growth in 1 day 01/30/18 19:00 Blood - Other Anaerobic Blood Culture - Preliminary No growth in 1 day 01/30/18 19:05 Blood - Other Aerobic Blood Culture - Preliminary No growth in 1 day 01/30/18 19:05 Blood - Other Anaerobic Blood Culture - Preliminary No growth in 1 day Assessment and Plan - Plan cont keppra 500 mg bid eeg no active sz per report restart asa and plavix sz precautions. mri old stroke no new findings. no LP at this time. dc planning when stable medically.
--- NOTE | 2018-02-01 11:55 | P.PNNP ---
Subjective Interval history: Patient responded to the question of location as [place] but otherwise appears to be confused. Physical Exam Vital signs: Vital Signs 01/31/18 12:00 01/31/18 13:00 01/31/18 14:00 Temperature 97.7 F 98.2 F Pulse Rate 81 81 80 Respiratory Rate 11 L 9 L 11 L Blood Pressure 146/65 H 127/60 113/54 L Pulse Oximetry 100 96 95 01/31/18 15:00 01/31/18 16:00 01/31/18 17:00 Temperature 98 F Pulse Rate 83 80 82 Respiratory Rate 14 11 L Blood Pressure 114/71 125/56 L Pulse Oximetry 100 100 100 01/31/18 18:00 01/31/18 19:00 01/31/18 20:00 Temperature 98 F 98.2 F Pulse Rate 85 83 82 Respiratory Rate 12 10 L 10 L Blood Pressure 130/84 116/61 108/70 Pulse Oximetry 100 100 100 01/31/18 21:00 01/31/18 22:00 01/31/18 23:00 Temperature Pulse Rate 83 86 82 Respiratory Rate 10 L 15 10 L Blood Pressure 158/72 H 175/69 H 139/61 Pulse Oximetry 100 100 100 01/31/18 23:30 02/01/18 00:00 02/01/18 00:01 Temperature 98.3 F Pulse Rate 83 83 84 Respiratory Rate 17 12 12 Blood Pressure 145/85 H 145/85 H 171/76 H Pulse Oximetry 100 100 100 02/01/18 00:30 02/01/18 01:00 02/01/18 01:30 Temperature Pulse Rate 83 83 84 Respiratory Rate 18 12 20 Blood Pressure 163/77 H 148/81 H 149/67 H Pulse Oximetry 100 100 100 02/01/18 02:00 02/01/18 02:30 02/01/18 03:00 Temperature Pulse Rate 82 83 82 Respiratory Rate 23 17 19 Blood Pressure 150/66 H 153/67 H 146/78 H Pulse Oximetry 100 100 100 02/01/18 03:30 02/01/18 04:00 02/01/18 04:01 Temperature Pulse Rate 83 84 84 Respiratory Rate 13 15 20 Blood Pressure 152/70 H 183/85 H Pulse Oximetry 100 100 100 02/01/18 04:04 02/01/18 04:35 02/01/18 05:00 Temperature 98.2 F Pulse Rate 84 84 85 Respiratory Rate 17 14 11 L Blood Pressure 164/75 H 175/77 H 154/72 H Pulse Oximetry 100 100 100 02/01/18 05:30 02/01/18 05:39 02/01/18 06:00 Temperature Pulse Rate 85 85 83 Respiratory Rate 12 11 L 11 L Blood Pressure 182/73 H 168/60 H 172/74 H Pulse Oximetry 100 100 97 02/01/18 06:30 02/01/18 07:00 02/01/18 07:30 Temperature Pulse Rate 86 87 89 Respiratory Rate 8 L 10 L 15 Blood Pressure 174/79 H 178/70 H 174/72 H Pulse Oximetry 98 98 99 02/01/18 08:00 02/01/18 08:30 02/01/18 09:00 Temperature 98.2 F Pulse Rate 86 87 88 Respiratory Rate 9 L 9 L 11 L Blood Pressure 185/77 H 178/74 H 197/82 H Pulse Oximetry 100 100 99 02/01/18 09:30 02/01/18 10:00 02/01/18 10:30 Temperature Pulse Rate 88 88 86 Respiratory Rate 11 L 26 H 11 L Blood Pressure 183/79 H 181/81 H 173/75 H Pulse Oximetry 100 92 L 100 02/01/18 11:00 Temperature Pulse Rate 85 Respiratory Rate 13 Blood Pressure 182/74 H Pulse Oximetry 100 Intake & Output 01/31/18 02/01/18 02/01/18 18:59 06:59 18:59 Intake Total 1808 / 1808 1475 / 1475 Output Total 350 / 350 475 / 475 Balance 1458 / 1458 1000 / 1000 Weight 80.8 kg Intake: IV 1425 / 1425 920 / 920 NS Inj 1,000 ML @ 60 mls/hr IV. 1320 / 1320 CONT .[id number] [facility] Rx#:[id number] 1/2 Normal Saline Inj 1,000 ML 815 / 815 @ 42 mls/hr IV.CONT .[id number] [facility] Rx#:[id number] Keppra Inj 500 MG In NS Inj 100 105 / 105 105 / 105 ML @ 400 mls/hr IV.SIG Q12H [facility] Rx#:[id number] Tube Feeding 153 / 153 375 / 375 Tube Irrigant 180 / 180 Water Bolus Amount 230 / 230 Output: Urine Amount (Catheter) 350 / 350 475 / 475 Indwelling Urethral Catheter 350 / 350 475 / 475 Other: Date of Last Bowel Movement 01/30/18 02/01/18 01/31/18 # Bowel Movements 0 1 Narrative: GENERAL: Patient lying in bed not in respiratory distress. SKIN: Warm and dry. HEAD: Normocephalic. EYES: No scleral icterus. No injection or drainage. NECK: Supple, trachea midline. No JVD or lymphadenopathy. CARDIOVASCULAR: Regular rate and rhythm without murmurs, gallops, or rubs. RESPIRATORY: Breath sounds equal bilaterally. No accessory muscle use. GASTROINTESTINAL: Abdomen soft, non-tender, nondistended. MUSCULOSKELETAL: No cyanosis, or edema. - Urinary Catheter Management Indwelling Urethral Catheter Cath placed during this visit: yes Urethral indwelling: Yes Reason for continuing: Acute urinary retention Insertion date: 01/30/18 Insertion time: 17:25 Assessment and Plan - Assessment (1) CKD (chronic kidney disease), stage IV Code(s): N18.4 - Chronic kidney disease, stage 4 (severe) Status: Acute Plan: Renal indices continue to remain close to usual baseline level. No indication that she has progressive end-stage renal disease and I do not believe that her symptomatology is related to uremia. Etiology of change in mental status still uncertain. We will continue to follow with you intermittently. Medications should be adjusted for the patient's estimated GFR if clinically indicated. Avoid agents with significant potential for nephrotoxicity possible including NSAIDs for analgesia, iodine contrast agents. Gadolinium is contraindicated if the GFR is below 30. (2) Diabetic nephropathy associated with type 2 diabetes mellitus Code(s): E11.21 - Type 2 diabetes mellitus with diabetic nephropathy Status: Acute Plan: Defer diabetic management to varnish inspector. (3) Anemia of renal disease Code(s): D63.1 - Anemia in chronic kidney disease Status: Acute Plan: Patient was on erythropoietin replacement therapy at the care home. Will continue. (4) Hypertension associated with stage 4 chronic kidney disease due to type 2 diabetes mellitus Code(s): E11.22 - Type 2 diabetes mellitus with diabetic chronic kidney disease ; I12.9 - Hypertensive chronic kidney disease with stage 1 through stage 4 chronic kidney disease, or unspecified chronic kidney disease; N18.4 - Chronic kidney disease, stage 4 (severe) Status: Acute (5) Secondary hyperparathyroidism of renal origin Code(s): N25.81 - Secondary hyperparathyroidism of renal origin Status: Acute Plan: Check intact PTH level.
--- NOTE | 2018-02-01 12:10 | P.PN ---
Subjective Interval history: patient is definitely more awake and alert, childlike, stated her name, ff all commands Physical Exam Vital signs: Vital Signs 01/31/18 13:00 01/31/18 14:00 01/31/18 15:00 Temperature 98.2 F Pulse Rate 81 80 83 Respiratory Rate 9 L 11 L 14 Blood Pressure 127/60 113/54 L 114/71 Pulse Oximetry 96 95 100 01/31/18 16:00 01/31/18 17:00 01/31/18 18:00 Temperature 98 F 98 F Pulse Rate 80 82 85 Respiratory Rate 11 L 12 Blood Pressure 125/56 L 130/84 Pulse Oximetry 100 100 100 01/31/18 19:00 01/31/18 20:00 01/31/18 21:00 Temperature 98.2 F Pulse Rate 83 82 83 Respiratory Rate 10 L 10 L 10 L Blood Pressure 116/61 108/70 158/72 H Pulse Oximetry 100 100 100 01/31/18 22:00 01/31/18 23:00 01/31/18 23:30 Temperature Pulse Rate 86 82 83 Respiratory Rate 15 10 L 17 Blood Pressure 175/69 H 139/61 145/85 H Pulse Oximetry 100 100 100 02/01/18 00:00 02/01/18 00:01 02/01/18 00:30 Temperature 98.3 F Pulse Rate 83 84 83 Respiratory Rate 12 12 18 Blood Pressure 145/85 H 171/76 H 163/77 H Pulse Oximetry 100 100 100 02/01/18 01:00 02/01/18 01:30 02/01/18 02:00 Temperature Pulse Rate 83 84 82 Respiratory Rate 12 20 23 Blood Pressure 148/81 H 149/67 H 150/66 H Pulse Oximetry 100 100 100 02/01/18 02:30 02/01/18 03:00 02/01/18 03:30 Temperature Pulse Rate 83 82 83 Respiratory Rate 17 19 13 Blood Pressure 153/67 H 146/78 H 152/70 H Pulse Oximetry 100 100 100 02/01/18 04:00 02/01/18 04:01 02/01/18 04:04 Temperature 98.2 F Pulse Rate 84 84 84 Respiratory Rate 15 20 17 Blood Pressure 183/85 H 164/75 H Pulse Oximetry 100 100 100 02/01/18 04:35 02/01/18 05:00 02/01/18 05:30 Temperature Pulse Rate 84 85 85 Respiratory Rate 14 11 L 12 Blood Pressure 175/77 H 154/72 H 182/73 H Pulse Oximetry 100 100 100 02/01/18 05:39 02/01/18 06:00 02/01/18 06:30 Temperature Pulse Rate 85 83 86 Respiratory Rate 11 L 11 L 8 L Blood Pressure 168/60 H 172/74 H 174/79 H Pulse Oximetry 100 97 98 02/01/18 07:00 02/01/18 07:30 02/01/18 08:00 Temperature 98.2 F Pulse Rate 87 89 86 Respiratory Rate 10 L 15 9 L Blood Pressure 178/70 H 174/72 H 185/77 H Pulse Oximetry 98 99 100 02/01/18 08:30 02/01/18 09:00 02/01/18 09:30 Temperature Pulse Rate 87 88 88 Respiratory Rate 9 L 11 L 11 L Blood Pressure 178/74 H 197/82 H 183/79 H Pulse Oximetry 100 99 100 02/01/18 10:00 02/01/18 10:30 02/01/18 11:00 Temperature Pulse Rate 88 86 85 Respiratory Rate 26 H 11 L 13 Blood Pressure 181/81 H 173/75 H 182/74 H Pulse Oximetry 92 L 100 100 Intake & Output 01/31/18 02/01/18 02/01/18 18:59 06:59 18:59 Intake Total 1808 / 1808 1475 / 1475 Output Total 350 / 350 475 / 475 Balance 1458 / 1458 1000 / 1000 Weight 80.8 kg Intake: IV 1425 / 1425 920 / 920 NS Inj 1,000 ML @ 60 mls/hr IV. 1320 / 1320 CONT .[id number] [facility] Rx#:[id number] 1/2 Normal Saline Inj 1,000 ML 815 / 815 @ 42 mls/hr IV.CONT .[id number] [facility] Rx#:[id number] Keppra Inj 500 MG In NS Inj 100 105 / 105 105 / 105 ML @ 400 mls/hr IV.SIG Q12H [facility] Rx#:[id number] Tube Feeding 153 / 153 375 / 375 Tube Irrigant 180 / 180 Water Bolus Amount 230 / 230 Output: Urine Amount (Catheter) 350 / 350 475 / 475 Indwelling Urethral Catheter 350 / 350 475 / 475 Other: Date of Last Bowel Movement 01/30/18 02/01/18 01/31/18 # Bowel Movements 0 1 Narrative: GENERAL: Patient lying in bed not in respiratory distress. SKIN: Warm and dry. HEAD: Normocephalic. EYES: No scleral icterus. No injection or drainage. NECK: Supple, trachea midline. No JVD or lymphadenopathy. CARDIOVASCULAR: Regular rate and rhythm without murmurs, gallops, or rubs. RESPIRATORY: Breath sounds equal bilaterally. No accessory muscle use. GASTROINTESTINAL: Abdomen soft, non-tender, nondistended. MUSCULOSKELETAL: No cyanosis, or edema. - Urinary Catheter Management Indwelling Urethral Catheter Cath placed during this visit: yes Urethral indwelling: Yes Reason for continuing: Acute urinary retention Insertion date: 01/30/18 Insertion time: 17:25 Results - Labs CBC & Chem 7: 01/31/18 09:10 02/01/18 06:13 Laboratory Results - last 24 hr 01/31/18 01/31/18 01/31/18 09:10 17:37 21:15 Sodium Potassium Chloride Carbon Dioxide Anion Gap BUN Creatinine Estimated GFR POC Glucose 222 H 248 H Random Glucose Hemoglobin A1c 9.9 H Calcium 01/31/18 02/01/18 02/01/18 23:24 05:02 06:13 Sodium 149 H Potassium 3.8 Chloride 110 H Carbon Dioxide 30.8 Anion Gap 8 BUN 62 H Creatinine 2.94 H Estimated GFR 20 L POC Glucose 283 H 232 H Random Glucose 229 H Hemoglobin A1c Calcium 9.4 Microbiology 01/30/18 19:00 Blood - Other Aerobic Blood Culture - Preliminary No growth in 2 days 01/30/18 19:00 Blood - Other Anaerobic Blood Culture - Preliminary No growth in 2 days 01/30/18 19:05 Blood - Other Aerobic Blood Culture - Preliminary No growth in 2 days 01/30/18 19:05 Blood - Other Anaerobic Blood Culture - Preliminary No growth in 2 days 01/30/18 10:25 Catheterized Urine Urine Culture - Preliminary Staphylococcus coag negative Assessment and Plan - Plan 62-year-old female with history of hypertension chronic kidney disease, history of CVA with mild right-sided right hemiparesis presenting with Acute encephalopathy- this am- stuporous- some eye opening and mumbling ( obtunded on admission)- work up in progress Acute Focal seizure-like activity of the left sided extremities/With twitching of the eyes History of previous CVA with right-sided hemiparesis -Head CT / MRI done -no acute findings -Get EEG, Echo- unremarkable -received 1 g Keppra IV -continue on 500 mg q 12 -Neurology ff no need for LP -restart Plavix/ASA PT/OT.speech ff Hypertension chronic. -NG tube was placed -Start meds per NG tube -Start amlodipine 10 mg daily, clonidine 0.2 mg p.o. every 8, doxazosin 8 mg at bedtime - Hydralazine 100 mg every 8 - add BB- and montior- Lopressor 100 mg bid Hypokalemia- improved - 10 meq KCL supplement Mild hypernatremia- - free water /NGT 50 cc q 4 - ff BMP St. coag negative UTI- - started rocephin IV - ff c and s >100,000 - final sensitivity pending Diabetes type 2 insulin requiring -Follow blood sugars 3 times daily and at bedtime with sliding scale for now - get [id number] -on TF- start Pureed diet - started Levemer 10 units HS- increased to 15 units as OP was on 20 units lantus HS History of hypothyroidism continue on Synthroid 25 mcg daily NG tube placed give all meds per NG tube.- MS improved -speech therapf ff - start pureed diet - if tolerating- DC NGT dietitian ff PT eval and treat- per niece at bedisde - she uses a wheelchair Teds SCDs for DVT prophylaxis. startLovenox SQ for DVT prophylaxis no plan for LP- MS improved Discussed with family-niece- Brittney- who is healthcare surrogate. Full code 01/30
--- NOTE | 2018-02-01 13:27 | ECHRPT ---
Indication: cva CONCLUSIONS Normal left ventricular size. Mild concentric left ventricular hypertrophy. The left ventricular systolic function is normal with an estimated ejection fraction in the range of 55-60%. There is mild tricuspid valve regurgitation. The estimated pulmonary arterial pressure is 28 mmHg. BP: / HR: Rhythm: MEASUREMENTS (Male / Female) Normal Values Technical Quality: 2D ECHO LV Diastolic Diameter PLAX 4.2 cm 4.2 - 5.9 / 3.9 - 5.3 cm LV Systolic Diameter PLAX 3.1 cm IVS Diastolic Thickness 1.3 cm 0.6 - 1.0 / 0.6 - 0.9 cm LVPW Diastolic Thickness 1.4 cm 0.6 - 1.0 / 0.6 - 0.9 cm LV Relative Wall Thickness 0.6 RV Internal Dim ED PLAX 2.2 cm LVOT Diameter 1.9 cm Aortic Root Diameter 2.7 cm LA Systolic Diameter LX 2.9 cm 3.0 - 4.0 / 2.7 - 3.8 cm LV Ejection Fraction MOD 4C 59.0 % LV Ejection Fraction 4C AL 60.7 % DOPPLER AV Peak Velocity 174.0 cm/s AV Peak Gradient 12.1 mmHg LVOT Peak Velocity 107.0 cm/s LVOT Peak Gradient 4.6 mmHg AV Area Cont Eq pk 1.7 cm Mitral E Point Velocity 63.7 cm/s Mitral A Point Velocity 83.4 cm/s Mitral E to A Ratio 0.8 LV E' Lateral Velocity 9.8 cm/s Mitral E to LV E' Lateral Ratio 6.5 LV E' Septal Velocity 6.9 cm/s Mitral E to LV E' Septal Ratio 9.2 TR Peak Velocity 209.0 cm/s TR Peak Gradient 17.0 mmHg Right Atrial Pressure 10.0 mmHg Pulmonary Artery Systolic Pressu 27.5 mmHg Right Ventricular Systolic Press 27.5 mmHg PV Peak Velocity 129.0 cm/s PV Peak Gradient 6.7 mmHg FINDINGS LEFT VENTRICLE Normal left ventricular size. Mild concentric left ventricular hypertrophy. The left ventricular systolic function is normal with an estimated ejection fraction in the range of 55-60%. TRICUSPID VALVE There is mild tricuspid valve regurgitation. The estimated pulmonary arterial pressure is 28 mmHg. Peyton Buck MD (Electronically Signed) Final Date:01 February 2018 13:26
[2018-02-01] MEDS: Enoxaparin Inj 30 MG/0.3 ML Syringe SQ SCH (13:59)
[2018-02-01] MEDS ORDERED: Insulin Detemir Inj 1,000 UNIT/10 ML Vial SQ SCH (21:00)
[2018-02-02] MEDS: Insulin NovoLOG Aspart Correctional Sugar Inj SQ SCH ×5 (01:07→17:02)
[2018-02-02] MEDS: Ferrous Sulfate 325 MG Tablet PO SCH ×4 (07:21→17:02)
[2018-02-02] MEDS: Gabapentin 100 MG Capsule PO SCH ×4 (07:21→17:02)
[2018-02-02] MEDS: Enoxaparin Inj 30 MG/0.3 ML Syringe SQ SCH (08:10)
[2018-02-02] MEDS: Pantoprazole Sodium 20 MG DR Tablet PO SCH (08:10)
[2018-02-02] MEDS: amLODIPine 10 MG Tablet PO SCH (08:11)
[2018-02-02] MEDS: Metoprolol Tartrate 100 MG Tablet PO SCH ×2 (08:11→20:15)
[2018-02-02] MEDS: Doxazosin 4 MG Tablet PO SCH (08:11)
[2018-02-02] MEDS: Citalopram 20 MG Tablet PO SCH (08:11)
[2018-02-02] MEDS: Potassium Chloride 10 MEQ ER Capsule PO SCH (08:12)
[2018-02-02] MEDS: Calcitriol 0.25 MCG Capsule PO SCH (08:12)
[2018-02-02] MEDS: Polyethylene Glycol 3350 17 GM Packet PO SCH (08:12)
--- NOTE | 2018-02-02 13:59 | P.PN ---
Subjective Interval history: patient is now very much awake and alert, interactive, pleasant dnies any pain states baseline wheelchair bound baseline left sided weakenss Physical Exam Vital signs: Vital Signs 02/01/18 14:00 02/01/18 14:30 02/01/18 15:00 Temperature Pulse Rate 86 84 83 Respiratory Rate 11 L 10 L 11 L Blood Pressure 161/69 H 174/74 H 177/75 H Pulse Oximetry 100 100 100 02/01/18 15:30 02/01/18 16:00 02/01/18 16:30 Temperature Pulse Rate 83 83 83 Respiratory Rate 11 L 8 L 11 L Blood Pressure 173/73 H 159/70 H 180/74 H Pulse Oximetry 100 100 100 02/01/18 17:00 02/01/18 17:22 02/01/18 17:31 Temperature Pulse Rate 83 83 83 Respiratory Rate 8 L 9 L 11 L Blood Pressure 201/81 H 198/79 H Pulse Oximetry 100 100 100 02/01/18 18:00 02/01/18 18:30 02/01/18 19:00 Temperature Pulse Rate 83 85 86 Respiratory Rate 12 17 12 Blood Pressure 186/79 H 178/76 H 171/76 H Pulse Oximetry 100 100 100 02/01/18 19:26 02/01/18 19:30 02/01/18 20:00 Temperature 98.4 F Pulse Rate 86 83 Respiratory Rate 11 L 13 Blood Pressure 167/73 H 169/72 H Pulse Oximetry 100 100 100 02/01/18 20:30 02/01/18 21:00 02/01/18 21:30 Temperature Pulse Rate 83 83 83 Respiratory Rate 17 11 L 14 Blood Pressure 161/71 H 181/78 H 199/82 H Pulse Oximetry 100 100 100 02/01/18 21:41 02/01/18 22:00 02/01/18 23:00 Temperature Pulse Rate 85 84 81 Respiratory Rate 15 12 11 L Blood Pressure 195/66 H 197/83 H Pulse Oximetry 100 100 100 02/02/18 00:00 02/02/18 01:00 02/02/18 01:04 Temperature 98.2 F Pulse Rate 80 80 80 Respiratory Rate 13 15 16 Blood Pressure 205/84 H 185/79 H Pulse Oximetry 100 100 99 02/02/18 02:00 02/02/18 02:08 02/02/18 02:21 Temperature Pulse Rate 79 80 81 Respiratory Rate 13 18 16 Blood Pressure 207/88 H 204/79 H 174/74 H Pulse Oximetry 99 100 81 L 02/02/18 03:00 02/02/18 04:00 02/02/18 05:00 Temperature 98.9 F Pulse Rate 80 78 77 Respiratory Rate 19 13 13 Blood Pressure 174/86 H Pulse Oximetry 97 99 100 02/02/18 06:00 02/02/18 06:43 02/02/18 07:00 Temperature Pulse Rate 82 86 86 Respiratory Rate 20 11 L 18 Blood Pressure 203/87 H 210/93 H Pulse Oximetry 100 97 100 02/02/18 07:56 02/02/18 08:00 02/02/18 09:00 Temperature 98.5 F Pulse Rate 85 86 83 Respiratory Rate 23 17 10 L Blood Pressure 186/74 H 187/77 H Pulse Oximetry 99 99 100 02/02/18 09:02 02/02/18 10:00 02/02/18 11:00 Temperature Pulse Rate 79 79 Respiratory Rate 11 L 8 L Blood Pressure 150/69 H Pulse Oximetry 100 96 95 02/02/18 12:00 02/02/18 13:00 Temperature Pulse Rate 79 78 Respiratory Rate 14 12 Blood Pressure 167/73 H Pulse Oximetry 98 100 Intake & Output 02/01/18 02/02/18 02/02/18 18:59 06:59 18:59 Intake Total 904 / 904 540 / 540 Output Total 1650 / 1650 650 / 650 Balance -746 / -746 -110 / -110 Weight 78.8 kg Intake: IV 412 / 412 1/2 Normal Saline Inj 1,000 ML 412 / 412 @ 42 mls/hr IV.CONT .[id number] [facility] Rx#:[id number] Oral 540 / 540 Tube Feeding 312 / 312 Water Bolus Amount 180 / 180 Output: Urine 650 / 650 Urine Amount (Catheter) 1650 / 1650 Indwelling Urethral Catheter 1650 / 1650 Other: Date of Last Bowel Movement 02/01/18 02/01/18 01/31/18 # Bowel Movements 1 Narrative: GENERAL: Patient lying in bed not in respiratory distress. awake and alert, oriented x 3, interactive. speech slow but clear SKIN: Warm and dry. HEAD: Normocephalic. EYES: No scleral icterus. No injection or drainage. NECK: Supple, trachea midline. No JVD or lymphadenopathy. CARDIOVASCULAR: Regular rate and rhythm without murmurs, gallops, or rubs. RESPIRATORY: Breath sounds equal bilaterally. No accessory muscle use. GASTROINTESTINAL: Abdomen soft, non-tender, nondistended. MUSCULOSKELETAL: No cyanosis, or edema. Left sided weakness - Urinary Catheter Management Indwelling Urethral Catheter Cath placed during this visit: yes, but has since been removed by the nurse Urethral indwelling: Yes Reason for continuing: Decision to DC catheter Insertion date: 01/30/18 Insertion time: 17:25 Removal date: 02/01/18 Removal time: 17:00 Results - Labs CBC & Chem 7: 01/31/18 09:10 02/01/18 06:13 Laboratory Results - last 24 hr 02/01/18 02/02/18 02/02/18 17:25 01:06 06:15 POC Glucose 321 H 377 H 74 02/02/18 13:02 POC Glucose 224 H Microbiology 01/30/18 10:25 Catheterized Urine Urine Culture - Final Staphylococcus haemolyticus 01/30/18 19:00 Blood - Other Aerobic Blood Culture - Preliminary No growth in 3 days 01/30/18 19:00 Blood - Other Anaerobic Blood Culture - Preliminary No growth in 3 days 01/30/18 19:05 Blood - Other Aerobic Blood Culture - Preliminary No growth in 3 days 01/30/18 19:05 Blood - Other Anaerobic Blood Culture - Preliminary No growth in 3 days Assessment and Plan - Plan 62-year-old female with history of hypertension chronic kidney disease, history of CVA with mild right-sided right hemiparesis presenting with Acute encephalopathy- RESOLVED Acute Focal seizure-like activity of the left sided extremities/With twitching of the eyes History of previous CVA with right-sided hemiparesis- motor strength baseline -Head CT / MRI done -no acute findings -EEG, Echo- unremarkable -received 1 g Keppra IV on admission -continue on 500 mg q 12 - doing well- change to po -Neurology ff no need for LP -restarted Plavix/ASA - PT/OT.speech ff Hypertension chronic. -NG tube removed- tolerating pureed diet -Start amlodipine 10 mg daily, clonidine 0.2 mg p.o. every 8, doxazosin 8 mg at bedtime - Hydralazine 100 mg every 8 -Lopressor 100 mg bid - continue to monitor and adjust Hypokalemia- improved - 10 meq KCL supplement Mild hypernatremia- - free water /NGT 50 cc q 4 - ff BMP St. coag negative UTI- - started rocephin IV - ff c and s >100,000 - final sensitivity pending Diabetes type 2 insulin requiring -Follow blood sugars 3 times daily and at bedtime with sliding scale for now - [id number] - Pureed diet - as OP was on 20 units lantus HS - Levemer 20unis SQ bid + ss History of hypothyroidism continue on Synthroid 25 mcg daily NG tube placed give all meds per NG tube.- MS improved- NGT removed today 02/02 -speech therapf ff - start pureed diet dietitian ff PT eval and treat- per niece at [facility] - she uses a wheelchair transfer to [facility] for DVT prophylaxis. Lovenox SQ for DVT prophylaxis no plan for LP- MS improved Discussed with family-niece- Brittney- who is healthcare surrogate. Full code 10/ 6 CM consult for DC planning
[2018-02-02] MEDS: Insulin Detemir Inj 1,000 UNIT/10 ML Vial SQ SCH (20:15)
[2018-02-02] MEDS: levETIRAcetam 500 MG Tablet PO SCH (20:15)
[2018-02-03] MEDS ORDERED: hydrALAZINE HCl Inj 20 MG/ML Vial IV.PUSH ONE (00:27)
[2018-02-03] MEDS: Insulin NovoLOG Aspart Correctional Sugar Inj SQ SCH ×4 (00:44→19:24)
[2018-02-03] MEDS: Potassium Chloride 10 MEQ ER Capsule PO SCH (08:13)
[2018-02-03] MEDS: Gabapentin 100 MG Capsule PO SCH ×3 (08:14→19:00)
[2018-02-03] MEDS: Citalopram 20 MG Tablet PO SCH (08:14)
[2018-02-03] MEDS: Ferrous Sulfate 325 MG Tablet PO SCH ×3 (08:24→19:00)
[2018-02-03] MEDS: Doxazosin 4 MG Tablet PO SCH (08:24)
[2018-02-03] MEDS: Pantoprazole Sodium 20 MG DR Tablet PO SCH (08:24)
[2018-02-03] MEDS: amLODIPine 10 MG Tablet PO SCH (08:24)
[2018-02-03] MEDS: Calcitriol 0.25 MCG Capsule PO SCH (08:24)
[2018-02-03] MEDS: Metoprolol Tartrate 100 MG Tablet PO SCH ×2 (08:24→21:24)
[2018-02-03] MEDS: levETIRAcetam 500 MG Tablet PO SCH ×2 (08:24→21:23)
[2018-02-03] MEDS: Enoxaparin Inj 30 MG/0.3 ML Syringe SQ SCH (08:25)
[2018-02-03] MEDS: Polyethylene Glycol 3350 17 GM Packet PO SCH (08:26)
[2018-02-03] MEDS: Insulin Detemir Inj 1,000 UNIT/10 ML Vial SQ SCH ×2 (08:33→21:24)
[2018-02-03 08:46] LABS: Albumin 2.9 g/dL (3.4-5.0); Calcium 10.3 mg/dL (8.5-10.1); Carbon Dioxide 29.3 meq/L (21.0-32.0); Phosphorus 1.9 mg/dL (2.5-4.9); Potassium 3.8 meq/L (3.5-5.1)
--- NOTE | 2018-02-03 11:22 | P.PNIM ---
Subjective Interval history: No new complaints today. Mental status is returning towards baseline. Possible seizure as an etiology. Negative CVA workup. Physical Exam Vital signs: Vital Signs 02/02/18 12:00 02/02/18 13:00 02/02/18 14:00 Temperature Pulse Rate 79 78 85 Respiratory Rate 14 12 14 Blood Pressure 167/73 H 155/70 H Pulse Oximetry 98 100 97 02/02/18 15:00 02/02/18 16:00 02/02/18 17:00 Temperature Pulse Rate 78 79 76 Respiratory Rate 16 12 11 L Blood Pressure 173/76 H Pulse Oximetry 97 93 L 93 L 02/02/18 18:00 02/02/18 18:01 02/02/18 19:00 Temperature Pulse Rate 78 77 76 Respiratory Rate 12 12 14 Blood Pressure 166/72 H Pulse Oximetry 97 98 96 02/02/18 20:00 02/02/18 21:00 02/02/18 21:42 Temperature 97.8 F Pulse Rate 79 75 Respiratory Rate 14 12 Blood Pressure 180/79 H Pulse Oximetry 96 97 99 02/02/18 22:00 02/02/18 22:04 02/02/18 22:08 Temperature Pulse Rate 74 76 74 Respiratory Rate 12 18 13 Blood Pressure 205/91 H 195/84 H 206/83 H Pulse Oximetry 100 98 98 02/02/18 22:11 02/02/18 22:45 02/02/18 22:47 Temperature Pulse Rate 75 73 74 Respiratory Rate 14 12 12 Blood Pressure 186/78 H 193/81 H 209/88 H Pulse Oximetry 97 99 97 02/02/18 22:48 02/02/18 22:51 02/02/18 23:00 Temperature Pulse Rate 81 73 70 Respiratory Rate 11 L 14 11 L Blood Pressure 187/81 H 177/83 H Pulse Oximetry 96 93 L 99 02/02/18 23:54 02/03/18 00:00 02/03/18 00:41 Temperature 98 F Pulse Rate 74 73 74 Respiratory Rate 17 17 14 Blood Pressure 182/94 H 213/100 H Pulse Oximetry 99 97 96 02/03/18 00:44 02/03/18 01:00 02/03/18 02:00 Temperature Pulse Rate 73 75 75 Respiratory Rate 13 13 24 Blood Pressure 174/98 H Pulse Oximetry 99 100 97 02/03/18 02:34 02/03/18 02:36 02/03/18 03:00 Temperature Pulse Rate 75 75 74 Respiratory Rate 15 11 L 14 Blood Pressure 195/92 H 166/73 H Pulse Oximetry 100 100 95 02/03/18 03:01 02/03/18 04:00 02/03/18 04:01 Temperature 98.4 F Pulse Rate 73 73 77 Respiratory Rate 14 11 L 10 L Blood Pressure 184/83 H 172/80 H Pulse Oximetry 96 96 91 L 02/03/18 05:00 02/03/18 05:01 02/03/18 06:00 Temperature Pulse Rate 72 75 74 Respiratory Rate 11 L 11 L 23 Blood Pressure 157/73 H Pulse Oximetry 95 98 95 02/03/18 06:01 02/03/18 07:00 02/03/18 07:34 Temperature 98 F Pulse Rate 72 72 Respiratory Rate 21 18 Blood Pressure 172/74 H 192/80 H Pulse Oximetry 97 97 94 L 02/03/18 08:00 02/03/18 09:00 02/03/18 10:00 Temperature Pulse Rate 74 77 71 Respiratory Rate 18 17 19 Blood Pressure 216/101 H 173/77 H 171/74 H Pulse Oximetry 100 99 97 Intake & Output 02/02/18 02/03/18 02/03/18 18:59 06:59 18:59 Intake Total 500 / 500 500 / 500 Output Total 900 / 900 500 / 500 Balance -400 / -400 0 / 0 Weight 81.1 kg Intake: Oral 500 / 500 500 / 500 Output: Urine 900 / 900 500 / 500 Other: Date of Last Bowel Movement 02/01/18 01/31/18 01/31/18 # Bowel Movements 0 Narrative: GENERAL: NAD, A&Ox2 HEAD: Normocephalic. NECK: Supple, trachea midline. No lymphadenopathy. EYES: No scleral icterus. No injection or drainage. CARDIOVASCULAR: Regular rate and rhythm without murmurs, gallops, or rubs. RESPIRATORY: Breath sounds equal bilaterally. No accessory muscle use. GASTROINTESTINAL: Abdomen soft, non-tender, nondistended. MUSCULOSKELETAL: No cyanosis, or edema. SKIN: Warm and dry. NEURO: No focal neurological deficits. Generalized weakness. - Urinary Catheter Management Indwelling Urethral Catheter Cath placed during this visit: yes, but has since been removed by the nurse Urethral indwelling: Yes Reason for continuing: Decision to DC catheter Insertion date: 01/30/18 Insertion time: 17:25 Removal date: 02/01/18 Removal time: 17:00 Results - Labs CBC & Chem 7: 01/31/18 09:10 02/03/18 05:36 Laboratory Results - last 24 hr 02/02/18 02/02/18 02/02/18 13:02 17:01 23:09 Sodium Potassium Chloride Carbon Dioxide Anion Gap BUN Creatinine Estimated GFR POC Glucose 224 H 307 H 243 H Random Glucose Calcium Phosphorus Albumin 02/03/18 02/03/18 02/03/18 05:03 05:36 08:33 Sodium 144 Potassium 3.8 Chloride 107 Carbon Dioxide 29.3 Anion Gap 8 BUN 44 H Creatinine 2.10 H Estimated GFR 29 L POC Glucose 157 H 227 H Random Glucose 133 H Calcium 10.3 H D Phosphorus 1.9 L Albumin 2.9 L Microbiology 02/02/18 06:55 Blood - Peripheral Aerobic Blood Culture - Preliminary No growth in 1 day 02/02/18 06:55 Blood - Peripheral Anaerobic Blood Culture - Preliminary No growth in 1 day 02/02/18 06:50 Blood - Peripheral Aerobic Blood Culture - Preliminary No growth in 1 day 02/02/18 06:50 Blood - Peripheral Anaerobic Blood Culture - Preliminary No growth in 1 day 01/30/18 19:00 Blood - Other Aerobic Blood Culture - Preliminary No growth in 4 days 01/30/18 19:00 Blood - Other Anaerobic Blood Culture - Preliminary No growth in 4 days 01/30/18 19:05 Blood - Other Aerobic Blood Culture - Preliminary No growth in 4 days 01/30/18 19:05 Blood - Other Anaerobic Blood Culture - Preliminary No growth in 4 days 01/30/18 10:25 Catheterized Urine Urine Culture - Final Staphylococcus haemolyticus Assessment and Plan - Plan 62-year-old female with history of hypertension chronic kidney disease, history of CVA with mild right-sided right hemiparesis presenting acute encephalopathy Acute encephalopathy Possible seizure Improving Continue Keppra Neurology following Continue Plavix and aspirin History of CVA Chronic right hemiparesis Supportive care Patient's functional status is with wheelchair Continue physical therapy Hypertension Chronic Continue amlodipine Doxazosin Continue beta-german Continue hydralazine Continue clonidine Follow blood pressures Hypokalemia Monitor and replace as needed Hypernatremia Follow clinically UTI Rocephin Follow cultures Diabetes mellitus type 2 Follow blood sugars Insulin sliding scale Diabetic diet Continue Levemir Hypothyroidism Continue Synthroid Dysphasia Speech therapy following Pured diet DVT prophylaxis Lovenox
--- NOTE | 2018-02-03 19:57 | P.PNNP ---
Subjective Interval history: Pt much more alert and appears to be at her baseline. Remains in ICU bed, but has been downgraded. Physical Exam Vital signs: Vital Signs 02/02/18 20:00 02/02/18 21:00 02/02/18 21:42 Temperature 97.8 F Pulse Rate 79 75 Respiratory Rate 14 12 Blood Pressure 180/79 H Pulse Oximetry 96 97 99 02/02/18 22:00 02/02/18 22:04 02/02/18 22:08 Temperature Pulse Rate 74 76 74 Respiratory Rate 12 18 13 Blood Pressure 205/91 H 195/84 H 206/83 H Pulse Oximetry 100 98 98 02/02/18 22:11 02/02/18 22:45 02/02/18 22:47 Temperature Pulse Rate 75 73 74 Respiratory Rate 14 12 12 Blood Pressure 186/78 H 193/81 H 209/88 H Pulse Oximetry 97 99 97 02/02/18 22:48 02/02/18 22:51 02/02/18 23:00 Temperature Pulse Rate 81 73 70 Respiratory Rate 11 L 14 11 L Blood Pressure 187/81 H 177/83 H Pulse Oximetry 96 93 L 99 02/02/18 23:54 02/03/18 00:00 02/03/18 00:41 Temperature 98 F Pulse Rate 74 73 74 Respiratory Rate 17 17 14 Blood Pressure 182/94 H 213/100 H Pulse Oximetry 99 97 96 02/03/18 00:44 02/03/18 01:00 02/03/18 02:00 Temperature Pulse Rate 73 75 75 Respiratory Rate 13 13 24 Blood Pressure 174/98 H Pulse Oximetry 99 100 97 02/03/18 02:34 02/03/18 02:36 02/03/18 03:00 Temperature Pulse Rate 75 75 74 Respiratory Rate 15 11 L 14 Blood Pressure 195/92 H 166/73 H Pulse Oximetry 100 100 95 02/03/18 03:01 02/03/18 04:00 02/03/18 04:01 Temperature 98.4 F Pulse Rate 73 73 77 Respiratory Rate 14 11 L 10 L Blood Pressure 184/83 H 172/80 H Pulse Oximetry 96 96 91 L 02/03/18 05:00 02/03/18 05:01 02/03/18 06:00 Temperature Pulse Rate 72 75 74 Respiratory Rate 11 L 11 L 23 Blood Pressure 157/73 H Pulse Oximetry 95 98 95 02/03/18 06:01 02/03/18 07:00 02/03/18 07:34 Temperature 98 F Pulse Rate 72 72 Respiratory Rate 21 18 Blood Pressure 172/74 H 192/80 H Pulse Oximetry 97 97 94 L 02/03/18 08:00 02/03/18 09:00 02/03/18 10:00 Temperature Pulse Rate 74 77 71 Respiratory Rate 18 17 19 Blood Pressure 216/101 H 173/77 H 171/74 H Pulse Oximetry 100 99 97 02/03/18 11:00 02/03/18 12:00 02/03/18 13:00 Temperature 98.2 F Pulse Rate 66 69 68 Respiratory Rate 17 17 18 Blood Pressure 128/80 176/77 H 217/91 H Pulse Oximetry 98 100 98 02/03/18 14:00 02/03/18 15:00 02/03/18 16:00 Temperature 98.2 F Pulse Rate 66 68 67 Respiratory Rate 17 16 17 Blood Pressure 141/66 H 157/76 H Pulse Oximetry 100 99 100 02/03/18 17:00 02/03/18 18:00 Temperature 98.2 F Pulse Rate 69 71 Respiratory Rate 18 17 Blood Pressure 196/86 H 169/134 H Pulse Oximetry 100 100 Intake & Output 02/03/18 02/03/18 02/04/18 06:59 18:59 06:59 Intake Total 500 / 500 700 / 700 Output Total 500 / 500 1200 / 1200 Balance 0 / 0 -500 / -500 Weight 81.1 kg Intake: Oral 500 / 500 700 / 700 Output: Urine 500 / 500 1200 / 1200 Other: Date of Last Bowel Movement 01/31/18 01/31/18 # Bowel Movements 0 - Constitutional no acute distress - Routine HEENT Exam Head: Present: normocephalic - Routine Neck Exam Present: supple - Routine Respiratory Exam Present: decreased breath sounds - Routine Cardiovascular Exam Present: RRR, S1, S2 - Routine Abdominal Exam Present: soft - Routine Extremities Exam Absent: edema - Routine Skin Exam Present: intact - Routine Neurological Exam Present: alert - Urinary Catheter Management Indwelling Urethral Catheter Cath placed during this visit: yes, but has since been removed by the nurse Urethral indwelling: Yes Reason for continuing: Decision to DC catheter Insertion date: 01/30/18 Insertion time: 17:25 Removal date: 02/01/18 Removal time: 17:00 Assessment and Plan - Assessment (1) CKD (chronic kidney disease), stage IV Code(s): N18.4 - Chronic kidney disease, stage 4 (severe) Status: Acute Plan: Renal functions at baseline. Will sign off. She is an outpatient of ours and should be seen within 2-3 weeks post discharge. Medications should be adjusted for the patient's estimated GFR if clinically indicated. Avoid agents with significant potential for nephrotoxicity possible including NSAIDs for analgesia, iodine contrast agents. Gadolinium is contraindicated if the GFR is below 30. 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 (3) Anemia of renal disease Code(s): D63.1 - Anemia in chronic kidney disease Status: Acute Plan: Patient was on erythropoietin replacement therapy at the long term. Will continue. (4) Hypertension associated with stage 4 chronic kidney disease due to type 2 diabetes mellitus Code(s): E11.22 - Type 2 diabetes mellitus with diabetic chronic kidney disease ; I12.9 - Hypertensive chronic kidney disease with stage 1 through stage 4 chronic kidney disease, or unspecified chronic kidney disease; N18.4 - Chronic kidney disease, stage 4 (severe) Status: Acute (5) Secondary hyperparathyroidism of renal origin Code(s): N25.81 - Secondary hyperparathyroidism of renal origin Status: Acute Plan: Serum calcium mildly elevated today. Decrease Calcitriol to 0.25mcg M-F
[2018-02-03] MEDS ORDERED: Calcitriol 0.25 MCG Capsule PO SCH ×2 (20:00→21:00)
[2018-02-03] MEDS: Epoetin Alfa Inj 20,000 UNIT/ML Vial SQ SCH (22:20)
[2018-02-04] MEDS: Insulin NovoLOG Aspart Correctional Sugar Inj SQ SCH ×3 (00:31→13:43)
[2018-02-04 07:59] LABS: Baso % (Auto) 0.7 % (0.0-2.0); Eos # (Auto) 0.3 th/mm3 (0.0-0.4); Eos % (Auto) 6.1 % (0.0-4.0); Hematocrit 30.4 % (35.0-46.0); Hemoglobin 9.6 gm/dL (11.6-15.3); Lymph # (Auto) 1.3 th/mm3 (1.0-4.8); Lymph % (Auto) 24.6 % (9.0-44.0); Mean Corpuscular HGB Conc 31.5 % (32.0-36.0); Mean Corpuscular Hemoglobin 26.4 pg (27.0-34.0); Mean Corpuscular Volume 83.6 fL (80.0-100.0); Mean Platelet Volume 9.1 fL (7.0-11.0); Mono # (Auto) 0.4 th/mm3 (0.0-0.9); Mono % (Auto) 8.1 % (0.0-8.0); Neut # (Auto) 3.2 th/mm3 (1.8-7.7); Neut % (Auto) 60.5 % (16.0-70.0); Platelet Count 183 th/mm3 (150-450); Red Blood Count 3.64 mil/mm3 (4.00-5.30); Red Cell Distribution Width 16.6 % (11.6-17.2); White Blood Count 5.3 th/mm3 (4.0-11.0)
[2018-02-04 08:04] VITALS: RESP 16
[2018-02-04 08:19] LABS: Albumin 2.8 g/dL (3.4-5.0); Anion Gap 9 meq/L (5-15); Aspartate Aminotransferase 11 U/L (15-37); Blood Urea Nitrogen 39 mg/dL (7-18); Calcium 10.6 mg/dL (8.5-10.1); Carbon Dioxide 28.2 meq/L (21.0-32.0); Chloride 102 meq/L (98-107); Glomerular Filtration Rate 29 mL/min (>89); Glucose,Random 68 mg/dL (74-106); Potassium 3.7 meq/L (3.5-5.1); Sodium 139 meq/L (136-145)
[2018-02-04 08:20] LABS: Alanine Aminotransferase 20 U/L (10-53); Phosphorus 2.6 mg/dL (2.5-4.9)
[2018-02-04 08:22] LABS: Alkaline Phosphatase 101 U/L (45-117); Total Protein 7.6 g/dL (6.4-8.2)
[2018-02-04] MEDS: Enoxaparin Inj 30 MG/0.3 ML Syringe SQ SCH (09:06)
[2018-02-04] MEDS: levETIRAcetam 500 MG Tablet PO SCH (09:06)
[2018-02-04] MEDS: Gabapentin 100 MG Capsule PO SCH ×2 (09:06→13:26)
[2018-02-04] MEDS: Citalopram 20 MG Tablet PO SCH (09:06)
[2018-02-04] MEDS: Ferrous Sulfate 325 MG Tablet PO SCH ×2 (09:07→13:26)
[2018-02-04] MEDS: amLODIPine 10 MG Tablet PO SCH (09:07)
[2018-02-04] MEDS: Potassium Chloride 10 MEQ ER Capsule PO SCH (09:07)
[2018-02-04] MEDS: Metoprolol Tartrate 100 MG Tablet PO SCH (09:07)
[2018-02-04] MEDS: Polyethylene Glycol 3350 17 GM Packet PO SCH (09:10)
[2018-02-04] MEDS: Pantoprazole Sodium 20 MG DR Tablet PO SCH (09:11)
[2018-02-04] MEDS: Insulin Detemir Inj 1,000 UNIT/10 ML Vial SQ SCH (09:30)
[2018-02-04] MEDS: Doxazosin 4 MG Tablet PO SCH (11:21)
[2018-02-04 12:41] VITALS: O2SAT 97
--- NOTE | 2018-02-04 13:32 | P.DS ---
Date of admission: 01/30/18 11:49 Primary care physician: King Degroot MD Brief History from admission: Patient is a 62-year-old female who was sent here from group home because of acute change in mental status. history obtained from review of group home records and I called up her niece Brittney who is her healthcare surrogate. known history of diabetes mellitus type 2, chronic kidney disease at one point was on hemodialysis but has been off it for 8 months now, history of CVA x2 with right-sided weakness baseline independent with ADLs, she is able to walk with short distance with standby assist,but most of the time gets around with her wheelchair. Per group home staff and patient is very talkative and alert , eats on her own and is continent of urine. Yesterday morning staff noted that patient mumbling however was able to get up to go to the dining room area to eat. They check her blood sugar states reportedly was good. Last evening started vomiting. noted Poor p.o. intake ate only 25% of dinner. This morning had another episode of vomiting with bilious "greenish color". Was drowsy. No fever reported check her blood sugars which are around 200s. Her blood pressure this morning was 131/77. On evaluation patient is unresponsive, eyes opened when vigorously called open her eyes but seem to have blank stares, noted jerking movements of the left sided extremities. Constant twitching of both eyes. Neck was rigid to exam. Temperature is normal. At bedside patient constantly nauseated and coughing/spitting up a lot of saliva -clear whitish At the ER head CT was done and MRI showed no acute findings. Patient admitted for further evaluation and management. DS: Medications - Discharge Medications Prescriptions: levetiracetam [Keppra] 250 mg PO BID #60 tab oxycodone 5 mg PO BID #10 tab DS: Summary Hospital Course: Mrs. Greenberg is a 62-year-old female. She was admitted secondary to hypertension, UTI, and encephalopathy. Etiology for her encephalopathy was worked up and found to likely be related to a seizure. Keppra has been initiated as an additional treatment to her baseline treatments. Her mentation has returned back to baseline. She is medically stable and cleared for return back to [facility]. - Time Spent with Patient Total time spent providing and/or coordinating discharge services: Greater than 30 minutes Exam Vital signs: Vital Signs 02/03/18 14:00 02/03/18 15:00 02/03/18 16:00 Temperature 98.2 F Pulse Rate 66 68 67 Respiratory Rate 17 16 17 Blood Pressure 141/66 H 157/76 H Pulse Oximetry 100 99 100 02/03/18 17:00 02/03/18 18:00 02/03/18 19:00 Temperature 98.2 F 98.4 F Pulse Rate 69 71 75 Respiratory Rate 18 17 20 Blood Pressure 196/86 H 169/134 H 186/84 H Pulse Oximetry 100 100 100 02/03/18 23:00 02/04/18 04:00 02/04/18 08:00 Temperature 98.0 F 98.5 F 98.9 F Pulse Rate 74 74 74 Respiratory Rate 22 22 16 Blood Pressure 172/74 H 150/72 H 144/65 H Pulse Oximetry 98 98 97 02/04/18 10:04 02/04/18 12:00 Temperature 98.6 F Pulse Rate 82 Respiratory Rate 16 Blood Pressure 167/70 H Pulse Oximetry 92 L 97 Intake & Output 02/03/18 02/04/18 02/04/18 18:59 06:59 18:59 Intake Total 700 / 700 Output Total 1200 / 1200 425 / 425 Balance -500 / -500 -425 / -425 Weight 79.3 kg Intake: Oral 700 / 700 Output: Urine 1200 / 1200 Urine Amount (Catheter) 425 / 425 Indwelling Urethral Catheter 425 / 425 Other: Date of Last Bowel Movement 01/31/18 01/31/18 # Bowel Movements 0 Weight On Admission 79.3 kg Results Procedures completed during hospitalization: None Labs on day of discharge: Labs from last 24 hours 02/04/18 02/04/18 02/04/18 12:21 07:03 07:03 WBC 5.3 RBC 3.64 L Hgb 9.6 L Hct 30.4 L MCV 83.6 MCH 26.4 L MCHC 31.5 L RDW 16.6 Plt Count 183 MPV 9.1 Neut % (Auto) 60.5 Lymph % (Auto) 24.6 Craven % (Auto) 8.1 H Eos % (Auto) 6.1 H Baso % (Auto) 0.7 Neut # (Auto) 3.2 Lymph # (Auto) 1.3 Craven # (Auto) 0.4 Eos # (Auto) 0.3 Baso # (Auto) 0.0 WBC Differential . Differential Comment Auto diff final Sodium 139 Potassium 3.7 Chloride 102 Carbon Dioxide 28.2 Anion Gap 9 BUN 39 H Creatinine 2.09 H Estimated GFR 29 L POC Glucose 160 H Random Glucose 68 L Calcium 10.6 H Phosphorus 2.6 Total Bilirubin 0.2 AST 11 L ALT 20 Alkaline Phosphatase 101 Total Protein 7.6 D Albumin 2.8 L 02/04/18 02/03/18 02/03/18 05:45 23:54 19:05 WBC RBC Hgb Hct MCV MCH MCHC RDW Plt Count MPV Neut % (Auto) Lymph % (Auto) Craven % (Auto) Eos % (Auto) Baso % (Auto) Neut # (Auto) Lymph # (Auto) Craven # (Auto) Eos # (Auto) Baso # (Auto) WBC Differential Differential Comment Sodium Potassium Chloride Carbon Dioxide Anion Gap BUN Creatinine Estimated GFR POC Glucose 89 291 H 325 H Random Glucose Calcium Phosphorus Total Bilirubin AST ALT Alkaline Phosphatase Total Protein Albumin Preliminary micro results at discharge 02/02/18 06:55 Aerobic Blood Culture - Preliminary Blood - Peripheral No growth in 2 days Anaerobic Blood Culture - Preliminary No growth in 2 days 02/02/18 06:50 Aerobic Blood Culture - Preliminary Blood - Peripheral No growth in 2 days Anaerobic Blood Culture - Preliminary No growth in 2 days - Impressions ITS Impressions Carotid Doppler Study 01/30/18 00:00 CONCLUSION: Unremarkable carotid ultrasound. No focal high-grade or hemodynamically significant stenosis. Chest X-Ray 01/30/18 10:25 CONCLUSION: Cardiomegaly. Head CT 01/30/18 10:25 CONCLUSION: 1. No acute abnormality or significant change is seen. 2. Low-density in the cerebral white matter likely from small vessel ischemic change. 3. Encephalomalacia involving portions of the left parietal and posterior frontal lobes. . Head MRI 01/30/18 11:38 CONCLUSION: 1. Stable follow-up MRI of the brain compared to the prior exam from 05/31/2016. 2. Stable encephalomalacia involving the left cerebral vertex suggestive of old infarction. 3. Stable chronic white matter changes. Abdomen X-Ray 01/30/18 16:12 CONCLUSION: 1. NG tube in stomach. 2. Benign-appearing abdomen. Discharge Plan - Discharge Disposition Patient Disposition: Discharge to SNF - Discharge Condition Condition: Stable - Discharge Order Discharge Orders: Discharge Order (Routine); Ordered 02/04/18 Ordered By: Ba Stephens - Discharge Details Anticipated Discharge Date: 02/04/18 - Physicians Team Primary Care Provider: King Degroot Attending Provider: Ba Stephens Other Providers: Abdiaziz Garrison MD ; Radha Vargas MD
[2018-02-04 15:42] VITALS: BP 159/85; PULSE 69; TEMP 98.5
== END 2018-02-04 16:55 ==
LOC: NEPE 09:49 → NEDA 11:49 → HIMC 14:50 → H7ONC 02-03 22:50
PROVIDERS: ADMIT Hospitalist; ATTEND Hospitalist